=== PATIENT | female | born 1945 | race Caucasian/White ===

== ENCOUNTER → 2017-09-07 09:41 | Outpatient (CLI) | payer MEDICARE, OTHER, SELFPAY ==
--- NOTE | 2017-09-07 09:47 | CDU_ITS ---
Reason For Study: Bruit Rt. Velocities/BP Lt. Velocities/BP Prox CCA 63/13 cm/sec. Prox CCA 77/11 cm/sec. Mid CCA 65/11 cm/sec. Mid CCA 74/10 cm/sec. Dist CCA 56/12 cm/sec. Dist CCA 71/12 cm/sec. Prox ICA 52/13 cm/sec. Prox ICA 104/15 cm/sec. Mid ICA 54/14 cm/sec. Mid ICA 60/19 cm/sec. Dist ICA 66/19 cm/sec. Dist ICA 75/21 cm/sec. Rt. ICA/CCA = 1.01. Lt. ICA/CCA = 1.40. Prox ECA 128/4 cm/sec. Prox ECA 141/8 cm/sec. Rt. Vert. 43/9 cm/sec. Lt. Vert. 46/13 cm/sec. Right Extracranial There is heterogeneous, irregular atherosclerotic plaque noted in the right common carotid artery. There is heterogeneous, irregular atherosclerotic plaque noted in the right internal carotid artery. There is heterogeneous, irregular atherosclerotic plaque noted in the right external carotid artery. Antegrade flow is noted in the right vertebral artery. Left Extracranial There is heterogeneous, irregular atherosclerotic plaque noted in the left common carotid artery. There is heterogeneous, irregular atherosclerotic plaque noted in the left internal carotid artery. There is heterogeneous, irregular atherosclerotic plaque noted in the left external carotid artery. Antegrade flow is noted in the left vertebral artery. Procedure Carotid Duplex 71088. Exam performed in department. 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 <50% stenosis right internal carotid Calcific plague with shadowing at the distal left common carotid, proximal external and internal carotid arteries. <50% stenosis left internal carotid Mild disease bilateral external carotids Patent and antegrade vertebrals bilaterally No significant change from the previous exam of 03/17/16 Ordering Physician: Coco, Dennis Referring Physician: Gudelia Gardiner Performed By: Rafaela Tejeda, DINA, RVT
--- NOTE | 2017-09-07 09:47 | ECHOD_ITS ---
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 Exam performed in department. Left Ventricle Normal LV size. Left ventricular systolic function is normal. The estimated ejection fraction is 60 %. Transmitral diastolic flow velocities suggest mild (stage 1) diastolic dysfunction (reversed pattern). No regional wall motion abnormalities noted. Right Ventricle Normal RV size. Normal systolic function. Atria Normal left atrium. Normal right atrium. Mitral Valve There is mild mitral annular calcification. Mild (1+) eccentric mitral valve insufficiency. Tricuspid Valve Normal tricuspid valve. Mild (1+) tricuspid valve insufficiency. Pulmonary artery systolic pressure is 23 mmHg. Aortic Valve Trisinus/trileaflet aortic valve. Mild focal aortic valve calcification. Peak aortic valve gradient 45 mmHg. Mean aortic valve gradient 28 mmHg. Moderate aortic stenosis. Mild (1+) eccentric aortic valve insufficiency. Pulmonic Valve Normal pulmonic valve. Trivial pulmonic valve insufficiency. Great Vessels Normal aortic root. The pulmonary artery is normal size. Normal inferior vena cava. Pericardium/Pleural No pericardial effusion. MMode/2D Measurements & Calculations LVIDd: 4.1 cm IVSd: 0.90 cm LVOT diam: 2.0 cm LVIDs: 2.4 cm LVPWd: 1.0 cm LVOT area: 3.2 cm2 RVDd: 2.8 cm FS: 42.4 % Ao root diam: 2.9 cm LAV(MOD-sp4): 61.0 ml EDV(MOD-sp4): 58.3 ml ESV(MOD-sp4): 13.5 ml EF(MOD-sp4): 76.9 % EDV(MOD-sp2): 50.8 ml SV(MOD-sp4): 44.8 ml SV(MOD-sp2): 37.9 ml EF(MOD-sp2): 74.5 % Aortic Valve Planimetry: 0.85 cm2 LA A4 area: 21.2 cm2 RA A4 area: 13.6 cm2 Doppler Measurements & Calculations MV E max morgan: 109.6 cm/sec Lat Peak E' Morgan: 3.5 cm/sec Med Peak E' Morgan: 3.6 cm/sec MV A max morgan: 137.6 cm/sec E/E' lat: 30.9 E/E' med: 30.3 MV E/A: 0.80 MV V2 max: 154.1 cm/sec Ao V2 max: 335.9 cm/sec AI max morgan: 422.9 cm/sec MV max P.5 mmHg Ao max P.2 mmHg AI max P.6 mmHg MV V2 mean: 92.6 cm/sec Ao V2 mean: 254.5 cm/sec AI dec slope: 282.6 cm/sec2 MV mean P.7 mmHg Ao mean P.0 mmHg AI P1/2t: 438.3 msec MV V2 VTI: 41.0 cm Ao V2 VTI: 78.6 cm MVA(VTI): 1.7 cm2 ANA(I,D): 0.86 cm2 ANA(V,D): 0.87 cm2 LV V1 max: 90.8 cm/sec SV(LVOT): 67.9 ml TR max morgan: 220.9 cm/sec LV V1 max P.3 mmHg TR max P.5 mmHg LV V1 mean P.9 mmHg LV V1 mean: 64.9 cm/sec LV V1 VTI: 21.0 cm Interpretation Summary Normal LV size. Left ventricular systolic function is normal. The estimated ejection fraction is 60 %. Transmitral diastolic flow velocities suggest mild (stage 1) diastolic dysfunction (reversed pattern). There is mild mitral annular calcification. Moderate aortic stenosis. Mild (1+) eccentric aortic valve insufficiency. Ordering Physician: Dennis Sepulveda Referring Physician: CAMILLA MASTERS Performed By: Ana Cornell, RDCS, RVT
== END ==
PROVIDERS: Family Provider Family Medicine; PCP Family Medicine; Visit Provider Internal Medicine Cardiovascular Disease
DX: I34.8 Other nonrheumatic mitral valve disorders (principal); I10 Essential (primary) hypertension; E78.5 Hyperlipidemia, unspecified; R09.89 Other specified symptoms and signs involving the circulatory and respiratory systems; Z79.899 Other long term (current) drug therapy
CPT/HCPCS: 93306; 93880

== ENCOUNTER → 2017-09-08 10:02 | Outpatient (CLI) | payer MEDICARE, OTHER, SELFPAY ==
[2017-09-08 12:34] LABS: AST(SGOT) 19 U/L (15-37); Alanine Aminotransfer ALT/SGPT 23 U/L (13-56); Albumin, Serum 3.7 g/dL (3.2-5.0); Alkaline Phosphatase 74 U/L (45-117); Anion Gap 12 (5-15); BUN 17 mg/dL (7-18); BUN/Creat Ratio 19.7 RATIO (10-20); Bilirubin, Direct 0.12 mg/dL (0.00-0.30); Chloride 104 mmol/L (98-107); Cholesterol 132 mg/dL (200); Creatinine, Serum 0.86 mg/dL (0.55-1.02); EST Glomerular Filtration Rate 68 mL/min (>60); Est Glom Filt Rate - Afr Amer 83 mL/min (>60); Glucose 107 mg/dL (74-106); High Density Lipoprotein 33 mg/dL; Potassium 3.9 mmol/L (3.5-5.1); Protein, Total 7.7 g/dL (6.4-8.2); Sodium Level 141 mmol/L (136-145); Triglycerides 143 mg/dL; Very Low Density Lipoprotein 29 mg/dL (5-40)
[2017-09-08 12:40] LABS: Hemoglobin A1c 6.9 % (4.2-6.3)
[2017-09-08 12:50] LABS: Microalbumin,Random Urine 42.2 mg/L (NO RANGE EST.); Microalbumin:Creatinine Ratio 47.6 mg/g CRE (<30 mg/g CRE)
== END ==
PROVIDERS: Family Provider Family Medicine; PCP Family Medicine; Visit Provider Family Medicine
DX: E11.9 Type 2 diabetes mellitus without complications (principal)
CPT/HCPCS: 36415; 80048; 80061; 80076; 82043; 82570; 83036

== ENCOUNTER → 2018-03-16 09:42 | Outpatient (CLI) | payer MEDICARE, OTHER, SELFPAY ==
[2018-03-16 12:27] LABS: Anion Gap 12 (5-15); BUN 19 mg/dL (7-18); BUN/Creat Ratio 21.4 RATIO (10-20); Calcium,Total 9.3 mg/dL (8.5-10.1); Chloride 105 mmol/L (98-107); Creatinine, Serum 0.89 mg/dL (0.55-1.02); EST Glomerular Filtration Rate 66 mL/min (>60); Est Glom Filt Rate - Afr Amer 80 mL/min (>60); Glucose 94 mg/dL (74-106); Potassium 4.1 mmol/L (3.5-5.1); Sodium Level 142 mmol/L (136-145); T4 Total, Thyroxin 10.9 ug/dL (4.8-13.9); Thyroid Stim Hormone (TSH) 1.32 uIU/mL (0.358-3.74)
== END ==
PROVIDERS: Family Provider Family Medicine; PCP Family Medicine; Visit Provider Family Medicine
DX: E03.9 Hypothyroidism, unspecified (principal); E11.9 Type 2 diabetes mellitus without complications
CPT/HCPCS: 36415; 80048; 84436; 84443

== ENCOUNTER → 2018-08-17 07:57 | Outpatient (CLI) | payer MEDICARE, OTHER, SELFPAY ==
--- NOTE | 2018-08-17 08:01 | BI_ITS ---
MAMMOGRAPHY - UNILATERAL SCREENING: LEFT BREAST REASON FOR EXAM: Female, 72 years old. Routine annual screening examination (unilateral). PERTINENT HISTORY: Personal history of breast cancer. The patient is status post right mastectomy. TECHNIQUE: Digital unilateral breast queta (3D mammographic acquisition) in the CC and MLO projections. 2-D mediolateral oblique (MLO) and craniocaudad (CC) views of both breasts were obtained. CAD: Full Field Digital Mammography with Computer Added Detection was performed. COMPARISON: Comparison is made with prior study dated December 24, 2015 and September 28, 2014. FINDINGS: Breast Composition: There are scattered areas of fibroglandular density. There are no dominant masses or suspicious calcifications. Stable small left axillary lymph nodes. No other significant abnormalities are identified. There has been no significant change since the prior study. BI/UNILAT LT SCRN W/CAD IMPRESSION: Stable unilateral screening mammogram. Yearly follow-up mammogram recommended. (A) ASSESSMENT CATEGORY: BIRADS Category 2: Benign. A letter regarding these results will be sent to the patient by the facility within 30 days. Approximately 10% of breast cancers are not detected by mammography. A normal mammogram should not delay biopsy of a clinically suspicious abnormality. [id number] Electronically Signed: Norberto Blackwell, at 10:38 EDT , Service support ,
== END ==
PROVIDERS: Family Provider Family Medicine; PCP Family Medicine; Referring Provider Family Medicine; Visit Provider Family Medicine
DX: Z12.31 Encounter for screening mammogram for malignant neoplasm of breast (principal)
CPT/HCPCS: 77061; 77063; 77067; G0279

== ENCOUNTER → 2018-09-17 07:51 | Outpatient (CLI) | payer MEDICARE, OTHER, SELFPAY ==
[2017-09-15 10:09] VITALS: BMI 43.4
[2018-09-17 10:22] LABS: Hemoglobin A1c 6.8 % (4.2-6.3)
[2018-09-17 10:37] LABS: AST(SGOT) 25 U/L (15-37); Alanine Aminotransfer ALT/SGPT 30 U/L (13-56); Albumin, Serum 3.7 g/dL (3.2-5.0); Alkaline Phosphatase 76 U/L (45-117); Anion Gap 10 (5-15); BUN 19 mg/dL (7-18); BUN/Creat Ratio 22.5 RATIO (10-20); Calcium,Total 9.3 mg/dL (8.5-10.1); Chloride 108 mmol/L (98-107); Cholesterol 149 mg/dL (200); Creatinine, Serum 0.85 mg/dL (0.55-1.02); EST Glomerular Filtration Rate 70 mL/min (>60); Est Glom Filt Rate - Afr Amer 84 mL/min (>60); Globulin 3.9 g/dL (2.2-4.2); Glucose 125 mg/dL (74-106); High Density Lipoprotein 37 mg/dL; Potassium 4.1 mmol/L (3.5-5.1); Protein, Total 7.6 g/dL (6.4-8.2); Sodium Level 143 mmol/L (136-145); Triglycerides 208 mg/dL; Very Low Density Lipoprotein 42 mg/dL (5-40)
[2018-09-17 12:59] LABS: Microalbumin:Creatinine Ratio 92.3 mg/g CRE (<30 mg/g CRE)
== END ==
PROVIDERS: Family Provider Family Medicine; PCP Family Medicine; Referring Provider Family Medicine; Visit Provider Family Medicine
DX: E11.9 Type 2 diabetes mellitus without complications (principal)
CPT/HCPCS: 36415; 80048; 80061; 80076; 82043; 82570; 83036

== ENCOUNTER → 2018-10-14 07:46 | Outpatient (CLI) | payer MEDICARE, OTHER, SELFPAY ==
[2018-09-21 09:44] VITALS: BMI 43.7
--- NOTE | 2018-10-14 07:48 | ECHOD_ITS ---
Reason For Study: MURMUR Procedure This was a 2D Doppler, Color Flow transthoracic echocardiogram. Exam performed in department. Left Ventricle Normal LV size. Left ventricular systolic function is normal. The estimated ejection fraction is 65 %. No regional wall motion abnormalities noted. Right Ventricle Normal RV size. Normal systolic function. Atria Normal left atrium. Normal right atrium. Mitral Valve Moderate focal mitral valve calcification, bileaflet. There is mild to moderate mitral annular calcification. Mild-Moderate (1-2+) eccentric mitral valve insufficiency. Tricuspid Valve Normal tricuspid valve. Mild tricuspid valve insufficiency. Aortic Valve Trisinus/trileaflet aortic valve. Mild focal aortic valve calcification. Peak aortic valve gradient 38 mmHg. Mean aortic valve gradient 25 mmHg. Moderate aortic stenosis. Mild (1+) aortic valve insufficiency. Pulmonic Valve Normal pulmonic valve. Mild (1+) pulmonic valve insufficiency. Great Vessels Normal aortic root. The pulmonary artery is normal size. Normal inferior vena cava. Pericardium/Pleural No pericardial effusion. MMode/2D Measurements & Calculations LVIDd: 4.6 cm IVSd: 0.76 cm LVOT diam: 2.0 cm LVIDs: 2.9 cm LVPWd: 0.90 cm LVOT area: 3.1 cm2 RVDd: 3.2 cm FS: 36.8 % Ao root diam: 3.1 cm LAV(MOD-bp): 53.2 ml Aortic Valve Planimetry: 0.79 cm2 LAV(MOD-bp) Indexed: 31.7 ml/m2 LAV(MOD-sp2): 43.0 ml LAV(MOD-sp4): 56.3 ml LA dimension(2D): 4.3 cm LA A4 area: 20.5 cm2 RA A4 area: 15.0 cm2 Time Measurements MV dec time: 0.32 sec Doppler Measurements & Calculations MV E max morgan: 121.4 cm/sec Lat Peak E' Morgan: 2.1 cm/sec Med Peak E' Morgan: 2.4 cm/sec MV A max morgan: 143.5 cm/sec E/E' lat: 58.8 E/E' med: 50.2 MV E/A: 0.85 MV V2 max: 154.4 cm/sec Ao V2 max: 310.2 cm/sec AI max morgan: 401.9 cm/sec MV max P.5 mmHg Ao max P.6 mmHg AI max P.0 mmHg MV V2 mean: 93.1 cm/sec Ao V2 mean: 241.3 cm/sec AI dec slope: 277.9 cm/sec2 MV mean P.9 mmHg Ao mean P.0 mmHg AI P1/2t: 423.5 msec MV V2 VTI: 41.2 cm Ao V2 VTI: 73.0 cm MVA(VTI): 1.3 cm2 ANA(I,D): 0.72 cm2 ANA(V,D): 0.68 cm2 LV V1 max: 68.4 cm/sec SV(LVOT): 52.4 ml PA V2 max: 89.4 cm/sec LV V1 max P.9 mmHg LV V1 mean P.1 mmHg LV V1 mean: 49.5 cm/sec LV V1 VTI: 17.0 cm TR max morgan: 194.4 cm/sec MV P1/2t-pr_phl: 109.6 msec TR max P.1 mmHg Interpretation Summary Normal LV size. Left ventricular systolic function is normal. The estimated ejection fraction is 65 %. Peak aortic valve gradient 38 mmHg. Mean aortic valve gradient 25 mmHg. Moderate aortic stenosis. The global longitudinal strain is normal. The global longitudinal strain = -19.6 % (normal). Compared to prior study, there is no significant change. Ordering Physician: Dennis Sepulveda Referring Physician: CAMILLA MASTERS Performed By: Ana Cornell, RDCS, RVT
== END ==
PROVIDERS: Family Provider Family Medicine; PCP Family Medicine; Referring Provider Internal Medicine Cardiovascular Disease; Visit Provider Internal Medicine Cardiovascular Disease
DX: I25.10 Atherosclerotic heart disease of native coronary artery without angina pectoris (principal)
CPT/HCPCS: 93306

== ENCOUNTER → 2019-03-16 10:36 | Outpatient (CLI) | payer MEDICARE, OTHER, SELFPAY ==
[2018-09-21 09:44] VITALS: BMI 43.7
[2019-03-16 12:39] LABS: Anion Gap 8 (5-15); BUN 20 mg/dL (7-18); BUN/Creat Ratio 21.8 RATIO (10-20); Calcium,Total 9.2 mg/dL (8.5-10.1); Chloride 108 mmol/L (98-107); Creatinine, Serum 0.92 mg/dL (0.55-1.02); EST Glomerular Filtration Rate 63 mL/min (>60); Est Glom Filt Rate - Afr Amer 77 mL/min (>60); Glucose 108 mg/dL (74-106); Potassium 4.1 mmol/L (3.5-5.1); Sodium Level 139 mmol/L (136-145)
== END ==
PROVIDERS: Family Provider Family Medicine; PCP Family Medicine; Referring Provider Family Medicine; Visit Provider Family Medicine
DX: E11.9 Type 2 diabetes mellitus without complications (principal)
CPT/HCPCS: 36415; 80048

== ENCOUNTER → 2019-09-16 10:06 | Outpatient (CLI) | payer MEDICARE, OTHER, SELFPAY ==
[2018-09-21 09:44] VITALS: BMI 43.7
[2019-09-16 13:54] LABS: Anion Gap 8 (5-15); BUN 21 mg/dL (7-18); BUN/Creat Ratio 24.3 RATIO (10-20); Calcium,Total 9.8 mg/dL (8.5-10.1); Chloride 107 mmol/L (98-107); Creatinine, Serum 0.86 mg/dL (0.55-1.02); EST Glomerular Filtration Rate 68 mL/min (>60); Est Glom Filt Rate - Afr Amer 82 mL/min (>60); Glucose 112 mg/dL (74-106); Potassium 4.2 mmol/L (3.5-5.1); Sodium Level 139 mmol/L (136-145); T4 Total, Thyroxin 10.4 ug/dL (4.8-13.9); Thyroid Stim Hormone (TSH) 1.17 uIU/mL (0.358-3.74)
[2019-09-16 14:06] LABS: Hemoglobin A1c 7.5 % (4.2-6.3)
== END ==
PROVIDERS: PCP Family Medicine; Referring Provider Family Medicine; Visit Provider Family Medicine
DX: E03.9 Hypothyroidism, unspecified (principal); E11.9 Type 2 diabetes mellitus without complications
CPT/HCPCS: 36415; 80048; 83036; 84436; 84443

== ENCOUNTER → 2019-09-28 07:17 | Outpatient (CLI) | payer MEDICARE, OTHER, SELFPAY ==
[2018-09-21 09:44] VITALS: BMI 43.7
--- NOTE | 2019-09-28 07:26 | BI_ITS ---
MAMMOGRAPHY - UNILATERAL SCREENING: LEFT BREAST REASON FOR EXAM: Female, 73 years old. Routine annual screening examination (unilateral). PERTINENT HISTORY: Personal history of breast cancer. Prior right mastectomy. TECHNIQUE: Digital unilateral breast rusty (3D mammographic acquisition) in the CC and MLO projections. 2-D mediolateral oblique (MLO) and craniocaudad (CC) views of both breasts were obtained. CAD: Full Field Digital Mammography with Computer Added Detection was performed. COMPARISON: Comparison is made with prior examination dated August 17, 2018 and December 24, 2015. FINDINGS: Breast Composition: The breasts are almost entirely fatty. There are no dominant masses or suspicious calcifications. Stable small left axillary lymph nodes. Stable secretory calcifications in the left breast. No other significant abnormalities are identified. There has been no significant change since the prior study. BI/SCREEN MAMM (CAD) W/RUSTY UNI L IMPRESSION: Stable unilateral screening mammogram. Yearly follow-up mammogram recommended. (A) ASSESSMENT CATEGORY: BIRADS Category 2: Benign. A letter regarding these results will be sent to the patient by the facility within 30 days. Approximately 10% of breast cancers are not detected by mammography. A normal mammogram should not delay biopsy of a clinically suspicious abnormality. [id number] Electronically Signed: Norberto Blackwell, at 8:27 EDT , Service support ,
== END ==
PROVIDERS: PCP Family Medicine; Referring Provider Family Medicine; Visit Provider Family Medicine
DX: Z12.31 Encounter for screening mammogram for malignant neoplasm of breast (principal); Z85.3 Personal history of malignant neoplasm of breast; Z90.11 Acquired absence of right breast and nipple
CPT/HCPCS: 77063; 77067

== ENCOUNTER → 2020-03-23 09:38 | Outpatient (CLI) | payer MEDICARE, OTHER, SELFPAY ==
[2018-09-21 09:44] VITALS: BMI 43.7
[2020-03-23 12:54] LABS: Anion Gap 7 (5-15); BUN 20 mg/dL (7-18); Calcium,Total 9.3 mg/dL (8.5-10.1); Chloride 108 mmol/L (98-107); Creatinine, Serum 0.91 mg/dL (0.55-1.02); EST Glomerular Filtration Rate 64 mL/min (>60); Est Glom Filt Rate - Afr Amer 77 mL/min (>60); Glucose 121 mg/dL (74-106); Potassium 3.9 mmol/L (3.5-5.1); Sodium Level 139 mmol/L (136-145); T4 Total, Thyroxin 9.7 ug/dL (4.8-13.9)
== END ==
PROVIDERS: PCP Family Medicine; Visit Provider Family Medicine
DX: E11.9 Type 2 diabetes mellitus without complications (principal); E03.9 Hypothyroidism, unspecified
CPT/HCPCS: 36415; 80048; 83036; 84436; 84443

== ENCOUNTER → 2020-08-03 11:16 | Outpatient (CLI) | payer MEDICARE, OTHER, SELFPAY ==
[2018-09-21 09:44] VITALS: BMI 43.7
[2020-08-03 12:58] LABS: Vitamin B12 297 pg/mL (211-911)
[2020-08-03 13:36] LABS: Anion Gap 9 (5-15); BUN 28 mg/dL (7-18); BUN/Creat Ratio 30.6 RATIO (10-20); Calcium,Total 9.2 mg/dL (8.5-10.1); Chloride 107 mmol/L (98-107); Creatinine, Serum 0.92 mg/dL (0.55-1.02); EST Glomerular Filtration Rate 63 mL/min (>60); Est Glom Filt Rate - Afr Amer 77 mL/min (>60); Glucose 105 mg/dL (74-106); Sodium Level 140 mmol/L (136-145)
== END ==
PROVIDERS: PCP Family Medicine; Referring Provider Family Medicine; Visit Provider Family Medicine
DX: E11.40 Type 2 diabetes mellitus with diabetic neuropathy, unspecified (principal)
CPT/HCPCS: 36415; 80048; 82607; 82746

== ENCOUNTER → 2020-08-08 14:28 | Outpatient (CLI) | payer MEDICARE, OTHER, SELFPAY ==
[2020-08-08 11:35] VITALS: BMI 33.7
[2020-08-08 15:12] LABS: Absolute Lymphocyte Count 2.28 X10^3/uL (0.83-4.51); Basophil# 0.07 X10^3/uL; Basophil% 0.9 % (0-1); Eosinophil# 0.25 X10^3/uL; Eosinophils% 3.3 % (0-5); Hematocrit 37.8 % (37-47); Hemoglobin 12.4 g/dL (12.0-15.0); Lymphocyte # 2.28 X10^3/ul (4.0); Lymphocyte % 30.1 % (19-41); Mean Corp Hgb Conc 32.8 g/dL (32-36); Mean Corpuscular Hgb 30.3 pg (27.0-32.0); Mean Corpuscular Volume 92.4 fL (81-99); Mean Platelet Vol. 9.8 fl (6.2-12.0); Monocyte# 0.88 X10^3/uL; Monocyte% 11.6 % (0-10); NRBC Flagged by Analyzer 0 % (0-5); Neutrophil # 4.03 X10^3/uL (2.7-7.7); Neutrophil % 53.3 % (47-70); Platelet Count 260 K/mm3 (150-450); RBC Distribution Width CV 13.9 % (11.6-14.6); RBC Distribution Width SD 46.5 fl (35.1-43.9); Red Blood Count 4.09 M/mm3 (4.2-5.4); White Blood Count 7.6 K/mm3 (4.4-11.0)
[2020-08-08 16:07] LABS: AST(SGOT) 18 U/L (15-37); Alanine Aminotransfer ALT/SGPT 27 U/L (13-56); Albumin, Serum 3.5 g/dL (3.2-5.0); Alkaline Phosphatase 73 U/L (45-117); Anion Gap 8 (5-15); BUN 23 mg/dL (7-18); BUN/Creat Ratio 22.1 RATIO (10-20); Bilirubin, Direct 0.11 mg/dL (0.00-0.30); Calcium,Total 9.2 mg/dL (8.5-10.1); Chloride 109 mmol/L (98-107); Cholesterol 161 mg/dL (200); Creatinine, Serum 1.04 mg/dL (0.55-1.02); EST Glomerular Filtration Rate 55 mL/min (>60); Est Glom Filt Rate - Afr Amer 66 mL/min (>60); Globulin 3.8 g/dL (2.2-4.2); Glucose 126 mg/dL (74-106); High Density Lipoprotein 38 mg/dL; Protein, Total 7.3 g/dL (6.4-8.2); Sodium Level 140 mmol/L (136-145); Thyroid Stim Hormone (TSH) 1.03 uIU/mL (0.358-3.74); Triglycerides 191 mg/dL; Very Low Density Lipoprotein 38 mg/dL (5-40)
== END ==
PROVIDERS: PCP Family Medicine; Referring Provider Internal Medicine Cardiovascular Disease; Visit Provider Internal Medicine Cardiovascular Disease
DX: E78.00 Pure hypercholesterolemia, unspecified (principal); E78.5 Hyperlipidemia, unspecified; I05.9 Rheumatic mitral valve disease, unspecified; I10 Essential (primary) hypertension; I25.10 Atherosclerotic heart disease of native coronary artery without angina pectoris; I35.0 Nonrheumatic aortic (valve) stenosis
CPT/HCPCS: 36415; 80048; 80061; 80076; 84443; 85025

== ENCOUNTER → 2020-08-22 12:59 | Outpatient (CLI) | payer MEDICARE, OTHER, SELFPAY ==
[2020-08-08 11:35] VITALS: BMI 33.7
--- NOTE | 2020-08-22 13:01 | ECHOD_ITS ---
Reason For Study: Murmur Procedure This was a 2D Doppler, Color Flow transthoracic echocardiogram. Exam performed in department. Left Ventricle Normal LV size. Left ventricular systolic function is normal. The estimated ejection fraction is 60 %. Stage 1 diastolic dysfunction. No regional wall motion abnormalities noted. Right Ventricle Normal RV size. Normal systolic function. Atria Normal left atrium. Normal right atrium. Mitral Valve There is mild mitral annular calcification. Mild (1+) eccentric mitral valve insufficiency. Tricuspid Valve Normal tricuspid valve. Mild tricuspid valve insufficiency. Aortic Valve Trisinus/trileaflet aortic valve. Mild focal aortic valve calcification. Peak aortic valve gradient 52 mmHg. Mean aortic valve gradient 31 mmHg. Calculated aortic valve area (continuity equation) is 1.0 cm2. Moderate aortic stenosis. Mild (1+) aortic valve insufficiency. Pulmonic Valve Normal pulmonic valve. Trivial pulmonic valve insufficiency. Great Vessels Calcified aortic root. The pulmonary artery is normal size. Normal inferior vena cava. Pericardium/Pleural No pericardial effusion. MMode/2D Measurements & Calculations LVIDd: 4.0 cm IVSd: 1.1 cm LVOT diam: 2.0 cm LVIDs: 2.4 cm LVPWd: 0.99 cm LVOT area: 3.1 cm2 RVDd: 3.2 cm FS: 40.0 % Ao root diam: 2.7 cm LAV(MOD-bp): 59.1 ml LVAd ap4: 19.9 cm2 ACS: 0.54 cm LAV(MOD-bp) Indexed: 34.9 ml/m2 LVLd ap4: 5.8 cm LAV(MOD-sp2): 62.7 ml EDV(MOD-sp4): 56.8 ml LAV(MOD-sp4): 54.2 ml EDV(sp4-el): 58.6 ml LVAs ap4: 10.1 cm2 LVLs ap4: 4.9 cm ESV(MOD-sp4): 18.8 ml ESV(sp4-el): 17.8 ml EF(MOD-sp4): 66.8 % EF(sp4-el): 69.6 % SV(MOD-sp4): 37.9 ml SV(sp4-el): 40.8 ml LA A4 area: 19.7 cm2 LA dimension(2D): 4.1 cm RA A4 area: 10.6 cm2 Time Measurements MV dec time: 0.40 sec Doppler Measurements & Calculations MV E max morgan: 133.7 cm/sec Lat Peak E' Morgan: 3.2 cm/sec Med Peak E' Morgan: 2.7 cm/sec MV A max morgan: 120.2 cm/sec E/E' lat: 41.4 E/E' med: 50.1 MV E/A: 1.1 MV V2 max: 141.2 cm/sec MV P1/2t max morgan: 132.1 cm/sec Ao V2 max: 360.1 cm/sec MV max P.0 mmHg MV P1/2t: 117.0 msec Ao max P.9 mmHg MV V2 mean: 94.9 cm/sec Ao V2 mean: 267.1 cm/sec MV mean P.9 mmHg MV dec slope: 330.9 cm/sec2 Ao mean P.2 mmHg MV V2 VTI: 48.8 cm MVA(P1/2t): 1.9 cm2 Ao V2 VTI: 85.9 cm MVA(VTI): 1.8 cm2 ANA(I,D): 1.0 cm2 ANA(V,D): 0.98 cm2 AI max morgan: 354.7 cm/sec LV V1 max: 113.7 cm/sec SV(LVOT): 89.7 ml AI max P.3 mmHg LV V1 max P.2 mmHg LV V1 mean P.0 mmHg AI dec slope: 141.4 cm/sec2 LV V1 mean: 83.0 cm/sec AI P1/2t: 734.6 msec LV V1 VTI: 28.8 cm PA V2 max: 83.8 cm/sec TR max morgan: 211.9 cm/sec TR max P.0 mmHg ECHO/Echo Complete Interpretation Summary Normal LV size. Left ventricular systolic function is normal. The estimated ejection fraction is 60 %. Stage 1 diastolic dysfunction. Mild focal aortic valve calcification. Mean aortic valve gradient 31 mmHg. Moderate aortic stenosis. Mild (1+) aortic valve insufficiency. The aortic valve is mildly worse. Ordering Physician: Dennis Sepulveda Referring Physician: Gudelia Gardiner Performed By: Rafaela Tejeda, DINA, RVT
== END ==
PROVIDERS: PCP Family Medicine; Referring Provider Internal Medicine Cardiovascular Disease; Visit Provider Internal Medicine Cardiovascular Disease
DX: I25.10 Atherosclerotic heart disease of native coronary artery without angina pectoris (principal)
CPT/HCPCS: 93306

== ENCOUNTER → 2020-09-18 11:48 | Outpatient (CLI) | payer MEDICARE, OTHER, SELFPAY ==
[2020-08-08 11:35] VITALS: BMI 33.7
--- NOTE | 2020-09-18 11:52 | CT_ITS ---
STUDY: CT ABDOMEN AND PELVIS WITH CONTRAST REASON FOR EXAM: Female, 74 years old. Left lower quadrant pain, fever RADIATION DOSAGE (If Supplied By Facility): CTDIvol = ( 17.65 ) mGy, DLP = ( 909.25 ) mGycm TECHNIQUE: Transaxial images were obtained from the dome of the diaphragm to the symphysis pubis without oral contrast. Oral and amp;amp; IV Gastrografin and amp;amp; 100mL Isovue-300 was administered. Sagittal and coronal images were reconstructed. Individualized dose optimization techniques were used for this CT. COMPARISON: None. FINDINGS: The visualized lung bases are unremarkable. The visualized portions of the heart are within normal limits. There is decreased attenuation of the liver consistent with steatosis. Normal gallbladder and extrahepatic biliary system. Normal spleen. Normal pancreas. Normal bilateral adrenal glands. No obstructive uropathy, there are simple bilateral renal cysts, no specific follow-up needed. There is also a fatty containing lesion in the lower pole of the left kidney, likely angiomyolipoma. Also no specific follow-up is needed for this. Normal visualized stomach. Nondistended fluid-filled small bowel loops are noted consistent with ileus. Majority of the colon is fluid distended suggesting enteritis. There are scattered diverticula and at the junction of the distal descending and proximal sigmoid colon there is pericolonic inflammatory stranding with some mucosal thickening suggesting acute focal diverticulitis. No perforation or abscess is noted. This is best seen on axial images 69 through 77. An underlying lesion should be excluded 1 cc acute inflammatory changes have resolved. There is non-visualization of the appendix. There is diffuse atherosclerotic calcification of the abdominal aorta, without a demonstrated aneurysm. Normal inferior vena cava. Normal retroperitoneum. Normal urinary bladder. Uterus is present, the endometrium cannot be accurately evaluated with CT. There are multiple dystrophic calcifications in the uterus that likely represent involuted fibroids. Normal abdominal wall. There are diffuse degenerative changes of the visualized lumbar spine, and pelvis. CT/Abdomen/Pelvis WITH Contrast IMPRESSION: Acute focal diverticulitis without perforation or abscess at the junction of the distal descending and proximal sigmoid colon. 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
[2020-09-18 14:06] LABS: CREATININE FINGERSTICK 1.2 mg/dL (0.55-1.02)
== END ==
PROVIDERS: PCP Family Medicine; Referring Provider Family Medicine; Visit Provider Family Medicine
DX: K76.0 Fatty (change of) liver, not elsewhere classified (principal); R10.32 Left lower quadrant pain
CPT/HCPCS: 74177; Q9967

== ENCOUNTER → 2020-10-08 12:07 | Outpatient (CLI) | payer MEDICARE, OTHER, SELFPAY ==
[2020-08-08 11:35] VITALS: BMI 33.7
--- NOTE | 2020-10-08 13:32 | NEURO ---
NCS and/or EMG Patient Report Ordering Doctor: Gudelia Gardiner DATE OF SERVICE: 10/08/20 Indication: Several months of bilateral hand pain, numbness and tingling (left greater than right). History of DMII. No significant neck pain or radicular features. Evaluate for entrapment neuropathy. Findings: Nerve conduction studies were performed in the right and left upper extremities. The right median motor study recording the abductor pollicis brevis showed a borderline amplitude, normal distal latency and mildly slowed conduction velocity. The right ulnar motor study recording the abductor digiti minimi showed a normal amplitude, normal distal latency and normal conduction velocity. No conduction block or focal slowing was present across the elbow. The right median sensory response recording digit two showed a borderline amplitude, prolonged latency and slowed conduction velocity. The right ulnar sensory response recording digit five showed a normal amplitude, normal latency and normal conduction velocity. The right radial sensory response recording over the extensor snuff box showed a normal amplitude, latency and conduction velocity. The left median motor study recording the abductor pollicis brevis showed a borderline amplitude, prolonged distal latency and markedly slowed conduction velocity. The left ulnar motor study recording the abductor digiti minimi showed a normal amplitude, normal distal latency and normal conduction velocity. No conduction block or focal slowing was present across the elbow. The left median sensory response recording digit two showed an absent response. The left ulnar sensory response recording digit five showed a normal amplitude, mildly prolonged latency and borderline conduction velocity. The left radial sensory response recording over the extensor snuff box showed a normal amplitude, latency and conduction velocity. Right median-ulnar lumbrical / interosseous motor latencies showed a prolonged median latency compared to the ulnar. Left median-ulnar lumbrical / interosseous motor latencies showed a prolonged median latency compared to the ulnar. Needle EMG of the right and left upper extremities was performed. The cervical paraspinal muscles were not examined given the increased risk of the procedure (patient had oozing after examination of limb muscles in the setting of Plavix) and expected low yield. No denervation was seen in any muscle. In both upper extremities, the abductor pollicis brevis revealed reinnervated motor units. All other muscles revealed normal motor unit morphology, activation and recruitment patterns. Impression: This is an abnormal study. There is electrophysiologic evidence of median neuropathy across the wrist on both sides (mild on the right, moderately severe on the left). These findings are compatible with the clinical diagnosis of carpal tunnel syndrome. In addition, there is evidence of focal slowing of the left median nerve in the forearm as well as left ulnar nerve across Guyon's canal. These additional findings are of unclear significance. Further evaluation with neuromuscular ultrasound could be considered for further characterization. Denny Sung D.O.
== END ==
PROVIDERS: PCP Family Medicine; Referring Provider Family Medicine; Visit Provider Family Medicine
DX: E11.40 Type 2 diabetes mellitus with diabetic neuropathy, unspecified (principal)
CPT/HCPCS: 95886; 95913

== ENCOUNTER 2021-08-16 09:41 | Outpatient (CLI) | payer MEDICARE, OTHER, SELFPAY ==
--- NOTE | 2021-08-16 09:45 | ECHOD_ITS ---
Reason For Study: Murmur Procedure This was a 2D Doppler, Color Flow transthoracic echocardiogram. Exam performed in department. Left Ventricle Normal LV size. Mild concentric left ventricular hypertrophy. Left ventricular systolic function is normal. The estimated ejection fraction is 65 %. Stage 1 diastolic dysfunction. No regional wall motion abnormalities noted. Right Ventricle Normal RV size. Normal systolic function. Atria Normal left atrium. Normal right atrium. Mitral Valve There is mild mitral annular calcification. Mild (1+) eccentric mitral valve insufficiency. Tricuspid Valve Normal tricuspid valve. Aortic Valve Trisinus/trileaflet aortic valve. Mild focal aortic valve calcification. Peak aortic valve gradient 50 mmHg. Mean aortic valve gradient 30 mmHg. Moderate aortic stenosis. Mild (1+) aortic valve insufficiency. Pulmonic Valve Normal pulmonic valve. Great Vessels Normal aortic root. The pulmonary artery is normal size. Normal inferior vena cava. Pericardium/Pleural No pericardial effusion. MMode/2D Measurements & Calculations LVIDd: 3.8 cm IVSd: 1.2 cm LVOT diam: 2.0 cm LVIDs: 2.4 cm LVPWd: 1.2 cm LVOT area: 3.3 cm2 RVDd: 3.2 cm FS: 38.3 % MVA(traced): 1.1 cm2 Ao root diam: 3.0 cm LAV(MOD-bp): 61.3 ml ACS: 0.62 cm LAV(MOD-bp) Indexed: 37.3 ml/m2 LA dimension: 3.8 cm LAV(MOD-sp2): 60.4 ml LAV(MOD-sp4): 53.8 ml Aortic Valve Planimetry: 0.75 cm2 LA A4 area: 19.7 cm2 RA A4 area: 13.6 cm2 Time Measurements MV dec time: 0.38 sec Doppler Measurements & Calculations MV E max morgan: 110.4 cm/sec Lat Peak E' Morgan: 3.0 cm/sec Med Peak E' Morgan: 4.1 cm/sec MV A max morgan: 140.2 cm/sec E/E' lat: 36.4 E/E' med: 26.7 MV E/A: 0.79 MV V2 max: 150.1 cm/sec MV P1/2t max morgan: 123.9 cm/sec Ao V2 max: 353.3 cm/sec MV max P.1 mmHg MV P1/2t: 94.8 msec Ao max P.9 mmHg MV V2 mean: 83.7 cm/sec MV dec slope: 382.7 cm/sec2 Ao V2 mean: 260.3 cm/sec MV mean P.3 mmHg Ao mean P.8 mmHg MV V2 VTI: 43.5 cm MVA(P1/2t): 2.3 cm2 Ao V2 VTI: 82.7 cm MVA(VTI): 1.5 cm2 ANA(I,D): 0.78 cm2 ANA(V,D): 0.75 cm2 AI max morgan: 377.7 cm/sec LV V1 max: 81.1 cm/sec SV(LVOT): 64.5 ml AI max P.2 mmHg LV V1 max P.6 mmHg LV V1 mean P.5 mmHg AI dec slope: 230.9 cm/sec2 LV V1 mean: 58.2 cm/sec AI P1/2t: 479.0 msec LV V1 VTI: 19.7 cm PA V2 max: 87.1 cm/sec ECHO/Echo Complete Interpretation Summary Normal LV size. Mild concentric left ventricular hypertrophy. Left ventricular systolic function is normal. The estimated ejection fraction is 65 %. Stage 1 diastolic dysfunction. Moderate aortic stenosis. Mild (1+) aortic valve insufficiency. Compared to the previous the gradients across the aortic valve essentially unch anged. Ordering Physician: Lorri Cooper Referring Physician: Gudelia Gardiner M.D. Performed By: Husam De Los Santos RCS
== END 2021-08-16 23:59 | disposition home or self-care (01) ==
LOC: CVS 09:44
PROVIDERS: PCP Family Medicine; Referring Provider Physician Assistant Medical; Visit Provider Physician Assistant Medical
DX: I35.0 Nonrheumatic aortic (valve) stenosis (principal); R01.1 Cardiac murmur, unspecified
CPT/HCPCS: 93306

== ENCOUNTER → 2021-08-23 | Outpatient (CLI) | payer MEDICARE, OTHER, SELFPAY ==
[2021-08-23 13:41] LABS: AST(SGOT) 15 U/L (15-37); Alanine Aminotransfer ALT/SGPT 18 U/L (13-56); Albumin, Serum 3.5 g/dL (3.2-5.0); Alkaline Phosphatase 65 U/L (45-117); Anion Gap 8 (5-15); BUN 22 mg/dL (7-18); BUN/Creat Ratio 18.5 RATIO (10-20); Bilirubin, Direct 0.16 mg/dL (0.00-0.30); Calcium,Total 9.2 mg/dL (8.5-10.1); Chloride 106 mmol/L (98-107); Cholesterol 163 mg/dL (200); Creatinine, Serum 1.19 mg/dL (0.55-1.02); EST Glomerular Filtration Rate 47 mL/min (>60); Est Glom Filt Rate - Afr Amer 57 mL/min (>60); Globulin 3.9 g/dL (2.2-4.2); Glucose 93 mg/dL (74-106); High Density Lipoprotein 32 mg/dL; Potassium 3.8 mmol/L (3.5-5.1); Protein, Total 7.4 g/dL (6.4-8.2); Sodium Level 140 mmol/L (136-145); T4 Total, Thyroxin 10.6 ug/dL (4.8-13.9); Thyroid Stim Hormone (TSH) 1.28 uIU/mL (0.358-3.74); Triglycerides 142 mg/dL; Very Low Density Lipoprotein 28 mg/dL (5-40)
== END | disposition home or self-care (01) ==
LOC: MFPLAB 11:13
PROVIDERS: PCP Family Medicine; Referring Provider Family Medicine; Visit Provider Family Medicine
DX: E11.9 Type 2 diabetes mellitus without complications (principal); E03.9 Hypothyroidism, unspecified
CPT/HCPCS: 36415; 80048; 80061; 80076; 84436; 84443

== ENCOUNTER → 2022-01-10 | Outpatient (CLI) | payer MEDICARE, OTHER, SELFPAY ==
--- NOTE | 2022-01-10 18:18 | STRESSREP ---
Stress Test Report Pharmacologic myocardial perfusion stress test. 76-year-old lady with a history of chest pain. Resting EKG demonstrates sinus rhythm with a rate of 72 bpm resting blood pressure is 120/72 mmHg. 0.4 mg of regadenoson was infused per usual protocol followed by Intravenous saline flush injection continuous EKG monitoring was performed. The maximum heart rate was 81 bpm which was 57% of max impacted heart rate the maximum workload was 1 metabolic equivalent. At rest there were no ST or T wave changes noted suggest abnormal flow reserve and at peak infusion nonspecific ST changes were noted to be did not meet the criteria for ischemia. No clinical angina is noted. The final blood pressure is 116/70 mmHg. Myocardial perfusion protocol. 11.2 mCi of technetium 99m sestamibi was injected at rest. 0.4 mg of regadenoson was infused per usual protocol. At peak infusion 33.3 mCi of technetium 99m sestamibi was injected stress images were obtained stress and rest images were reconstructed and compared in the short axis vertical long horizontal long axis. Gated images were also obtained. Perfusion SPECT analysis: Review of the stress images demonstrate normal perfusion noted in all areas of the myocardium. The resting images similar demonstrate normal uptake of tracer noted in all areas of the myocardium. No areas of reversibility are noted to suggest ischemia. Gated SPECT analysis: The gated ejection fraction is 78%. Conclusion: Normal pharmacologic myocardial perfusion stress test. Preserved ejection fraction.
== END | disposition home or self-care (01) ==
LOC: CVS 07:01
PROVIDERS: PCP Family Medicine; Referring Provider Internal Medicine Cardiovascular Disease; Visit Provider Internal Medicine Cardiovascular Disease
DX: I25.10 Atherosclerotic heart disease of native coronary artery without angina pectoris (principal)
CPT/HCPCS: 78452; 93017; A9500; A4216; J2785

== ENCOUNTER → 2022-09-05 | Outpatient (CLI) | payer MEDICARE, OTHER, SELFPAY ==
[2022-09-05 13:12] LABS: AST(SGOT) 20 U/L (15-37); Alanine Aminotransfer ALT/SGPT 23 U/L (13-56); Albumin, Serum 3.5 g/dL (3.2-5.0); Alkaline Phosphatase 65 U/L (45-117); Anion Gap 8 (5-15); BUN 23 mg/dL (7-18); BUN/Creat Ratio 22.8 RATIO (10-20); Bilirubin, Direct 0.15 mg/dL (0.00-0.30); Calcium,Total 9.4 mg/dL (8.5-10.1); Chloride 108 mmol/L (98-107); Cholesterol 125 mg/dL (200); Creatinine, Serum 1.01 mg/dL (0.55-1.02); EST Glomerular Filtration Rate 56 mL/min (>60); Est Glom Filt Rate - Afr Amer 68 mL/min (>60); Globulin 3.9 g/dL (2.2-4.2); Glucose 154 mg/dL (74-106); High Density Lipoprotein 29 mg/dL; Protein, Total 7.4 g/dL (6.4-8.2); Sodium Level 142 mmol/L (136-145); Triglycerides 213 mg/dL; Very Low Density Lipoprotein 43 mg/dL (5-40)
== END | disposition home or self-care (01) ==
LOC: MFPLAB 10:33
PROVIDERS: PCP Family Medicine; Visit Provider Family Medicine
DX: E11.9 Type 2 diabetes mellitus without complications (principal)
CPT/HCPCS: 36415; 80048; 80061; 80076

== ENCOUNTER → 2022-10-22 | Outpatient (CLI) | payer MEDICARE, OTHER, SELFPAY ==
--- NOTE | 2022-10-22 13:53 | ECHOD_ITS ---
Reason For Study: MURMUR Procedure This was a 2D Doppler, Color Flow transthoracic echocardiogram. Exam performed in department. Left Ventricle Normal LV size. Left ventricular systolic function is normal. The estimated ejection fraction is 65 %. No regional wall motion abnormalities noted. Right Ventricle Normal RV size. Normal systolic function. Atria Normal left atrium. Normal right atrium. Mitral Valve There is mild mitral annular calcification. Mild (1+) eccentric mitral valve insufficiency. Tricuspid Valve Normal tricuspid valve. Mild (1+) tricuspid valve insufficiency. Pulmonary artery systolic pressure is 28 mmHg. Aortic Valve Trisinus/trileaflet aortic valve. Moderate focal aortic valve calcification. Peak aortic valve gradient 56 mmHg. Mean aortic valve gradient 34 mmHg. Moderate aortic stenosis. Calculated aortic valve area (continuity equation) is 0.88 cm2. Mild (1+) aortic valve insufficiency. Pulmonic Valve Normal pulmonic valve. Great Vessels Normal aortic root. The pulmonary artery is normal size. Inferior vena cava collapse with respiration. Pericardium/Pleural No pericardial effusion. MMode/2D Measurements & Calculations LVIDd: 4.3 cm IVSd: 0.91 cm LVOT diam: 2.0 cm LVIDs: 2.7 cm LVPWd: 1.1 cm LVOT area: 3.3 cm2 RVDd: 3.1 cm FS: 36.7 % Ao root diam: 2.6 cm LAV(MOD-bp): 37.3 ml LVAd ap4: 22.7 cm2 LAV(MOD-bp) Indexed: 22.5 ml/m2 LVLd ap4: 6.6 cm LAV(MOD-sp2): 33.4 ml EDV(MOD-sp4): 65.7 ml LAV(MOD-sp4): 38.5 ml EDV(sp4-el): 65.9 ml LVAs ap4: 12.1 cm2 LVLs ap4: 5.6 cm ESV(MOD-sp4): 23.4 ml ESV(sp4-el): 22.4 ml EF(MOD-sp4): 64.4 % EF(sp4-el): 66.0 % SV(MOD-sp4): 42.3 ml SV(sp4-el): 43.5 ml LA A4 area: 16.4 cm2 LA dimension(2D): 3.8 cm RA A4 area: 12.6 cm2 Time Measurements MV dec time: 0.30 sec Doppler Measurements & Calculations MV E max morgan: 137.6 cm/sec Lat Peak E' Morgan: 3.7 cm/sec Med Peak E' Morgan: 4.5 cm/sec MV A max morgan: 127.0 cm/sec E/E' lat: 37.2 E/E' med: 30.5 MV E/A: 1.1 MV V2 max: 151.8 cm/sec MV P1/2t max morgan: 154.3 cm/sec Ao V2 max: 375.0 cm/sec MV max P.2 mmHg MV P1/2t: 99.7 msec Ao max P.2 mmHg MV V2 mean: 105.1 cm/sec Ao V2 mean: 277.0 cm/sec MV mean P.9 mmHg MV dec slope: 453.4 cm/sec2 Ao mean P.9 mmHg MV V2 VTI: 45.3 cm MVA(P1/2t): 2.2 cm2 Ao V2 VTI: 95.9 cm AV (velocity ratio): 0.27 MVA(VTI): 1.9 cm2 ANA(I,D): 0.88 cm2 ANA(V,D): 0.82 cm2 AI max morgan: 388.4 cm/sec LV V1 max: 94.4 cm/sec SV(LVOT): 84.7 ml AI max P.3 mmHg LV V1 max P.6 mmHg LV V1 mean P.1 mmHg AI dec slope: 251.5 cm/sec2 LV V1 mean: 68.7 cm/sec AI P1/2t: 452.3 msec LV V1 VTI: 25.9 cm PA V2 max: 95.2 cm/sec TR max morgan: 246.3 cm/sec TR max P.3 mmHg ECHO/Echo Complete Interpretation Summary Normal LV size. Left ventricular systolic function is normal. The estimated ejection fraction is 65 %. Moderate focal aortic valve calcification. Mean aortic valve gradient 34 mmHg. Moderate aortic stenosis. Calculated aortic valve area (continuity equation) is 0.88 cm2. Mild (1+) aortic valve insufficiency. Compaed to the previous the above is essentially unchanged. Ordering Physician: Lorri Cooper/Dennis Sepulveda Referring Physician: Lorri Cooper Performed By: Vivian Pretty RDCS
== END | disposition home or self-care (01) ==
LOC: CVS 13:53
PROVIDERS: PCP Family Medicine; Referring Provider Physician Assistant Medical; Visit Provider Physician Assistant Medical
DX: I25.10 Atherosclerotic heart disease of native coronary artery without angina pectoris (principal); I08.0 Rheumatic disorders of both mitral and aortic valves
CPT/HCPCS: 93306

== ENCOUNTER 2022-10-29 15:00 | Outpatient (RCR) | payer MEDICARE, OTHER, SELFPAY ==
--- NOTE | 2022-09-17 15:27 | HP.PTEVAL ---
Patient's Visit Information CHRISTA ALEX is a 76 year old F referred to Physical Therapy by Dr. Gudelia Gardiner MD with a diagnosis of frequent falls, neuroapthy. Date of Evaluation: 09/17/22 Physical Therapist: Jere Rivera, DPT, OCS, CSCS - Visit Plan Frequency: 2x /Week Duration: 4-6 Weeks Plan: biodex balance test then 2x/week for 4-6 weeks for. 1/ FW weight shift comfort. 2. ankle and hip strength/general strength program for health to HEP, gastroc stretch. 3. vestibular balance challenges and functional balance - Subjective Dtr Macie present. Dr. gardiner sent over due to falls. Latest fall in June in [facility], tripped on own feet. Hurt her pride and scraped up knee. Had taken dog out and fel into her car. It was hard to get up, rolled in driveway and used cart to pull herself up. Two falls last summer and she tripped both times. Dtr says she stumbles with walking often. Wrists and back and hip hurt due to OA. No dizzy/spinning. 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 Feels weak. No regular ex. Spends day sewing. Does take dog out but not much walking. Lives alone, in one story with 3 steps with railing to enter and no problem. Dress self, cooks, shower , bath all I. Walk in shower with grab bars. No cane or walker, but might use walker. - Objective Walks slowly with short steps and lacks weight shift. multiple LOB during ambulation but no falls. Trasnfers without UE chair and bed I. steps require UE and two to come down adn tends to turn sideways to avoid forefoot WB. LE AROM WFL but gastroc tightness gets DF to -2 B. strength LE hip abd and ext 3 and flexion 3 and knee flex adn ext 4- and ankle DF 3+ and ev/inv 4-, PF 4-. Sensation In LE is at deficit in LE shins down to gross light touch and neuropathic gait pattern and lacking weight shift. reflexes 1/3 patella adn achilles B. - Balance/Special Test Scores Functional Gait Assessment Score: 19 % Disability: 36.6700 CATSIB Score (Max score 120 seconds): 98 Lower Extremity Functional Score: 22 - Goals Goal 1:: FGA 23/30 Goal Time Frame: 4-6 Weeks Goal 2:: Biodex balance test completed and reviewed. Goal Time Frame: 2 Weeks Goal 3:: Pt ambulate safely with wh walker without cues willingly Goal Time Frame: 2 Weeks Goal 4:: I appropr HEp to minimize future problems with balance and falling. Goal Time Frame: 4-6 Weeks Goal 5:: Pt feel 50% stronger overall in mobility Goal Time Frame: 4-6 Weeks Goal 6:: 42 LEFS score Goal Time Frame: 4-6 Weeks - Rehabilitation Potential Physical Therapy Diagnosis: imbalance likely neuroapthy. Rehabilitation Potential: Good - Anticipated Interventions Patient/Client Instruction: Educate patient on: Condition, Plan of Care For the Purpose of:: To improve muscle performance and motor function, To increase tolerance to activity/condition/position, To improve ability of physical actions for home/community/work/leisure, To improve gait and locomotor functions Therapeutic Exercise to Include: Strength training, Balance training, Flexibilty training, Gait and locomotor training For the Purpose of:: To improve nutrient delivery to tissue, To increase oxygenation perfusion, To improve muscle performance and motor function, To increase tolerance to activity/condition/position, To improve ability of physical actions for home/community/work/leisure, To improve gait and locomotor functions, To improve safety, To improve health and function Thank you for the opportunity to evaluate your patient. For Medicare and Medicare HMO plans, please review the plan of care and approve it. It will need to be FAXED BACK to us at [phone] for Medicare purposes. For Medicare only, by signing this I certify the plan of care. Please let me know if there are questions or concerns regarding this plan of care. Physician Signature: Date:
--- NOTE | 2022-09-18 13:15 | HP.PTCOM_ITS ---
PT Communication Note 09/18/[address] Gudelia Gardiner MD , Thank you for the referral of Marcy to [facility] for balance testing. I have enclosed a copy of her results for your review. In summation, she scored > 2 standard deviations from the norm on the Fall risk assessment eyes closed and the CTSIB eyes closed firm surface. She scored poorly with multiple loss of balance on backwards weight shift portion of the limits of Stability test. With these results in mind, I plan to see her 2x./week for 4 weeks for balance and general exercise per her plan of care. Thank you for this referral. Sincerely, ROSALIO MorelT, OCS, CSCS Contact Information
--- NOTE | 2022-10-29 15:53 | HP.PTREVAL ---
Re-Evaluation Intro: Dr. Gudelia Gardiner MD, It has been my pleasure to treat CHRISTA ALEX over the last 10 visits for frequent falls, neuroapthy. Please see the progress note below for an update on the physical therapy plan of care! Subjective Subjective: Balance is getting better. Not using walker as much at home. Not feeling dangerous. Uses walker away from house and in groups. Does hold on to people at times. Gets tired easy with walking still. Walking up and down [place] walking the dog, rests at times. Doing HEP at sink daily. Dtr present and says less shifting with walking. Objective Objective/Function: FGA is +6, very slow walking but better speed with wh walker. Steps are recirpocal with one rail with some R hip pain. LEFS +10 Looking good and will continue HEP Plan Plan Plan: f/u 2-3 weeks to check FGA, LEFS, steps and d/c if doing well or progress ex. Goal is to maintain improvements without regualr therapy and fair prognosis. Balance/Gait/Functional tests Balance/Special Test Scores Functional Gait Assessment Score: 25 % Disability: 16.6700 CATSIB Score (Max score 120 seconds): 98 Lower Extremity Functional Score: 33 Goals Goals Goal 1:: FGA 30 Goal Time Frame: 4-6 Weeks Goal Progress: Goal Met Goal 2:: Biodex balance test completed and reviewed. Goal Time Frame: 2 Weeks Goal Progress: Goal Met Goal 3:: Pt ambulate safely with wh walker without cues willingly Goal Time Frame: 2 Weeks Goal Progress: Goal Met Goal 4:: I appropr HEp to minimize future problems with balance and falling. Goal Time Frame: 4-6 Weeks Goal Progress: Goal Met Goal 5:: Pt feel 50% stronger overall in mobility Goal Time Frame: 4-6 Weeks Goal Progress: Goal Met Goal 6:: 42 LEFS score Goal Time Frame: 4-6 Weeks Goal Progress: Progressing+10 Anticipated Interventions Anticipated Interventions Patient/Client Instruction: Educate patient on: Condition and Plan of Care For the Purpose of:: To improve muscle performance and motor function, To increase tolerance to activity/condition/position, To improve ability of physical actions for home/community/work/leisure and To improve gait and locomotor functions Therapeutic Exercise to Include: Strength training, Balance training, Flexibilty training and Gait and locomotor training For the Purpose of:: To improve nutrient delivery to tissue, To increase oxygenation perfusion, To improve muscle performance and motor function, To increase tolerance to activity/condition/position, To improve ability of physical actions for home/community/work/leisure, To improve gait and locomotor functions, To improve safety and To improve health and function Re-Evaluation Ending Re-evaluation ending: Please do not hesitate to contact me at [phone] by phone or if you have questions or concerns regarding this new plan of care! Sincerely, Jere Rivera, DPT, OCS, CSCS
--- NOTE | 2022-12-16 10:13 | HP.PT.NRP ---
Patient Information Patient Information: CHRISTA ALEX was seen in my office for initial evaluation on 09/17/22. The following Plan of Care was established for this patient: POC Established Initial Frequency: 2x /Week Initial Duration: 4-6 Weeks Anticipated Interventions Patient/Client Instruction: Educate patient on: Condition and Plan of Care For the Purpose of:: To improve muscle performance and motor function, To increase tolerance to activity/condition/position, To improve ability of physical actions for home/community/work/leisure and To improve gait and locomotor functions Therapeutic Exercise to Include: Strength training, Balance training, Flexibilty training and Gait and locomotor training For the Purpose of:: To improve nutrient delivery to tissue, To increase oxygenation perfusion, To improve muscle performance and motor function, To increase tolerance to activity/condition/position, To improve ability of physical actions for home/community/work/leisure, To improve gait and locomotor functions, To improve safety and To improve health and function Last Seen Last Seen: This patient was last seen in our office 10/29/22. Pertinent comments regarding their Physical therapy will appear below: Pt seen 10 visits of POC and was doing well. She was to f/u 2 weeks later to ensure progress but did not. at this point, it has been over a month and I will discontinue due to nonattendance. At this point I will be discontinuing this patient from physical therapy. I would be happy to see this patient again in the future if found appropriate by the physician. Thank you! Jere Rivera, DPT, OCS, CSCS Balance/Gait/Functional tests Balance/Special Test Scores Functional Gait Assessment Score: 25 % Disability: 16.6700 CATSIB Score (Max score 120 seconds): 98 Lower Extremity Functional Score: 33
== END 2022-10-29 19:00 | disposition home or self-care (01) ==
LOC: PT 15:00
PROVIDERS: PCP Family Medicine; Referring Provider Family Medicine; Visit Provider Family Medicine
DX: G62.9 Polyneuropathy, unspecified (principal); R29.6 Repeated falls
CPT/HCPCS: 97110; 97162; 97530; 97750

== ENCOUNTER → 2022-11-23 | Outpatient (CLI) | payer MEDICARE, OTHER, SELFPAY ==
[2022-11-23 14:42] LABS: Mucous, Urine 0 SEEN /hpf (<or=2+)
[2022-11-23 15:07] LABS: Color, Urine Yellow (Yellow); Glucose, Dipstick Normal (Normal); Ketone-Dipstick Negative (Negative); Leukocyte Esterase-Dipstick 500 /ul (Negative); Nitrite-Dipstick Positive (Negative); Occult Blood-Urine 150 /ul (Negative); Protein-Dipstick 100 mg/dl (Negative); Specific Gravity, Urine 1.015 (1.002-1.030); Urine Bilirubin Dipstick Negative (Negative); Urine Clarity Sl. Cloudy (Clear); Urine Urobilinogen Normal (Normal)
[2022-11-23 15:27] LABS: White Blood Cells 50-100 SEEN /hpf (0-5)
[2022-11-23 15:28] LABS: Amorphous Sediment 1+ URATE; Bacteria RARE /hpf (None Seen); Red Blood Cells-Urine 10-25 SEEN /hpf (0-5); Squamous Epithelial Cells - UA 0-5 SEEN /hpf (5-10)
== END | disposition home or self-care (01) ==
PROVIDERS: PCP Family Medicine; Visit Provider Nurse Practitioner Family
DX: R39.89 Other symptoms and signs involving the genitourinary system (principal)
CPT/HCPCS: 81001; 87086; 87088; 87186

== ENCOUNTER 2022-12-11 07:48 | Inpatient (IN) | payer MEDICARE, OTHER, SELFPAY ==
[2022-12-11] VITALS (15 sets, daily range): BP systolic 117–186; BP diastolic 59–163; PULSE 83–109; RESP 16–22; TEMP 36.9–39.4; O2SAT 85–96; BMI 33.7
--- NOTE | 2022-12-11 08:07 | EKG12_ITS ---
Test Reason : SOB Blood Pressure : / mmHG Vent. Rate : 104 BPM Atrial Rate : 104 BPM P-R Int : 194 ms QRS Dur : 078 ms QT Int : 352 ms P-R-T Axes : 064 -07 065 degrees QTc Int : 462 ms Sinus tachycardia Otherwise normal ECG Confirmed by KENNEDI HERRERA, ANJALI ([id number]), pictures editor CRISTA KNOX ([id number]) on 12/15/2022 8:18:14 AM Referred By: RED Confirmed By:RENATE KOLB MD
[2022-12-11] MEDS: Ipratropium/Albuterol Sulfate 3 ML AMPUL.NEB INHALATION (08:17)
[2022-12-11 08:23] LABS: Absolute Lymphocyte Count 0.36 X10^3/uL (0.83-4.51); Absolute Neutrophil Count 8.9 X10^3/uL (2.0-7.7); Basophil# 0.04 X10^3/uL; Basophil% 0.4 % (0-1); Differential Indicated SCAN CRITERIA MET; Eosinophil# 0.01 X10^3/uL; Eosinophils% 0.1 % (0-5); Lymphocyte # 0.36 X10^3/ul (0.83-4.51); Lymphocyte % 3.8 % (19-41); Mean Corp Hgb Conc 33.3 g/dL (32-36); Mean Corpuscular Hgb 31.4 pg (27.0-32.0); Mean Corpuscular Volume 94.2 fL (81-99); Mean Platelet Vol. 9.3 fl (6.2-12.0); Monocyte# 0.17 X10^3/uL; Monocyte% 1.8 % (0-10); NRBC Flagged by Analyzer 0 % (0-5); Neutrophil # 8.88 X10^3/uL (2.7-7.7); Neutrophil % 93.3 % (47-70); POSITIVE DIFFERENTIAL YES; Platelet Count 189 K/mm3 (150-450); RBC Distribution Width CV 13.9 % (11.6-14.6); RBC Distribution Width SD 47.4 fl (35.1-43.9); Red Blood Count 4.14 M/mm3 (4.2-5.4); White Blood Count 9.5 K/mm3 (4.4-11.0)
--- NOTE | 2022-12-11 08:28 | RAD_ITS ---
STUDY: X-RAY CHEST REASON FOR EXAM: Female, 76 years old. Cough TECHNIQUE: PA and lateral views of the chest. COMPARISON: None. FINDINGS: EKG electrodes are seen. There is evidence of infiltration in the left upper and left lower lobes as well as in the posterior medial aspect of the right lower. Follow-up is recommended. There is no demonstrated pleural abnormality. Normal size heart. Normal mediastinum and mini. Normal visualized pulmonary arteries. There is atherosclerotic calcification of the aortic arch with tortuosity. There are diffuse degenerative changes of the visualized thoracic spine. There is degenerative osteoarthritis of the bilateral shoulders. There is no demonstrated abnormality of the visualized soft tissue structures of the upper abdomen. RAD/Chest PA and Lateral IMPRESSION: Infiltration in the left upper and left lower lobes as well as at the right lung base. Electronically Signed: Norberto Blackwell MD at 8:50 EDT ,
--- NOTE | 2022-12-11 08:32 | ED.VIS.DYS ---
HPI History of Present Illness Chief Complaint: Shortness of Breath Informant: patient Onset/Context/Timing Onset: Yesterday Context: sudden Timing: Continuous Quality: Positive for Orthopnea Worsened by: Lying flat Relieved by: Nothing Associated Symptoms cough, rhinorrhea and fever; Negative for post nasal drip, ear pain, sore throat, chills, sweats, clear sputum, white sputum, yellow sputum or green sputum Chest Pain: Positive for None Narrative Narrative: Patient presents with shortness of breath that began yesterday. Patient states it began rather suddenly. Patient states that has been constant since yesterday. Patient states it is worse when she lays flat. Patient states nothing seems to help with it. Patient admits to a cough but denies any sputum production. Patient admits to some rhinorrhea. Patient states she had a fever of 100.1 at home. Patient denies any chest pain. Patient denies any sore throat. [facility] Medical History (Updated 12/11/22 @ 10:[address] Jere Irene, DO) Actinic keratosis Atherosclerosis of coronary artery of [place] heart without angina pectoris Breast cancer Carotid bruit Carpal tunnel syndrome Essential hypertension Gout History of left heart catheterization (08/2002) HLD (hyperlipidemia) Hx of breast cancer Hypothyroidism Low serum HDL Mitral valve annular calcification Morbid obesity with BMI of 40.0-44.9, adult Nonrheumatic aortic (valve) stenosis Osteoporosis Spinal stenosis Home Medications acetaminophen 650 mg tablet,extended release (Tylenol Arthritis Pain) 650 mg PO DAILY PAIN 09/14/17 [History Last Taken 12/11/22] aspirin 81 mg tablet,delayed release (Adult Low Dose Aspirin) 81 mg PO DAILY 09/14/17 [History Last Taken 12/09/22] latanoprost 0.005 % eye drops 1 drp ophthalmic (eye) QHS 09/14/17 [History Last Taken 12/09/22] levothyroxine 50 mcg tablet (Synthroid) 50 mcg PO DAILY 09/14/17 [History Last Taken 12/10/22] metoprolol succinate 100 mg tablet,extended release 24 hr (Toprol XL) 100 mg PO DAILY 09/14/17 [History Last Taken 12/10/22] multivitamin 1 tab PO DAILY 09/14/17 [History Last Taken 12/09/22] pravastatin 40 mg tablet 40 mg PO QHS 09/14/17 [History Last Taken 12/09/22] liraglutide 0.6 mg/0.1 mL (18 mg/3 mL) subcutaneous pen injector (Victoza 2-Jose Angel) 1.2 mg subcut DAILY 09/15/17 [History Last Taken 12/10/22] alpha lipoic acid 200 mg capsule 200 mg PO DAILY 08/08/20 [History Last Taken 12/10/22] krill 1,000 mg-omega-3 230 mg-dha 60 hj-ctb-qlpswnxao-astaxan capsule (MegaRed Russell-3 Krill Oil) 1 cap PO DAILY 08/08/20 [History Last Taken 12/10/22] trazodone 100 mg tablet 100 mg PO DAILY 08/08/20 [History Last Taken 12/09/22] allopurinol 100 mg tablet 100 mg PO BID 09/26/22 [History Last Taken 12/10/22] elderberry fruit 460 mg-elderberry flower 115 mg capsule 1 cap PO DAILY 09/26/22 [History Last Taken 12/10/22] metformin 1,000 mg tablet 1,000 mg PO DAILY 09/26/22 [History Last Taken 12/09/22] cholecalciferol (vitamin D3) 50 mcg (2,000 unit) capsule 50 mcg PO DAILY 12/11/22 [History Last Taken 12/09/22] losartan 100 mg-hydrochlorothiazide 25 mg tablet (Hyzaar) 0.5 tab PO DAILY 12/11/22 [History Last Taken 12/10/22] Allergy/AdvReac Type Severity Reaction Status Date / Time fenofibrate [From Tricor] AdvReac myalgias Verified 12/11/22 07:50 simvastatin AdvReac myalgias Verified 12/11/22 07:50 Sulfa (Sulfonamide AdvReac unknown Verified 12/11/22 07:50 Antibiotics) Family History Father Kidney disease Mother CAD (coronary artery disease) CABG Sister CAD (coronary artery disease) CABG HLD (hyperlipidemia) Surgical History History of appendectomy History of carpal tunnel surgery of left wrist History of discectomy Hx of right mastectomy Social History Smoking Status: Never smoker alcohol intake: current alcohol intake frequency: a few times a week Alcohol type: wine substance use type: does not use ROS ROS ED Constitutional Constitutional ED: Reports fever(s); Denies chills Eyes Eyes: Denies blurry vision or change in vision ENT ENT ED: Reports rhinorrhea; Denies sore throat Cardiovascular Cardiovascular: Denies chest pain or palpitations Respiratory/Chest Respiratory/Chest: Reports cough and dyspnea Gastrointestinal Gastrointestinal: Denies nausea or vomiting Genitourinary Genitourinary ED: Denies dysuria or hematuria Musculoskeletal Musculoskeletal: Reports back pain; Denies neck pain Integumentary Denies abscess or rash Neurologic Neurologic: Denies headache(s) or weakness Allergic/Immunologic Allergic/Immunologic ED: Denies mouth swelling or urticaria EXAM Physical Exam Const Vital Signs: 12/11/22 07:48 12/11/22 07:56 12/11/22 07:56 Temperature 98.8 F 103 F H 103 F H Temperature Source Temporal Oral Oral Pulse Rate 109 H 106 H 108 H Respiratory Rate 18 18 18 Respiratory Effort Respiratory Pattern Blood Pressure 129/98 H 186/163 H 186/163 H Blood Pressure Mean 108 170 170 Pulse Ox 91 85 89 Oxygen Delivery Method Room Air Room Air Nasal Cannula Oxygen Flow Rate (L/min) 5 12/11/22 07:56 12/11/22 08:10 12/11/22 08:18 Temperature Temperature Source Pulse Rate 100 Respiratory Rate 16 Respiratory Effort Short of Breath Respiratory Pattern Tachypnea Blood Pressure Blood Pressure Mean Pulse Ox Oxygen Delivery Method Nasal Cannula Nasal Cannula Oxygen Flow Rate (L/min) 5 5 12/11/22 08:23 12/11/22 08:25 12/11/22 09:00 Temperature 103 F H 99.5 F H Temperature Source Oral Oral Pulse Rate 97 94 Respiratory Rate 20 H 21 H Respiratory Effort Respiratory Pattern Blood Pressure 135/91 H 117/61 Blood Pressure Mean 105 79 Pulse Ox 95 93 92 Oxygen Delivery Method Nasal Cannula Nasal Cannula Nasal Cannula Oxygen Flow Rate (L/min) 4 4 4 12/11/22 10:00 12/11/22 10:21 Temperature 99.4 F H 98.5 F Temperature Source Oral Oral Pulse Rate 92 Respiratory Rate 22 H Respiratory Effort Respiratory Pattern Blood Pressure 122/69 H Blood Pressure Mean 86 Pulse Ox 95 Oxygen Delivery Method Nasal Cannula Oxygen Flow Rate (L/min) 4 Positive well nourished and well developed General Appearance ED: well developed and NAD HEENT Reports moist mucous membranes Neck supple and no JVD Resp normal respiratory effort Auscultation: rhonchi throughout Cardio regular rate, regular rhythm and no murmurs GI normal to inspection, nondistended, normoactive bowel sounds and non-tender Palpation: soft Extremity normal to inspection General Extremety ED: Negative for edema or tenderness General Extremity: Negative for edema Neuro oriented x3, CN's II-XII intact bilaterally and no sensory deficits noted Sensorium / Orientation: alert Motor Exam: strength 5/5 throughout Psych mental status grossly normal Skin no rashes or lesions noted Sepsis Attestation Sepsis Attestation: Agree w/Sepsis Possible Source of Sepsis: Pulmonary Sepsis Organ Dysfunction Criteria Present: Lactic Acid > 2 mmol/L MDM MDM MDM Narrative Medical decision making narrative: Differential diagnosis includes pneumonia, pneumothorax, pulmonary embolism, congestive heart failure, cardiac dysrhythmia, cardiac ischemia, bronchitis, and viral illness. Chest x-ray will be obtained to assess for pneumonia or pneumothorax. EKG will be obtained to assess for cardiac dysrhythmia and cardiac ischemia. CBC will be obtained to assess for leukocytosis and anemia. Basic metabolic profile will be obtained to assess for electrolyte abnormality and renal function. BNP will be obtained to assess for congestive heart failure. D-dimer will be obtained to assess for pulmonary embolism. High-sensitivity troponin will be obtained to assess for cardiac ischemia. Lactate will be obtained to assess for sepsis. Blood cultures will be obtained to assess for sepsis. COVID-19 rapid imaging will be obtained to assess for COVID-19 infection. Influenza A and influenza B antigens will be obtained to assess for influenza infection. History & Record Review Discussion w/independent historian: Patient and Family Additional record(s) reviewed:: Prior labs Lab Data Attestation: I reviewed the patient's lab results. Lab results narrative: CBC was reviewed and was within normal limits. Basic metabolic profile was reviewed. Glucose was elevated at 217. BUN was 25 and creatinine was 1.56. These are slightly increased from previous results. D-dimer was reviewed and was elevated at 3.58. Lactate was reviewed and was elevated at 4.1. High-sensitivity troponin was reviewed and was normal at 43. BNP was reviewed and was slightly elevated at 285.5. There are no prior lab values available for comparison. COVID-19 antigen was reviewed and was negative. Influenza A and influenza B antigens were reviewed and were negative. Labs: Laboratory Results - last 24 hr 12/11/22 08:12 WBC 9.5 RBC 4.14 L Hgb 13.0 Hct 39.0 MCV 94.2 MCH 31.4 MCHC 33.3 RDW Std Deviation 47.4 H RDW Coeff of Rock 13.9 Plt Count 189 MPV 9.3 Immature Gran % (Auto) 0.600 Neut % (Auto) 93.3 H Lymph % (Auto) 3.8 L [place] % (Auto) 1.8 Eos % (Auto) 0.1 Baso % (Auto) 0.4 Absolute Neuts (auto) 8.9 H Absolute Lymphs (auto) 0.36 L Nucleated RBC % 0 Differential Comment COMMENT D-Dimer Quant (PE/DVT) 3.58 H* Sodium 139 Potassium 4.5 Chloride 107 Carbon Dioxide 20.0 L Anion Gap 12 BUN 25 H Creatinine 1.56 H Estim Creat Clear Calc 35.61 Est GFR (MDRD) Af Amer 41 L Est GFR (MDRD) Non-Af 34 L BUN/Creatinine Ratio 16.0 Glucose 217 H Lactic Acid 4.1 H* Calcium 8.9 Troponin I High Sens 43 B-Natriuretic Peptide 285.5 H Radiography Diagnostic Testing: Clinical Impression(s) from Imaging Studies Chest X-Ray 12/11/22 08:28 IMPRESSION: Infiltration in the left upper and left lower lobes as well as at the right lung base. Electronically Signed: Norberto Blackwell MD at 8:50 EDT , Chest CTA 12/11/22 08:55 IMPRESSION: Infiltration in the left upper and left lower lobes as well as in the right lower lobe with tiny bilateral effusions worse on the left side. No evidence of pulmonary embolism. Fatty infiltration of the liver. Electronically Signed: Norberto Blackwell MD at 9:58 EDT , PA and lateral chest x-ray was obtained. There are 2 views. On my independent interpretation, lung brunner show left upper, left lower, and right lower lobe infiltrates. There is normal cardiac silhouette. Bony thorax is normal. Radiologist also interpreted the x-ray and agrees. Because of the elevated D-dimer, CTA of the chest was obtained. There is no evidence of pulmonary embolism. There is no evidence of aortic dissection. There are left upper, left lower, and right lower lobe infiltrates. There are tiny bilateral effusions that are worse on the left. This was interpreted by the radiologist and was also independently reviewed by myself. EKG Initial EKG: Attestation: I personally reviewed and interpreted this EKG as follows: Interpretation: No Acute Injury Pattern and Sinus Tachycardia (104) Comments: EKG was obtained. On my independent interpretation, it showed a sinus tachycardia with a rate of 104. MS interval, QRS interval, and QTc intervals were all normal. Zirconia was normal. There are no acute ST or T wave changes. Prior EKG tracings: available for review Prior: Unchanged (01/10/2023) Management Discussion w/another healthcare provider: Hospitalist Treatment and Re-Evaluation :: Patient was given a DuoNeb aerosol. Patient was given 30 cc/kg bolus of IV fluids. Patient was started on Rocephin and Zithromax. Patient was advised of her findings. Patient was advised of the need for hospitalization. Case was discussed with the hospitalist. Critical Care Time Critical Care Time: Yes Critical care time (excluding procedures): 30-74 minutes (34), Including time spent:, Discussing w/Patient &/or Family/Enrollment Services Vice President, Discussing w/Consultants, Arranging Admission or Transfer and Performing Direct Patient Care at Bedside Discharge Plan Dx/Rx/DC Orders Clinical Impression: Severe sepsis, Hypoxia, Pneumonia Disposition Disposition: Acute Care Hospital [facility]
[2022-12-11 08:41] LABS: Anion Gap 12 (5-15); BUN 25 mg/dL (7-18); Calcium,Total 8.9 mg/dL (8.5-10.1); Chloride 107 mmol/L (98-107); Creatinine, Serum 1.56 mg/dL (0.55-1.02); D-Dimer Quantitative (DVT/PE) 3.58 FEU/ug/m (0.27-0.49); EST Glomerular Filtration Rate 34 mL/min (>60); Est Glom Filt Rate - Afr Amer 41 mL/min (>60); Estimated Creatinine Clearance 35.61 ml/min; Glucose 217 mg/dL (74-106); Potassium 4.5 mmol/L (3.5-5.1); Sodium Level 139 mmol/L (136-145); Troponin-I HS (w/2H Reflex) 43 pg/mL (3.0-54.0)
[2022-12-11] MEDS: Ibuprofen 600 MG Tablet PO (08:45)
[2022-12-11 08:47] LABS: Lactic Acid 4.1 mmol/L (0.4-1.9)
--- NOTE | 2022-12-11 08:55 | CT_ITS ---
STUDY: CTA CHEST REASON FOR EXAM: Female, 76 years old. Elevated D-dimer. Shortness of breath. Cough and fever. RADIATION DOSAGE (If Supplied By Facility): CTDIvol = ( 13.56 ) mGy, DLP = ( 380.67 ) mGycm TECHNIQUE: The examination was performed with the intravenous administration of IV 100mL [id number]-370. Post-processing of the angiographic images was performed, with multiplanar reformation and 3D reconstruction. Individualized dose optimization techniques were used for this CT. COMPARISON: Comparison is made with prior chest radiograph done earlier in the day. FINDINGS: Normal enhancement of the main pulmonary artery and right and left pulmonary arteries. Normal enhancement of the bilateral peripheral pulmonary arteries. There is no demonstrated pulmonary embolism. Normal thoracic aorta and visualized great vessels. There is no demonstrated aortic dissection. There is calcification of the mitral valve annulus. Coronary artery calcification. Normal mediastinum. Normal hilar regions. Normal visualized trachea and bronchi. The lungs are well expanded. Diffuse infiltrate involving the left upper lobe as well as the lingular segment of the left upper lobe and left lower lobes. Tiny left pleural effusion with small amount of fluid in the left major fissure. Minimal right pleural effusion with right basilar atelectasis and/or infiltrate. Normal chest wall structures. There are degenerative changes of thoracic spine. Demineralization of the visualized thoracic vertebrae. Fatty infiltration of the liver. CT/CTA Chest W/WO Contrast IMPRESSION: Infiltration in the left upper and left lower lobes as well as in the right lower lobe with tiny bilateral effusions worse on the left side. No evidence of pulmonary embolism. Fatty infiltration of the liver. Electronically Signed: Norberto Blackwell MD at 9:58 EDT ,
[2022-12-11] MEDS: 0.9% Normal Saline 1,000 ML 1000 ML IV (09:00)
[2022-12-11 09:21] LABS: BNP,B-Type NATRIURETIC PEPTIDE 285.5 pg/mL (0-100)
[2022-12-11] MEDS: 0.9% Normal Saline 1,000 ML 999 ML IV ×2 (09:36→12:22)
[2022-12-11 10:18] LABS: Reflex Troponin-HS? (from REC) Y
[2022-12-11 10:48] LABS: Troponin-I HS 60 pg/mL (3.0-54.0)
--- NOTE | 2022-12-11 11:01 | PCM.HP.STD ---
HPI - General General Date of Admission: 12/11/22 Date of Service: 12/11/22 Chief Complaint: Shortness of Breath HPI Narrative CHRISTA ALEX, is a 76 F who presented to the emergency department at [facility] on 12/11/2022 with a chief complaint of shortness of breath. Patient states she was feeling fine yesterday and went out and mowed her yard. She stated by the time she got done mowing her yard she felt extremely fatigued and had back pain so she came inside and sat down. She began having rigors and felt feverish so she took her temperature and she noted her temperature to be 100.1. She took some Tylenol and for little bit better so she went to bed and when she woke up this morning she felt short of breath. States she woke up at about 530 and then called her daughter about an hour and a half later to bring her to the emergency department as she was feeling poorly. She had ongoing rigors and chills along with cough and shortness of breath. She denies any headache, nasal congestion, ear pressure, pharyngitis, or sputum production. She denies chest pain, diarrhea, nausea, vomiting, hematemesis, melena or hematochezia. She does admit to some generalized weakness and fatigue. She had no sick contacts and has not traveled anywhere recently. She has had no recent hospitalizations. Upon arrival to the emergency department she was found to have a temperature of 103, heart rate was 109, blood pressure was 186/163 with repeat at 135/91, respiratory rate was 18 and oxygen saturations were 85% on room air. Patient is not oxygen 10 dependent at baseline and has no history of tobacco abuse or lung disease. Her CBC shows a normal white count at 9.5 but a considerable left shift with a 93.3% neutrophilia was identified. CBC was otherwise unremarkable. Chemistry panel showed serum bicarb of 20, BUN was 25 and serum creatinine was 1.56 (baseline serum creatinine is 0.9-1.1), glucose was 217. Her lactic acid was 4.1. Troponin initially was 43 with repeat of 60. A BNP was obtained and found to be elevated to 85.5. Chest x-ray showed infiltration of the left upper and left lower lobes as well as the right lung base. CTA of the chest was performed with elevated D-dimer and showed an infiltration of the left upper lobe and left lower lobe as well as the right lower lobe with tiny bilateral pleural effusions worse on the left side, no evidence of PE and fatty infiltration of the liver. In the emergency department cultures were obtained and sepsis was identified. She was treated with 30 cc/kg of body weight with fluids for fluid resuscitation and ceftriaxone and azithromycin were initiated. REPLACED BY [facility] Medical History Actinic keratosis Atherosclerosis of coronary artery of [place] heart without angina pectoris Breast cancer Carotid bruit Carpal tunnel syndrome Essential hypertension Gout History of left heart catheterization (08/2002) HLD (hyperlipidemia) Hx of breast cancer Hypothyroidism Low serum HDL Mitral valve annular calcification Morbid obesity with BMI of 40.0-44.9, adult Nonrheumatic aortic (valve) stenosis Osteoporosis Spinal stenosis Home Medications acetaminophen 650 mg tablet,extended release (Tylenol Arthritis Pain) 650 mg PO DAILY PAIN 09/14/17 [History Last Taken 12/11/22] aspirin 81 mg tablet,delayed release (Adult Low Dose Aspirin) 81 mg PO DAILY 09/14/17 [History Last Taken 12/09/22] latanoprost 0.005 % eye drops 1 drp ophthalmic (eye) QHS 09/14/17 [History Last Taken 12/09/22] levothyroxine 50 mcg tablet (Synthroid) 50 mcg PO DAILY 09/14/17 [History Last Taken 12/10/22] metoprolol succinate 100 mg tablet,extended release 24 hr (Toprol XL) 100 mg PO DAILY 09/14/17 [History Last Taken 12/10/22] multivitamin 1 tab PO DAILY 09/14/17 [History Last Taken 12/09/22] pravastatin 40 mg tablet 40 mg PO QHS 09/14/17 [History Last Taken 12/09/22] liraglutide 0.6 mg/0.1 mL (18 mg/3 mL) subcutaneous pen injector (Victoza 2-Jose Angel) 1.2 mg subcut DAILY 09/15/17 [History Last Taken 12/10/22] alpha lipoic acid 200 mg capsule 200 mg PO DAILY 08/08/20 [History Last Taken 12/10/22] krill 1,000 mg-omega-3 230 mg-dha 60 wh-tkl-wjoawrgtv-astaxan capsule (MegaRed [place]-3 Krill Oil) 1 cap PO DAILY 08/08/20 [History Last Taken 12/10/22] trazodone 100 mg tablet 100 mg PO DAILY 08/08/20 [History Last Taken 12/09/22] allopurinol 100 mg tablet 100 mg PO BID 09/26/22 [History Last Taken 12/10/22] elderberry fruit 460 mg-elderberry flower 115 mg capsule 1 cap PO DAILY 09/26/22 [History Last Taken 12/10/22] metformin 1,000 mg tablet 1,000 mg PO DAILY 09/26/22 [History Last Taken 12/09/22] cholecalciferol (vitamin D3) 50 mcg (2,000 unit) capsule 50 mcg PO DAILY 12/11/22 [History Last Taken 12/09/22] losartan 100 mg-hydrochlorothiazide 25 mg tablet (Hyzaar) 0.5 tab PO DAILY 12/11/22 [History Last Taken 12/10/22] Allergy/AdvReac Type Severity Reaction Status Date / Time fenofibrate [From Tricor] AdvReac myalgias Verified 12/11/22 07:50 simvastatin AdvReac myalgias Verified 12/11/22 07:50 Sulfa (Sulfonamide AdvReac unknown Verified 12/11/22 07:50 Antibiotics) Family History Father Kidney disease Mother CAD (coronary artery disease) CABG Sister CAD (coronary artery disease) CABG HLD (hyperlipidemia) Surgical History History of appendectomy History of carpal tunnel surgery of left wrist History of discectomy Hx of right mastectomy Social History (Updated 12/11/22 @ 11:[address] Gisel Bowman DO) household members: none housing: house current occupational status: retired Smoking Status: Never smoker alcohol intake: current alcohol intake frequency: a few times a week Alcohol type: wine substance use type: does not use additional social history: Lives alone, uses no assist device for ambulation, daughter lives nearby ROS Constitutional Constitutional: Reports chills, fatigue, fever(s), malaise, weakness and other Details: Rigors ; Denies anorexia, change in weight or night sweats Eyes Eyes: Denies blurry vision, change in eye color, change in vision, discharge from eye(s), double vision, erythema, eye pain, loss of vision or other ENT HEENT: Denies abnormal hearing, dysphagia, ear pain, epistaxis, headache(s), hearing loss, nasal congestion, nasal discharge, post nasal drip, sinus pressure, sore throat or other Cardiovascular Cardiovascular: Reports dyspnea on exertion; Denies chest pain, claudication, edema, lightheadedness, orthopnea, palpitations, paroxysmal nocturnal dyspnea, rapid heart rate, syncope or other Respiratory/Chest Respiratory/Chest: Reports cough, dyspnea, shortness of breath at rest and shortness of breath with exertion; Denies excessive phlegm production, hemoptysis, productive cough, wheezing or other Gastrointestinal Gastrointestinal: Denies abdominal pain, coffee ground emesis, constipation, diarrhea, dyspepsia, hematemesis, hematochezia, loose stools, melena, nausea, vomiting or other Genitourinary Genitourinary: Denies burning urination, difficulty urinating, dysuria, hematuria, nocturia, urinary frequency, urinary hesitancy, urinary incontinence, urinary urgency or other Musculoskeletal Musculoskeletal: Reports back pain; Denies arthralgias, joint pain, joint stiffness, joint swelling, myalgias, neck pain or other Neurologic Neurologic: Denies abnormal gait, abnormal speech, confusion, disequilibrium, dizziness, focal weakness, headache(s), numbness, paresthesias, seizure-like activity, seizures, syncope, tingling, tremor(s) or other Psychiatric Psychiatric: Denies anxiety, depression, homicidal ideation, suicidal ideation or other Endocrine Endocrinology: Denies change in body appearance, cold intolerance, excessive sweating, heat intolerance, polydipsia, polyuria or other Hematologic/Lymphatic Hematologic/Lymphatic: Denies anemia, easy bleeding, easy bruising, lymphadenopathy or other Allergic/Immunologic Allergic/Immunologic: Denies rhinitis, hives, eczemia, asthma or other Vital Signs Vital Signs Vital Signs: 12/11/22 07:48 12/11/22 07:56 12/11/22 07:56 Temperature 98.8 F 103 F H 103 F H Temperature Source Temporal Oral Oral Pulse Rate 109 H 106 H 108 H Respiratory Rate 18 18 18 Respiratory Effort Respiratory Pattern Blood Pressure 129/98 H 186/163 H 186/163 H Blood Pressure Mean 108 170 170 Pulse Ox 91 85 89 Oxygen Delivery Method Room Air Room Air Nasal Cannula Oxygen Flow Rate (L/min) 5 12/11/22 07:56 12/11/22 08:10 12/11/22 08:18 Temperature Temperature Source Pulse Rate 100 Respiratory Rate 16 Respiratory Effort Short of Breath Respiratory Pattern Tachypnea Blood Pressure Blood Pressure Mean Pulse Ox Oxygen Delivery Method Nasal Cannula Nasal Cannula Oxygen Flow Rate (L/min) 5 5 12/11/22 08:23 12/11/22 08:25 12/11/22 09:00 Temperature 103 F H 99.5 F H Temperature Source Oral Oral Pulse Rate 97 94 Respiratory Rate 20 H 21 H Respiratory Effort Respiratory Pattern Blood Pressure 135/91 H 117/61 Blood Pressure Mean 105 79 Pulse Ox 95 93 92 Oxygen Delivery Method Nasal Cannula Nasal Cannula Nasal Cannula Oxygen Flow Rate (L/min) 4 4 4 12/11/22 10:00 12/11/22 10:21 12/11/22 10:51 Temperature 99.4 F H 98.5 F 98.5 F Temperature Source Oral Oral Oral Pulse Rate 92 91 Respiratory Rate 22 H 20 H Respiratory Effort Respiratory Pattern Blood Pressure 122/69 H 124/64 H Blood Pressure Mean 86 84 Pulse Ox 95 96 Oxygen Delivery Method Nasal Cannula Nasal Cannula Oxygen Flow Rate (L/min) 4 3 12/11/22 10:53 Temperature 98.5 F Temperature Source Oral Pulse Rate 91 Respiratory Rate 16 Respiratory Effort Respiratory Pattern Blood Pressure 124/69 H Blood Pressure Mean 87 Pulse Ox 96 Oxygen Delivery Method Nasal Cannula Oxygen Flow Rate (L/min) 3 Weight Weight: 75.9 kg Body Mass Index (BMI) 33.7 Physical Exam Const alert, oriented x3, no apparent distress and well nourished; Negative for average body habitus or healthy appearing Constitutional Narrative: Obese, older white female, lying in bed, appears ill, pleasant, no signs of current discomfort, daughter at bedside General Appearance: cooperative HEENT normocephalic, head/scalp atraumatic, hearing grossly normal bilaterally and moist oral mucous membranes HEENT Narrative: Dentition is fair for age, Mallampati is 2, no thrush Eyes PERRL, EOMs intact bilaterally and conjunctivae normal Eyes Narrative: No scleral icterus Neck no lymphadenopathy, supple, no JVD and No no carotid bruits Neck Narrative: Right-sided carotid bruit, trachea midline, no thyroid enlargement Resp Resp Narrative: Mild tachypnea with no retractions or accessory muscle use, crackles bilaterally but worse on the left most noted in the base, no rhonchi or wheeze Auscultation: crackles; Negative for rhonchi or wheezes Cardio regular rate, regular rhythm, S1 normal heart sound, S2 normal heart sound, no rub, no gallops and no clicks; Negative for no murmurs Cardio Narrative: 3 out of 6 systolic murmur loudest at right upper sternal border that radiates to bilateral carotids GI normal to inspection, nondistended, normoactive bowel sounds, soft to palpation and non-tender Extremity no clubbing, cyanosis or edema Extremity Narrative: Pedal pulses are 2+ Skin no rashes or lesions noted, no wounds, skin turgor normal, no jaundice, no petechiae and no mottling Skin Narrative: Skin changes consistent with chronic sun exposure Neuro oriented x3, CN's II-XII intact bilaterally, moves all extremities and no focal motor deficits Neuro Narrative: Mild generalized weakness due to fatigue but no focal deficits Speech: speech normal Psych affect normal Psych Narrative: Very pleasant, eye contact good, interacts appropriately Results Lab / Micro Data Attestation: I reviewed the patient's lab results. 12/11/22 08:12 12/11/22 08:12 Labs: Laboratory Results - last 24 hr 12/11/22 08:12: WBC 9.5, RBC 4.14 L, Hgb 13.0, Hct 39.0, MCV 94.2, MCH 31.4, MCHC 33.3, RDW Std Deviation 47.4 H, RDW Coeff of Rock 13.9, Plt Count 189, MPV 9.3, Immature Gran % (Auto) 0.600, Neut % (Auto) 93.3 H, Lymph % (Auto) 3.8 L, [place] % (Auto) 1.8, Eos % (Auto) 0.1, Baso % (Auto) 0.4, Absolute Neuts (auto) 8.9 H, Absolute Lymphs (auto) 0.36 L, Nucleated RBC % 0, Differential Comment COMMENT, D-Dimer Quant (PE/DVT) 3.58 H*, Sodium 139, Potassium 4.5, Chloride 107, Carbon Dioxide 20.0 L, Anion Gap 12, BUN 25 H, Creatinine 1.56 H, Estim Creat Clear Calc 35.61, Est GFR (MDRD) Af Amer 41 L, Est GFR (MDRD) Non-Af 34 L, BUN/Creatinine Ratio 16.0, Glucose 217 H, Lactic Acid 4.1 H*, Calcium 8.9, Troponin I High Sens 43, B-Natriuretic Peptide 285.5 H 12/11/22 10:25: Troponin I High Sens 60 H Micro: Microbiology 12/11/22 08:17 Nasal Secretion SARS-CoV-2 & FLU Antigen (Rapid) - Final Radiology Impression Chest X-Ray 12/11/22 08:28 IMPRESSION: Infiltration in the left upper and left lower lobes as well as at the right lung base. Electronically Signed: Norberto Blackwell MD at 8:50 EDT , Chest CTA 12/11/22 08:55 IMPRESSION: Infiltration in the left upper and left lower lobes as well as in the right lower lobe with tiny bilateral effusions worse on the left side. No evidence of pulmonary embolism. Fatty infiltration of the liver. Electronically Signed: Norberto Blackwell MD at 9:58 EDT , Assessment & Plan Assessment/Plan (1) Pneumonia: (2) Hypoxia: (3) Sepsis: (4) Elevated troponin: (5) Elevated d-dimer: (6) JUAN PABLO (acute kidney injury): (7) Lactic acidosis: PLAN: Plan Sepsis secondary to pneumonia -Patient with fever, JUAN PABLO, lactic acidosis of 4.1, troponin elevation, hypoxia -Blood, urine, sputum cultures pending -Patient is not been hospitalized recently -Continue ceftriaxone and azithromycin -Patient received 30 cc/kg body weight fluid bolus prior to admission--> will hold off on any further fluids following this and monitor clinically -Continue supplemental oxygen -Cycle lactates -Check strep pneumo and Legionella antigens -Check respiratory viral panel -Check MRSA PCR Hypoxia secondary to the above -Continue supplemental oxygen -Patient requires no oxygen at baseline -Saturations were 85% on room air at the time of presentation -Is currently on 3 L nasal cannula with oxygen saturation at 95% -Oxygen as able -I-S/Pep -As needed albuterol -Mucinex -As needed cough medication Lactic acidosis -Secondary to the above -Cycle lactates -Patient was repleted with fluids at 30 cc/kg body weight and this was initiated in the emergency department prior to admission Troponin elevation -Mild -Initial troponin was 43 with a repeat of 60 -Anticipate stress-induced ischemia from sepsis and hypoxia -We will cycle enzymes -EKG is unremarkable -Patient without chest pain -Patient with recent echocardiogram on 10/22/2022 that showed an EF of 65% with moderate focal aortic valve calcification and a mean aortic gradient of 34 mmHg with mild aortic stenosis and this was unchanged from previous D-dimer elevation -CTA chest is negative for PE JUAN PABLO -Baseline serum creatinine appears to run between 0.9 and 1.1 -Current serum creatinine is 1.56 -IV fluids per sepsis protocol given in the emergency department -Hold metformin -Hold losartan/hydrochlorothiazide Aortic valve stenosis -Stable on last echocardiogram -No current chest pain -Tolerating exercise well at home Hypertension/hyperlipidemia -Hold home antihypertensives for now with sepsis picture -Continue primary statin DM-2 -Continue home Victoza -Hold metformin with JUAN PABLO -SSI-moderate dose -Accu-Cheks as ordered -Cardiac/carb controlled diet Hypothyroidism -Continue home levothyroxine Glaucoma -Continue eyedrops Gout -Continue home allopurinol Carotid artery stenosis -Continue home medications History of breast cancer -Remote Obesity -BMI is 33.8 -Recommend weight loss -Complicates treatment, prognosis, outcomes DVT prophylaxis -Heparin 3 times daily CODE STATUS -DNR CCA okay for short-term intubation per discussion with patient on admission with daughter at bedside Sepsis Attestation Sepsis Alert: Yes Sepsis Attestation: Agree w/Sepsis Date exam was performed: 12/11/22 Time exam was performed: 11:05 Possible Source of Sepsis: Pulmonary Sepsis Organ Dysfunction Criteria Present: Lactic Acid > 2 mmol/L Fluid Resuscitation Fluid resuscitation indicated?: Yes Fluid Resuscitation ordered: 30 ml/kg fluid bolus ordered Amount of fluid ordered: 2,250 Charges/Coding Visit Charges Inpatient E&M: 54772 Init Hosp L3
[2022-12-11 12:18] LABS: Reflex Lactate? Y
[2022-12-11] MEDS: Insulin Lispro 100 UNIT/ML INSULN.PEN SC ×2 (12:22→16:51)
[2022-12-11 12:45] LABS: Bedside Glucose 212 mg/dL (74-106)
[2022-12-11 14:24] LABS: Troponin-I HS 60 pg/mL (3.0-54.0)
[2022-12-11 14:26] LABS: Lactic Acid 4.4 mmol/L (0.4-1.9)
[2022-12-11] MEDS: Heparin Injection (Vial) 5,000 UNIT/ML VIAL 5000 UNIT SC ×2 (14:34→20:50)
[2022-12-11 17:01] LABS: M R Staph aureus DNA By PCR Negative (Negative); Probe Check PASS; Specimen Processing Control PASS
[2022-12-11 17:10] LABS: Bedside Glucose 185 mg/dL (74-106)
[2022-12-11] MEDS: Allopurinol 100 MG Tablet PO ×2 (20:48)
[2022-12-11] MEDS: guaiFENesin 1,200 MG Tablet 1200 MG PO (20:48)
[2022-12-11] MEDS: traZODone 100 MG Tablet PO (20:48)
[2022-12-11] MEDS: Pravastatin 40 MG Tablet PO (20:48)
[2022-12-11] MEDS: Latanoprost 0.005% 1 Bottle 1 DRP OPHTHALMIC (20:49)
[2022-12-11] MEDS: 0.9% Saline Lock 10 ML Syringe IV (20:54)
[2022-12-11 22:06] LABS: Bedside Glucose 176 mg/dL (74-106)
[2022-12-12] VITALS (20 sets, daily range): BP systolic 118–160; BP diastolic 65–104; PULSE 92–138; RESP 16–27; TEMP 36.7–37.7; O2SAT 90–98
--- NOTE | 2022-12-12 04:06 | PCM.HOSP.N ---
Hospitalist Note HR increased to 130, asymptomatic, VS otherwise stable. Will dose with lopressor 5 mg x 1 and obtain EKG to assess rhythm.
[2022-12-12] MEDS: Metoprolol Tartrate 5 MG/5 ML Vial IV (04:11)
[2022-12-12] MEDS: Heparin Injection (Vial) 5,000 UNIT/ML VIAL 5000 UNIT SC (04:14)
[2022-12-12] MEDS: Levothyroxine 50 MCG Tablet PO (04:15)
--- NOTE | 2022-12-12 04:36 | NURSING ---
Approximately 0400, Mil LANZA was notified that patient heart rate was in the 140s on telemetry. Patient beside vitals confirmed heart rate. Notified Dr Dobson. Orders placed in EMR.
[2022-12-12 05:20] LABS: Absolute Neutrophil Count 5.9 X10^3/uL (2.0-7.7); Basophil# 0.03 X10^3/uL; Basophil% 0.4 % (0-1); Eosinophil# 0.05 X10^3/uL; Eosinophils% 0.7 % (0-5); Hemoglobin 11.8 g/dL (12.0-15.0); Mean Corp Hgb Conc 33.7 g/dL (32-36); Mean Corpuscular Volume 94.9 fL (81-99); Mean Platelet Vol. 9.5 fl (6.2-12.0); Monocyte# 0.58 X10^3/uL; Monocyte% 7.8 % (0-10); NRBC Flagged by Analyzer 0 % (0-5); Neutrophil # 5.88 X10^3/uL (2.7-7.7); Neutrophil % 78.6 % (47-70); Platelet Count 150 K/mm3 (150-450); RBC Distribution Width CV 14.4 % (11.6-14.6); RBC Distribution Width SD 49.8 fl (35.1-43.9); Red Blood Count 3.69 M/mm3 (4.2-5.4); White Blood Count 7.5 K/mm3 (4.4-11.0)
[2022-12-12 06:14] LABS: ALB/GLOB Ratio 0.7 RATIO (0.9-2.4); AST(SGOT) 35 U/L (15-37); Alanine Aminotransfer ALT/SGPT 30 U/L (13-56); Albumin, Serum 2.7 g/dL (3.2-5.0); Alkaline Phosphatase 76 U/L (45-117); Anion Gap 8 (5-15); BUN 21 mg/dL (7-18); Calcium,Total 8.6 mg/dL (8.5-10.1); Chloride 112 mmol/L (98-107); Creatinine, Serum 1.05 mg/dL (0.55-1.02); EST Glomerular Filtration Rate 54 mL/min (>60); Est Glom Filt Rate - Afr Amer 65 mL/min (>60); Glucose 152 mg/dL (74-106); Magnesium 1.9 mg/dL (1.6-2.6); Phosphorus 2.2 mg/dL (2.5-4.9); Potassium 3.9 mmol/L (3.5-5.1); Protein, Total 6.7 g/dL (6.4-8.2); Sodium Level 141 mmol/L (136-145); Thyroid Stim Hormone (TSH) 1.23 uIU/mL (0.358-3.74)
[2022-12-12] MEDS: APIXABAN 2.5 MG TABLET (WCH) PO (06:18)
[2022-12-12] MEDS: guaiFENesin 1,200 MG Tablet 1200 MG PO ×2 (08:19→20:25)
[2022-12-12] MEDS: Metoprolol(XL)Succ 100 MG Tablet PO (08:19)
[2022-12-12] MEDS: Aspirin E.C. 81 MG Tablet PO (08:20)
[2022-12-12] MEDS: Cholecalciferol (VIT D3) 25 MCG TABLET (1,000 UNITS) 50 MCG PO (08:20)
[2022-12-12] MEDS: Multivitamins,Therapeutic Tablet 1 TABLET PO (08:20)
[2022-12-12 09:52] LABS: Lactic Acid 1.6 mmol/L (0.4-1.9)
[2022-12-12] MEDS: 0.9% Normal Saline 1,000 ML 100 ML IV ×2 (10:00→20:24)
--- NOTE | 2022-12-12 10:16 | PN.HOSP_ITS ---
Reason for Visit Reason for Visit: Shortness of breath Subjective Subjective Patient states she is feeling poorly and states she gets she is not going home today. Did not sleep well last night. States she is fairly tired this morning. No specific complaints this morning. Remained stable on 4 L supplemental oxygen. Blood pressures have improved. Patient did develop tachycardia overnight and initially it was felt to be A-fib and she was started on a Cardizem drip. I discontinued this this morning as we had held her metoprolol and I restarted this this morning. Her heart rates are improving and it does not appear that this is A-fib it looks like it is sinus tachycardia with PACs as there are P waves present. Patient did note that she had a recent UTI but her symptoms were completely resolved and she was having no dysuria or frequency. Treatment for that was at the end of November. Objective Data Objective Data Vital Signs: Vital Signs Temp Pulse Resp BP Pulse Ox O2 Del Method O2 Flow Rate 99.8 F H 112 H 20 H 133/88 H 96 Nasal Cannula 4 12/12/22 02:00 12/12/22 08:19 12/12/22 08:07 12/12/22 08:19 12/12/22 08:00 12/12/22 08:07 12/12/22 08:07 Oxygen Flow Rate (L/min) 4 Oxygen Delivery Method Nasal Cannula Weight: 75.75 kg Body Mass Index (BMI) 33.7 Intake & Output: Intake and Output for Last 24 Hours 12/10/22 12/11/22 12/12/22 23:59 23:59 23:59 Intake Total 3270.7 / 3270.7 78.00 / 78.00 Output Total 1150 / 1150 Balance 2120.7 / 2120.7 78.00 / 78.00 Lab / Micro Data 12/12/22 04:34 12/12/22 04:34 Labs: Laboratory Results - last 24 hr 12/11/22 10:25: Troponin I High Sens 60 H 12/11/22 11:45: MRSA (PCR) Negative 12/11/22 12:21: POC Glucose 212 H 12/11/22 13:50: Lactic Acid 4.4 H*, Troponin I High Sens 60 H 12/11/22 16:51: POC Glucose 185 H 12/11/22 20:43: POC Glucose 176 H 12/12/22 04:34: WBC 7.5, RBC 3.69 L, Hgb 11.8 L, Hct 35.0 L, MCV 94.9, MCH 32.0, MCHC 33.7, RDW Std Deviation 49.8 H, RDW Coeff of Rock 14.4, Plt Count 150, MPV 9.5, Immature Gran % (Auto) 0.500, Neut % (Auto) 78.6 H, Lymph % (Auto) 12.0 L, [place] % (Auto) 7.8, Eos % (Auto) 0.7, Baso % (Auto) 0.4, Absolute Neuts (auto) 5.9, Absolute Lymphs (auto) 0.90, Nucleated RBC % 0, Sodium 141, Potassium 3.9, Chloride 112 H, Carbon Dioxide 21.0, Anion Gap 8, BUN 21 H, Creatinine 1.05 H, Estim Creat Clear Calc 52.80, Est GFR (MDRD) Af Amer 65, Est GFR (MDRD) Non-Af 54 L, BUN/Creatinine Ratio 20.0, Glucose 152 H, Calcium 8.6, Phosphorus 2.2 L, Magnesium 1.9, Total Bilirubin 0.80, AST 35, ALT 30, Alkaline Phosphatase 76, Total Protein 6.7, Albumin 2.7 L, Globulin 4.0, Albumin/Globulin Ratio 0.7 L, TSH 1.23 12/12/22 09:07: Lactic Acid 1.6 Micro: Microbiology 12/11/22 08:12 Blood Culture (Wb) - Left Hand Blood Culture - Preliminary 12/11/22 08:17 Nasal Secretion SARS-CoV-2 & FLU Antigen (Rapid) - Final Physical Exam Const alert, oriented x3, no apparent distress and well nourished; Negative for average body habitus or healthy appearing Constitutional Narrative: Obese, older white female, lying in bed, appears ill and extremely fatigued but very pleasant, no signs of current discomfort, nursing is at bedside General Appearance: cooperative HEENT normocephalic, head/scalp atraumatic, hearing grossly normal bilaterally and moist oral mucous membranes HEENT Narrative: Mallampati 2, no thrush Eyes PERRL, EOMs intact bilaterally and conjunctivae normal Eyes Narrative: No scleral icterus Neck no lymphadenopathy, supple, no JVD and No no carotid bruits Neck Narrative: trachea midline, no thyroid enlargement Resp no retractions, no use of accessory muscles and clear to auscultation bilaterally Resp Narrative: Mild tachypnea, no adventitious sounds Auscultation: Negative for crackles, rhonchi or wheezes Cardio regular rhythm, S1 normal heart sound, S2 normal heart sound, no rub, no gallops and no clicks; Negative for no murmurs Cardio Narrative: Mild tachycardia, 3 out of 6 systolic murmur loudest at right upper sternal border that radiates to bilateral carotids GI normal to inspection, nondistended, normoactive bowel sounds, soft to palpation and non-tender Extremity no clubbing, cyanosis or edema Extremity Narrative: Pedal pulses are 2+ Skin no rashes or lesions noted, no wounds, skin turgor normal, no jaundice, no petechiae and no mottling Skin Narrative: Skin changes consistent with chronic sun exposure Neuro oriented x3, moves all extremities and no focal motor deficits Neuro Narrative: Mild generalized weakness due to fatigue but no focal deficits Speech: speech normal Psych affect normal Psych Narrative: Very pleasant, eye contact good, interacts appropriately Assessment & Plan Assessment/Plan (1) Pneumonia: (2) Hypoxia: (3) Sepsis: (4) Elevated troponin: (5) Elevated d-dimer: (6) JUAN PABLO (acute kidney injury): (7) Lactic acidosis: (8) Gram-negative bacteremia: (9) Hypophosphatemia: PLAN: Plan Sepsis secondary to pneumonia/gram-negative bacteremia -Patient with fever, JUAN PABLO, lactic acidosis of 4.1, troponin elevation, hypoxia -Blood culture sent -Urine culture ordered but not sent-discussed with nursing major appliance assembly supervisor and will be addressed -Patient unable to produce a sputum culture as of yet -Patient is not been hospitalized recently -Continue ceftriaxone and azithromycin--> white count is in proving with improvement in her left shift -Patient received 30 cc/kg body weight fluid bolus prior to admission -Continue supplemental oxygen -strep pneumo and Legionella antigens ordered but not yet collected by nursing have discussed this also with the nursing major appliance assembly supervisor -Aspiratory viral panel is pending -MRSA PCR is negative Hypoxia secondary to the above -Continue supplemental oxygen -Patient requires no oxygen at baseline -Saturations were 85% on room air at the time of presentation -Is currently on 3 L nasal cannula with oxygen saturation at 95% -Oxygen as able -I-S/Pep -As needed albuterol -Mucinex -As needed cough medication Tachycardia -Initially felt to be A-fib however upon further review looks like sinus tachycardia with PACs -Discontinue Cardizem drip and start home metoprolol 100 now the blood pressure has improved -Treat fever -Continue to monitor on telemetry -TSH is within normal limits at 1.23 Hypophosphatemia -21 mmol phosphorus bolus -Recheck Phos in a.m. Lactic acidosis -Secondary to the above -Lactate initially bebeto from 4.1-4.4 but then normalized and is now 1.6 -Corrected with fluid resuscitation Troponin elevation -Mild -Initial troponin was 43 with a repeat of 60 and third repeat was 60 as well -Anticipate stress-induced ischemia from sepsis and hypoxia -EKG is unremarkable -Patient without chest pain -Patient with recent echocardiogram on 10/22/2022 that showed an EF of 65% with moderate focal aortic valve calcification and a mean aortic gradient of 34 mmHg with mild aortic stenosis and this was unchanged from previous JUAN PABLO -Resolving -Baseline serum creatinine appears to run between 0.9 and 1.1 -Serum creatinine on admission was 1.56--> down to 1.05 today and closer to her baseline range -Will utilize gentle hydration as p.o. intake has been poor and patient has no appetite -Hold metformin -Hold losartan/hydrochlorothiazide Aortic valve stenosis -Stable on last echocardiogram -No current chest pain -Tolerating exercise well at home as an outpatient Hypertension/hyperlipidemia -Restart home metoprolol with improved pressure today and tachycardia -Will continue to hold home losartan/HCTZ -Continue primary statin DM-2 -Hold Victoza -Hold metformin with JUAN PABLO -Fasting sugar this morning 152 -Continue SSI-moderate dose -Accu-Cheks as ordered -Cardiac/carb controlled diet Hypothyroidism -Continue home levothyroxine Glaucoma -Continue eyedrops Gout -Continue home allopurinol Carotid artery stenosis -Continue home medications History of breast cancer -Remote Obesity -BMI is 33.8 -Recommend weight loss -Complicates treatment, prognosis, outcomes DVT prophylaxis -With improved renal function will transition from heparin to enoxaparin 40 daily CODE STATUS -DNR CCA okay for short-term intubation per discussion with patient on admission with daughter at bedside Charges/Coding Visit Charges Inpatient E&M: 28424 Subs Hosp L3
--- NOTE | 2022-12-12 11:39 | CT_ITS ---
STUDY: CT ABDOMEN AND PELVIS WITHOUT CONTRAST REASON FOR EXAM: Female, 76 years old. Urosepsis RADIATION DOSAGE (If Supplied By Facility): CTDIvol = ( 14.57 ) mGy, DLP = ( 658.67 ) mGycm TECHNIQUE: Transaxial images were obtained from the dome of the diaphragm to the symphysis pubis without oral contrast, and without intravenous contrast. Sagittal and coronal images were reconstructed. Individualized dose optimization techniques were used for this CT. COMPARISON: Comparison is made with prior study dated September 18, 2020. FINDINGS: Small bilateral pleural effusions with bibasilar atelectasis and/or infiltrates slightly more prominent at the left lung base. There is calcification of the mitral valve annulus. Coronary artery calcification. Normal liver. Sludge is seen within the gallbladder lumen. Normal spleen. Normal pancreas. Normal bilateral adrenal glands. Normal right kidney. Stable left renal cysts. 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 Normal visualized stomach. Normal small intestine. There are multiple colonic diverticula consistent with diverticulosis. The appendix is visualized and appears normal. There is diffuse atherosclerotic calcification of the abdominal aorta and its major visceral branches, without a demonstrated aneurysm. Normal inferior vena cava. Normal retroperitoneum. Normal urinary bladder. Calcified fibroid uterus. Normal abdominal wall. There are diffuse degenerative changes of the visualized lumbar spine. Minimal anterolisthesis of L3 on L4 and L4 on L5. CT/Abdomen/Pelvis without Cont IMPRESSION: Small bilateral pleural effusions with bibasilar atelectasis is more prominent on the left side. Stable left renal cysts. Sigmoid diverticulosis. Calcified fibroid uterus. Electronically Signed: Norberto Blackwell MD at 13:13 EDT ,
--- NOTE | 2022-12-12 11:40 | CASEMGMT ---
RN HEIDI Face to Face with patient for initial transition planning/care coordination assessment. RN CM introduced self and role at [facility]. Patient lying in bed, alert and oriented, daughter at bedside. Patient willing to participate in assessment and is able to answer all questions appropriately. Care providers, pharmacy, and demographics verified. Patient wishes to discharge home, will monitor for possible HHC pending progress with therapy. Patient states she has no further needs or concerns at this time. CM to follow for discharge planning needs that may arise. 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 Patient states she was independent at home prior to current illness Transportation: self, daughter DME/HHC: Patient has shower chair, raised toilet, cane, grab bars, and walker at home. No previous HHC or SNF. Will monitor for HHC and home oxygen. Patient has no preferences for DME, after review list would like [facility] for [place]ME. Disposition Plan: Patient to discharge home with family support and follow-up plans in place. Monitor for HHC and Home oxygen. Hortencia BRYANT, RN, CM
[2022-12-12] MEDS: Insulin Lispro 100 UNIT/ML INSULN.PEN SC ×2 (13:06→16:08)
[2022-12-12] MEDS: Furosemide 40 MG/4 ML Vial IV (13:06)
[2022-12-12 13:26] LABS: Bedside Glucose 193 mg/dL (74-106)
[2022-12-12 18:02] LABS: Bedside Glucose 197 mg/dL (74-106)
[2022-12-12] MEDS: Pravastatin 40 MG Tablet PO (20:25)
[2022-12-12] MEDS: traZODone 100 MG Tablet PO (20:25)
[2022-12-12] MEDS: Latanoprost 0.005% 1 Bottle 1 DRP OPHTHALMIC (20:26)
[2022-12-12] MEDS: Allopurinol 100 MG Tablet PO (20:27)
[2022-12-12] MEDS: dilTIAZem 25 MG/5 ML Vial 10 MG IV BOLUS (23:40)
[2022-12-13] VITALS (10 sets, daily range): BP systolic 111–142; BP diastolic 61–88; PULSE 86–98; RESP 18; TEMP 36.4–36.8; O2SAT 92–98
[2022-12-13] MEDS: Enoxaparin 40 MG/0.4 ML Syringe SC (05:33)
[2022-12-13] MEDS: Levothyroxine 50 MCG Tablet PO (05:33)
[2022-12-13] MEDS: 0.9% Normal Saline 1,000 ML 100 ML IV (05:33)
[2022-12-13 06:06] LABS: Absolute Lymphocyte Count 1.17 X10^3/uL (0.83-4.51); Absolute Neutrophil Count 5.9 X10^3/uL (2.0-7.7); Basophil# 0.02 X10^3/uL; Basophil% 0.3 % (0-1); Eosinophil# 0.05 X10^3/uL; Eosinophils% 0.6 % (0-5); Hematocrit 31.9 % (37-47); Hemoglobin 10.6 g/dL (12.0-15.0); Lymphocyte # 1.17 X10^3/ul (0.83-4.51); Mean Corp Hgb Conc 33.2 g/dL (32-36); Mean Corpuscular Hgb 31.5 pg (27.0-32.0); Mean Corpuscular Volume 94.9 fL (81-99); Mean Platelet Vol. 9.7 fl (6.2-12.0); Monocyte# 0.63 X10^3/uL; Monocyte% 8.1 % (0-10); NRBC Flagged by Analyzer 0 % (0-5); Neutrophil # 5.86 X10^3/uL (2.7-7.7); Neutrophil % 75.4 % (47-70); Platelet Count 156 K/mm3 (150-450); RBC Distribution Width CV 14.4 % (11.6-14.6); RBC Distribution Width SD 50.2 fl (35.1-43.9); Red Blood Count 3.36 M/mm3 (4.2-5.4); White Blood Count 7.8 K/mm3 (4.4-11.0)
[2022-12-13 06:44] LABS: Anion Gap 6 (5-15); BUN 24 mg/dL (7-18); BUN/Creat Ratio 22.6 RATIO (10-20); Calcium,Total 8.2 mg/dL (8.5-10.1); Chloride 111 mmol/L (98-107); Creatinine, Serum 1.06 mg/dL (0.55-1.02); EST Glomerular Filtration Rate 53 mL/min (>60); Est Glom Filt Rate - Afr Amer 64 mL/min (>60); Estimated Creatinine Clearance 51.46 ml/min; Glucose 144 mg/dL (74-106); Phosphorus 2.8 mg/dL (2.5-4.9); Potassium 3.8 mmol/L (3.5-5.1); Sodium Level 141 mmol/L (136-145)
[2022-12-13] MEDS: guaiFENesin 1,200 MG Tablet 1200 MG PO ×2 (08:29→20:39)
[2022-12-13] MEDS: Multivitamins,Therapeutic Tablet 1 TABLET PO (08:30)
[2022-12-13] MEDS: Allopurinol 100 MG Tablet PO ×2 (08:30→20:39)
[2022-12-13] MEDS: Cholecalciferol (VIT D3) 25 MCG TABLET (1,000 UNITS) 50 MCG PO (08:30)
[2022-12-13] MEDS: Metoprolol(XL)Succ 100 MG Tablet PO (08:31)
[2022-12-13] MEDS: Aspirin E.C. 81 MG Tablet PO (08:31)
[2022-12-13] MEDS: Insulin Lispro 100 UNIT/ML INSULN.PEN SC ×3 (08:40→16:02)
[2022-12-13 08:44] LABS: Bedside Glucose 153 mg/dL (74-106)
--- NOTE | 2022-12-13 10:56 | EKG12_ITS ---
Test Reason : Blood Pressure : / mmHG Vent. Rate : 109 BPM Atrial Rate : 000 BPM P-R Int : 000 ms QRS Dur : 076 ms QT Int : 302 ms P-R-T Axes : 000 007 074 degrees QTc Int : 406 ms Atrial fibrillation with rapid ventricular response Abnormal ECG When compared with ECG of 12-DEC-2022 04:39, MANUAL COMPARISON REQUIRED, DATA IS UNCONFIRMED Confirmed by MAN NG ([id number]), marketing editor CRISTA KNOX ([id number]) on 12/23/2022 9:43:19 AM Referred By: RENEA Confirmed By:MAN NG
[2022-12-13 11:32] LABS: Bedside Glucose 250 mg/dL (74-106)
--- NOTE | 2022-12-13 13:18 | PCM.PN.HOSP ---
Reason for Visit Reason for Visit: Shortness of breath Subjective Subjective Patient states she is much better since yesterday. States she completed a 5-day course of antibiotics with Macrobid for her UTI I reviewed sensitivities and it was sensitive however the FLYNN was 16. Her tachycardia does appear to be more like A-fib today and repeat EKG shows flutter. I discussed that we will place her on Cardizem as well as her metoprolol and add anticoagulation and discussed risks and benefits. Patient voiced understanding and daughter was at bedside. We will have her follow-up with Dr. Sepulveda who sees her for her valvular disease as an outpatient. Patient is hoping to go home soon. I told her today we will go ahead and work on weaning her oxygen and see how she does functionally and consider discharge tomorrow if she feels well enough to do so and if she continues to improve clinically. Objective Data Objective Data Vital Signs: Vital Signs Temp Pulse Resp BP Pulse Ox O2 Del Method O2 Flow Rate 97.9 F 98 18 141/88 H 96 Nasal Cannula 2 12/13/22 09:00 12/13/22 09:00 12/13/22 09:00 12/13/22 09:00 12/13/22 11:06 12/13/22 09:00 12/13/22 11:06 Oxygen Flow Rate (L/min) 2 Oxygen Delivery Method Nasal Cannula Weight: 75.75 kg Body Mass Index (BMI) 33.7 Intake & Output: Intake and Output for Last 24 Hours 12/11/22 12/12/22 12/13/22 23:59 23:59 23:59 Intake Total 3270.7 / 3270.7 1590.00 / 1590.00 963.33 / 963.33 Output Total 1150 / 1150 450 / 450 Balance 2120.7 / 2120.7 1140.00 / 1140.00 963.33 / 963.33 Lab / Micro Data 12/13/22 05:28 12/13/22 05:28 Labs: Laboratory Results - last 24 hr 12/12/22 13:04: POC Glucose 193 H 12/12/22 16:06: POC Glucose 197 H 12/13/22 05:28: WBC 7.8, RBC 3.36 L, Hgb 10.6 L, Hct 31.9 L, MCV 94.9, MCH 31.5, MCHC 33.2, RDW Std Deviation 50.2 H, RDW Coeff of Rock 14.4, Plt Count 156, MPV 9.7, Immature Gran % (Auto) 0.600, Neut % (Auto) 75.4 H, Lymph % (Auto) 15.0 L, [place] % (Auto) 8.1, Eos % (Auto) 0.6, Baso % (Auto) 0.3, Absolute Neuts (auto) 5.9, Absolute Lymphs (auto) 1.17, Nucleated RBC % 0, Sodium 141, Potassium 3.8, Chloride 111 H, Carbon Dioxide 24.0, Anion Gap 6, BUN 24 H, Creatinine 1.06 H, Estim Creat Clear Calc 51.46, Est GFR (MDRD) Af Amer 64, Est GFR (MDRD) Non-Af 53 L, BUN/Creatinine Ratio 22.6 H, Glucose 144 H, Calcium 8.2 L, Phosphorus 2.8 12/13/22 08:27: POC Glucose 153 H 12/13/22 10:53: POC Glucose 250 H Micro: Microbiology 12/11/22 08:12 Blood Culture (Wb) - Left Hand Blood Culture - Final Escherichia coli 12/11/22 13:18 Mucosa - Nose Respiratory Panel (PCR) - Final 12/11/22 08:17 Nasal Secretion SARS-CoV-2 & FLU Antigen (Rapid) - Final Physical Exam Const alert, oriented x3, no apparent distress and well nourished; Negative for average body habitus or healthy appearing Constitutional Narrative: Obese, older white female, sitting up in a chair at the bedside, appears as if she is feeling much better today, no signs of current discomfort General Appearance: cooperative HEENT normocephalic, head/scalp atraumatic, hearing grossly normal bilaterally and moist oral mucous membranes HEENT Narrative: Mallampati 2-3, no Resp normal respiratory effort, no retractions, no use of accessory muscles and clear to auscultation bilaterally Auscultation: Negative for crackles, rhonchi or wheezes Cardio S1 normal heart sound, S2 normal heart sound, no rub, no gallops and no clicks; Negative for no murmurs Cardio Narrative: Mild tachycardia with irregular rhythm, 3 out of 6 systolic murmur GI normal to inspection, nondistended, normoactive bowel sounds, soft to palpation and non-tender Extremity no clubbing, cyanosis or edema Extremity Narrative: Pedal pulses are 2+ Neuro oriented x3, moves all extremities and no focal motor deficits Neuro Narrative: Mild generalized weakness due to fatigue but no focal deficits, strength seems to be improved today Speech: speech normal Psych affect normal Psych Narrative: Very pleasant, eye contact good, interacts appropriately Assessment & Plan Assessment/Plan (1) Pneumonia: (2) Hypoxia: (3) Sepsis: (4) Elevated troponin: (5) Elevated d-dimer: (6) JUAN PABLO (acute kidney injury): (7) Lactic acidosis: (8) Gram-negative bacteremia: (9) Hypophosphatemia: (10) Atrial flutter: PLAN: Plan Sepsis secondary to E. coli bacteremia -Patient with fever, JUAN PABLO, lactic acidosis of 4.1, troponin elevation, hypoxia -Blood culture showing pansensitive E. coli consistent with previous urine culture -Current urine cultures pending -Patient unable to produce a sputum culture as of yet -Patient is not been hospitalized recently -Continue ceftriaxone and discontinue azithromycin -Will likely complete a 10-day course with Keflex at the time of discharge -Continue supplemental oxygen -Respiratory viral panel is negative Hypoxia secondary to the above -Continue supplemental oxygen -Suspect this was related all to her acute sepsis from E. coli bacteremia -Patient requires no oxygen at baseline -Saturations were 85% on room air at the time of presentation -Current oxygen saturation is 96% on 2 L -We will continue to wean -Bumex 2 mg IV push x1 dose -I-S/Pep -As needed albuterol -Mucinex -As needed cough medication Atrial flutter -EKG today confirms flutter -Continue metoprolol 100 mg daily -Add Cardizem 30 mg 3 times daily -Start Eliquis 5 mg twice daily -Continue to monitor on telemetry -TSH is within normal limits at 1.23 Hypophosphatemia - resolved Lactic acidosis -Resolved Troponin elevation -Mild -Initial troponin was 43 with a repeat of 60 and third repeat was 60 as well -Anticipate stress-induced ischemia from sepsis and hypoxia -EKG is unremarkable -Patient without chest pain -Patient with recent echocardiogram on 10/22/2022 that showed an EF of 65% with moderate focal aortic valve calcification and a mean aortic gradient of 34 mmHg with mild aortic stenosis and this was unchanged from previous JUAN PABLO -Resolving -Baseline serum creatinine appears to run between 0.9 and 1.1 -Resolved -Hold metformin -Hold losartan/hydrochlorothiazide Aortic valve stenosis -Stable on last echocardiogram -No current chest pain -Tolerating exercise well at home as an outpatient Hypertension/hyperlipidemia -Continue home metoprolol -Cardizem added for atrial flutter -Will continue to hold home losartan/HCTZ and may actually discontinue at discharge -Continue statin DM-2 -Hold Victoza -Hold metformin -Fasting sugar this morning 144 -Continue SSI-moderate dose -Accu-Cheks as ordered -Cardiac/carb controlled diet Hypothyroidism -Continue home levothyroxine Glaucoma -Continue eyedrops Gout -Continue home allopurinol Carotid artery stenosis -Continue home medications History of breast cancer -Remote Obesity -BMI is 33.8 -Recommend weight loss -Complicates treatment, prognosis, outcomes DVT prophylaxis -Eliquis 5 mg p.o. twice daily CODE STATUS -DNR CCA okay for short-term intubation per discussion with patient on admission with daughter at bedside Charges/Coding Visit Charges Inpatient E&M: 17626 Subs Hosp L2
[2022-12-13] MEDS: dilTIAZem 30 MG Tablet PO ×2 (13:48→20:39)
[2022-12-13] MEDS: Bumetanide 1 MG/4 ML Vial 2 MG IV (13:48)
[2022-12-13] MEDS: APIXABAN 5 MG TABLET PO ×2 (13:48→20:39)
--- NOTE | 2022-12-13 14:35 | CASEMGMT ---
MYLA GORDON Follow-up: This RN HEIDI met with pt face to face at bedside. Pt alert and agreeable to discussing discharge plan. Pt states she has family that lives within 5 miles of her home and a family member who is an RIGHT OF WAY MANAGER that plans to stay with her on Thursday for support. Declines needing HH at this time. States she has 10 steps from her bedroom to the bathroom and 10 steps from her living room to her bathroom and feels she will be able to manage her needs. Educated pt that if she were to change her mind she can contact her PCP and request HH set-up. Pt expressed understanding. Plan: Return home with the support of her family and home O2 if qualifies Maddi Jeffries RN CM
[2022-12-13] MEDS: Pravastatin 40 MG Tablet PO (20:39)
[2022-12-13] MEDS: Latanoprost 0.005% 1 Bottle 1 DRP OPHTHALMIC (20:40)
[2022-12-13] MEDS: traZODone 100 MG Tablet PO (20:40)
[2022-12-13 21:43] LABS: Bedside Glucose 251 mg/dL (74-106)
[2022-12-14 03:00] VITALS: BP 117/68; PULSE 94; RESP 18; TEMP 37; O2SAT 94
[2022-12-14 05:26] LABS: Absolute Lymphocyte Count 1.21 X10^3/uL (0.83-4.51); Basophil# 0.02 X10^3/uL; Basophil% 0.3 % (0-1); Eosinophils% 2.7 % (0-5); Hemoglobin 10.7 g/dL (12.0-15.0); Lymphocyte # 1.21 X10^3/ul (0.83-4.51); Lymphocyte % 16.6 % (19-41); Mean Corp Hgb Conc 33.4 g/dL (32-36); Mean Corpuscular Hgb 31.5 pg (27.0-32.0); Mean Corpuscular Volume 94.1 fL (81-99); Mean Platelet Vol. 9.6 fl (6.2-12.0); Monocyte# 0.79 X10^3/uL; Monocyte% 10.8 % (0-10); NRBC Flagged by Analyzer 0 % (0-5); Neutrophil # 5.02 X10^3/uL (2.7-7.7); Neutrophil % 68.6 % (47-70); Platelet Count 189 K/mm3 (150-450); RBC Distribution Width CV 14.2 % (11.6-14.6); RBC Distribution Width SD 49.6 fl (35.1-43.9); White Blood Count 7.3 K/mm3 (4.4-11.0)
[2022-12-14] MEDS: dilTIAZem 30 MG Tablet PO ×2 (05:56→12:56)
[2022-12-14] MEDS: Levothyroxine 50 MCG Tablet PO (05:57)
[2022-12-14 05:59] LABS: Anion Gap 7 (5-15); BUN 23 mg/dL (7-18); BUN/Creat Ratio 23.5 RATIO (10-20); Calcium,Total 8.5 mg/dL (8.5-10.1); Chloride 108 mmol/L (98-107); Creatinine, Serum 0.98 mg/dL (0.55-1.02); EST Glomerular Filtration Rate 58 mL/min (>60); Est Glom Filt Rate - Afr Amer 71 mL/min (>60); Estimated Creatinine Clearance 55.66 ml/min; Glucose 134 mg/dL (74-106); Potassium 3.3 mmol/L (3.5-5.1); Sodium Level 141 mmol/L (136-145)
[2022-12-14 06:17] LABS: Bedside Glucose 150 mg/dL (74-106)
[2022-12-14] MEDS: Allopurinol 100 MG Tablet PO (08:11)
[2022-12-14] MEDS: guaiFENesin 1,200 MG Tablet 1200 MG PO (08:11)
[2022-12-14] MEDS: Cholecalciferol (VIT D3) 25 MCG TABLET (1,000 UNITS) 50 MCG PO (08:11)
[2022-12-14 08:12] VITALS: BP 130/68; PULSE 87
[2022-12-14] MEDS: APIXABAN 5 MG TABLET PO (08:12)
[2022-12-14] MEDS: Metoprolol(XL)Succ 100 MG Tablet PO (08:12)
[2022-12-14] MEDS: Multivitamins,Therapeutic Tablet 1 TABLET PO (08:13)
[2022-12-14] MEDS: Potassium Chloride Oral Tablet 20 MEQ 60 MEQ PO (08:13)
[2022-12-14] MEDS: Bumetanide 1 MG/4 ML Vial 2 MG IV (08:14)
[2022-12-14] MEDS: Aspirin E.C. 81 MG Tablet PO (08:15)
[2022-12-14 10:20] VITALS: O2SAT 92
[2022-12-14 11:00] VITALS: O2SAT 94; O2SAT 95
[2022-12-14] MEDS: Insulin Lispro 100 UNIT/ML INSULN.PEN SC (11:31)
[2022-12-14 11:50] LABS: Bedside Glucose 273 mg/dL (74-106)
--- NOTE | 2022-12-14 12:52 | PCM.DC.SUM ---
Providers Date of Admission: 12/11/22 Date of Discharge: 12/14/22 Primary Care Physician: Dr. Gudelia Gardiner MD Reason For Visit: SEPSIS 2/2 PNEUMONIA Diagnosis Discharge Diagnosis (1) Pneumonia: Status: Acute Code(s): J18.9 - Pneumonia, unspecified organism (2) Hypoxia: Status: Acute Code(s): R09.02 - Hypoxemia (3) Sepsis: Status: Acute Code(s): A41.9 - Sepsis, unspecified organism (4) Elevated troponin: Status: Acute Code(s): R77.8 - Other specified abnormalities of plasma proteins (5) Elevated d-dimer: Status: Acute Code(s): R79.89 - Other specified abnormal findings of blood chemistry (6) JUAN PABLO (acute kidney injury): Status: Acute Code(s): N17.9 - Acute kidney failure, unspecified (7) Lactic acidosis: Status: Acute Code(s): E87.20 - Acidosis, unspecified (8) Gram-negative bacteremia: Status: Acute Code(s): R78.81 - Bacteremia (9) Hypophosphatemia: Status: Acute Code(s): E83.39 - Other disorders of phosphorus metabolism (10) Atrial flutter: Status: Acute Code(s): I48.92 - Unspecified atrial flutter Medications at Discharge Home Medications acetaminophen 650 mg tablet,extended release (Tylenol Arthritis Pain) 650 mg PO DAILY PAIN 09/14/17 aspirin 81 mg tablet,delayed release (Adult Low Dose Aspirin) 81 mg PO DAILY 09/14/17 latanoprost 0.005 % eye drops 1 drp ophthalmic (eye) QHS 09/14/17 levothyroxine 50 mcg tablet (Synthroid) 50 mcg PO DAILY 09/14/17 metoprolol succinate 100 mg tablet,extended release 24 hr (Toprol XL) 100 mg PO DAILY 09/14/17 multivitamin 1 tab PO DAILY 09/14/17 pravastatin 40 mg tablet 40 mg PO QHS 09/14/17 liraglutide 0.6 mg/0.1 mL (18 mg/3 mL) subcutaneous pen injector (Victoza 2-Jose Angel) 1.2 mg subcut DAILY 09/15/17 alpha lipoic acid 200 mg capsule 200 mg PO DAILY supplement 08/08/20 krill 1,000 mg-omega-3 230 mg-dha 60 cx-tzy-ugmlhqawa-astaxan capsule (MegaRed [place]-3 Krill Oil) 1 cap PO DAILY 08/08/20 trazodone 100 mg tablet 100 mg PO DAILY 08/08/20 allopurinol 100 mg tablet 100 mg PO BID gout 09/26/22 elderberry fruit 460 mg-elderberry flower 115 mg capsule 1 cap PO DAILY 09/26/22 metformin 1,000 mg tablet 1,000 mg PO DAILY 09/26/22 cholecalciferol (vitamin D3) 50 mcg (2,000 unit) capsule 50 mcg PO DAILY 12/11/22 apixaban 5 mg tablet (Eliquis) 5 mg PO BID #60 tabs 12/14/22 ciprofloxacin HCl 500 mg tablet (Cipro) 500 mg PO BID #12 tabs 12/14/22 diltiazem HCl 120 mg capsule,extended release 24 hr (Cardizem CD) 120 mg PO DAILY #30 caps 12/14/22 Hospital Course Procedures EKG and - (Chest x-ray/CTA chest/CT abdomen and pelvis) Summary of Care Provided Minutes Spent on Discharge: 38 Hospital Course: CHRISTA ALEX, is a 76 F who presented to the emergency department at [facility] on 12/11/2022 with a chief complaint of shortness of breath. Patient stated she was feeling fine the day prior to admission and went out and mow her yard. She stated by the time she got done mowing her yard she felt extremely fatigued and had back pain so she came inside and sat down. She began having rigors and felt feverish so she took her temperature and she noted her temperature to be 100.1. She took some Tylenol and for little bit better so she went to bed and when she woke up on the morning of admission, she felt short of breath. She reported she woke up at about 530 and then called her daughter about an hour and a half later to bring her to the emergency department as she was feeling poorly. She had ongoing rigors and chills along with cough and shortness of breath. She denied any headache, nasal congestion, ear pressure, pharyngitis, or sputum production. She denied chest pain, diarrhea, nausea, vomiting, hematemesis, melena or hematochezia. She did admit to some generalized weakness and fatigue. She had no sick contacts and had not traveled anywhere recently. She had no recent hospitalizations. Upon arrival to the emergency department she was found to have a temperature of 103, heart rate was 109, blood pressure was 186/163 with repeat at 135/91, respiratory rate was 18 and oxygen saturations were 85% on room air. Patient is not oxygen 10 dependent at baseline and has no history of tobacco abuse or lung disease. Her CBC shows a normal white count at 9.5 but a considerable left shift with a 93.3% neutrophilia was identified. CBC was otherwise unremarkable. Chemistry panel showed serum bicarb of 20, BUN was 25 and serum creatinine was 1.56 (baseline serum creatinine is 0.9-1.1), glucose was 217. Her lactic acid was 4.1. Troponin initially was 43 with repeat of 60. A BNP was obtained and found to be elevated to 85.5. Chest x-ray showed infiltration of the left upper and left lower lobes as well as the right lung base. CTA of the chest was performed with elevated D-dimer and showed an infiltration of the left upper lobe and left lower lobe as well as the right lower lobe with tiny bilateral pleural effusions worse on the left side, no evidence of PE and fatty infiltration of the liver. She was admitted the medical floor and placed on broad-spectrum antibiotics initially with CAP coverage as there was concern she had pneumonia based on her chest x-ray and CT findings. She was started on broad-spectrum antibiotics by the emergency department after cultures were obtained. The patient did note she had a recent UTI for which she was treated with Macrobid and completed the course of antibiotics and felt that her symptoms had resolved completely. She was maintained on 4 L nasal cannula and was slowly able to be weaned to room air. At the time of discharge, at rest we did an ambulatory pulse ox at which time she was satting 95% on room air and 94% on room air with exertion. Blood culture showed E. coli that was pansensitive. Her antibiotics were narrowed to ceftriaxone 2 g daily alone from ceftriaxone and azithromycin and at the time of discharge she was converted to ciprofloxacin 500 mg p.o. twice daily to complete a course of 10 days. We did extend the course and she had a recent UTI and I suspect this is the source of her infection and possibly the Macrobid was not as effective however her urine culture at presentation was unremarkable. I also assessed the CT of her abdomen pelvis to assure that there was no concern for kidney stones or pyelonephritis and none was found. She developed a fib/flutter with RVR during her hospital course. With her valve history she does have an increased risk for this and I suspect her oh sepsis was overwhelming and maybe precipitated this. She may obtain an A-fib but we were able to rate control her by continuing her home metoprolol and adding low-dose Cardizem at 120 mg daily. She was also started on apixaban for stroke prevention in the setting of atrial fibrillation. 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 She is to call Thursday to set up an appointment. She had a recent echocardiogram so repeat echo was not pursued. We did discuss the risks of Eliquis prior to discharge and she voiced understanding. Given the addition of Cardizem we did do her losartan/hydrochlorothiazide. Her blood pressures last to be reviewed and either GRIFFIN or ARB at a lower dose may need to be reinitiated and should be if possible given her diabetes diagnosis at baseline. She was seen by physical and Occupational Therapy during her hospital stay and they felt she was stable to go home without any further therapy. We did discuss that it would likely take some time for her to feel back to her normal self and that she should stay active but progress slowly and not overdo it. She was asked to follow-up with her primary care physician within the next 1 week if possible and with cardiology within the next 2 to 4 weeks. Again her losartan/HCTZ was discontinued and we wrote prescriptions for Cardizem 120 mg daily, Eliquis 5 mg p.o. twice daily and Cipro 500 mg p.o. twice daily to complete her antibiotic course. Discharge diagnoses: Sepsis E. coli bacteremia Hypoxia Atrial flutter-new diagnosis Hypophosphatemia-resolved Lactic acidosis-resolved Troponin elevation secondary to demand ischemia JUAN PABLO-resolved Aortic valve stenosis Hypertension Hyperlipidemia DM-2 Hypothyroidism Glaucoma Gout Carotid artery stenosis History of breast cancer Obesity Physical Exam Const alert, oriented x3, no apparent distress and well nourished; Negative for average body habitus or healthy appearing Constitutional Narrative: Obese, older white female, sitting up in bed, family at bedside,, appears as if she is feeling much better today, no signs of current discomfort General Appearance: cooperative, comfortable, well kempt and well developed Orientation / Consciousness: awake, oriented to person, oriented to place and oriented to time Exam Limitations: no limitations HEENT normocephalic, head/scalp atraumatic, hearing grossly normal bilaterally and moist oral mucous membranes HEENT Narrative: Mallampati 2-3, no thrush Eyes PERRL, EOMs intact bilaterally and conjunctivae normal Eyes Narrative: No scleral icterus Neck no lymphadenopathy, supple, no JVD and No no carotid bruits Neck Narrative: trachea midline, no thyroid enlargement Resp normal respiratory effort, no retractions, no use of accessory muscles and clear to auscultation bilaterally Auscultation: Negative for crackles, rhonchi or wheezes Cardio regular rate, S1 normal heart sound, S2 normal heart sound, no rub, no gallops and no clicks; Negative for no murmurs Cardio Narrative: irregular rhythm, 3 out of 6 systolic murmur GI normal to inspection, nondistended, normoactive bowel sounds, soft to palpation and non-tender Extremity no clubbing, cyanosis or edema Extremity Narrative: Pedal pulses are 2+ Skin no rashes or lesions noted, no wounds, skin turgor normal, no jaundice, no petechiae and no mottling Skin Narrative: Skin changes consistent with chronic sun exposure Neuro oriented x3, CN's II-XII intact bilaterally, moves all extremities, no focal motor deficits and no sensory deficits noted Neuro Narrative: Mild generalized weakness but much improved since admission Speech: speech normal Psych affect normal Psych Narrative: Very pleasant, eye contact good, interacts appropriately Weight / BMI Weight Weight: 75.75 kg Body Mass Index (BMI) 33.7 ABG / Lab / Microbiology Data 12/14/22 04:25 12/14/22 04:25 Laboratory: Laboratory Results - last 24 hr 12/13/22 20:37: POC Glucose 251 H 12/14/22 04:25: WBC 7.3, RBC 3.40 L, Hgb 10.7 L, Hct 32.0 L, MCV 94.1, MCH 31.5, MCHC 33.4, RDW Std Deviation 49.6 H, RDW Coeff of Rock 14.2, Plt Count 189, MPV 9.6, Immature Gran % (Auto) 1.000 H, Neut % (Auto) 68.6, Lymph % (Auto) 16.6 L, [place] % (Auto) 10.8 H, Eos % (Auto) 2.7, Baso % (Auto) 0.3, Absolute Neuts (auto) 5.0, Absolute Lymphs (auto) 1.21, Nucleated RBC % 0, Sodium 141, Potassium 3.3 L, Chloride 108 H, Carbon Dioxide 26.0, Anion Gap 7, BUN 23 H, Creatinine 0.98, Estim Creat Clear Calc 55.66, Est GFR (MDRD) Af Amer 71, Est GFR (MDRD) Non-Af 58 L, BUN/Creatinine Ratio 23.5 H, Glucose 134 H, Calcium 8.5 12/14/22 05:57: POC Glucose 150 H 12/14/22 11:28: POC Glucose 273 H Microbiology: Microbiology 12/12/22 12:30 Urine, Clean Catch Urine Culture - Final Culture exhibits no growth. 12/13/22 16:15 Urine, Clean Catch Legionella Antigen - Final 12/13/22 16:15 Urine, Clean Catch Streptococcus pneumoniae Antigen (M - Final 12/11/22 08:17 Blood Culture (Wb) - Left Wrist Blood Culture - Preliminary No growth in 48 hours. 12/11/22 08:12 Blood Culture (Wb) - Left Hand Blood Culture - Final Escherichia coli 12/11/22 13:18 Mucosa - Nose Respiratory Panel (PCR) - Final 12/11/22 08:17 Nasal Secretion SARS-CoV-2 & FLU Antigen (Rapid) - Final D/C Instructions Discharge Diet: Low fat / Low cholesterol Discharge Activity: No Restrictions (Increase tolerance slowly to normal activities) Meaningful Use Info Meaningful Use Diagnoses (Choose all that apply): None applicable Discharge Plan Admission Admit Date/Time: 12/11/22 10:49 Primary Reason for Your Visit: Shortness of Breath Attending Provider: Gisel Bowman Primary Care Provider: Gudelia Gardiner Instructions Additional Instructions / Restrictions: 1. You were found to have E. coli in your bloodstream and have been treated for this infection. Please complete antibiotics as noted below for the entire course after discharge Discharge Orders/Prescriptions Prescriptions: New Eliquis 5 mg Tablet 5 mg PO BID Qty: 60 1RF ciprofloxacin HCl [Cipro] 500 mg tablet 500 mg PO BID Qty: 12 0RF diltiazem HCl [Cardizem CD] 120 mg capsule,extended release 24hr 120 mg PO DAILY Qty: 30 1RF Continued acetaminophen [Tylenol Arthritis Pain] 650 mg tablet extended release 650 mg PO DAILY metoprolol succinate [Toprol XL] 100 mg tablet extended release 24 hr 100 mg PO DAILY levothyroxine [Synthroid] 50 mcg tablet 50 mcg PO DAILY pravastatin 40 mg tablet 40 mg PO QHS aspirin [Adult Low Dose Aspirin] 81 mg tablet,delayed release (DR/EC) 81 mg PO DAILY latanoprost 0.005 % drops 1 drp OPHTHALMIC QHS Rx Instructions: INSTIL 1 DROP INTO BOTH EYES AT BEDTIME multivitamin tablet 1 tab PO DAILY Victoza 2-Jose Angel 0.6 mg/0.1 mL (18 mg/3 mL) pen injector 1.2 mg SC DAILY allopurinol 100 mg tablet 100 mg PO BID trazodone 100 mg tablet 100 mg PO DAILY [id number]-ast [MegaRed [place]-3 Krill Oil] 1,000-230-60 mg capsule 1 cap PO DAILY alpha lipoic acid 200 mg capsule 200 mg PO DAILY metformin 1,000 mg tablet 1,000 mg PO DAILY elderberry fruit and flower 460-115 mg capsule 1 cap PO DAILY cholecalciferol (vitamin D3) 50 mcg (2,000 unit) capsule 50 mcg PO DAILY Discontinued losartan-hydrochlorothiazide [Hyzaar] 100-25 mg tablet 0.5 tab PO DAILY Referrals / Follow Up: Gudelia Gardiner MD [Primary Care Provider] - Within 1 Week (Call tomorrow to set up an appointment for hospital follow-up) Lorri Cooper PA [Med Staff - Adv Practice Prof] - Within 2 Weeks (New Afib while hospitalized--> please call tomorrow to set up a hospital follow-up appointment) Disposition Disposition (needs filled in before D/C Order can be placed): Home, Self Care Charges/Coding Visit Charges Inpatient E&M: 56160 Disch Hosp >30min
[2022-12-14 13:17] VITALS: BP 142/73; PULSE 88; RESP 18; TEMP 36.7; O2SAT 98
[2022-12-18 14:47] LABS: Bedside Glucose 175 mg/dL (74-106)
== END 2022-12-14 14:02 | disposition home or self-care (01) | DRG 871 ==
LOC: ED 10:41 → PCU 11:02
PROVIDERS: Admitting Provider Internal Medicine; Emergency Provider Emergency Medicine; PCP Family Medicine; Visit Provider Internal Medicine
DX: A41.51 Sepsis due to Escherichia coli [E. coli] (principal); J18.9 Pneumonia, unspecified organism; E87.20 Acidosis, unspecified; I24.8 Other forms of acute ischemic heart disease; I48.92 Unspecified atrial flutter; N17.9 Acute kidney failure, unspecified; E83.39 Other disorders of phosphorus metabolism; I48.91 Unspecified atrial fibrillation; E11.39 Type 2 diabetes mellitus with other diabetic ophthalmic complication; I70.0 Atherosclerosis of aorta; R65.20 Severe sepsis without septic shock; Z79.4 Long term (current) use of insulin; I10 Essential (primary) hypertension; E03.9 Hypothyroidism, unspecified; I35.0 Nonrheumatic aortic (valve) stenosis; E78.5 Hyperlipidemia, unspecified; I25.10 Atherosclerotic heart disease of native coronary artery without angina pectoris; E66.9 Obesity, unspecified; Z66 Do not resuscitate; H40.9 Unspecified glaucoma; N25.89 Other disorders resulting from impaired renal tubular function; Z68.33 Body mass index [BMI] 33.0-33.9, adult; Z85.3 Personal history of malignant neoplasm of breast; Z87.440 Personal history of urinary (tract) infections
CPT/HCPCS: 36415; 71046; 71275; 74176; 80048; 80053; 82962; 83605; 83735; 83880; 84100; 84443; 84484; 85025; 85379; 87040; 87077; 87086; 87186; 87428; 87449; 87633; 87641; 93005; 94640; 94668; 97162; 97165; 97530; 97535; 99252; 99284; J7030; J7050; Q9967; A4216; G0463; J0696; J1940

== ENCOUNTER 2022-12-25 12:44 | Emergency (ER) | payer MEDICARE, OTHER, SELFPAY ==
[2022-12-25 12:46] VITALS: BP 139/76; PULSE 81; RESP 18; TEMP 36.3; O2SAT 100
[2022-12-25 14:38] LABS: Bacteria 0 SEEN /hpf (None Seen); Mucous, Urine 0 SEEN /hpf (<or=2+); Red Blood Cells-Urine 0 SEEN /hpf (0-5); Squamous Epithelial Cells - UA 0 SEEN /hpf (5-10); White Blood Cells 0 SEEN /hpf (0-5)
[2022-12-25 14:46] LABS: Color, Urine Straw (Yellow); Glucose, Dipstick Normal (Normal); Ketone-Dipstick Negative (Negative); Leukocyte Esterase-Dipstick Negative /ul (Negative); Nitrite-Dipstick Negative (Negative); Occult Blood-Urine Negative /ul (Negative); Protein-Dipstick Negative (Negative); Specific Gravity, Urine 1.005 (1.002-1.030); Urine Bilirubin Dipstick Negative (Negative); Urine Clarity Clear (Clear); Urine Urobilinogen Normal (Normal)
[2022-12-25 15:04] LABS: Absolute Neutrophil Count 5.6 X10^3/uL (2.0-7.7); Basophil# 0.07 X10^3/uL; Basophil% 0.9 % (0-1); Eosinophil# 0.08 X10^3/uL; Hematocrit 40.6 % (37-47); Hemoglobin 13.5 g/dL (12.0-15.0); Lymphocyte % 18.9 % (19-41); Mean Corp Hgb Conc 33.3 g/dL (32-36); Mean Corpuscular Hgb 31.9 pg (27.0-32.0); Monocyte# 0.58 X10^3/uL; Monocyte% 7.3 % (0-10); NRBC Flagged by Analyzer 0 % (0-5); Neutrophil # 5.64 X10^3/uL (2.7-7.7); Neutrophil % 71.1 % (47-70); Platelet Count 358 K/mm3 (150-450); RBC Distribution Width CV 14.6 % (11.6-14.6); RBC Distribution Width SD 50.7 fl (35.1-43.9); Red Blood Count 4.23 M/mm3 (4.2-5.4); White Blood Count 7.9 K/mm3 (4.4-11.0)
[2022-12-25 15:20] LABS: Anion Gap 7 (5-15); BUN 16 mg/dL (7-18); BUN/Creat Ratio 14.5 RATIO (10-20); Calcium,Total 9.6 mg/dL (8.5-10.1); Chloride 109 mmol/L (98-107); EST Glomerular Filtration Rate 51 mL/min (>60); Est Glom Filt Rate - Afr Amer 62 mL/min (>60); Glucose 109 mg/dL (74-106); Potassium 3.9 mmol/L (3.5-5.1); Sodium Level 140 mmol/L (136-145); Troponin-I HS (w/2H Reflex) 7 pg/mL (3.0-54.0)
[2022-12-25 15:33] VITALS: BP 151/87; BP 176/98; BP 179/80; PULSE 80; PULSE 85; PULSE 87; PULSE 88; RESP 12; O2SAT 99
--- NOTE | 2022-12-25 16:23 | EDS_ITS ---
HPI History of Present Illness Chief Complaint: Dizziness Narrative Narrative: Patient is a 77-year-old female with history of atrial fibrillation (on Eliquis) and recent admission for gram-negative sepsis likely secondary to UTI presenting with an episode of lightheadedness. Patient states about an hour prior to arrival she had sudden onset of feeling lightheaded, her ears were ringing and she had a prickling and numb sensation all over. 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 She sat down. Her heart was racing. She dates her symptoms were intermittent since then but have since resolved. They lasted for couple minutes. She has had some urinary frequency today but denies any associated abdominal pain, nausea, vomiting, change in bowel habits, chest pain or difficulty breathing. Denies any swelling of her legs. Due to her recent hospitalization and medical condition she came in to be evaluated make sure she is okay. No other complaints or concerns at this time. [facility] Medical History (Updated 12/25/22 @ 17:[address] Kiki Galindo, DO) Actinic keratosis Atherosclerosis of coronary artery of [place] heart without angina pectoris Atrial flutter Breast cancer Carotid bruit Carpal tunnel syndrome Essential hypertension Gout History of left heart catheterization (08/2002) HLD (hyperlipidemia) Hx of breast cancer Hypothyroidism Low serum HDL Mitral valve annular calcification Morbid obesity with BMI of 40.0-44.9, adult Nonrheumatic aortic (valve) stenosis Osteoporosis Spinal stenosis Home Medications acetaminophen 650 mg tablet,extended release (Tylenol Arthritis Pain) 650 mg PO DAILY PAIN 09/14/17 [History Last Taken 12/11/22] aspirin 81 mg tablet,delayed release (Adult Low Dose Aspirin) 81 mg PO DAILY 09/14/17 [History Last Taken 12/09/22] latanoprost 0.005 % eye drops 1 drp ophthalmic (eye) [facility] eye health 09/14/17 [History Last Taken 12/09/22] levothyroxine 50 mcg tablet (Synthroid) 50 mcg PO DAILY thyroid 09/14/17 [ History Last Taken 12/10/22] metoprolol succinate 100 mg tablet,extended release 24 hr (Toprol XL) 100 mg PO DAILY blood pressure 09/14/17 [History Last Taken 12/10/22] multivitamin 1 tab PO DAILY vitamin 09/14/17 [History Last Taken 12/09/22] pravastatin 40 mg tablet 40 mg PO QHS reflux 09/14/17 [History Last Taken 12/09/22] liraglutide 0.6 mg/0.1 mL (18 mg/3 mL) subcutaneous pen injector (Victoza 2-Jose Angel) 1.2 mg subcut DAILY diabetes 09/15/17 [History Last Taken 12/10/22] alpha lipoic acid 200 mg capsule 200 mg PO DAILY supplement 08/08/20 [History Last Taken 12/10/22] krill 1,000 mg-omega-3 230 mg-dha 60 bg-loa-tniwmmhrl-astaxan capsule (MegaRed [place]-3 Krill Oil) 1 cap PO DAILY supplement 08/08/20 [History Last Taken 12/10/22] trazodone 100 mg tablet 100 mg PO DAILY sleep 08/08/20 [History Last Taken 12/09/22] allopurinol 100 mg tablet 100 mg PO BID gout 09/26/22 [History Last Taken 12/10/22] elderberry fruit 460 mg-elderberry flower 115 mg capsule 1 cap PO DAILY supplement 09/26/22 [History Last Taken 12/10/22] metformin 1,000 mg tablet 1,000 mg PO DAILY diabetes 09/26/22 [History Last Taken 12/09/22] cholecalciferol (vitamin D3) 50 mcg (2,000 unit) capsule 50 mcg PO DAILY vitamin 12/11/22 [History Last Taken 12/09/22] apixaban 5 mg tablet (Eliquis) 5 mg PO BID #60 tabs 12/14/22 [Rx Last Taken Unknown] ciprofloxacin HCl 500 mg tablet (Cipro) 500 mg PO BID #12 tabs 12/14/22 [Rx Last Taken Unknown] diltiazem HCl 120 mg capsule,extended release 24 hr (Cardizem CD) 120 mg PO DAILY #30 caps 12/14/22 [Rx Last Taken Unknown] Allergy/AdvReac Type Severity Reaction Status Date / Time fenofibrate [From Tricor] AdvReac myalgias Verified 12/25/22 12:46 simvastatin AdvReac myalgias Verified 12/25/22 12:46 Sulfa (Sulfonamide AdvReac unknown Verified 12/25/22 12:46 Antibiotics) Family History Father Kidney disease Mother CAD (coronary artery disease) CABG Sister CAD (coronary artery disease) CABG HLD (hyperlipidemia) Surgical History History of appendectomy History of carpal tunnel surgery of left wrist History of discectomy Hx of right mastectomy Social History household members: none housing: house current occupational status: retired Smoking Status: Never smoker alcohol intake: current alcohol intake frequency: a few times a week Alcohol type: wine substance use type: does not use additional social history: Lives alone, uses no assist device for ambulation, daughter lives nearby ROS ROS ED Constitutional Constitutional ED: Reports other Details: Lightheaded ; Denies chills, fever(s) or sweats Eyes Eyes: Denies blurry vision or change in vision ENT ENT ED: Denies sore throat Cardiovascular Cardiovascular: Reports racing heartbeat; Denies chest pain or palpitations Respiratory/Chest Respiratory/Chest: Denies cough or dyspnea Gastrointestinal Gastrointestinal: Denies abdominal pain, nausea or vomiting Genitourinary Genitourinary ED: Reports urinary frequency; Denies dysuria or hematuria Musculoskeletal Musculoskeletal: Denies arthralgias or myalgias Integumentary Denies rash Neurologic Neurologic: Reports paresthesias Psychiatric Psychiatric: Denies anxiety Hematologic/Lymphatic Hematologic/Lymphatic: Reports easy bruising EXAM Physical Exam Const Vital Signs: 12/25/22 12:46 12/25/22 15:33 12/25/22 15:33 Temperature 97.3 F L Temperature Source Temporal Pulse Rate 81 87 Pulse Rate [Lying] 85 Pulse Rate [Sitting (for 1 minute prior to obtaining)] 80 Pulse Rate [Standing (for 1 minute prior to obtaining)] 88 Respiratory Rate 18 12 Blood Pressure 139/76 H Blood Pressure [Lying] 176/98 H Blood Pressure [Sitting (for 1 minute prior to obtaining)] 179/80 H Blood Pressure [Standing (for 1 minute prior to obtaining)] 151/87 H Blood Pressure Mean 97 Blood Pressure Mean [Lying] 124 Blood Pressure Mean [Sitting (for 1 minute prior to obtaining)] 113 Blood Pressure Mean [Standing (for 1 minute prior to obtaining)] 108 Pulse Ox 100 99 Oxygen Delivery Method Room Air Positive well nourished and well developed General Appearance ED: well developed and NAD HEENT Reports moist mucous membranes Eyes PERRL and EOMs intact bilaterally Neck supple and no JVD Resp normal respiratory effort and clear to auscultation bilaterally Cardio regular rate Rhythm: abnormal rhythm irregularly irregular GI normal to inspection, nondistended, normoactive bowel sounds and non-tender Extremity normal to inspection General Extremety ED: Negative for edema General Extremity: Negative for edema Neuro oriented x3 Sensorium / Orientation: alert Motor Exam: Negative for general weakness Psych mental status grossly normal Skin no rashes or lesions noted and no wounds MDM MDM MDM Narrative Medical decision making narrative: Patient is evaluated for what sounds like an episode of near syncope/lightheadedness. Her vital signs are normal at this time. She is completely asymptomatic. She is on Eliquis have a low suspicion for pulmonary emboli. She is not hypoxic. Cardiac work-up including EKG, CBC, BMP and initial high-sensitivity troponin are all normal. EKG shows atrial fibrillation which is not new. Urinalysis is normal not consistent with infection. Her orthostatics are largely normal and she is asymptomatic during them. Plan is to repeat high sensitivity troponin if this is normal patient can be discharged home. Currently she does not have signs of an acute cardiac abnormality, ACS, is low risk for pulmonary emboli as she is anticoagulated, no concern for pneumonia she is not having any respiratory symptoms, leukocytosis or fever and does not appear to have an acute infection. Patient and daughter are agreeable with this tentative plan. Lab Data Attestation: I reviewed the patient's lab results. Labs: Laboratory Results - last 24 hr 12/25/22 12/25/22 14:30 14:55 WBC 7.9 RBC 4.23 Hgb 13.5 Hct 40.6 MCV 96.0 MCH 31.9 MCHC 33.3 RDW Std Deviation 50.7 H RDW Coeff of [place] 14.6 Plt Count 358 MPV 9.0 Immature Gran % (Auto) 0.800 Neut % (Auto) 71.1 H Lymph % (Auto) 18.9 L [place] % (Auto) 7.3 Eos % (Auto) 1.0 Baso % (Auto) 0.9 Absolute Neuts (auto) 5.6 Absolute Lymphs (auto) 1.50 Nucleated RBC % 0 Sodium 140 Potassium 3.9 Chloride 109 H Carbon Dioxide 24.0 Anion Gap 7 BUN 16 Creatinine 1.10 H Est GFR (MDRD) Af Amer 62 Est GFR (MDRD) Non-Af 51 L BUN/Creatinine Ratio 14.5 Glucose 109 H Calcium 9.6 Troponin I High Sens 7 Urine Color Straw Urine Clarity Clear Urine pH 7.0 Ur Specific [place] 1.005 Urine Protein Negative Urine Glucose (UA) Normal Urine Ketones Negative Urine Occult Blood Negative Urine Nitrite Negative Urine Bilirubin Negative Urine Urobilinogen Normal Ur Leukocyte Esterase Negative Urine RBC 0 SEEN Urine WBC 0 SEEN Ur Squamous Epith Cells 0 SEEN Urine Bacteria 0 SEEN Urine Mucus 0 SEEN Rhythm Strip Rhythm Strip: A-fib Rate: 83 Ectopy: None EKG Initial EKG: Attestation: I personally reviewed and interpreted this EKG as follows: Interpretation: Atrial Fibrillation Comments: Atrial fibrillation at a rate of 83 bpm Normal axis Normal intervals Normal ST segments Discharge Plan Triage Chief Complaint: Dizziness ED Provider: Kiki Galindo Dx/Rx/DC Orders Clinical Impression: Lightheadedness Instructions: ED Near-Fainting, Uncertain Cause Prescriptions: No Action acetaminophen [Tylenol Arthritis Pain] 650 mg tablet extended release 650 mg PO DAILY metoprolol succinate [Toprol XL] 100 mg tablet extended release 24 hr 100 mg PO DAILY levothyroxine [Synthroid] 50 mcg tablet 50 mcg PO DAILY pravastatin 40 mg tablet 40 mg PO QHS aspirin [Adult Low Dose Aspirin] 81 mg tablet,delayed release (DR/EC) 81 mg PO DAILY latanoprost 0.005 % drops 1 drp OPHTHALMIC QHS Rx Instructions: INSTIL 1 DROP INTO BOTH EYES AT BEDTIME multivitamin tablet 1 tab PO DAILY Victoza 2-Jose Angel 0.6 mg/0.1 mL (18 mg/3 mL) pen injector 1.2 mg SC DAILY allopurinol 100 mg tablet 100 mg PO BID trazodone 100 mg tablet 100 mg PO DAILY [id number]-ast [MegaRed [place]-3 Krill Oil] 1,000-230-60 mg capsule 1 cap PO DAILY alpha lipoic acid 200 mg capsule 200 mg PO DAILY metformin 1,000 mg tablet 1,000 mg PO DAILY elderberry fruit and flower 460-115 mg capsule 1 cap PO DAILY cholecalciferol (vitamin D3) 50 mcg (2,000 unit) capsule 50 mcg PO DAILY Eliquis 5 mg Tablet 5 mg PO BID Qty: 60 1RF ciprofloxacin HCl [Cipro] 500 mg tablet 500 mg PO BID Qty: 12 0RF diltiazem HCl [Cardizem CD] 120 mg capsule,extended release 24hr 120 mg PO DAILY Qty: 30 1RF Primary Care Provider: Gudelia Gardiner Referrals: Gudelia Gardiner MD [Primary Care Provider] - Activity Restrictions/Additional Instructions: The cause of your episode of lightheadedness is not clear. It is possible you could have overexerted yourself today given how much your body is recently been treated with your recent hospitalization. If your symptoms return or worsen please return to the emergency room at this time I think it safe for you to go home. Continue taking your medications as prescribed. Disposition Disposition: Home, Self Care
[2022-12-25 17:01] LABS: Reflex Troponin-HS? (from REC) Y
[2022-12-25 18:05] LABS: Troponin-I HS 8 pg/mL (3.0-54.0)
[2022-12-25 18:25] VITALS: BP 134/82; PULSE 85; RESP 14; O2SAT 97; BMI 29.4
== END 2022-12-25 18:32 | disposition home or self-care (01) ==
PROVIDERS: Emergency Provider Emergency Medicine; PCP Family Medicine; Visit Provider Emergency Medicine
DX: R42 Dizziness and giddiness (principal); I25.10 Atherosclerotic heart disease of native coronary artery without angina pectoris
CPT/HCPCS: 80048; 81001; 84484; 85025; 93005; 96360; 99285; J7040; A4216

== ENCOUNTER → 2023-01-27 | Outpatient (CLI) | payer MEDICARE, OTHER, SELFPAY ==
--- NOTE | 2023-01-27 07:29 | ECHOCS_ITS ---
Reason For Study: ASHD/CAD Procedure This was a 2D Doppler, Color Flow transthoracic echocardiogram. The study was technically difficult. Contrast injection was performed. Exam performed in department. Left Ventricle Normal LV size. Left ventricular systolic function is normal. The estimated ejection fraction is 65 %. No regional wall motion abnormalities noted. Right Ventricle Normal RV size. Normal systolic function. Atria Normal left atrium. Normal right atrium. Mitral Valve There is moderate mitral annular calcification. Mild (1+) mitral valve insufficiency. Tricuspid Valve Normal tricuspid valve. Mild tricuspid valve insufficiency. Aortic Valve Trisinus/trileaflet aortic valve. Peak aortic valve gradient 48 mmHg. Mean aortic valve gradient 29 mmHg. Moderate aortic stenosis. Mild (1+) eccentric aortic valve insufficiency. Pulmonic Valve Normal pulmonic valve. Great Vessels Normal aortic root. The pulmonary artery is normal size. Normal inferior vena cava. Pericardium/Pleural No pericardial effusion. Medication 22 gauge I.V. with prn adaptor inserted into left arm. Diluted definity 1ml given slow IV push to enhance endocardial definition. Performed a rapid injection of agitated mix of 9 cc saline and 1cc air to assess for atrial septal defect. Inconclusive bubble study, IV was in Left Hand. MMode/2D Measurements & Calculations LVIDd: 4.2 cm IVSd: 1.1 cm LVOT diam: 2.0 cm LVIDs: 2.4 cm LVPWd: 0.85 cm RVDd: 3.6 cm FS: 42.7 % LVOT area: 3.1 cm2 Ao root diam: 2.8 cm LAV(MOD-bp): 56.4 ml LA A4 area: 19.9 cm2 LA dimension: 4.1 cm LAV(MOD-bp) Indexed: 35.6 ml/m2 LAV(MOD-sp2): 55.0 ml LAV(MOD-sp4): 52.6 ml TAPSE: 1.9 cm RA A4 area: 17.6 cm2 Doppler Measurements & Calculations MV E max alfred: 171.0 cm/sec MV V2 max: 179.2 cm/sec Ao V2 max: 343.5 cm/sec MV max P.9 mmHg Ao max P.3 mmHg MV V2 mean: 103.0 cm/sec Ao V2 mean: 252.4 cm/sec MV mean P.3 mmHg Ao mean P.5 mmHg MV V2 VTI: 37.1 cm Ao V2 VTI: 80.7 cm MVA(VTI): 1.8 cm2 AV (velocity ratio): 0.27 ANA(I,D): 0.84 cm2 ANA(V,D): 0.77 cm2 AI max alfred: 457.7 cm/sec LV V1 max: 85.0 cm/sec MR max alfred: 594.5 cm/sec AI max P.0 mmHg LV V1 max P.9 mmHg MR max P.4 mmHg AI dec slope: 328.6 cm/sec2 LV V1 mean P.7 mmHg AI P1/2t: 407.9 msec LV V1 mean: 61.5 cm/sec LV V1 VTI: 21.7 cm SV(LVOT): 67.5 ml PA V2 max: 75.6 cm/sec TR max alfred: 215.0 cm/sec PA V2 mean: 51.5 cm/sec TR max P.5 mmHg ECHO/Echo Complete W/ Contrast Interpretation Summary Normal LV size. Left ventricular systolic function is normal. The estimated ejection fraction is 65 %. There is moderate mitral annular calcification. Mild (1+) eccentric aortic valve insufficiency. Mean aortic valve gradient 29 mmHg. Moderate aortic stenosis. Contrast injection was performed. Ordering Physician: Lorri Cooper Referring Physician: Lorri Cooper Performed By: Husam De Los Santos RCS
--- NOTE | 2023-01-27 12:25 | STRESSREP ---
Stress Test Report Pharmacologic myocardial perfusion stress test. 77-year-old lady with a history of shortness of breath Resting EKG demonstrates atrial fibrillation with a rate of 93 bpm. Resting blood pressure is 128/84 mmHg. 0.4 mg of regadenoson was infused per usual protocol followed by rapid intravenous saline flush injection. Continuous EKG monitoring was performed. The maximum heart rate was 115 bpm which was 81% of max impacted heart rate the maximum workload was 1 metabolic equivalent. At rest there were no ST or T wave changes noted to suggest ischemia and at peak infusion nonspecific ST changes were noted which did not meet the criteria for ischemia. No clinical angina is noted. The final blood pressure was 118/68 mmHg. Myocardial perfusion protocol. 11.4 mCi of technetium 99m sestamibi was injected at rest. 0.4 mg of regadenoson was infused per usual protocol. At peak infusion 34.2 mCi of technetium 99m sestamibi was injected stress images were obtained stress and rest images were reconstructed and compared in the short axis vertical long and horizontal long axis. Gated images were also obtained. Perfusion SPECT analysis: Review of the stress images demonstrate normal uptake of tracer noted in all areas of the myocardium. The resting images similar demonstrated normal uptake of tracer noted in all areas of the myocardium. No areas of reversibility are noted to suggest ischemia and no previous infarct is noted. Gated SPECT analysis: The gated ejection fraction is 77%. Conclusion: Normal pharmacologic myocardial perfusion stress test. Preserved ejection fraction.
== END | disposition home or self-care (01) ==
LOC: CVS 07:29
PROVIDERS: PCP Family Medicine; Referring Provider Physician Assistant Medical; Visit Provider Physician Assistant Medical
DX: I25.10 Atherosclerotic heart disease of native coronary artery without angina pectoris (principal)
CPT/HCPCS: 78452; 93017; 93306; A9500; Q9957; A4216; C8929; J2785

== ENCOUNTER → 2023-01-28 | Outpatient (CLI) | payer MEDICARE, OTHER, SELFPAY ==
[2023-01-28 13:50] LABS: Anion Gap 6 (5-15); BUN 15 mg/dL (7-18); BUN/Creat Ratio 16.9 RATIO (10-20); Calcium,Total 9.6 mg/dL (8.5-10.1); Chloride 109 mmol/L (98-107); Creatinine, Serum 0.88 mg/dL (0.55-1.02); EST Glomerular Filtration Rate 65 mL/min (>60); Est Glom Filt Rate - Afr Amer 79 mL/min (>60); Glucose 120 mg/dL (74-106); Sodium Level 141 mmol/L (136-145)
== END | disposition home or self-care (01) ==
LOC: LAB 12:26
PROVIDERS: PCP Family Medicine; Referring Provider Physician Assistant Medical; Visit Provider Physician Assistant Medical
DX: I48.19 Other persistent atrial fibrillation (principal)
CPT/HCPCS: 36415; 80048

== ENCOUNTER 2023-02-11 07:32 | Day surgery (SDC) | payer MEDICARE, OTHER, SELFPAY ==
[2023-02-10 10:59] VITALS: BMI 30.9
--- NOTE | 2023-02-11 09:51 | PCM.OP.PRO ---
Procedure Report Date of Procedure: 02/11/23 CONSCIOUS SEDATION REPORT DATE OF SERVICE: February 11, 2023 BRIEF HISTORY OF PRESENT ILLNESS: The patient is a 77-year-old female who presented to [facility] for an elective outpatient cardioversion due to underlying atrial fibrillation. The patient denied any prior anesthetic complications. She similarly denied a history of COPD, asthma or obstructive sleep apnea. The patient is systemically anticoagulated on Eliquis. Her last surface echocardiogram demonstrated an ejection fraction of approximately 65%. PHYSICAL EXAMINATION: VITAL SIGNS: Reviewed and were acceptable. GENERAL: The patient is a female, in no apparent distress, speaking in full sentences. HEENT: Normocephalic, atraumatic. Mucous membranes are moist and pink. Good mouth opening noted. Trachea is midline. CHEST: S1, S2 irregularly irregular. No murmurs, rubs or gallops were noted. LUNGS: Clear to auscultation bilaterally without appreciable wheezes, rales or rhonchi. ABDOMEN: Soft, nontender, nondistended. Positive bowel sounds. EXTREMITIES: There is no clubbing, cyanosis or edema. ASA Class: II DESCRIPTION OF PROCEDURE: After confirmation of informed consent, the patient's anesthesia plan was reviewed in detail. Propofol was chosen. Risks and benefits were reviewed and the patient agreed to proceed. At 0932, the patient was given 60 mg of propofol. The patient achieved an appropriate level of sedation and was given a 200 joule synchronized cardioversion by Dr. Sepulveda at the bedside. This was successful in achieving normal sinus rhythm. The patient was monitored until 0944, at which time she reached her baseline mental status and function. The patient tolerated the procedure well. COMPLICATIONS: None ESTIMATED BLOOD LOSS: None RECOMMENDATIONS: Okay to recover in usual fashion. Procedures Pulmonary [id number]: [id number] Con Sedation
--- NOTE | 2023-02-11 10:03 | PCM.OP.PRO ---
Procedure Report Date of Procedure: 02/11/23 DC cardioversion. 77-year-old lady with a history of persistent atrial fibrillation. Patient presented to the cardiac catheterization lab in the postabsorptive nonsedated state. Informed consent was obtained. Patient was seen by Dr. Parks of the critical care division. Anterior-posterior pads were applied. The patient was then administered 60 mg of intravenous propofol and 200 J of synchronized DC cardioversion energy were applied with prompt reversal to sinus rhythm. Patient tolerated procedure well. Conclusion: Successful DC cardioversion from atrial fibrillation to sinus rhythm. Follow-up as per office protocol.
== END 2023-02-11 10:40 | disposition home or self-care (01) ==
LOC: CLSP 07:33
PROVIDERS: PCP Family Medicine; Referring Provider Internal Medicine Cardiovascular Disease; Visit Provider Internal Medicine Cardiovascular Disease
DX: I48.19 Other persistent atrial fibrillation (principal); I25.10 Atherosclerotic heart disease of native coronary artery without angina pectoris; I35.0 Nonrheumatic aortic (valve) stenosis; I10 Essential (primary) hypertension; E78.00 Pure hypercholesterolemia, unspecified; Z79.01 Long term (current) use of anticoagulants; Z79.899 Other long term (current) drug therapy; E03.9 Hypothyroidism, unspecified
CPT/HCPCS: 92960; 93005; J7040

== ENCOUNTER → 2023-07-31 | Outpatient (CLI) | payer MEDICARE, OTHER, SELFPAY ==
[2023-07-31 15:40] LABS: Anion Gap 7 (5-15); BUN 17 mg/dL (7-18); BUN/Creat Ratio 13.8 RATIO (10-20); Calcium,Total 9.3 mg/dL (8.5-10.1); Chloride 109 mmol/L (98-107); Creatinine, Serum 1.23 mg/dL (0.55-1.02); EST Glomerular Filtration Rate 45 mL/min (>60); Est Glom Filt Rate - Afr Amer 54 mL/min (>60); Glucose 164 mg/dL (74-106); Potassium 4.4 mmol/L (3.5-5.1); Sodium Level 140 mmol/L (136-145)
== END | disposition home or self-care (01) ==
LOC: LAB 14:09
PROVIDERS: PCP Family Medicine; Referring Provider Physician Assistant Medical; Visit Provider Physician Assistant Medical
DX: I48.19 Other persistent atrial fibrillation (principal)
CPT/HCPCS: 36415; 80048

== ENCOUNTER 2023-08-04 10:36 | Day surgery (SDC) | payer MEDICARE, OTHER, SELFPAY ==
[2023-08-03 09:07] VITALS: BMI 32.3
--- NOTE | 2023-08-04 13:07 | PCM.OP.PRO ---
Procedure Report Date of Procedure: 08/04/23 DC cardioversion. 77-year-old lady with a history of chronic persistent atrial fibrillation. Patient is here for an attempt at DC cardioversion. Informed consent was obtained. The patient has been on therapeutic anticoagulation for at least 4 weeks. The patient was seen by Dr. Parks of the critical care division. Anterior-posterior pads were applied. The patient was then administered 60 mg of intravenous propofol. 200 J of synchronized biphasic DC cardioversion energy were applied with prompt reversal to sinus rhythm. Patient tolerated the procedure well. Conclusion: Successful DC cardioversion from atrial fibrillation to sinus rhythm. Follow-up as per office protocol.
--- NOTE | 2023-08-04 13:08 | PCM.OP.PRO ---
Procedure Report Date of Procedure: 08/04/23 CONSCIOUS SEDATION REPORT DATE OF SERVICE: August 04, 2023 BRIEF HISTORY OF PRESENT ILLNESS: The patient is a 77-year-old female who presented to [facility] for an elective outpatient cardioversion due to underlying atrial fibrillation. The patient denied any prior anesthetic complications. The patient did undergo a prior cardioversion in February 2023, during which time, she required 60 mg of propofol to achieve an appropriate level of sedation. She denied a history of COPD, asthma or obstructive sleep apnea. The patient is systemically anticoagulated on Eliquis. Her last surface echocardiogram demonstrated an ejection fraction of approximately 65%. PHYSICAL EXAMINATION: VITAL SIGNS: Reviewed and were acceptable. GENERAL: The patient is a female, in no apparent distress, speaking in full sentences. HEENT: Normocephalic, atraumatic. Mucous membranes are moist and pink. Good mouth opening noted. Trachea is midline. CHEST: S1, S2 irregularly irregular. No murmurs, rubs or gallops were noted. LUNGS: Clear to auscultation bilaterally without appreciable wheezes, rales or rhonchi. ABDOMEN: Soft, nontender, nondistended. Positive bowel sounds. EXTREMITIES: There is no clubbing, cyanosis or edema. ASA Class: II DESCRIPTION OF PROCEDURE: After confirmation of informed consent, the patient's anesthesia plan was reviewed in detail. Propofol was chosen. Risks and benefits were reviewed and the patient agreed to proceed. At 1258, the patient was given 60 mg of propofol. The patient achieved an appropriate level of sedation and was given a 200 joule synchronized cardioversion by Dr. Sepulveda at the bedside. This was successful in achieving normal sinus rhythm. The patient was monitored until 1310, at which time she reached her baseline mental status and function. The patient tolerated the procedure well. COMPLICATIONS: None ESTIMATED BLOOD LOSS: None RECOMMENDATIONS: Okay to recover in usual fashion. Procedures Pulmonary [id number]: [id number] Con Sedation
== END 2023-08-04 13:57 | disposition home or self-care (01) ==
LOC: CLSP 10:37
PROVIDERS: PCP Family Medicine; Referring Provider Internal Medicine Cardiovascular Disease; Visit Provider Internal Medicine Cardiovascular Disease
DX: I48.19 Other persistent atrial fibrillation (principal); E11.9 Type 2 diabetes mellitus without complications; I25.10 Atherosclerotic heart disease of native coronary artery without angina pectoris; I35.0 Nonrheumatic aortic (valve) stenosis; I10 Essential (primary) hypertension; E78.00 Pure hypercholesterolemia, unspecified; Z79.01 Long term (current) use of anticoagulants; Z79.84 Long term (current) use of oral hypoglycemic drugs; Z79.85 Long-term (current) use of injectable non-insulin antidiabetic drugs; Z79.899 Other long term (current) drug therapy; Z82.49 Family history of ischemic heart disease and other diseases of the circulatory system
CPT/HCPCS: 92960; 93005; 99152; 99153; J7040

== ENCOUNTER → 2023-08-17 | Outpatient (CLI) | payer MEDICARE, OTHER, SELFPAY | END | disposition home or self-care (01) | LOC: SL 19:51 | PROVIDERS: PCP Family Medicine; Referring Provider Physician Assistant Medical; Visit Provider Physician Assistant Medical | DX: G47.33 Obstructive sleep apnea (adult) (pediatric) (principal) | CPT/HCPCS: 95810 ==

== ENCOUNTER → 2023-09-18 | Outpatient (CLI) | payer MEDICARE, OTHER, SELFPAY ==
--- NOTE | 2023-09-18 14:40 | RAD_ITS ---
INDICATION: pain EXAMINATION/TECHNIQUE: X-RAY - RIGHT XR Hip Unilateral with Pelvis when performed; 2-3 Views COMPARISON: None. FINDINGS: No acute fracture or malalignment. No blastic or lytic lesions. Moderate degenerative changes of the bilateral hips, lumbar spine and sacroiliac joints.. The soft tissues are unremarkable. Multi fibroid uterus. RAD/HIP, UNI W/ Pelvis 2-3 Views IMPRESSION: No acute radiographic abnormalities. Moderate degenerative arthrosis of the hips. Electronically Signed: Denny Post MD at 20:41 EDT ,
== END | disposition home or self-care (01) ==
LOC: MTRAD 14:40
PROVIDERS: PCP Family Medicine; Referring Provider Family Medicine; Visit Provider Family Medicine
DX: M25.551 Pain in right hip (principal)
CPT/HCPCS: 73502

== ENCOUNTER → 2023-10-19 | Outpatient (CLI) | payer MEDICARE, OTHER, SELFPAY | END | disposition home or self-care (01) | LOC: PSN 08:20 | PROVIDERS: PCP Family Medicine; Referring Provider Physician Assistant Medical; Visit Provider Physician Assistant Medical | DX: I48.19 Other persistent atrial fibrillation (principal) | CPT/HCPCS: 93225; 93226 ==

== ENCOUNTER → 2023-10-20 | Outpatient (CLI) | payer MEDICARE, OTHER, SELFPAY | END | disposition home or self-care (01) | LOC: SL 20:20 | PROVIDERS: PCP Family Medicine; Referring Provider Nurse Practitioner Acute Care; Visit Provider Nurse Practitioner Acute Care | DX: G47.33 Obstructive sleep apnea (adult) (pediatric) (principal) | CPT/HCPCS: 95811 ==

== ENCOUNTER → 2024-03-04 | Outpatient (CLI) | payer MEDICARE, OTHER, SELFPAY ==
--- NOTE | 2024-03-04 09:54 | ECHOD_ITS ---
Reason For Study: MURMUR Procedure This was a 2D Doppler, Color Flow transthoracic echocardiogram. Exam performed in department. Left Ventricle Normal LV size. Left ventricular systolic function is normal. The left ventricular ejection fraction is 65 %. No regional wall motion abnormalities noted. Right Ventricle Normal RV size. Normal systolic function. Atria Normal left atrium. Normal right atrium. Mitral Valve There is moderate to severe mitral annular calcification. Mild (1+) eccentric mitral valve insufficiency. Tricuspid Valve Normal tricuspid valve. Aortic Valve Trisinus/trileaflet aortic valve. Moderate focal aortic valve calcification. Peak aortic valve gradient 43 mmHg. Mean aortic valve gradient 27 mmHg. Moderate aortic stenosis. Mild (1+) aortic valve insufficiency. Pulmonic Valve Normal pulmonic valve. Great Vessels Normal aortic root. The pulmonary artery is normal size. Normal inferior vena cava. Pericardium/Pleural No pericardial effusion. MMode/2D Measurements & Calculations LVIDd: 4.0 cm IVSd: 1.1 cm LVOT diam: 1.8 cm LVIDs: 2.4 cm LVPWd: 1.3 cm LVOT area: 2.6 cm2 RVDd: 2.5 cm FS: 39.2 % Ao root diam: 3.2 cm LAV(MOD-sp4): 45.5 ml LVAd ap4: 22.9 cm2 LVLd ap4: 7.0 cm EDV(MOD-sp4): 64.9 ml EDV(sp4-el): 63.9 ml LVAs ap4: 12.0 cm2 LVLs ap4: 5.9 cm ESV(MOD-sp4): 21.6 ml ESV(sp4-el): 20.7 ml EF(MOD-sp4): 66.7 % EF(sp4-el): 67.6 % SV(MOD-sp4): 43.3 ml SV(sp4-el): 43.2 ml LA A4 area: 18.0 cm2 SI(MOD-sp4): 26.1 ml/m2 LA dimension(2D): 3.8 cm RA A4 area: 12.3 cm2 Doppler Measurements & Calculations MV E max alfred: 161.8 cm/sec Ao V2 max: 327.7 cm/sec AI max aflred: 464.7 cm/sec Ao max P.0 mmHg AI max P.4 mmHg Ao V2 mean: 246.2 cm/sec Ao mean P.7 mmHg AI dec slope: 334.3 cm/sec2 Ao V2 VTI: 77.8 cm AI P1/2t: 407.2 msec PA V2 max: 71.4 cm/sec PA V2 mean: 51.0 cm/sec ECHO/Echo Complete Interpretation Summary Normal LV size. Left ventricular systolic function is normal. The left ventricular ejection fraction is 65 %. Moderate focal aortic valve calcification. Mean aortic valve gradient 27 mmHg. Mild (1+) aortic valve insufficiency. Ordering Physician: Lorri Cooper Referring Physician: Lorri Cooper Performed By: Obdulia Bee RCS
== END | disposition home or self-care (01) ==
LOC: CVS 09:52
PROVIDERS: PCP Family Medicine; Referring Provider Physician Assistant Medical; Visit Provider Physician Assistant Medical
DX: I35.0 Nonrheumatic aortic (valve) stenosis (principal)
CPT/HCPCS: 93306

== ENCOUNTER → 2024-03-18 | Outpatient (CLI) | payer MEDICARE, OTHER, SELFPAY ==
[2024-03-18 18:14] LABS: AST(SGOT) 18 U/L (15-37); Alanine Aminotransfer ALT/SGPT 22 U/L (13-56); Albumin, Serum 3.5 g/dL (3.2-5.0); Alkaline Phosphatase 68 U/L (45-117); Anion Gap 7 (5-15); BUN 20 mg/dL (7-18); BUN/Creat Ratio 17.5 RATIO (10-20); Bilirubin, Direct 0.14 mg/dL (0.00-0.30); Calcium,Total 9.3 mg/dL (8.5-10.1); Chloride 109 mmol/L (98-107); Cholesterol 138 mg/dL (200); Creatinine, Serum 1.14 mg/dL (0.55-1.02); EST Glomerular Filtration Rate 49 mL/min (>60); Est Glom Filt Rate - Afr Amer 59 mL/min (>60); Globulin 3.8 g/dL (2.2-4.2); Glucose 182 mg/dL (74-106); High Density Lipoprotein 40 mg/dL; Potassium 3.9 mmol/L (3.5-5.1); Protein, Total 7.3 g/dL (6.4-8.2); Sodium Level 139 mmol/L (136-145); Triglycerides 223 mg/dL; Very Low Density Lipoprotein 45 mg/dL (5-40)
== END | disposition home or self-care (01) ==
LOC: MFPLAB 14:24
PROVIDERS: PCP Family Medicine; Visit Provider Family Medicine
DX: E11.59 Type 2 diabetes mellitus with other circulatory complications (principal)
CPT/HCPCS: 36415; 80048; 80061; 80076

== ENCOUNTER → 2024-06-22 | Outpatient (CLI) | payer MEDICARE, OTHER, SELFPAY | END | disposition home or self-care (01) | LOC: LABSPEC 14:01 | PROVIDERS: PCP Family Medicine; Visit Provider Family Medicine | DX: N39.0 Urinary tract infection, site not specified (principal) | CPT/HCPCS: 87086; 87088; 87186 ==

== ENCOUNTER → 2024-09-23 | Outpatient (CLI) | payer MEDICARE, OTHER, SELFPAY ==
--- NOTE | 2024-09-23 09:49 | ECHOD_ITS ---
Reason For Study Reason For Study: Murmur, Procedure This was a 2D Doppler, Color Flow transthoracic echocardiogram. Exam performed in department. Left Ventricle Normal LV size. Moderate concentric left ventricular hypertrophy. The left ventricular ejection fraction is 60 %. No regional wall motion abnormalities noted. Right Ventricle Normal RV size. Normal systolic function. Atria The left atrium is mildly enlarged. The right atrium is mildly enlarged. Mitral Valve There is moderate mitral annular calcification. Tricuspid Valve Normal tricuspid valve. Mild (1+) tricuspid valve insufficiency. Pulmonary artery systolic pressure is 25 mmHg. Aortic Valve Trisinus/trileaflet aortic valve. Moderate focal aortic valve calcification. Peak aortic valve gradient 53 mmHg. Mean aortic valve gradient 32 mmHg. Moderate aortic stenosis. Mild (1+) aortic valve insufficiency. Pulmonic Valve Normal pulmonic valve. Great Vessels Normal aortic root. The pulmonary artery is normal size. Inferior vena cava collapse with respiration. Pericardium/Pleural No pericardial effusion. MMode/2D Measurements & Calculations LVIDd: 3.5 cm IVSd: 1.3 cm LVOT diam: 1.8 cm LVIDs: 2.2 cm LVPWd: 1.5 cm LVOT area: 2.5 cm2 RVDd: 2.9 cm FS: 37.0 % Ao root diam: 2.2 cm LAV(MOD-bp): 69.7 ml LVAd ap4: 19.8 cm2 LAV(MOD-bp) Indexed: 41.5 ml/m2 LVLd ap4: 6.7 cm LAV(MOD-sp2): 64.6 ml EDV(MOD-sp4): 49.6 ml LAV(MOD-sp4): 68.6 ml EDV(sp4-el): 49.6 ml LVAs ap4: 12.1 cm2 LVLs ap4: 6.2 cm ESV(MOD-sp4): 20.3 ml ESV(sp4-el): 19.9 ml EF(MOD-sp4): 59.1 % EF(sp4-el): 59.9 % LVAd ap2: 19.8 cm2 SV(MOD-sp4): 29.3 ml SV(MOD-sp2): 31.2 ml LVLd ap2: 6.7 cm SI(MOD-sp4): 17.4 ml/m2 SI(MOD-sp2): 18.5 ml/m2 EDV(MOD-sp2): 50.8 ml EDV(sp2-el): 49.6 ml LVAs ap2: 11.9 cm2 LVLs ap2: 6.5 cm ESV(MOD-sp2): 19.6 ml ESV(sp2-el): 18.6 ml EF(MOD-sp2): 61.4 % SV(sp4-el): 29.7 ml LA dimension(2D): 3.9 cm LA A4 area: 23.2 cm2 RA A4 area: 13.9 cm2 Doppler Measurements & Calculations MV E max alfred: 160.1 cm/sec MV V2 max: 171.0 cm/sec MV P1/2t max alfred: 166.8 cm/sec MV max P.7 mmHg MV P1/2t: 98.8 msec MV V2 mean: 96.5 cm/sec MV mean P.6 mmHg MV dec slope: 494.1 cm/sec2 MV V2 VTI: 37.6 cm MVA(P1/2t): 2.2 cm2 MVA(VTI): 1.6 cm2 Ao V2 max: 362.7 cm/sec AI max alfred: 421.0 cm/sec LV V1 max: 104.0 cm/sec Ao max P.7 mmHg AI max P.9 mmHg LV V1 max P.3 mmHg Ao V2 mean: 270.8 cm/sec LV V1 mean P.4 mmHg Ao mean P.2 mmHg AI dec slope: 274.2 cm/sec2 LV V1 mean: 73.7 cm/sec Ao V2 VTI: 87.5 cm AI P1/2t: 449.7 msec LV V1 VTI: 24.2 cm AV (velocity ratio): 0.28 ANA(I,D): 0.70 cm2 ANA(V,D): 0.73 cm2 SV(LVOT): 61.4 ml PA V2 max: 72.7 cm/sec TR max alfred: 237.0 cm/sec TR max P.5 mmHg ECHO/Echo Complete Interpretation Summary Normal LV size. Moderate concentric left ventricular hypertrophy. The left ventricular ejection fraction is 60 %. Moderate focal aortic valve calcification. Mean aortic valve gradient 32 mmHg. Mild (1+) aortic valve insufficiency. Moderate aortic stenosis. Ordering Physician: Lorri Cooper Referring Physician: Neeraj Seo Performed By: Rachel Logan RDCS
[2024-09-23 18:40] LABS: ALB/GLOB Ratio 1.4 RATIO (0.9-2.4); AST(SGOT) 22 U/L (<=31); Alanine Aminotransfer ALT/SGPT 17 U/L (<=34); Alkaline Phosphatase 69 U/L (35-104); Anion Gap 14 (5-15); BUN 15 mg/dL (4-19); BUN/Creat Ratio 13.6 RATIO (10-20); Calcium,Total 9.5 mg/dL (7.6-11.0); Carbon Dioxide 22.9 mmol/L (21.0-32.0); Chloride 105 mmol/L (98-108); Creatinine, Serum 1.13 mg/dL (0.70-1.20); EST Glomerular Filtration Rate 49 (>60); Globulin 2.9 g/dL (2.2-4.2); Glucose 169 mg/dL (70-99); Potassium 3.8 mmol/L (3.3-5.1); Protein, Total 6.9 g/dL (5.9-8.4); Sodium Level 142 mmol/L (133-145); Total Bilirubin 0.38 mg/dL (0.00-1.30)
[2024-09-23 18:43] LABS: Vitamin D,25 Hydroxy 45.9 ng/mL (30-100)
[2024-09-23 18:55] LABS: Hemoglobin A1c 6.9 % (<=5.6)
== END | disposition home or self-care (01) ==
PROVIDERS: Family Medicine; PCP Family Medicine; Referring Provider Physician Assistant Medical; Visit Provider Physician Assistant Medical
DX: E11.40 Type 2 diabetes mellitus with diabetic neuropathy, unspecified (principal); E11.59 Type 2 diabetes mellitus with other circulatory complications; G47.00 Insomnia, unspecified; I35.0 Nonrheumatic aortic (valve) stenosis
CPT/HCPCS: 36415; 80053; 82306; 83036; 93306

== ENCOUNTER → 2025-04-06 | Outpatient (CLI) | payer MEDICARE, OTHER, SELFPAY ==
--- OUTSIDE RECORDS SUMMARY | 2025-04-06 07:49 | XMS RPT_ITS | CCD ---
Author Organization [facility] CliniSyin Care Team Providers Care Bonderizer Name Role Phone Dr. Gudelia Gardiner Primary Care Provider Dr. Dennis Sepulveda Attending Provider Dr. Gudelia Gardiner Primary Care Provider Dr. Gudelia Gardiner Referring Provider Dr. Dennis Sepulveda Attending Provider [phone] Dennis Sepulveda Referring Provider Dr. Dennis Sepulveda Other Provider Dr. Gudelia Gardiner Primary Care Provider Dr. Gudelia Gardiner Referring Provider GERARD Sanderson Attending Provider Dr. Dennis Sepulveda Attending Provider Roof POOL SERVICER, POOL SERVICER-C Hunter Tatum Attending Provider Dr. Jere Irene Emergency Provider Dr. Gisel Bowman Admit Provider Dr. Gisel Bowman Attending Provider Dr. Gisel Bomwan Other Provider Dr. Ritu Dobson Attending Provider Dr. Gudelia Gardiner Primary Care Provider Dr. Gudelia Gardnier Referring Provider GERARD Sanderson Attending Provider GERARD Sanderson Referring Provider GERARD Sanderson Other Provider Anselmo POOL SERVICER, POOL SERVICERJúniorC Nataliya Attending Provider Dr. Gudelia Gardiner Primary Care Provider Dr. Gudelia Gardiner Referring Provider GERARD Sanderson Attending Provider Dr. Dennis Sepulveda Attending Provider Dr. Dennis Sepulveda Referring Provider Coco, Dr. Collins Other Provider Dr. Parth Parks Attending Provider Abdifatah HERRERA, Dr. Gudelia Aguillon Primary Care Provider Dr. Kareem Packer MD Attending Provider Abdifatah HERRERA, Dr. Gudelia Aguillon Referring Provider Tamara Parsons Attending Provider Lorri Sanderson Attending Provider Lorri Sanderson Referring Provider Neeraj Seo MD Other Provider Dr. Dennis Sepulveda MD Attending Provider Neeraj Seo MD Primary Care Provider Dr. Gudelia Gardiner MD Primary Care Provider Dr. Gudelia Gardiner MD Referring Provider Neeraj Seo MD Referring Provider Gabbi, Chalon Consulting Unavailable Jolliff, Gudelia S Primary Care Unavailable Lorri Sanderson Attending Unavail able Kenneth GEE, Lorri Moeller Referring Unavail able Lorri Sanderson Attending Unavail able Jolliff, Gudelia S Referring Unavailable Gabbi, Chalon Primary Care Unavailable Gabbi, Chalon Referring Unavailable Cooper PA, Lorri Moeller Attending Unavail able Gabbi, Chalon Primary Care Unavailable Jolliff, Gudelia S Primary Care Unavailable Dennis Sepulveda Attending Unavailable Gabbi, Chalon Referring Unavailable CooperLorri Patterson M Attending Unavail able Neeraj Seo Primary Care Unavailable Jolliff, Gudelia S Referring Unavailable Lorri Sanderson Attending Unavail able Jolliff, Gudelia S Primary Care Unavailable Jolliff, Gudelia S Referring Unavailable Jolliff, Gudelia S Primary Care Unavailable Tamara Morrison NP Attending Unavailable Jolliff, Gudelia S Primary Care Unavailable Jolliff, Gudelia S Attending Unavailable Kaerem Packer Attending Unavailable Jolliff, Gudelia S Primary Care Unavailable Allergies Allergy Classification Reported Allergen(s) Allergy Type Date of Onset Reaction(s) Facility (17 sources) Fenofibrate Drug Allergy 1 myalgias [facility] (17 sources) Simvastatin Drug Allergy 1 myalgias [facility] (18 sources) Sulfonamides (Antibiotic); Translations: [Sulfa (Sulfonamide Antibiotics)] Propensity to adverse reactions 1 unknown [facility] (1 source) Fenofibrate Drug Allergy 5 [facility] (1 source) Simvastatin Drug Allergy 5 [facility] Medications Current Medications Medication Drug Class(es) Dates Sig (Normalized) Sig (Original) 8 hr acetaminophen 650 mg extended release oral tablet (17 sources) Start: 09-14-2017 take 1 tablet by mouth once daily Acetaminophen (Tylenol Arthritis Pain) 650 mg tablet extended release Active 650 mg PO DAILY September 14, 2017 12:00am PAIN allopurinol 100 mg oral tablet (20 sources) Xanthine Oxidase Inhibitor Start: 09-26-2022 take 1 tablet by mouth twice daily Allopurinol 100 mg tablet Active 100 mg PO TWICE A DAY September 26, 2022 3:05pm gout Start: 09-14-2017 End: 09-26-2022 take 1 tablet by mouth once daily Allopurinol 100 mg tablet Discontinued 100 mg PO daily September 14, 2017 12:00am September 26, 2022 3:08pm cholecalciferol 0.05 mg oral capsule (20 sources) Vitamin D Start: 12-11-2022 take 1 capsule by mouth once daily Cholecalciferol (Vitamin D3) 50 mcg (2,000 unit) capsule Active 50 ug PO DAILY December 11, 2022 12:00am vitamin Start: 09-26-2022 End: 12-11-2022 take 1 tablet by mouth once daily Cholecalciferol (Vitamin D3) 50 mcg (2,000 unit) tablet Discontinued 2000 U PO DAILY September 26, 2022 3:05pm December 11, 2022 9:42am Start: 09-14-2017 End: 09-26-2022 take 1 tablet by mouth three times weekly Cholecalciferol (Vitamin D3) 2,000 unit tablet Discontinued 2000 U PO .COMPLEX September 14, 2017 12:00am September 26, 2022 3:08pm 2,000 unit PO three times per week Elderberry Fruit And Flower (10 sources) Start: 09-26-2022 take 1 capsule by mouth once daily Elderberry Fruit And Flower Active 1 CAP PO DAILY September 26, 2022 12:00am Elderberry Fruit And Flower 460-115 mg capsule (3 sources) Start: 09-26-2022 take 1 capsule by mouth once daily Elderberry Fruit And Flower 460-115 mg capsule Active 1 NMA PO DAILY September 26, 2022 12:00am supplement Start: 09-26-2022 take 1 capsule by mo [facility] once daily Elderberry Fruit And Flower 460-115 mg capsule Active 1 NMA PO DAILY September 26, 2022 12:00am Exjtz-Jc-7-Eqn-Tnm-Itfwkpz-A st (Megared [place]-3 Krill Oil) 1,000-230-60 mg capsule (17 sources) Start: 08-08-2020 Brrun-Ea-6-Nhh-Hgg-Pngfmiw-A st (Megared [place]-3 Krill Oil) 1,000-230-60 mg capsule Active 1 CAP PO DAILY August 08, 2020 1:31pm Start: 08-08-2020 take 3 capsules by mouth once daily Mekgp-Jf-9-Spe-Kuy-Hswjpok-Ast (Megared [place]-3 Krill Oil) 1,000-230-60 mg capsule Active 1 NMA PO DAILY August 08, 2020 12:00am supplement Start: 08-08-2020 take 3 capsules by mouth once daily Dhobg-Dq-2-Gge-Flj-Ejyqjqj-Ast (Megared [place]-3 Krill Oil) 1,000-230-60 mg capsule Active 1 NMA PO DAILY August 08, 2020 12:00am Start: 08-08-2020 Ypymp-Sn-6-Dha -Nwk-Fjzxqsj-Bfs (Megared [place]-3 Krill Oil) 1,000-230-60 mg capsule Active 1 CAP PO DAILY August 08, 2020 12:00am latanoprost 0.05 mg/ml ophthalmic solution (17 sources) Prostaglandin Analog Start: 09-14-2017 take 1 drop(s) into the eye(s) at bedtime Latanoprost 0.005 % drops Active 1 NMA OPHTHALMIC AT BEDTIME September 14, 2017 12:00am eye health INSTIL 1 DROP INTO BOTH EYES AT BEDTIME Start: 09-14-2017 take 1 drop(s) into the eye(s) at bedtime Latanoprost Active 1 DRP OPHTHALMIC AT BEDTIME September 14, 2017 12:00am INSTIL 1 DROP INTO BOTH EYES AT BEDTIME Start: 09-14-2017 Latanoprost Ac tive 1 DRP OPHTHALMIC .COMPLEX September 14, 2017 12:00am 1 drp OPHTHALMIC take as directed levothyroxine sodium 0.05 mg oral tablet (17 sources) l-Thyroxine Start: 09-14-2017 take 1 tablet by mouth once daily Levothyroxine (Synthroid) 50 mcg tablet Active 50 ug PO DAILY September 14, 2017 12:00am thyroid 3 ml liraglutide 6 mg/ml pen injector (20 sources) GLP-1 Receptor Agonist Start: 09-15-2017 Liraglutide (Victoza 2-Jose Angel) 0.6 mg/0.1 mL (18 mg/3 mL) pen injector Active 1.2 mg SC DAILY September 15, 2017 10:13am diabetes Start: 09-14-2017 End: 09-15-2017 Liraglutide (Victoza 2-Jose Angel) 0.6 mg/0.1 mL (18 mg/3 mL) pen injector Discontinued 0.6 mg SC daily September 14, 2017 12:00am September 15, 2017 10:16am losartan potassium 50 mg oral tablet (1 source) Angiotensin 2 Receptor Aroldo Start: 12-30-2024 take 1 tablet by mouth once daily Losartan 50 mg tablet Active 50 mg PO daily December 30, 2024 12:00am metFORMIN hydrochloride 1000 mg oral tablet (20 sources) Biguanide Start: 09-26-2022 take 1 tablet by mouth once daily Metformin 1,000 mg tablet Active 1000 mg PO DAILY September 26, 2022 3:06pm diabetes Start: 02-08-2021 End: 09-26-2022 Metformin 1,000 mg tablet Discontinued 850 mg PO THREE TIMES A DAY February 08, 2021 12:49pm September 26, 2022 3:08pm Start: 02-08-2021 End: 09-26-2022 take 850 mg by mouth three times daily Metformin Discontinued 850 MG PO THREE TIMES A DAY February 08, 2021 12:49pm September 26, 2022 3:08pm Start: 08-08-2020 End: 02-08-2021 take 1 tablet by mouth twice daily Metformin 1,000 mg tablet Discontinued 1000 mg PO TWICE A DAY August 08, 2020 12:00am February 08, 2021 12:50pm Start: 09-14-2017 End: 08-08-2020 take 1 tablet by mouth three times daily Metformin (Glucophage) 850 mg tablet Discontinued 850 mg PO THREE TIMES A DAY September 14, 2017 12:00am August 08, 2020 1:29pm 24 hr metoprolol succinate 100 mg extended release oral tablet (17 sources) beta-Adrenergic Aroldo Start: 09-14-2017 take 1 tablet by mouth once daily Metoprolol Succinate (Toprol Xl) 100 mg tablet extended release 24 hr Active 100 mg PO DAILY September 14, 2017 12:00am blood pressure Multivitamin preparation (14 sources) Start: 09-14-2017 take 1 tablet by mouth once daily Multivitamin Active 1 TABLET PO daily September 14, 2017 10:14am Start: 09-14-2017 take 1 tablet by wing th once daily Multivitamin Active 1 TABLET PO DAILY September 14, 2017 12:00am Start: 09-14-2017 take 1 tablet by wing th once daily Multivitamin Active 1 TABLET PO daily September 14, 2017 12:00am Multivitamin tablet (3 sources) Start: 09-14-2017 Multivitamin t ablet Active 1 {tbl} PO DAILY September 14, 2017 12:00am vitamin Start: 09-14-2017 Multivitamin t ablet Active 1 {tbl} PO DAILY September 14, 2017 12:00am Niacinamide (2 sources) Start: 09-28-2024 niacinamide Ac tive PO September 28, 2024 12:00am pravastatin sodium 40 mg oral tablet (17 sources) HMG-CoA Reductase Inhibitor Start: 09-14-2017 take 1 tablet by mouth at bedtime Pravastatin 40 mg tablet Active 40 mg PO AT BEDTIME September 14, 2017 12:00am reflux thioctic acid 200 mg oral capsule (17 sources) Start: 08-08-2020 take 1 capsule by mouth once daily Alpha Lipoic Acid 200 mg capsule Active 200 mg PO DAILY August 08, 2020 12:00am supplement traZODone hydrochloride 100 mg oral tablet (17 sources) Serotonin Reuptake Inhibitor Start: 08-08-2020 take 1 tablet by mouth once daily Trazodone 100 mg tablet Active 100 mg PO DAILY August 08, 2020 12:00am sleep Completed/Discontinued Medications Medication Drug Class(es) Dates Sig (Normalized) Sig (Original) amiodarone hydrochloride 200 mg oral tablet (6 sources) Antiarrhythmic Start: 07-31-2023 End: 03-30-2024 take 1 tablet by mouth once daily Amiodarone 200 mg tablet Discontinued 200 mg PO DAILY 90 3 July 31, 2023 12:00am March 30, 2024 3:15pm amLODIPine 10 mg oral tablet (20 sources) Dihydropyridine Calcium Channel Aroldo Start: 02-08-2021 End: 12-04-2021 take 5 mg by mouth once daily Amlodipine (Norvasc) 10 mg tablet Discontinued 5 mg PO daily February 08, 2021 1:16pm December 04, 2021 2:04pm Start: 09-14-2017 End: 02-08-2021 take 1 tablet by mouth once daily Amlodipine (Norvasc) 10 mg tablet Discontinued 10 mg PO daily September 14, 2017 12:00am February 08, 2021 1:16pm apixaban 5 mg oral tablet (20 sources) Factor Xa Inhibitor Start: 2022 End: 11-15-2024 take 1 tablet by mouth twice daily Apixaban (Eliquis) 5 mg tablet Discontinued 5 mg PO TWICE A DAY 180 December 26, 2022 10:49am September 30, 2023 2:11pm aspirin 81 mg delayed release oral tablet (17 sources) Platelet Aggregation Inhibitor, Nonsteroidal Anti-inflammatory Drug Start: 09-14-2017 End: 12-26-2022 Aspirin (Adult Low Dose Aspirin) 81 mg tablet,delayed release (DR/EC) Discontinued 81 mg PO DAILY September 14, 2017 12:00am December 26, 2022 10:22am ciprofloxacin 500 mg oral tablet (10 sources) Quinolone Antimicrobial Start: 2022 End: 03-24-2023 take 1 tablet by mouth twice daily Ciprofloxacin Hcl (Cipro) 500 mg tablet Discontinued 500 mg PO TWICE A DAY 12 2022 12:00am March 24, 2023 5:01pm 24 hr dilTIAZem hydrochloride 120 mg extended release oral capsule (20 sources) Calcium Channel Aroldo Start: 2022 End: 12-30-2024 take 1 capsule by mouth once daily, then take 1 capsule by mouth every twenty-four hours Diltiazem Hcl (Cardizem Cd) 120 mg capsule,extended release 24hr Discontinued 120 mg PO DAILY 90 December 16, 2024 7:51am December 30, 2024 1:46pm dronedarone 400 mg oral tablet (8 sources) Antiarrhythmic Start: 01-28-2023 End: 07-31-2023 take 1 tablet by mouth twice daily at mealtime Dronedarone (Multaq) 400 mg tablet Discontinued 400 mg PO TWICE A DAY January 28, 2023 12:00am July 31, 2023 1:48pm must administer with a meal/food Folic Acid (17 sources) Start: 09-21-2018 End: 08-08-2020 folic acid Discontinued PO September 21, 2018 9:47am August 08, 2020 1:30pm Start: 09-21-2018 End: 08-08-2020 folic acid tablet Discontinu ed PO 0 September 21, 2018 12:00am August 08, 2020 1:30pm Start: 09-21-2018 End: 08-08-2020 folic acid tablet Discontinu ed PO September 21, 2018 12:00am August 08, 2020 1:30pm Start: 09-21-2018 End: 08-08-2020 folic acid Discontinued PO 2018 12:00am August 08, 2020 1:30pm hydroCHLOROthiazide 25 mg / losartan potassium 100 mg oral tablet (20 sources) Thiazide Diuretic, Angiotensin 2 Receptor Aroldo Start: 09-14-2017 End: 2022 Losartan-Hydrochlorothiazide (Hyzaar) 100-25 mg tablet Discontinued 0.5 {tbl} PO daily 45 0 December 05, 2021 8:39am [place] 10th, 2023 9:48am nitrofurantoin, macrocrystals 25 mg / nitrofurantoin, monohydrate 75 mg oral capsule (12 sources) Nitrofuran Antibacterial Start: 11-23-2022 End: 11-30-2022 take 1 capsule by mouth every twelve hours at mealtime Nitrofurantoin Monohyd/M-Cryst (Macrobid) 100 mg capsule Discontinued 100 mg PO Q12H 14 7 0 November 23, 2022 12:00am November 29, 2022 12:00am November 30, 2022 12:03am must administer with a meal/food [place]-3 Fatty Acids (14 sources) Start: 09-14-2017 End: 09-15-2017 take 1000 mg by mouth twice daily [place]-3 Fatty Acids Discontinued 1000 MG PO TWICE A DAY September 14, 2017 10:10am September 15, 2017 10:14am Start: 09-14-2017 End: 09-15-2017 take 1000 mg by mouth twice daily [place]-3 Fatty Acids Discontinued 1000 MG PO TWICE A DAY September 14, 2017 12:00am September 15, 2017 10:14am [place]-3 Fatty Acids 1,000 mg capsule (3 sources) Start: 09-14-2017 End: 09-15-2017 take 1 capsule by mouth twice daily [place]-3 Fatty Acids 1,000 mg capsule Discontinued 1000 mg PO TWICE A DAY September 14, 2017 12:00am September 15, 2017 10:14am Problems Active Problems Problem Classification Problem Date Documented Da te Episodic/Chronic Acute and unspecified renal failure (16 sources) Injury of kidney; Translations: [Acute kidney failure, unspecified] 12-11-2022 Episodic Bacterial infection; unspecified site (14 sources) Bacteremia caused by Gram-negative bacteria; Translations: [Bacteremia] 12-12-2022 Episodic Cancer of breast (17 sources) History of malignant neoplasm of breast; Translations: [Personal history of malignant neoplasm of breast] 08-07-2020 Episodic Cardiac dysrhythmias (20 sources) Atrial flutter; Translations: [Unspecified atrial flutter] 12-13-2022 Chronic Comment on above: DCCV on 02/11/2023; Conditions associated with dizziness or vertigo (8 sources) Lightheadedness; Translations: [Dizziness and giddiness] 01-02-2023 Episodic Coronary atherosclerosis and other heart disease (20 sources) Coronary atherosclerosis; Translations: [Atherosclerotic heart disease of [place] coronary artery without angina pectoris] Onset: 03-15-2025 Chronic Comment on above: mod LCX disease precious g AV groove Diabetes mellitus with complications (2 sources) Type 2 diabetes mellitus with diabetic neuropathy, unspecified; Translations: [Type 2 diabetes mellitus with other circulatory complications] Onset: 04-14-2024 Chronic Disorders of lipid metabolism (20 sources) Hyperlipidemia; Translations: [Hyperlipidemia, unspecified] Onset: 03-15-2025 Chronic Essential hypertension (20 sources) Essential hypertension; Translations: [Essential (primary) hypertension] Onset: 03-15-2025 Chronic Fluid and electrolyte disorders (16 sources) Lactic acidosis; Translations: [Lactic acidosis] 12-11-2022 Episodic Genitourinary symptoms and ill-defined conditions (18 sources) Suspected UTI (urinary tract infection); Translations: [Other symptoms and signs involving the genitourinary system] 11-23-2022 Episodic Heart valve disorders (20 sources) Aortic stenosis, non-rheumatic ; Translations: [Nonrheumatic aortic (valve) stenosis] Onset: 03-15-2025 Chronic Other circulatory disease (17 sources) Carotid bruit; Translations: [Other specified symptoms and signs involving the circulatory and respiratory systems] 09-18-2018 Episodic Other hematologic conditions (11 sources) Raised cardiac enzyme or marker; Translations: [Other specified abnormalities of plasma proteins] 12-11-2022 Episodic Other hematologic conditions (3 sources) Other specified abnormalities of plasma proteins; Translations: [Other abnormal blood chemistry] 12-11-2022 Episodic Other liver diseases (17 sources) Decreased lipoprotein; Translations: [Abnormal levels of other serum enzymes] 09-18-2018 Episodic Other lower respiratory disease (11 sources) Hypoxia; Translations: [Hypoxemia] 12-11-2022 Episodic Other lower respiratory disease (5 sources) Hypoxemia; Translations: [Hypoxemia] 12-11-2022 Episodic Other nutritional; endocrine; and metabolic disorders (10 sources) Hypophosphatemia; Translations: [Other disorders of phosphorus metabolism] 12-12-2022 Chronic Other nutritional; endocrine; and metabolic disorders (4 sources) Other disorders of phosphorus metabolism; Translations: [Disorders of phosphorus metabolism] 2022 Chronic Other nutritional; endocrine; and metabolic disorders (5 sources) Obesity; Translations: [Obesity, unspecified] 07-20-2024 Chronic Other screening for suspected conditions (not mental disorders or infectious disease) (20 sources) D-dimer above reference range; Translations: [Other specified abnormal findings of blood chemistry] 12-11-2022 Episodic Pneumonia (except that caused by tuberculosis or sexually transmitted disease) (16 sources) Pneumonia; Translations: [Pneumonia, unspecified organism] 12-11-2022 Episodic Residual codes; unclassified (8 sources) Obstructive sleep apnea syndrome; Translations: [Obstructive sleep apnea (adult) (pediatric)] 07-31-2023 Chronic Comment on above: AHI 8.4 Residual codes; unclassified (3 sources) Obstructive sleep apnea (adult) (pediatric); Translations: [Obstructive sleep apnea (adult)(pediatric)] 07-31-2023 Chronic Residual codes; unclassified (1 source) Personal history of other medical treatment; Translations: [Personal history of other medical treatment] Onset: 03-15-2025 Episodic Septicemia (except in labor) (16 sources) Sepsis; Translations: [Sepsis, unspecified organism] 12-11-2022 Episodic Unclassified (1 source) Other persistent atrial fibrillation; Translations: [Other persistent atrial fibrillation] Onset: 03-15-2025 Past or Other Problems Problem Classification Problem Date Documented Da te Episodic/Chronic Residual codes; unclassified (4 sources) History of cardioversion; Translations: [Personal history of other medical treatment] Onset: 02-11-2023 08-11-2023 Episodic Urinary tract infections (1 source) Urinary tract infection, site not specified; Translations: [Urinary tract infection, site not specified] Onset: 07-07-2024 Episodic Results Test Name Value Interpretation Reference Range Facility Cardiology Visit Reporton Cardiology Visit Report 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 Carotid ultrasound in 2018 demonstrated less than 50% stenosis. Patient was hospitalized on 12/11/2022 with increased short of breath. She was hospitalized for pneumonia and sepsis. During her hospital stay she did develop atrial fibrillation/flutter. Cardizem was added. She was also started on apixaban. Her troponin was slightly elevated at 60, it was felt that this was related to her atrial fibrillation with RVR and her sepsis. Stress test was negative. She had a cardioversion on 02/11/2023. EKG 08/2023 had demonstrated Afib with a HR of 68. She was switched to amiodarone. She did undergo a DCCV. She did not maintain SR. Amiodarone has since been discontinued. Echocardiogram in September 2024 demonstrated preserved ejection fraction with moderate aortic stenosis. Her blood pressure was elevated at her last office visit. Her medications were adjusted Overall from a cardiac standpoint patient is doing well. She does not have any chest pain or heaviness. She does not have any worsening shortness of breath. She does ambulate 10 minutes a day 3 times a day for a minimum of 30 minutes total. She also does chair exercises routinely without any difficulty. She does not have any lightheadedness, dizziness, syncopal episodes. She does not have any lower extremity edema. Intake Vital Signs 12/30/24 08:06 03/15/25 11:42 03/15/25 14:09 Height 4 ft 11 in 4 ft 11 in Weight: 168 lb 169 lb BMI 33.9 34.1 BP 162/92 H 153/80 H 149/81 H Blood Pressure Location Lt brachial Lt brachial Lt brachial Position Sitting Sitting Sitting Respiration 18 18 Pulse 73 85 Pulse Source Monitor Monitor Pulse Oximetry (%) 97 98 Oxygen Delivery Method room air Intake Visit Reasons: 3 M FU Brazing Machine Feeder Required: No Accompanied by: Daughter Is patient in pain?: No Allergies fenofibrate (From Tricor) Adverse Reaction (Verified 03/15/25 13:58) myalgias simvastatin Adverse Reaction (Verified 03/15/25 13:58) myalgias Sulfa (Sulfonamide Antibiotics) Adverse Reaction (Verified 03/15/25 13:58) unknown Medications ???Medication ???Instructions ???Recorded ???Confirmed ???Type latanoprost 0.005 % eye drops 1 drp ophthalmic (eye) QHS eye 03/15/25 History health levothyroxine 50 mcg tablet 50 mcg PO DAILY thyroid 09/14/17 1 05/15/24 History (Synthroid) metoprolol succinate 100 mg 100 mg PO DAILY blood pressure 03/15/25 History tablet,extended release 24 hr (Toprol XL) multivitamin 1 tab PO DAILY vitamin 09/14/17 History pravastatin 40 mg tablet 40 mg PO QHS reflux 09/14/1703/15 History liraglutide 0.6 mg/0.1 mL (18 mg/3 1.2 mg subcut DAILY diabetes 03/15/25 History mL) subcutaneous pen injector (Neon Mobile 2-Jose Angel) alpha lipoic acid 200 mg capsule 200 mg PO DAILY supplement 1 03/15/25 History krill 1,000 mg-omega-3 230 mg-dha 1 cap PO DAILY supplement 03/15/25 History 60 og-fbj-zgrljostc-astax an capsule (MegaRed [place]-3 Krill Oil) trazodone 100 mg tablet 100 mg PO DAILY sleep 08/08/2004/27 History allopurinol 100 mg tablet 100 mg PO BID gout 09/26/22 History elderberry fruit 460 mg-elderberry 1 cap PO DAILY supplement 03/15/25 History flower 115 mg capsule metformin 1,000 mg tablet 1,000 mg PO DAILY diabetes 3 03/15/25 History cholecalciferol (vitamin D3) 50 50 mcg PO DAILY vitamin 12/11/22 1 05/15/24 History mcg (2,000 unit) capsule niacinamide PO 09/28/24 03/15/25 History apixaban 5 mg tablet (Eliquis) 5 mg PO BID #180 tabs 11/15/2404/27 Rx acetaminophen 650 mg 650 mg PO HS PRN PAIN 03/15/2504/27 History tablet,extended release (Tylenol Arthritis Pain) losartan 100 mg tablet 100 mg PO QDAY #90 tabs 03/15/25 1 05/15/24 Rx Ejection fraction %: 60 Have you fallen in the past year?: Yes Nurse's Note: EKG obtained in office today. Last one on file 03/30/24. Pt was supposed to be keeping a log of BP readings since Dec visit, but forgot to. They did write some down from yesterday, and brought that list with them. [facility] Medical History (Updated 03/15/25 @ 14: (more content not included)... Normal [facility] Cardiology Visit Reporton Cardiology Visit Report [facility] 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 Echocardiogram in August of 2021 demonstrate mild concentric left ventricular hypertrophy, estimated ejection fraction of 65%, peak mean gradient of 50/30 mmHg across the aortic valve. Carotid ultrasound in 2017 demonstrated less than 50% stenosis. Patient was hospitalized on 12/11/2022 with increased short of breath. She was hospitalized for pneumonia and sepsis. During her hospital stay she did develop atrial fibrillation/flutter. Cardizem was added. She was also started on apixaban. Her troponin was slightly elevated at 60, it was felt that this was related to her atrial fibrillation with RVR and her sepsis. Stress test was negative. She had a cardioversion on 02/11/2023. ECG follow-up on 02/17/2023 showed sinus rhythm first-degree AV block at a rate of 63 bpm. She presents here today with concerns about going back into Afib 3 weeks. 3 weeks ago she awoke in the middle fo the with feeling that her heart was racing. She was tired the next day. Since then she has felt an increase in SOB. EKG had demonstrated Afib with a HR of 68. She was switched to amiodarone. She did undergo a DCCV. She did not maintain SR. EKG today demonstrates Afib. Amiodarone has since been discontinued. Echocardiogram in September 2024 demonstrated preserved ejection fraction with moderate aortic stenosis. Overall from a cardiac standpoint patient is doing well. She does not have any chest pain or heaviness. She does not have any worsening shortness of breath. She does ambulate 10 minutes a day 3 times a day for a minimum of 30 minutes total. She also does chair exercises routinely without any difficulty. She does not have any lightheadedness, dizziness, syncopal episodes. She does not have any lower extremity edema. Intake Vital Signs 09/28/24 15:21 12/30/24 08:06 Height 4 ft 11 in 4 ft 11 in Weight: 166 lb 168 lb BMI 33.5 33.9 BP 147/71 H 162/92 H Blood Pressure Location Lt brachial Lt brachial Position Sitting Sitting Respiration 18 18 Pulse 74 73 Pulse Source NIBP Monitor Pulse Oximetry (%) 97 Intake Visit Reasons: 3 M Brazing Machine Feeder Required: No Is patient in pain?: No Allergies fenofibrate (From Tricor) Adverse Reaction (Verified 12/30/24 13:21) myalgias simvastatin Adverse Reaction (Verified 12/30/24 13:21) myalgias Sulfa (Sulfonamide Antibiotics) Adverse Reaction (Verified 12/30/24 13:21) unknown Medications ???Medication ???Instructions ???Recorded ???Confirmed ???Type acetaminophen 650 mg 650 mg PO DAILY PAIN 09/14/17 08/01/26 History tablet,extended release (Tylenol Arthritis Pain) latanoprost 0.005 % eye drops 1 drp ophthalmic (eye) QHS eye 12/30/24 History health levothyroxine 50 mcg tablet 50 mcg PO DAILY thyroid 09/14/17 0 12/30/24 History (Synthroid) metoprolol succinate 100 mg 100 mg PO DAILY blood pressure 12/30/24 History tablet,extended release 24 hr (Toprol XL) multivitamin 1 tab PO DAILY vitamin 09/14/17 History pravastatin 40 mg tablet 40 mg PO QHS reflux 09/14/1712/30 History liraglutide 0.6 mg/0.1 mL (18 mg/3 1.2 mg subcut DAILY diabetes 12/30/24 History mL) subcutaneous pen injector (Victoza 2-Jose Angel) alpha lipoic acid 200 mg capsule 200 mg PO DAILY supplement 1 12/30/24 History krill 1,000 mg-omega-3 230 mg-dha 1 cap PO DAILY supplement 1 12/30/24 History 60 sb-dsj-czabfglew-astax an capsule (MegaRed [place]-3 Krill Oil) trazodone 100 mg tablet 100 mg PO DAILY sleep 08/08/20 History allopurinol 100 mg tablet 100 mg PO BID gout 09/26/22 History elderberry fruit 460 mg-elderberry 1 cap PO DAILY supplement 12/30/24 History flower 115 mg capsule metformin 1,000 mg tablet 1,000 mg PO DAILY diabetes 3 12/30/24 History cholecalciferol (vitamin D3) 50 50 mcg PO DAILY vitamin 12/11/22 0 12/30/24 History mcg (2,000 unit) capsule niacinamide PO 09/28/24 12/30/24 History apixaban 5 mg tablet (Eliquis) 5 mg PO BID #180 tabs 11/15/24 Rx losartan 50 mg tablet 50 mg PO QDAY #90 tabs 12/30/24 Rx Ejection fraction %: 60 Have you fallen in the past year?: Yes [facility] Medical History Persistent atrial fibrillation Atrial flu (more content not included)... Normal [facility] Cardiology Visit Reporton Cardiology Visit Report [facility] 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 Echocardiogram in August of 2021 demonstrate mild concentric left ventricular hypertrophy, estimated ejection fraction of 65%, peak mean gradient of 50/30 mmHg across the aortic valve. Carotid ultrasound in 2018 demonstrated less than 50% stenosis. Patient was hospitalized on 12/11/2022 with increased short of breath. She was hospitalized for pneumonia and sepsis. During her hospital stay she did develop atrial fibrillation/flutter. Cardizem was added. She was also started on apixaban. Her troponin was slightly elevated at 60, it was felt that this was related to her atrial fibrillation with RVR and her sepsis. Stress test was negative. She had a cardioversion on 02/11/2023. ECG follow-up on 02/17/2023 showed sinus rhythm first-degree AV block at a rate of 63 bpm. She presents here today with concerns about going back into Afib 3 weeks. 3 weeks ago she awoke in the middle fo the with feeling that her heart was racing. She was tired the next day. Since then she has felt an increase in SOB. EKG had demonstrated Afib with a HR of 68. She was switched to amiodarone. She did undergo a DCCV. She did not maintain SR. EKG today demonstrates Afib. Pt had an echo done yesterday, this demonstrated that her was similar at moderate disease. She does have chest heaviness daily. It is not brought on by anything. It can last 5 minutes. it is a 5/10. She notes that this have been going on for a few months. She does feels that this could be worse. She does find that she needs to sit more frequently because she is fatigued. She does not have any lightheadedness/dizzin ess. She does use her Bipap. She does ambulate with a walker. Intake Vital Signs 03/30/24 13:55 07/20/24 08:21 09/28/24 15:21 Height 4 ft 11 in 4 ft 11 in 4 ft 11 in Weight: 161 lb 166 lb BMI 32.5 33.5 BP 141/77 H 147/71 H Blood Pressure Location Lt brachial Lt brachial Position Sitting Sitting Respiration 18 18 Pulse 91 74 Pulse Source Monitor NIBP Temp 97.3 F L Temperature Source Temporal Artery Pulse Oximetry (%) 95 Oxygen Delivery Method room air Intake Visit Reasons: 6 M FU Brazing Machine Feeder Required: No Accompanied by: Daughter Is patient in pain?: No Allergies fenofibrate (From Tricor) Adverse Reaction (Verified 09/28/24 15:25) myalgias simvastatin Adverse Reaction (Verified 09/28/24 15:25) myalgias Sulfa (Sulfonamide Antibiotics) Adverse Reaction (Verified 09/28/24 15:25) unknown Medications ???Medication ???Instructions ???Recorded ???Confirmed ???Type acetaminophen 650 mg 650 mg PO DAILY PAIN 09/14/1709/02 History tablet,extended release (Tylenol Arthritis Pain) latanoprost 0.005 % eye drops 1 drp ophthalmic (eye) QHS eye 09/28/24 History health levothyroxine 50 mcg tablet 50 mcg PO DAILY thyroid 09/14/17 0 09/28/24 History (Synthroid) metoprolol succinate 100 mg 100 mg PO DAILY blood pressure 09/28/24 History tablet,extended release 24 hr (Toprol XL) multivitamin 1 tab PO DAILY vitamin 09/14/17 History pravastatin 40 mg tablet 40 mg PO QHS reflux 09/14/1709/28 History liraglutide 0.6 mg/0.1 mL (18 mg/3 1.2 mg subcut DAILY diabetes 09/28/24 History mL) subcutaneous pen injector (Cadenttoza 2-Jose Angel) alpha lipoic acid 200 mg capsule 200 mg PO DAILY supplement 1 09/28/24 History krill 1,000 mg-omega-3 230 mg-dha 1 cap PO DAILY supplement 1 09/28/24 History 60 cn-lbk-oadvsmicr-astax an capsule (MegaRed [place]-3 Krill Oil) trazodone 100 mg tablet 100 mg PO DAILY sleep 08/08/20 History allopurinol 100 mg tablet 100 mg PO BID gout 09/26/22 History elderberry fruit 460 mg-elderberry 1 cap PO DAILY supplement 09/28/24 History flower 115 mg capsule metformin 1,000 mg tablet 1,000 mg PO DAILY diabetes 3 09/28/24 History cholecalciferol (vitamin D3) 50 50 mcg PO DAILY vitamin 12/11/22 0 09/28/24 History mcg (2,000 unit) capsule apixaban 5 mg tablet (Eliquis) 5 mg PO BID #180 tabs 09/30/23 Rx diltiazem HCl 120 mg 120 mg PO DAILY #90 caps 09/30/23 09/28/24 Rx capsule,extended release 24 hr (Cardizem CD) niacinamide PO 09/28/24 09/28/24 History Ejection fraction %: 60 Have you fallen in the past (more content not included)... Normal [facility] Echocardiogram study reportO rdered By: Dennis Sepulveda on 09-24-2024 Study report [facility] [address] [place] [address] Echo Complete 09/23/24 0957 MR#: [id number] Acct: [id number] Name: CHRISTA CARREON Rep #:[id number] : 1945 78 From: Dennis March Attending Dr: GERARD Hart Status: REG CLI Ordering Dr: Lorri Cooper Date: 09/23/24 Location: CVS Sex: F C Admitted: Reason For Study Reason For Study: Murmur, Procedure This was a 2D Doppler, Color Flow transthoracic echocardiogram. Exam performed in department. Left Ventricle Normal LV size. Moderate concentric left ventricular hypertrophy. The left ventricular ejection fraction is 60 %. No regional wall motion abnormalities noted. Right Ventricle Normal RV size. Normal systolic function. Atria The left atrium is mildly enlarged. The right atrium is mildly enlarged. Mitral Valve There is moderate mitral annular calcification. Tricuspid Valve Normal tricuspid valve. Mild (1+) tricuspid valve insufficiency. Pulmonary artery systolic pressure is 25 mmHg. Aortic Valve Trisinus/trileaflet aortic valve. Moderate focal aortic valve calcification. Peak aortic valve gradient 53 mmHg. Mean aortic valve gradient 32 mmHg. Moderate aortic stenosis. Mild (1+) aortic valve insufficiency. Pulmonic Valve Normal pulmonic valve. Great Vessels Normal aortic root. The pulmonary artery is normal size. Inferior vena cava collapse with respiration. Pericardium/Pleural No pericardial effusion. MMode/2D Measurements & Calculations LVIDd: 3.5 cm IVSd: 1.3 cm LVOT diam: 1.8 cm LVIDs: 2.2 cm LVPWd: 1.5 cm LVOT area: 2.5 cm2 RVDd: 2.9 cm FS: 37.0 % Ao root diam: 2.2 cm LAV(MOD-bp): 69.7 ml LVAd ap4: 19.8 cm2 LAV(MOD-bp) Indexed: 41.5 ml/m2 LVLd ap4: 6.7 cm LAV(MOD-sp2): 64.6 ml EDV(MOD-sp4): 49.6 ml LAV(MOD-sp4): 68.6 ml EDV(sp4-el): 49.6 ml LVAs ap4: 12.1 cm2 LVLs ap4: 6.2 cm ESV(MOD-sp4): 20.3 ml ESV(sp4-el): 19.9 ml EF(MOD-sp4): 59.1 % EF(sp4-el): 59.9 % LVAd ap2: 19.8 cm2 SV(MOD-sp4): 29.3 ml SV(MOD-sp2): 31.2 ml LVLd ap2: 6.7 cm SI(MOD-sp4): 17.4 ml/m2 SI(MOD-sp2): 18.5 ml/m2 EDV(MOD-sp2): 50.8 ml EDV(sp2-el): 49.6 ml LVAs ap2: 11.9 cm2 LVLs ap2: 6.5 cm ESV(MOD-sp2): 19.6 ml ESV(sp2-el): 18.6 ml EF(MOD-sp2): 61.4 % SV(sp4-el): 29.7 ml LA dimension(2D): 3.9 cm LA A4 area: 23.2 cm2 RA A4 area: 13.9 cm2 Doppler Measurements & Calculations MV E max alfred: 160.1 cm/sec MV V2 max: 171.0 cm/sec MV P1/2t max alfred: 166.8 cm/sec MV max P.7 mmHg MV P1/2t: 98.8 msec MV V2 mean: 96.5 cm/sec MV mean P.6 mmHg MV dec slope: 494.1 cm/sec2 MV V2 VTI: 37.6 cm MVA(P1/2t): 2.2 cm2 MVA(VTI): 1.6 cm2 Ao V2 max: 362.7 cm/sec AI max alfred: 421.0 cm/sec LV V1 max: 104.0 cm/sec Ao max P.7 mmHg AI max P.9 mmHg LV V1 max P.3 mmHg Ao V2 mean: 270.8 cm/sec LV V1 mean P.4 mmHg Ao mean P.2 mmHg AI dec slope: 274.2 cm/sec2 LV V1 mean: 73.7 cm/sec Ao V2 VTI: 87.5 cm AI P1/2t: 449.7 msec LV V1 VTI: 24.2 cm AV (velocity ratio): 0.28 ANA(I,D): 0.70 cm2 ANA(V,D): 0.73 cm2 SV(LVOT): 61.4 ml PA V2 max: 72.7 cm/sec TR max alfred: 237.0 cm/sec TR max P.5 mmHg ECHO/Echo Complete Interpretation Summary Normal LV size. Moderate concentric left ventricular hypertrophy. The left ventricular ejection fraction is 60 %. Moderate focal aortic valve calcification. Mean aortic valve gradient 32 mmHg. Mild (1+) aortic valve insufficiency. Moderate aortic stenosis. Ordering Physician: Lorri Cooper Referring Physician: Neeraj Seo Performed By: Rachel Logan RDCS 09/24/24 105 Date _ Dennis Sepulveda MD CC: Dr. Gudelia Gardiner MD; GERARD Hart ~ Date Dictated: 09/23/24956 Date Transcribed: 09/24/241053 Return Checker: Signed [facility] Work Phone: Anion gap in Serum or Plasma Ordered By: Neeraj Seo on 09-23-2024 Anion gap [Moles/Vol] 14 mmol/L 5-15 [facility] BUN/creatinine ratioOrdered By: Neeraj Seo on 09-23-2024 Urea nitrogen/Creatinine [Mass ratio] 13.6 mg/mg 10-20 [facility] Bilirubin, totalOrdered By: Neeraj Seo on 09-23-2024 Bilirubin [Mass/Vol] 0.38 mg/dL 0.00-1.30 [facility] Carbon dioxide, total [Moles /volume] in Central venous bloodOrdered By: Neeraj Seo on 09-23-2024 CO2 [Moles/Vol] 22.9 mmol/L 21.0-32.0 [facility] Chloride assayOrdered By: Carol Seo on 09-23-2024 Chloride [Moles/Vol] 105 mmol/L 98-108 [facility] Comprehensive Metabolic Prof ilon 09-23-2024 Albumin [Mass/Vol] 4.0 g/dL Normal 3.4-4.8 [facility] Comment on above: Order Comment: Order Date: 09/23/24 Order Info: 0786-1 - CMP Performed By: #### L 501.9985, L500.4050 #### [facility] [address] [place], [place], [id number] Albumin/Globulin [Mass ratio] 1.4 {ratio} Normal 0.9-2.4 [facility] Comment on above: Order Comment: Order Date: 09/23/24 Order Info: 0786-1 - CMP Performed By: #### L 501.9985, L500.4050 #### [facility] [address] [place], [address] ALK PHOS 69 U/L Normal 35-104 [facility] Comment on above: Order Comment: Order Date: 09/23/24 Order Info: 0786-1 - CMP Performed By: #### L 501.9985, [id number] #### [facility] [address] [place], [address] ALT [Catalytic activity/Vol] 17 U/L Normal <=34 [facility] Comment on above: Order Comment: Order Date: 09/23/24 Order Info: 0786-1 - CMP Performed By: #### L 501.9985, [id number] #### [facility] [address] [place], [address] AST [Catalytic activity/Vol] 22 U/L Normal <=31 [facility] Comment on above: Order Comment: Order Date: 09/23/24 Order Info: 0786-1 - CMP Performed By: #### L 501.9985, [id number] #### [facility] [address] [place], [address] Bilirubin [Mass/Vol] 0.38 mg/dL Normal 0.00-1.30 [facility] Comment on above: Order Comment: Order Date: 09/23/24 Order Info: 0786-1 - CMP Performed By: #### L 501.9985, [id number] #### [facility] [address] [place], [address] BUN/CRE 13.6 RATIO Normal 10-20 [facility] Comment on above: Order Comment: Order Date: 09/23/24 Order Info: 0786-1 - CMP Performed By: #### L 501.9985, [id number] #### [facility] [address] [place], [address] Calcium [Mass/Vol] 9.5 mg/dL Normal 7.6-11.0 [facility] Comment on above: Order Comment: Order Date: 09/23/24 Order Info: 0786-1 - CMP Performed By: #### L 501.9985, [id number] #### [facility] [address] [place], [address] Chloride [Moles/Vol] 105 mmol/L Normal 98-108 [facility] Comment on above: Order Comment: Order Date: 09/23/24 Order Info: 0786-1 - CMP Performed By: #### L 501.9985, [id number] #### [facility] [address] [place], [address] CO2 [Moles/Vol] 22.9 mmol/L Normal 21.0-32.0 [facility] Comment on above: Order Comment: Order Date: 09/23/24 Order Info: 0786-1 - CMP Performed By: #### L 501.9985, [id number] #### [facility] [address] [place], [address] Creatinine [Mass/Vol] 1.13 mg/dL Normal 0.70-1.20 [facility] Comment on above: Order Comment: Order Date: 09/23/24 Order Info: 0786-1 - CMP Performed By: #### L 501.9985, [id number] #### [facility] [address] [place], [address] GAP 14 Normal 5-15 [facility] Comment on above: Order Comment: Order Date: 09/23/24 Order Info: 0786-1 - CMP Performed By: #### L [id number], [id number] #### [facility] [address] [place], [address] GFR/1.73 sq M.predicted among non-blacks MDRD (S/P/Bld) [Vol rate/Area] 49 mL/min/{1.73_m2} Low >60 [facility] Comment on above: Order Comment: Order Date: 09/23/24 Order Info: 0786-1 - CMP Result Comment: mL/m in/1.73m2 CKD-EPI Creatinine Equation (2020) Performed By: #### L 501.9985, [id number] #### [facility] [address] [place], [address] Globulin (S) [Mass/Vol] 2.9 g/dL Normal 2.2-4.2 [facility] Comment on above: Order Comment: Order Date: 09/23/24 Order Info: 0786-1 - CMP Performed By: #### L 501.9985, [id number] #### [facility] [address] [place], [address] Glucose [Mass/Vol] 169 mg/dL High 70-99 [facility] Comment on above: Order Comment: Order Date: 09/23/24 Order Info: 0786-1 - CMP Performed By: #### L 501.9985, [id number] #### [facility] [address] [place], [address] Potassium [Moles/Vol] 3.8 mmol/L Normal 3.3-5.1 [facility] Comment on above: Order Comment: Order Date: 09/23/24 Order Info: 0786-1 - CMP Performed By: #### L 501.9985, [id number] #### [facility] [address] [place], [address] Sodium [Moles/Vol] 142 mmol/L Normal 133-145 [facility] Comment on above: Order Comment: Order Date: 09/23/24 Order Info: 0786-1 - CMP Performed By: #### L 501.9985, [id number] #### [facility] [address] [place], [address] T PROT 6.9 g/dL Normal 5.9-8.4 [facility] Comment on above: Order Comment: Order Date: 09/23/24 Order Info: 0786-1 - CMP Performed By: #### L 501.9985, [id number] #### [facility] [address] [place], [address] Urea nitrogen [Mass/Vol] 15 mg/dL Normal 4-19 [facility] Comment on above: Order Comment: Order Date: 09/23/24 Order Info: 0786-1 - CMP Performed By: #### L 501.9985, [id number] #### [facility] [address] [place], [address] Echo Completeon 09-23-2024 Echo Complete [facility] [address] [place] [address] Echo Complete 09/23/24 0957 MR#: [id number] Acct: [id number] Name: CHRISTA CARREON Rep #: [id number] : 1945 78 From: Dennis Sepulveda MD Attending Dr: GERARD Hart Status: REG CLI Ordering Dr: Lorri Cooper Date: 09/02 07/26 Location: CVS Sex: F C Admitted: Reason For Study Reason For Study: Murmur, Procedure This was a 2D Doppler, Color Flow transthoracic echocardiogram. Exam performed in department. Left Ventricle Normal LV size. Moderate concentric left ventricular hypertrophy. The left ventricular ejection fraction is 60 %. No regional wall motion abnormalities noted. Right Ventricle Normal RV size. Normal systolic function. Atria The left atrium is mildly enlarged. The right atrium is mildly enlarged. Mitral Valve There is moderate mitral annular calcification. Tricuspid Valve Normal tricuspid valve. Mild (1+) tricuspid valve insufficiency. Pulmonary artery systolic pressure is 25 mmHg. Aortic Valve Trisinus/trileaflet aortic valve. Moderate focal aortic valve calcification. Peak aortic valve gradient 53 mmHg. Mean aortic valve gradient 32 mmHg. Moderate aortic stenosis. Mild (1+) aortic valve insufficiency. Pulmonic Valve Normal pulmonic valve. Great Vessels Normal aortic root. The pulmonary artery is normal size. Inferior vena cava collapse with respiration. Pericardium/Pleural No pericardial effusion. MMode/2D Measurements Calculations LVIDd: 3.5 cm IVSd: 1.3 cm LVOT diam: 1.8 cm LVIDs: 2.2 cm LVPWd: 1.5 cm LVOT area: 2.5 cm2 RVDd: 2.9 cm FS: 37.0 % Ao root diam: 2.2 cm LAV(MOD-bp): 69.7 ml LVAd ap4: 19.8 cm2 LAV(MOD-bp) Indexed: 41.5 ml/m2 LVLd ap4: 6.7 cm LAV(MOD-sp2): 64.6 ml EDV(MOD-sp4): 49.6 ml LAV(MOD-sp4): 68.6 ml EDV(sp4-el): 49.6 ml LVAs ap4: 12.1 cm2 LVLs ap4: 6.2 cm ESV(MOD-sp4): 20.3 ml ESV(sp4-el): 19.9 ml EF(MOD-sp4): 59.1 % EF(sp4-el): 59.9 % LVAd ap2: 19.8 cm2 SV(MOD-sp4): 29.3 ml SV(MOD-sp2): 31.2 ml LVLd ap2: 6.7 cm SI(MOD-sp4): 17.4 ml/m2 SI(MOD-sp2): 18.5 ml/m2 EDV(MOD-sp2): 50.8 ml EDV(sp2-el): 49.6 ml LVAs ap2: 11.9 cm2 LVLs ap2: 6.5 cm ESV(MOD-sp2): 19.6 ml ESV(sp2-el): 18.6 ml EF(MOD-sp2): 61.4 % SV(sp4-el): 29.7 ml LA dimension(2D): 3.9 cm LA A4 area: 23.2 cm2 RA A4 area: 13.9 cm2 Doppler Measurements Calculations MV E max alfred: 160.1 cm/sec MV V2 max: 171.0 cm/sec MV P1/2t max alfred: 166.8 cm/sec MV max P.7 mmHg MV P1/2t: 98.8 msec MV V2 mean: 96.5 cm/sec MV mean P.6 mmHg MV dec slope: 494.1 cm/sec2 MV V2 VTI: 37.6 cm MVA(P1/2t): 2.2 cm2 MVA(VTI): 1.6 cm2 Ao V2 max: 362.7 cm/sec AI max alfred: 421.0 cm/sec LV V1 max: 104.0 cm/sec Ao max P.7 mmHg AI max P.9 mmHg LV V1 max P.3 mmHg Ao V2 mean: 270.8 cm/sec LV V1 mean P.4 mmHg Ao mean P.2 mmHg AI dec slope: 274.2 cm/sec2 LV V1 mean: 73.7 cm/sec Ao V2 VTI: 87.5 cm AI P1/2t: 449.7 msec LV V1 VTI: 24.2 cm AV (velocity ratio): 0.28 ANA(I,D): 0.70 cm2 ANA(V,D): 0.73 cm2 SV(LVOT): 61.4 ml PA V2 max: 72.7 cm/sec TR max alfred: 237.0 cm/sec TR max P.5 mmHg ECHO/Echo Complete Interpretation Summary Normal LV size. Moderate concentric left ventricular hypertrophy. The left ventricular ejection fraction is 60 %. Moderate focal aortic valve calcification. Mean aortic valve gradient 32 mmHg. Mild (1+) aortic valve insufficiency. Moderate aortic stenosis. Ordering Physician: Lorri Cooper Referring Physician: Neeraj Seo Performed By: Rachel Logan, DINA 09/24/24 1054 Date Dennis Sepulveda MD CC: Dr. Gudelia Gardiner MD; GERARD Hart Date Dictated: 09/23/2457 Date Transcribed: 09/24/241053 Return Checker: Signed Normal [facility] Glomerular filtration rate ( GFR) estimation/1.73 sq m using serum, plasma, or whole bOrdered By: Neeraj Seo on 09-23-2024 GFR/1.73 sq M.predicted among non-blacks MDRD (S/P/Bld) [Vol rate/Area] 49 mL/min/{1.73_m2} Low >60 [facility] Comment on above: mL/min/1.73m2 CKD-EP I Creatinine Equation (2020) Hemoglobin A1con 09-23-2024 HbA1c (Bld) [Mass fraction] 6.9 % High <=5.6 [facility] Comment on above: Order Comment: Order Date: 09/23/24 Order Info: 4548-4 - A1C Result Comment: Norm al < 5.7 % Prediabetic 5.7 - 6.4 % Diabetic >or= 6.5 % Please note range changes. Performed By: #### L 501.9985, L500.4050 #### [facility] [address] [place], [place], [id number] Hemoglobin A1c percentageOrd ered By: Neeraj Seo on 09-23-2024 HbA1c (Bld) [Mass fraction] 6.9 % High <5.7 [facility] Comment on above: Normal < 5.7 % Predi abetic 5.7 - 6.4 % Diabetic >or= 6.5 % Please note range changes. Laboratory - Chemistry and C hemistry - challengeOrdered By: Neeraj Seo on 09-23-2024 AST [Catalytic activity/Vol] 22 U/L <32 [facility] Potassium measurement (mass/ volume)Ordered By: Neeraj Seo on 09-23-2024 Potassium (Unsp spec) [Mass/Vol] 3.8 mmol/L 3.3-5.1 [facility] Serum creatinine measurement (mass/volume)Ordered By: Neeraj Seo on 09-23-2024 Creatinine [Mass/Vol] 1.13 mg/dL 0.70-1.20 [facility] Serum globulin measurementOr dered By: Neeraj Seo on 09-23-2024 Globulin (S) [Mass/Vol] 2.9 g/dL 2.2-4.2 [facility] Serum glucose measurement (m ass/volume)Ordered By: Neeraj Seo on 09-23-2024 Glucose [Mass/Vol] 169 mg/dL High 70-99 [facility] Serum or plasma alanine joe otransferase (ALT) measurementOrdered By: Neeraj Seo on 09-23-2024 ALT [Catalytic activity/Vol] 17 U/L <35 [facility] Serum or plasma albumin gustavo urement (mass/volume)Ordered By: Neeraj Seo on 09-23-2024 Albumin [Mass/Vol] 4.0 g/dL 3.4-4.8 [facility] Serum or plasma albumin/glob ulin mass ratioOrdered By: Neeraj Seo on 09-23-2024 Albumin/Globulin [Mass ratio] 1.4 {ratio} 0.9-2.4 [facility] Serum or plasma alkaline armani sphatase measurementOrdered By: Neeraj Seo on 09-23-2024 ALP [Catalytic activity/Vol] 69 U/L 35-104 [facility] Serum or plasma calcium gustavo urement (mass/volume)Ordered By: Neeraj Seo on 09-23-2024 Calcium [Mass/Vol] 9.5 mg/dL 7.6-11.0 [facility] Serum or plasma urea nitroge n measurement (mass/volume)Ordered By: Neeraj Seo on 09-23-2024 Urea nitrogen [Mass/Vol] 15 mg/dL 4-19 [facility] Sodium levelOrdered By: Tejal Seo on 09-23-2024 Sodium [Moles/Vol] 142 mmol/L 133-145 [facility] Total proteinOrdered By: Piedad Seo on 09-23-2024 Protein [Mass/Vol] 6.9 g/dL 5.9-8.4 [facility] Vitamin D,25 Hydroxyon 09-23 Vitamin D 25-OH 45.9 ng/mL Normal 30-100 [facility] Comment on above: Order Comment: Order Date: 09/23/24 Order Info: 0786-1 - CMP Result Comment: Carlyn min D Status Deficiency: <20 ng/mL (50nmol/L) Insufficiency: 20-30 ng/mL (50-75 nmol/L) Sufficiency: 30-100 ng/mL (75-250 nmol/L) Toxicity: >100 ng/mL (>250 nmol/L) Performed By: #### L 506.1001 #### [facility] [address] [place], [address] Pulmonary Visit Reporton Pulmonary Visit Report [facility] [place] [address] [place] [address] OFFICE VISIT Date of Service: 07/20/24 MR#: [id number] Acct: [id number] Name: CHRISTA CARREON Rep #: [id number] : 1945 Provider: JAYNE Morrison Age/Sex: 78/F [place] [facility] [place] Status: Signed Assessment and Plan Assessment and Plan (1) DARLENE (obstructive sleep apnea): Status: Chronic Comment: AHI 8.4 Plan: She is using and benefiting from Pap therapy. No indication for titration study at this time. Contact the office for any new or worsening symptoms in the meantime. Follow-up in 1 year. (2) Obesity: Status: Chronic Qualifiers: Body mass index: BMI 32.0-32.9 Obesity classification: adult class 1 (BMI 30 - 34.9) Obesity type: due to excess calories Serious obesity comorbidity presence: with serious comorbidity Qualified Code(s): E66.811 - Obesity, class 1; E66.09 - Other obesity due to excess calories; Z68.32 - Body mass index [BMI] 32.0-32.9, adult Plan: Continue to encourage healthy weight loss. Plan Details Follow Up: 1 Year ([facility]) HPI 6 M FU Chief Complaint: Routine follow-up HPI Comments Details: This patient presents to the office today for follow-up of her obstructive sleep apnea. She is ambulatory with a wheeled walker. She is accompanied today by her daughter. She has not recently been seen in the ED or urgent care for any respiratory illness. She has not required any antibiotics or prednisone for any breathing problems. Today she denies any shortness of breath. She denies any cough, sputum production or hemoptysis. She has not had any wheezing, chest tightness, chest pain or palpitations. She also denies any fever, chills or body aches. She feels rested and refreshed with use of her Pap device. She does not have frequent problem with dry mouth or mask leaks. She occasionally takes a nap without her PAP machine. She is not nodding off to sleep unintentionally. She is not having excessive nocturia. Compliance report for the past 30 days shows 100% compliance with an average use of 8 hours and 54 minutes per night. Current setting is 13/9 cmH2O with residual AHI 0.3 events per hour. Leaks do not appear to be problematic. Intake Vital Signs 01/20/24 08:03 07/20/24 08:21 Height 4 ft 11 in 4 ft 11 in Weight: 161 lb BMI 32.5 BP 141/77 H Blood Pressure Location Lt brachial Position Sitting Respiration 18 Pulse 91 Pulse Source Monitor Temp 97.3 F L Temperature Source Temporal Artery Pulse Oximetry (%) 95 Oxygen Delivery Method room air Intake Visit Reasons: 6 M FU Brazing Machine Feeder Required: No DME Vendor: [email or web address] Accompanied by: Daughter Is patient in pain?: No Allergies fenofibrate (From Tricor) Adverse Reaction (Verified 07/20/24 15:18) myalgias simvastatin Adverse Reaction (Verified 07/20/24 15:18) myalgias Sulfa (Sulfonamide Antibiotics) Adverse Reaction (Verified 07/20/24 15:18) unknown Medications ???Medication ???Instructions ???Recorded ???Confirmed ???Type acetaminophen 650 mg 650 mg PO DAILY PAIN 09/14/1707/02 History tablet,extended release (Tylenol Arthritis Pain) latanoprost 0.005 % eye drops 1 drp ophthalmic (eye) QHS eye 07/20/24 History health levothyroxine 50 mcg tablet 50 mcg PO DAILY thyroid 09/14/17 0 07/20/24 History (Synthroid) metoprolol succinate 100 mg 100 mg PO DAILY blood pressure 07/20/24 History tablet,extended release 24 hr (Toprol XL) multivitamin 1 tab PO DAILY vitamin 09/14/17 History pravastatin 40 mg tablet 40 mg PO QHS reflux 09/14/1707/20 History liraglutide 0.6 mg/0.1 mL (18 mg/3 1.2 mg subcut DAILY diabetes 07/20/24 History mL) subcutaneous pen injector ([employer] 2-Jose Angel) alpha lipoic acid 200 mg capsule 200 mg PO DAILY supplement 1 07/20/24 History krill 1,000 mg-omega-3 230 mg-dha 1 cap PO DAILY supplement 1 07/20/24 History 60 am-cmf-jrtjbhjsv-astax an capsule (MegaRed [place]-3 Krill Oil) trazodone 100 mg tablet 100 mg PO DAILY sleep 08/08/20 History allopurinol 100 mg tablet 100 mg PO BID gout 09/26/22 History elderberry fruit 460 mg-elderberry 1 cap PO DAILY supplement 07/20/24 History flower 115 mg capsule metformin 1,000 mg tablet 1,000 mg PO DAILY diabetes 3 07/20/24 History cholecalciferol (vitamin D3) 50 50 mcg PO DAILY vitamin 12/11/22 0 07/20/24 History mcg (2,000 unit) capsule apixaban 5 mg tablet (Eliquis) 5 mg PO BID #180 tabs 09/30/23 Rx diltiazem HCl 120 mg 120 mg PO DAILY #90 caps 09/30/23 07/20/24 Rx capsule,extended release 24 hr (Cardizem CD) Have you fallen in the past year?: Yes [facility] Medical Histo (more content not included)... Normal [facility] Urine Cultureon 06-24-2024 URC Presumptive E. coli [place] Count >100,000 Presumptive E. coli: REACTION Ampicillin Islt FLYNN 8 Ampicillin+Sulbac Islt FLYNN 4 S Cefepime Islt FLYNN <=0.12 S cefTRIAXone Islt FLYNN <=0.25 S Ciprofloxacin Islt FLYNN <=0.06 S B-Lactamase Extended Susc Islt NEG Gentamicin Islt FLYNN <=1 S levoFLOXacin Islt FLYNN <=0.12 S Meropenem Islt FLYNN <=0.25 S Nitrofurantoin Islt FLYNN <=16 S Pip+Tazo Islt FLYNN <=4 S TMP SMX Islt FLYNN <=20 S Normal [facility] Comment on above: Performed By: #### M 100.2200 #### [facility] [address] [place], [address] Urine cultureOrdered By: Janel Packer on 06-22-2024 Bacteria identified Cx Nom (U) Presumptive E. coli Abnormal [facility] 12 Lead E[place] [facility] [place]-30-2024 12 Lead EKG performed by [facility] [address] [place] [address] 12 Lead EKG performed [place] [facility] 03/30/24 0712 MR#: [id number] Acct: [id number] Name: CHRISTA CARREON Rep #: [id number] : 1945 78 From: Lorri Man Attending Dr: GERARD Hart Status: DEP AMB Ordering Dr: Lorri Cooper Date: 03/05 11/24 Location: [facility] [place] Sex: F C [place] [facility] [facility] ECG Report Interpretation ----Atrial fibrillation -Left axis -anterior fascicular block. -Poor R-wave progression -may be secondary to pulmonary disease consider old anterior infarct. - Nonspecific T-abnormality. Low voltage -possible pulmonary disease. ABNORMAL Electronically signed on 04/08/2024 at 16:36 by Dennis [employer] Version [id number] 04/08/24 1638 Date Lorri GEE CC: Dr. Gudelia Gardiner MD Date Dictated: 03/30/24711 Date Transcribed: 03/30/24711 Return Checker: FAZAL Signed Normal [facility] Cardiology Visit Reporton Cardiology Visit Report [facility] 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 Echocardiogram in August of 2021 demonstrate mild concentric left ventricular hypertrophy, estimated ejection fraction of 65%, peak mean gradient of 50/30 mmHg across the aortic valve. Carotid ultrasound in 2018 demonstrated less than 50% stenosis. Patient was hospitalized on 12/11/2022 with increased short of breath. She was hospitalized for pneumonia and sepsis. During her hospital stay she did develop atrial fibrillation/flutter. Cardizem was added. She was also started on apixaban. Her troponin was slightly elevated at 60, it was felt that this was related to her atrial fibrillation with RVR and her sepsis. Stress test was negative. She had a cardioversion on 02/11/2023. ECG follow-up on 02/17/2023 showed sinus rhythm first-degree AV block at a rate of 63 bpm. She presents here today with concerns about going back into Afib 3 weeks. 3 weeks ago she awoke in the middle fo the with feeling that her heart was racing. She was tired the next day. Since then she has felt an increase in SOB. EKG had demonstrated Afib with a HR of 68. She was switched to amiodarone. She did undergo a DCCV. She did not maintain SR. EKG today demonstrates Afib. Overall she is doing okay. She does sometimes have palpitations. She does not have any chest pain. She does not have any worsening SOB. She does have some swelling, it does go away in the AM. She does sometimes where compression stockings. Intake Vital Signs 01/20/24 08:03 03/30/24 13:55 Height 4 ft 11 in 4 ft 11 in Weight: 154 lb 161 lb BMI 31.1 32.5 BP 146/77 H 126/81 H Blood Pressure Location Rt brachial Lt brachial Position Sitting Sitting Respiration 20 H 18 Pulse 87 75 Pulse Source Monitor Monitor Temp 97.2 F L Temperature Source Temporal Artery Pulse Oximetry (%) 96 97 Oxygen Delivery Method room air Intake Visit Reasons: 6 M FU Brazing Machine Feeder Required: No Is patient in pain?: No Allergies fenofibrate (From Tricor) Adverse Reaction (Verified 03/30/24 13:55) myalgias simvastatin Adverse Reaction (Verified 03/30/24 13:55) myalgias Sulfa (Sulfonamide Antibiotics) Adverse Reaction (Verified 03/30/24 13:55) unknown Medications ???Medication ???Instructions ???Recorded ???Confirmed ???Type acetaminophen 650 mg 650 mg PO DAILY PAIN 09/14/17 03/30/24 History tablet,extended release (Tylenol Arthritis Pain) latanoprost 0.005 % eye drops 1 drp ophthalmic (eye) QHS eye 09/14/17 03/30/24 History health levothyroxine 50 mcg tablet 50 mcg PO DAILY thyroid 09/14/17 03/30/24 History (Synthroid) metoprolol succinate 100 mg 100 mg PO DAILY blood pressure 09/14/17 03/30/24 History tablet,extended release 24 hr (Toprol XL) multivitamin 1 tab PO DAILY vitamin 09/14/17 03/30/24 History pravastatin 40 mg tablet 40 mg PO QHS reflux 09/14/17 03/30/24 History liraglutide 0.6 mg/0.1 mL (18 mg/3 1.2 mg subcut DAILY diabetes 09/15/17 03/30/24 History mL) subcutaneous pen injector (Victoza 2-Jose Angel) alpha lipoic acid 200 mg capsule 200 mg PO DAILY supplement 08/08/20 03/30/24 History krill 1,000 mg-omega-3 230 mg-dha 1 cap PO DAILY supplement 08/08/20 03/30/24 History 60 uy-kgc-dyajpciuy-astax an capsule (MegaRed [place]-3 Krill Oil) trazodone 100 mg tablet 100 mg PO DAILY sleep 08/08/20 03/30/24 History allopurinol 100 mg tablet 100 mg PO BID gout 09/26/22 03/30/24 History elderberry fruit 460 mg-elderberry 1 cap PO DAILY supplement 09/26/22 03/30/24 History flower 115 mg capsule metformin 1,000 mg tablet 1,000 mg PO DAILY diabetes 09/26/22 03/30/24 History cholecalciferol (vitamin D3) 50 50 mcg PO DAILY vitamin 12/11/22 03/30/24 History mcg (2,000 unit) capsule apixaban 5 mg tablet (Eliquis) 5 mg PO BID #180 tabs 09/30/23 03/30/24 Rx diltiazem HCl 120 mg 120 mg PO DAILY #90 caps 09/30/23 03/30/24 Rx capsule,extended release 24 hr (Cardizem CD) Have you fallen in the past year?: [facility] History Persistent atrial fibrillation Atrial flutter Morbid obesity with BMI of 40.0-44.9, adult Breast cancer Atherosclerosis of coronary artery of [place] heart without angina pectoris Essential hypertension Hx of breast cancer Hypothyroidism Gout Spinal stenosis Osteoporosis Carpal tunnel syndrom (more content not included)... Normal [facility] Basic Metabolic Profile (BMP )on 03-18-2024 BUN/CRE 17.5 RATIO Normal 02-20 [facility] Comment on above: Order Comment: A1C D ONE IN OFFICE URINE UTO A1 Performed By: #### L 500.4100, L500.3400, L500.2500 #### [facility] [address] [place], [address] CA,Total 9.3 mg/dL Normal 8.5-10.1 [facility] Comment on above: Order Comment: A1C D ONE IN OFFICE URINE UTO A1 Performed By: #### L 500.4100, L500.3400, L500.2500 #### [facility] [address] [place], [address] Chloride [Moles/Vol] 109 mmol/L High 98-107 [facility] Comment on above: Order Comment: A1C D ONE IN OFFICE URINE UTO A1 Performed By: #### L 500.4100, L500.3400, L500.2500 #### [facility] [address] [place], [address] CO2 [Moles/Vol] 23.0 mmol/L Normal 21.0-32.0 [facility] Comment on above: Order Comment: A1C D ONE IN OFFICE URINE UTO A1 Performed By: #### L 500.4100, L500.3400, L500.2500 #### [facility] [address] [place], [address] Creatinine [Mass/Vol] 1.14 mg/dL High 0.55-1.02 [facility] Comment on above: Order Comment: A1C D ONE IN OFFICE URINE UTO A1 Result Comment: The validity of the calculated GFR GFRAA in patients over 70 years has not been determined. Clinical correlation is essential. Performed By: #### L 500.4100, L500.3400, L500.2500 #### [facility] [address] [place], [address] EST GFR - AA 59 mL/min Low >60 [facility] Comment on above: Order Comment: A1C D ONE IN OFFICE URINE UTO A1 Result Comment: Afri can [place] GFR Calc Performed By: #### L 500.4100, L500.3400, L500.2500 #### [facility] [address] [place], [address] GAP 7 Normal 5-15 [facility] Comment on above: Order Comment: A1C D ONE IN OFFICE URINE UTO A1 Performed By: #### L 500.4100, L500.3400, L500.2500 #### [facility] [address] [place], [address] GFR/1.73 sq M.predicted among non-blacks MDRD (S/P/Bld) [Vol rate/Area] 49 mL/min/{1.73_m2} Low >60 [facility] Comment on above: Order Comment: A1C D ONE IN OFFICE URINE UTO A1 Result Comment: Non- GFR Calc Performed By: #### L 500.4100, L500.3400, L500.2500 #### [facility] [address] [place], [address] Glucose [Mass/Vol] 182 mg/dL High 74-106 [facility] Comment on above: Order Comment: A1C D ONE IN OFFICE URINE UTO A1 Result Comment: Fast ing Glucose result greater than or equal to 126 mg/dL suggests DIABETES MELLITUS per A.D.A. criteria. Performed By: #### L 500.4100, L500.3400, L500.2500 #### [facility] [address] [place], [address] Potassium [Moles/Vol] 3.9 mmol/L Normal 3.5-5.1 [facility] Comment on above: Order Comment: A1C D ONE IN OFFICE URINE UTO A1 Performed By: #### L 500.4100, L500.3400, L500.2500 #### [facility] [address] [place], [address] Sodium [Moles/Vol] 139 mmol/L Normal 136-145 [facility] Comment on above: Order Comment: A1C D ONE IN OFFICE URINE UTO A1 Performed By: #### L 500.4100, L500.3400, L500.2500 #### [facility] [address] [place], [address] Urea nitrogen [Mass/Vol] 20 mg/dL High 7-18 [facility] Comment on above: Order Comment: A1C D ONE IN OFFICE URINE UTO A1 Performed By: #### L 500.4100, L500.3400, L500.2500 #### [facility] [address] [place], [address] Lipid Profileon 03-18-2024 Cholesterol [Mass/Vol] 138 mg/dL Normal 200 [facility] Comment on above: Order Comment: A1C D ONE IN OFFICE URINE UTO A1 Result Comment: <200 mg/dL Desirable 200-240 mg/dL Borderline >240 mg/dL High Risk Performed By: #### L 500.4100, L500.3400, L500.2500 #### [facility] [address] [place], [address] Cholesterol in HDL [Mass/Vol] 40 mg/dL Normal [facility] Comment on above: Order Comment: A1C D ONE IN OFFICE URINE UTO A1 Result Comment: The drugs N-Acetylcysteine and Metamizole may falsely depress this assay. Reference Range HDL <40 mg/dL Low HDL Cholesterol HDL >or= 60 mg/dL High HDL Cholesterol Performed By: #### L 500.4100, L500.3400, L500.2500 #### [facility] [address] [place], [address] Cholesterol in LDL [Mass/Vol] 53 mg/dL Normal 0-130 [facility] Comment on above: Order Comment: A1C D ONE IN OFFICE URINE UTO A1 Performed By: #### L 500.4100, L500.3400, L500.2500 #### [facility] [address] [place], [address] Cholesterol in VLDL [Mass/Vol] 45 mg/dL High 5-40 [facility] Comment on above: Order Comment: A1C D ONE IN OFFICE URINE UTO A1 Performed By: #### L 500.4100, L500.3400, L500.2500 #### [facility] [address] [place], [address] Triglyceride [Mass/Vol] 223 mg/dL High [facility] Comment on above: Order Comment: A1C D ONE IN OFFICE URINE UTO A1 Result Comment: The drugs N-Acetylcysteine and Metamizole may falsely depress this assay. Serum Triglycerides Reference Interval Normal <150 mg/dL Borderline high 150 - 199 mg/dL High 200 - 499 mg/dL Very High > or = 500 mg/dL Performed By: #### L 500.4100, L500.3400, L500.2500 #### [facility] [address] [place], [address] Liver Profileon 03-18-2024 Albumin [Mass/Vol] 3.5 g/dL Normal 3.2-5.0 [facility] Comment on above: Order Comment: A1C D ONE IN OFFICE URINE UTO A1 Performed By: #### L 500.4100, L500.3400, L500.2500 #### [facility] [address] [place], [address] ALK P 68 U/L Normal 45-117 [facility] Comment on above: Order Comment: A1C D ONE IN OFFICE URINE UTO A1 Performed By: #### L 500.4100, L500.3400, L500.2500 #### [facility] [address] [place], [address] ALT [Catalytic activity/Vol] 22 U/L Normal 13-56 [facility] Comment on above: Order Comment: A1C D ONE IN OFFICE URINE UTO A1 Performed By: #### L 500.4100, L500.3400, L500.2500 #### [facility] [address] [place], [address] AST [Catalytic activity/Vol] 18 U/L Normal 15-37 [facility] Comment on above: Order Comment: A1C D ONE IN OFFICE URINE UTO A1 Performed By: #### L 500.4100, L500.3400, L500.2500 #### [facility] [address] [place], [address] Bilirubin [Mass/Vol] 0.50 mg/dL Normal 0.20-1.00 [facility] Comment on above: Order Comment: A1C D ONE IN OFFICE URINE UTO A1 Result Comment: For patients on eltrombopag therapy, use of Dimension [place] TBIL is not recommended. Performed By: #### L 500.4100, L500.3400, L500.2500 #### [facility] [address] [place], [address] Bilirubin.direct [Mass/Vol] 0.14 mg/dL Normal 0.00-0.30 [facility] Comment on above: Order Comment: A1C D ONE IN OFFICE URINE UTO A1 Performed By: #### L 500.4100, L500.3400, L500.2500 #### [facility] [address] [place], [address] Globulin (S) [Mass/Vol] 3.8 g/dL Normal 2.2-4.2 [facility] Comment on above: Order Comment: A1C D ONE IN OFFICE URINE UTO A1 Performed By: #### L 500.4100, L500.3400, L500.2500 #### [facility] [address] [place], [address] T PROT 7.3 g/dL Normal 6.4-8.2 [facility] Comment on above: Order Comment: A1C D ONE IN OFFICE URINE UTO A1 Performed By: #### L 500.4100, L500.3400, L500.2500 #### [facility] [address] [place], [address] Basophil percentageOrdered B y: Lorri Cooper on 07-31-2023 Chloride [Moles/Vol] 109 mmol/L 98-107 [facility] Glucose [Mass/Vol] 164 mg/dL 74-106 [facility] Comment on above: Fasting Glucose resu lt greater than or equal to 126 mg/dL suggests DIABETES MELLITUS per A.D.A. criteria. Potassium [Moles/Vol] 4.4 mmol/L 3.5-5.1 [facility] Comment on above: Slight Hemolysis, Re sult may be falsely increased. Sodium [Moles/Vol] 140 mmol/L 136-145 [facility] - Chemistry and C hemistry - challengeOrdered By: Lorri Cooper on 07-31-2023 CO2 [Moles/Vol] 24.0 mmol/L 21.0-32.0 [facility] Urea nitrogen/Creatinine [Mass ratio] 13.8 mg/mg 10-20 [facility] No Panel InformationOrdered By: Lorri Cooper on 07-31-2023 Estimated GFR (MDRD) Amer 54 mL/min >60 [facility] Comment on above: GFR Calc Estimated GFR (MDRD) Non-Af Amer 45 mL/min >60 [facility] Comment on above: Non- GFR Calc Serum or plasma calcium gustavo urement (mass/volume)Ordered By: Lorri Cooper on 07-31-2023 Calcium [Mass/Vol] 9.3 mg/dL 8.5-10.1 [facility] Serum or plasma creatinine m easurement (mass/volume)Ordered By: Lorri Cooper on 07-31-2023 Creatinine [Mass/Vol] 1.23 mg/dL 0.55-1.02 [facility] Comment on above: The validity of the calculated GFR & GFRAA in patients over 70 years has not been determined. Clinical correlation is essential. Serum or plasma urea nitroge n measurement (mass/volume)Ordered By: Lorri Cooper on 07-31-2023 Urea nitrogen [Mass/Vol] 17 mg/dL 7-18 [facility] Thin prep Papanicolaou smear with manual screeningOrdered By: Lorri Cooper on 07-31-2023 Thin prep Papanicolaou smear with manual screening 7 5-15 [facility] Basophil percentageOrdered B y: Lorri Cooper on 01-28-2023 Chloride [Moles/Vol] 109 mmol/L 98-107 [facility] Glucose [Mass/Vol] 120 mg/dL 74-106 [facility] Comment on above: Fasting Glucose resu lt from 100 to 125 mg/dL suggests IMPAIRED HOMEOSTASIS per A.D.A. criteria. Potassium [Moles/Vol] 4.0 mmol/L 3.5-5.1 [facility] Sodium [Moles/Vol] 141 mmol/L 136-145 [facility] - Chemistry and C hemistry - challengeOrdered By: Lorri Cooper on 01-28-2023 CO2 [Moles/Vol] 26.0 mmol/L 21.0-32.0 [facility] Urea nitrogen/Creatinine [Mass ratio] 16.9 mg/mg 10-20 [facility] No Panel InformationOrdered By: Lorri Cooper on 01-28-2023 Estimated GFR (MDRD) Amer 79 mL/min >60 [facility] Comment on above: GFR Calc Estimated GFR (MDRD) Non-Af Amer 65 mL/min >60 [facility] Comment on above: Non- GFR Calc Serum or plasma calcium gustavo urement (mass/volume)Ordered By: Lorri Cooper on 01-28-2023 Calcium [Mass/Vol] 9.6 mg/dL 8.5-10.1 [facility] Serum or plasma creatinine m easurement (mass/volume)Ordered By: Lrori Cooper on 01-28-2023 Creatinine [Mass/Vol] 0.88 mg/dL 0.55-1.02 [facility] Comment on above: The validity of the calculated GFR & GFRAA in patients over 70 years has not been determined. Clinical correlation is essential. Serum or plasma urea nitroge n measurement (mass/volume)Ordered By: Lorri Cooper on 01-28-2023 Urea nitrogen [Mass/Vol] 15 mg/dL 7-18 [facility] Thin prep Papanicolaou smear with manual screeningOrdered By: Lorri Cooper on 01-28-2023 Thin prep Papanicolaou smear with manual screening 6 5-15 [facility] Absolute lymphocyte countOrd ered By: Kiki Galindo on 12-25-2022 Lymphocytes Auto (Unsp spec) [#/Vol] 1.50 10*3/uL 0.83-4.51 [facility] Basophil percentageOrdered B y: Kiki Galindo on 12-25-2022 Basophils/100 WBC (Bld) 0.9 % 0-1 [facility] Chloride [Moles/Vol] 109 mmol/L 98-107 [facility] Eosinophils/100 WBC (Bld) 1.0 % 0-5 [facility] Glucose [Mass/Vol] 109 mg/dL 74-106 [facility] Comment on above: Fasting Glucose resu lt from 100 to 125 mg/dL suggests IMPAIRED HOMEOSTASIS per A.D.A. criteria. Neutrophils (Bld) [#/Vol] 5.6 10*3/uL 2.0-7.7 [facility] Neutrophils/100 WBC (Bld) 71.1 % 47-70 [facility] Potassium [Moles/Vol] 3.9 mmol/L 3.5-5.1 [facility] Sodium [Moles/Vol] 140 mmol/L 136-145 [facility] WBC (Bld) [#/Vol] 7.9 10*3/uL 4.4-11.0 [facility] Basophil percentage 0 SEEN /hpf 0-5 [facility] Bilirubin Test strip Ql (U)O rdered By: Kiki Galindo on 12-25-2022 Bilirubin Ql (U) Negative Negative [facility] Blood erythrocytes count (nu mber/volume)Ordered By: Kiki Galindo on 12-25-2022 RBC (Bld) [#/Vol] 4.23 10*6/uL 4.2-5.4 [facility] Blood hemoglobin measurement (mass/volume)Ordered By: Kiki Galindo on 12-25-2022 Hemoglobin (Bld) [Mass/Vol] 13.5 g/dL 12.0-15.0 [facility] Blood lymphocytes/100 leukoc ytesOrdered By: Kiki Galindo on 12-25-2022 Lymphocytes/100 WBC (Bld) 18.9 % 19-41 [facility] Blood monocytes/100 leukocyt esOrdered By: Kiki Galindo on 12-25-2022 Monocytes/100 WBC (Bld) 7.3 % 0-10 [facility] Blood platelet mean volumeOr dered By: Kiki Galindo on 12-25-2022 Platelet mean volume (Bld) [Entitic vol] 9.0 fL 6.2-12.0 [facility] Determination of erythrocyte mean corpuscular volume (MCV)Ordered By: Kiki Galindo on 12-25-2022 MCV (RBC) [Entitic vol] 96.0 fL 81-99 [facility] Hematocrit Auto (Bld) [Volum e fraction]Ordered By: Kiki Galindo on 12-25-2022 Hematocrit (Bld) [Volume fraction] 40.6 % 37-47 [facility] Ketones Test strip Ql (U)Ord ered By: Kiki Galindo on 12-25-2022 Ketones Ql (U) Negative Negative [facility] Laboratory - Chemistry and C hemistry - challengeOrdered By: Kiki Galindo on 12-25-2022 CO2 [Moles/Vol] 24.0 mmol/L 21.0-32.0 [facility] Urea nitrogen/Creatinine [Mass ratio] 14.5 mg/mg 10-20 [facility] Laboratory - Hematology and Cell countsOrdered By: Kiki Galindo on 12-25-2022 Erythrocyte distribution width (RBC) [Entitic vol] 50.7 fL 35.1-43.9 [facility] Erythrocyte distribution width (RBC) [Ratio] 14.6 % 11.6-14.6 [facility] Immature granulocytes/100 WBC (Bld) 0.800 % 0.0-0.9 [facility] Comment on above: IG% - Immature Granu locytes (promyelocytes, myelocytes and metamyelocytes) > 1% indicates that a LEFT SHIFT is Present. MCH (RBC) [Entitic mass] 31.9 pg 27.0-32.0 [facility] Nucleated RBC/100 WBC (Bld) [Ratio] 0 % 0-5 [facility] MCHC Auto (RBC) [Mass/Vol]Or dered By: Kiki Galindo on 12-25-2022 MCHC (RBC) [Mass/Vol] 33.3 g/dL 32-36 [facility] Mucus LM Ql (Urine sed)Order ed By: Kiki Galindo on 12-25-2022 Mucus Ql (Urine sed) 0 SEEN /hpf [facility] Nitrite Test strip Ql (U)Ord ered By: Kiki Galindo on 12-25-2022 Nitrite Ql (U) Negative Negative [facility] No Panel InformationOrdered By: Kiki Galindo on 12-25-2022 Troponin I High Sensitivity 8 pg/mL 3.0-54.0 [facility] Comment on above: Please Note: New [place] Units and Gender Specific Reference Ranges. For more information see Policy Stat Procedure [place] High Sensitivity Troponin (TNIH) and attachments. Estimated GFR (MDRD) Amer 62 mL/min >60 [facility] Comment on above: GFR Calc Estimated GFR (MDRD) Non-Af Amer 51 mL/min >60 [facility] Comment on above: Non- GFR Calc Platelets bldOrdered By: Yelena Galindo on 12-25-2022 Platelets (Bld) [#/Vol] 358 10*3/uL 150-450 [facility] Protein Test strip Ql (U)Ord ered By: Kiki Galindo on 12-25-2022 Protein Ql (U) Negative Negative [facility] Serum or plasma calcium gustavo urement (mass/volume)Ordered By: Kiki Galindo on 12-25-2022 Calcium [Mass/Vol] 9.6 mg/dL 8.5-10.1 [facility] Serum or plasma creatinine m easurement (mass/volume)Ordered By: Kiki Galindo on 12-25-2022 Creatinine [Mass/Vol] 1.10 mg/dL 0.55-1.02 [facility] Comment on above: The validity of the calculated GFR & GFRAA in patients over 70 years has not been determined. Clinical correlation is essential. Serum or plasma urea nitroge n measurement (mass/volume)Ordered By: Kiki Galindo on 12-25-2022 Urea nitrogen [Mass/Vol] 16 mg/dL 7-18 [facility] Squamous epithelial cells de tection in urine sediment by light microscopyOrdered By: Kiki Galindo on 12-25-2022 Epithelial cells.squamous LM Ql (Urine sed) 0 SEEN /hpf 5-10 [facility] Thin prep Papanicolaou smear with manual screeningOrdered By: Kiki Galindo on 12-25-2022 Thin prep Papanicolaou smear with manual screening 7 5-15 [facility] Urine blood detectionOrdered By: Kiki Galindo on 12-25-2022 RBC Ql (U) Negative Negative [facility] RBC Ql (U) 0 SEEN /hpf 0-5 [facility] Urine clarityOrdered By: Yelena Galindo on 12-25-2022 Clarity (U) Clear Clear [facility] Urine color determinationOrd ered By: Kiki Galindo on 12-25-2022 Color (U) Straw Yellow [facility] Urine glucose detectionOrder ed By: Kiki Galindo on 12-25-2022 Glucose Ql (U) Normal mg/dl Normal [facility] Urine leukocyte esterase det ection by dipstickOrdered By: Kiki Galindo on 12-25-2022 Leukocyte esterase Test strip Ql (U) Negative Negative [facility] Urine pHOrdered By: Kiki faulkner on 12-25-2022 pH (U) 7.0 [pH] 5.0 - 8.0 [facility] Urine sediment bacteria coun t by microscopy (number/high power field)Ordered By: Kiki Galindo on 12-25-2022 Bacteria LM.HPF (Urine sed) [#/Area] 0 /[HPF] None Seen [facility] Urine specific gravity measu rementOrdered By: Kiki Galindo on 12-25-2022 Specific gravity (U) [Rel density] 1.005 1.002-1.030 [facility] Urobilinogen Auto test strip Ql (U)Ordered By: Kiki Galindo on 12-25-2022 Urobilinogen Ql (U) Normal mg/dl Normal [facility] Absolute lymphocyte countOrd ered By: Gisel Bowman on 2022 Lymphocytes Auto (Unsp spec) [#/Vol] 1.21 10*3/uL 0.83-4.51 [facility] Basophil percentageOrdered B y: Gisel Bowman on 2022 Basophils/100 WBC (Bld) 0.3 % 0-1 [facility] Chloride [Moles/Vol] 108 mmol/L 98-107 [facility] Eosinophils/100 WBC (Bld) 2.7 % 0-5 [facility] Glucose [Mass/Vol] 134 mg/dL 74-106 [facility] Comment on above: Fasting Glucose resu lt greater than or equal to 126 mg/dL suggests DIABETES MELLITUS per A.D.A. criteria. Neutrophils (Bld) [#/Vol] 5.0 10*3/uL 2.0-7.7 [facility] Neutrophils/100 WBC (Bld) 68.6 % 47-70 [facility] Potassium [Moles/Vol] 3.3 mmol/L 3.5-5.1 [facility] Sodium [Moles/Vol] 141 mmol/L 136-145 [facility] WBC (Bld) [#/Vol] 7.3 10*3/uL 4.4-11.0 [facility] Blood erythrocytes count (nu mber/volume)Ordered By: Gisel Bowman on 2022 RBC (Bld) [#/Vol] 3.40 10*6/uL 4.2-5.4 [facility] Blood hemoglobin measurement (mass/volume)Ordered By: Gisel Bowman on 2022 Hemoglobin (Bld) [Mass/Vol] 10.7 g/dL 12.0-15.0 [facility] Blood lymphocytes/100 leukoc ytesOrdered By: Gisel Bowman on 2022 Lymphocytes/100 WBC (Bld) 16.6 % 19-41 [facility] Blood monocytes/100 leukocyt esOrdered By: Gisel Bowman on 2022 Monocytes/100 WBC (Bld) 10.8 % 0-10 [facility] Blood platelet mean volumeOr dered By: Gisel Bowman on 2022 Platelet mean volume (Bld) [Entitic vol] 9.6 fL 6.2-12.0 [facility] Determination of erythrocyte mean corpuscular volume (MCV)Ordered By: Gisel Bowman on 2022 MCV (RBC) [Entitic vol] 94.1 fL 81-99 [facility] Glucose Glucometer (BldC) [M ass/Vol]Ordered By: Gisel Bowman on 2022 Glucose [Mass/Vol] 273 mg/dL 74-106 [facility] Comment on above: MANAGEMENT OF PATIEN T CARE PER NURSING PROTOCOL Hematocrit Auto (Bld) [Volum e fraction]Ordered By: Gisel Bowman on 2022 Hematocrit (Bld) [Volume fraction] 32.0 % 37-47 [facility] Laboratory - Chemistry and C hemistry - challengeOrdered By: Gisel Bowman on 2022 CO2 [Moles/Vol] 26.0 mmol/L 21.0-32.0 [facility] Urea nitrogen/Creatinine [Mass ratio] 23.5 mg/mg 10-20 [facility] - Hematology and Cell countsOrdered By: Gisel Bowman on 2022 Erythrocyte distribution width (RBC) [Entitic vol] 49.6 fL 35.1-43.9 [facility] Erythrocyte distribution width (RBC) [Ratio] 14.2 % 11.6-14.6 [facility] Immature granulocytes/100 WBC (Bld) 1.000 % 0.0-0.9 [facility] Comment on above: IG% - Immature Granu locytes (promyelocytes, myelocytes and metamyelocytes) > 1% indicates that a LEFT SHIFT is Present. MCH (RBC) [Entitic mass] 31.5 pg 27.0-32.0 [facility] Nucleated RBC/100 WBC (Bld) [Ratio] 0 % 0-5 [facility] MCHC Auto (RBC) [Mass/Vol]Or dered By: Gisel Bowman on 2022 MCHC (RBC) [Mass/Vol] 33.4 g/dL 32-36 [facility] No Panel InformationOrdered By: Gisel Bowman on 2022 Estimated Creatinine Clearance Calc 55.66 ml/min [facility] Estimated GFR (MDRD) Amer 71 mL/min >60 [facility] Comment on above: GFR Calc Estimated GFR (MDRD) Non-Af Amer 58 mL/min >60 [facility] Comment on above: Non- GFR Calc Platelets bldOrdered By: Lady Bowman on 2022 Platelets (Bld) [#/Vol] 189 10*3/uL 150-450 [facility] Serum or plasma calcium gustavo urement (mass/volume)Ordered By: Gisel Bowman on 2022 Calcium [Mass/Vol] 8.5 mg/dL 8.5-10.1 [facility] Serum or plasma creatinine m easurement (mass/volume)Ordered By: Gisel Bowman on 2022 Creatinine [Mass/Vol] 0.98 mg/dL 0.55-1.02 [facility] Comment on above: The validity of the calculated GFR & GFRAA in patients over 70 years has not been determined. Clinical correlation is essential. Serum or plasma urea nitroge n measurement (mass/volume)Ordered By: Gisel Bowman on 2022 Urea nitrogen [Mass/Vol] 23 mg/dL 7-18 [facility] Thin prep Papanicolaou smear with manual screeningOrdered By: Gisel Bowman on 2022 Thin prep Papanicolaou smear with manual screening 7 5-15 [facility] Basophil percentageOrdered B y: Gisel Bowman on 12-13-2022 Basophil percentage 2.8 mg/dL 2.5-4.9 [facility] Culture, urineOrdered By: Karla Bowman on 12-13-2022 Bacteria identified Cx Nom (U) Culture exhibits no growth. [facility] No Panel InformationOrdered By: Gisel Bowman on 12-13-2022 Streptococcus pneumoniae Antigen (M [facility] Urine Legionella pneumophila antigen detectionOrdered By: Gisel Bowman on 12-13-2022 L. pneumophila Ag Ql (U) [facility] Basophil percentageOrdered B y: Gisel Bowman on 12-12-2022 Lactate [Moles/Vol] 1.6 mmol/L 0.4-2.0 [facility] Bilirubin [Mass/Vol] 0.80 mg/dL 0.20-1.00 [facility] Comment on above: For patients on eltr ombopag therapy, use of Dimension [place] TBIL is not recommended. Protein [Mass/Vol] 6.7 g/dL 6.4-8.2 [facility] Laboratory - Chemistry and C hemistry - challengeOrdered By: Gisel Bowman on 12-12-2022 ALP [Catalytic activity/Vol] 76 U/L 45-117 [facility] ALT [Catalytic activity/Vol] 30 U/L 13-56 [facility] Globulin (S) [Mass/Vol] 4.0 g/dL 2.2-4.2 [facility] Magnesium [Mass/Vol] 1.9 mg/dL 1.6-2.6 [facility] No Panel InformationOrdered By: Gisel Bowman on 12-12-2022 Thyroid Stimulating Hormone (TSH) 1.23 uIU/mL 0.358-3.74 [facility] Serum or plasma albumin gustavo urement (mass/volume)Ordered By: Gisel Bowman on 12-12-2022 Albumin [Mass/Vol] 2.7 g/dL 3.2-5.0 [facility] Serum or plasma albumin/glob ulin mass ratioOrdered By: Gisel Bowman on 12-12-2022 Albumin/Globulin [Mass ratio] 0.7 {ratio} 0.9-2.4 [facility] Thin prep Papanicolaou smear with manual screeningOrdered By: Gisel Bowman on 12-12-2022 Thin prep Papanicolaou smear with manual screening 35 U/L 15-37 [facility] Absolute lymphocyte countOrd ered By: Jere Irene on 12-11-2022 Lymphocytes Auto (Unsp spec) [#/Vol] 0.36 10*3/uL 0.83-4.51 [facility] Basophil percentageOrdered B y: Jere Irene on 12-11-2022 Basophils/100 WBC (Bld) 0.4 % 0-1 [facility] Chloride [Moles/Vol] 107 mmol/L 98-107 [facility] Eosinophils/100 WBC (Bld) 0.1 % 0-5 [facility] Glucose [Mass/Vol] 217 mg/dL 74-106 [facility] Comment on above: Glucose result great er than or equal to 200 mg/dLsuggests DIABETES MELLITUS per A.D.A. criteria. Lactate [Moles/Vol] 4.1 mmol/L 0.4-2.0 [facility] Comment on above: Critical Result(s) C alled at: 08:46:25 12/11/2022 by: Megan Wu. Results read back by same. Neutrophils (Bld) [#/Vol] 8.9 10*3/uL 2.0-7.7 [facility] Neutrophils/100 WBC (Bld) 93.3 % 47-70 [facility] Potassium [Moles/Vol] 4.5 mmol/L 3.5-5.1 [facility] Comment on above: Slight Hemolysis, Re sult may be falsely increased. Sodium [Moles/Vol] 139 mmol/L 136-145 [facility] WBC (Bld) [#/Vol] 9.5 10*3/uL 4.4-11.0 [facility] Blood erythrocytes count (nu mber/volume)Ordered By: Jere Irene on 12-11-2022 RBC (Bld) [#/Vol] 4.14 10*6/uL 4.2-5.4 [facility] Blood hemoglobin measurement (mass/volume)Ordered By: Jere Irene on 12-11-2022 Hemoglobin (Bld) [Mass/Vol] 13.0 g/dL 12.0-15.0 [facility] Blood lymphocytes/100 leukoc ytesOrdered By: Jere Irene on 12-11-2022 Lymphocytes/100 WBC (Bld) 3.8 % 19-41 [facility] Blood manual differential co mment interpretation (narrative result)Ordered By: Jere Irene on 12-11-2022 Manual differential comment Rocco (Bld) [Interp] COMMENT [facility] Comment on above: LYMPHOPENIA. Blood monocytes/100 leukocyt esOrdered By: Jere Irene on 12-11-2022 Monocytes/100 WBC (Bld) 1.8 % 0-10 [facility] Blood platelet mean volumeOr dered By: Jere Irene on 12-11-2022 Platelet mean volume (Bld) [Entitic vol] 9.3 fL 6.2-12.0 [facility] Determination of erythrocyte mean corpuscular volume (MCV)Ordered By: Jere Irene on 12-11-2022 MCV (RBC) [Entitic vol] 94.2 fL 81-99 [facility] Hematocrit Auto (Bld) [Volum e fraction]Ordered By: Jere Irene on 12-11-2022 Hematocrit (Bld) [Volume fraction] 39.0 % 37-47 [facility] Influenza virus A and B and SARS-CoV-2 (COVID-19) Ag panel - Upper respiratory specimOrdered By: Jere Irene on 12-11-2022 SARS-CoV-2 (COVID-19) RNA RALPH+probe Ql (Resp) [facility] Laboratory - Chemistry and C hemistry - challengeOrdered By: Jere Irene on 12-11-2022 CO2 [Moles/Vol] 20.0 mmol/L 21.0-32.0 [facility] Natriuretic peptide B (Bld) [Mass/Vol] 285.5 pg/mL 0-100 [facility] Urea nitrogen/Creatinine [Mass ratio] 16.0 mg/mg 10-20 [facility] - Hematology and Cell countsOrdered By: Jere Irene on 12-11-2022 Erythrocyte distribution width (RBC) [Entitic vol] 47.4 fL 35.1-43.9 [facility] Erythrocyte distribution width (RBC) [Ratio] 13.9 % 11.6-14.6 [facility] Immature granulocytes/100 WBC (Bld) 0.600 % 0.0-0.9 [facility] Comment on above: IG% - Immature Granu locytes (promyelocytes, myelocytes and metamyelocytes) > 1% indicates that a LEFT SHIFT is Present. MCH (RBC) [Entitic mass] 31.4 pg 27.0-32.0 [facility] Nucleated RBC/100 WBC (Bld) [Ratio] 0 % 0-5 [facility] Laboratory - Microbiology an d Antimicrobial susceptibilityOrdered By: Jere Irene on 12-11-2022 Bacteria identified Cx Nom (Bld) No growth in 5 days. [facility] MCHC Auto (RBC) [Mass/Vol]Or dered By: Jere Irene on 12-11-2022 MCHC (RBC) [Mass/Vol] 33.3 g/dL 32-36 [facility] No Panel InformationOrdered By: Gisel Bowman on 12-11-2022 Troponin I High Sensitivity 60 pg/mL 3.0-54.0 [facility] Comment on above: Please Note: New [place] t Units and Gender Specific Reference Ranges. For more information see Policy Stat Procedure [place] High Sensitivity Troponin (TNIH) and attachments. Methicillin-Resist S.aureus DNA PCR Negative Negative [facility] No Panel InformationOrdered By: Jere Irene on 12-11-2022 Troponin I High Sensitivity 60 pg/mL 3.0-54.0 [facility] Comment on above: Please Note: New [place] Units and Gender Specific Reference Ranges. For more information see Policy Stat Procedure [place] High Sensitivity Troponin (TNIH) and attachments. D-Dimer Quantitative (PE/DVT) 3.58 FEU/ug/m 0.27-0.49 [facility] Comment on above: D-Dimer ELEVATED (>0 .49): Additional studies and clinicalassessments are indicated to conclude diagnosis of:Deep Vein Thrombosis (DVT) or Pulmonary Embolism (PE)CRITICAL VALUE VERIFIED. CALLED TO LEISA CROUCHFER12/11/22 [id number] Lei Dobson.RESULTS READ BACK BY SAME . Estimated Creatinine Clearance Calc 35.61 ml/min [facility] Estimated GFR (MDRD) Amer 41 mL/min >60 [facility] Comment on above: GFR Calc Estimated GFR (MDRD) Non-Af Amer 34 mL/min >60 [facility] Comment on above: Non- GFR Calc Platelets bldOrdered By: Aminata Irene on 12-11-2022 Platelets (Bld) [#/Vol] 189 10*3/uL 150-450 [facility] Respiratory pathogens detect ion panel by molecular detection methodOrdered By: Gisel Bowman on 12-11-2022 Respiratory pathogens DNA and RNA panel RALPH+probe (Resp) [facility] Serum or plasma calcium gustavo urement (mass/volume)Ordered By: Jere Irene on 12-11-2022 Calcium [Mass/Vol] 8.9 mg/dL 8.5-10.1 [facility] Serum or plasma creatinine m easurement (mass/volume)Ordered By: Jere Irene on 12-11-2022 Creatinine [Mass/Vol] 1.56 mg/dL 0.55-1.02 [facility] Comment on above: The validity of the calculated GFR & GFRAA in patients over 70 years has not been determined. Clinical correlation is essential. Serum or plasma urea nitroge n measurement (mass/volume)Ordered By: Jere Irene on 12-11-2022 Urea nitrogen [Mass/Vol] 25 mg/dL 7-18 [facility] Thin prep Papanicolaou smear with manual screeningOrdered By: Jere Irene on 12-11-2022 Thin prep Papanicolaou smear with manual screening 12 5-15 [facility] Amorphous sediment detection in urine sediment by light microscopyOrdered By: Hunter Tejeda on 11-23-2022 Amorphous sediment LM Ql (Urine sed) 1+ URATE [facility] Basophil percentageOrdered B y: Hunter Tejeda on 11-23-2022 Basophil percentage 50-100 SEEN /hpf 0-5 [facility] Bilirubin Test strip Ql (U)O rdered By: Hunter Tejeda on 11-23-2022 Bilirubin Ql (U) Negative Negative [facility] Culture, urineOrdered By: Milly Tejeda on 11-23-2022 Bacteria identified Cx Nom (U) Presumptive E. coli [facility] Ketones Test strip Ql (U)Ord ered By: Hunter Tejeda on 11-23-2022 Ketones Ql (U) Negative Negative [facility] Laboratory - Chemistry and C hemistry - challengeon 11-23-2022 Bilirubin Ql (U) Negative [facility] Glucose Ql (U) Negative [facility] Ketones Ql (U) Negative [facility] pH (U) 6.0 [pH] [facility] Specific gravity (U) [Rel density] 1.015 [facility] Urobilinogen (U) [Mass/Vol] 0.9935671 mg/dL [facility] Laboratory - Hematology and Cell countson 11-23-2022 Hemoglobin Ql (U) Hemolyzed [facility] - Specimen inform ationon 11-23-2022 Clarity (U) Cloudy [facility] Color (U) STRAW [facility] Laboratory - Urinalysison Nitrite Ql (U) Positive [facility] Protein Ql (U) 3+ [facility] Mucus LM Ql (Urine sed)Order ed By: Hunter Tejeda on 11-23-2022 Mucus Ql (Urine sed) 0 SEEN /hpf [facility] Nitrite Test strip Ql (U)Ord ered By: Hunter Tejeda on 11-23-2022 Nitrite Ql (U) Positive Negative [facility] No Panel Informationon 11-23 Urine Leukocytes Positive [facility] Urine Non-Hemolyzed Blood Large [facility] Protein Test strip Ql (U)Ord ered By: Hunter Tejeda on 11-23-2022 Protein Ql (U) 100 mg/dl Negative [facility] Squamous epithelial cells de tection in urine sediment by light microscopyOrdered By: Hunter Tejeda on 11-23-2022 Epithelial cells.squamous LM Ql (Urine sed) 0-5 SEEN /hpf 5-10 [facility] Urine blood detectionOrdered By: Hunter Tejeda on 11-23-2022 RBC Ql (U) 150 /ul Negative [facility] RBC Ql (U) 10-25 SEEN /hpf 0-5 [facility] Urine clarityOrdered By: Dave Tejeda on 11-23-2022 Clarity (U) Sl. Cloudy Clear [facility] Urine color determinationOrd ered By: Hunter Tejeda on 11-23-2022 Color (U) Yellow Yellow [facility] Urine glucose detectionOrder ed By: Hunter Tejeda on 11-23-2022 Glucose Ql (U) Normal mg/dl Normal [facility] Urine leukocyte esterase det ection by dipstickOrdered By: Hunter Tejeda on 11-23-2022 Leukocyte esterase Test strip Ql (U) 500 /ul Negative [facility] Urine pHOrdered By: Hunter sahu on 11-23-2022 pH (U) 6.0 [pH] 5.0 - 8.0 [facility] Urine sediment bacteria coun t by microscopy (number/high power field)Ordered By: Hunter Tejeda on 11-23-2022 Bacteria LM.HPF (Urine sed) [#/Area] RARE /hpf None Seen [facility] Urine specific gravity measu rementOrdered By: Hunter Tejeda on 11-23-2022 Specific gravity (U) [Rel density] 1.015 1.002-1.030 [facility] Urobilinogen Auto test strip Ql (U)Ordered By: Hunter Tejeda on 11-23-2022 Urobilinogen Ql (U) Normal mg/dl Normal [facility] Basophil percentageOrdered B y: Dr. Gardiner on 09-05-2022 Bilirubin [Mass/Vol] 0.40 mg/dL 0.20-1.00 [facility] Comment on above: For patients on eltr ombopag therapy, use of Dimension [place] TBIL is not recommended. Chloride [Moles/Vol] 108 mmol/L 98-107 [facility] Cholesterol [Mass/Vol] 125 mg/dL <200 [facility] Comment on above: <200 mg/dL Desirable 200-240 mg/dL Borderline >240 mg/dL High Risk Glucose [Mass/Vol] 154 mg/dL 74-106 [facility] Comment on above: Fasting Glucose resu lt greater than or equal to 126 mg/dL suggests DIABETES MELLITUS per A.D.A. criteria. Potassium [Moles/Vol] 4.0 mmol/L 3.5-5.1 [facility] Protein [Mass/Vol] 7.4 g/dL 6.4-8.2 [facility] Sodium [Moles/Vol] 142 mmol/L 136-145 [facility] Triglyceride [Mass/Vol] 213 mg/dL <199 [facility] Comment on above: The drugs N-Acetylcy steine and Metamizole may falsely depress this assay.Serum Triglycerides Reference Interval Normal <150 mg/dL Borderline high 150 - 199 mg/dL High 200 - 499 mg/dL Very High > or = 500 mg/dL Direct bilirubinOrdered By: Dr. Gardiner on 09-05-2022 Bilirubin.direct [Mass/Vol] 0.15 mg/dL 0.00-0.30 [facility] Laboratory - Chemistry and C hemistry - challengeOrdered By: Dr. Gardiner on 09-05-2022 ALP [Catalytic activity/Vol] 65 U/L 45-117 [facility] ALT [Catalytic activity/Vol] 23 U/L 13-56 [facility] CO2 [Moles/Vol] 26.0 mmol/L 21.0-32.0 [facility] Globulin (S) [Mass/Vol] 3.9 g/dL 2.2-4.2 [facility] Urea nitrogen/Creatinine [Mass ratio] 22.8 mg/mg 10-20 [facility] No Panel InformationOrdered By: Dr. Gardiner on 09-05-2022 Estimated GFR (MDRD) Amer 68 mL/min >60 [facility] Comment on above: GFR Calc Estimated GFR (MDRD) Non-Af Amer 56 mL/min >60 [facility] Comment on above: Non- GFR Calc Serum or plasma albumin gustavo urement (mass/volume)Ordered By: Dr. Gardiner on 09-05-2022 Albumin [Mass/Vol] 3.5 g/dL 3.2-5.0 [facility] Serum or plasma calcium gustavo urement (mass/volume)Ordered By: Dr. Gardiner on 09-05-2022 Calcium [Mass/Vol] 9.4 mg/dL 8.5-10.1 [facility] Serum or plasma cholesterol in HDL measurement (mass/volume)Ordered By: Dr. Gardiner on 09-05-2022 Cholesterol in HDL [Mass/Vol] 29 mg/dL >40 [facility] Comment on above: The drugs N-Acetylcy steine and Metamizole may falsely depress this assay. Reference Range HDL <40 mg/dL Low HDL Cholesterol HDL >or= 60 mg/dL High HDL Cholesterol Serum or plasma cholesterol in VLDL measurement (mass/volume)Ordered By: Dr. Gardiner on 09-05-2022 Cholesterol in VLDL [Mass/Vol] 43 mg/dL 5-40 [facility] Serum or plasma creatinine m easurement (mass/volume)Ordered By: Dr. Gardiner on 09-05-2022 Creatinine [Mass/Vol] 1.01 mg/dL 0.55-1.02 [facility] Comment on above: The validity of the calculated GFR & GFRAA in patients over 70 years has not been determined. Clinical correlation is essential. Serum or plasma low density lipoprotein (LDL) cholesterol measurement (mass/volume)Ordered By: Dr. Gardiner on 09-05-2022 Cholesterol in LDL [Mass/Vol] 53 mg/dL 0-130 [facility] Serum or plasma urea nitroge n measurement (mass/volume)Ordered By: Dr. Gardiner on 09-05-2022 Urea nitrogen [Mass/Vol] 23 mg/dL 7-18 [facility] Thin prep Papanicolaou smear with manual screeningOrdered By: Dr. Gardiner on 09-05-2022 Thin prep Papanicolaou smear with manual screening 20 U/L 15-37 [facility] Thin prep Papanicolaou smear with manual screening 8 5-15 [facility] Basophil percentageon 2021 Bilirubin [Mass/Vol] 0.50 mg/dL 0.20-1.00 [facility] Work Phone: Comment on above: For patients on eltr ombopag therapy, use of Dimension [place] TBIL is not recommended. Chloride [Moles/Vol] 106 mmol/L 98-[address] [facility] Work Phone: Cholesterol [Mass/Vol] 163 mg/dL <200 [place] [facility] Work Phone: [phone] Comment on above: <200 mg/dL Desirable 200-240 mg/dL Borderline >240 mg/dL High Risk Glucose [Mass/Vol] 93 mg/dL 74-106 [facility] Work Phone: [phone] Potassium [Moles/Vol] 3.8 mmol/L 3.5-5.1 [place] [facility] Work Phone: [phone] Protein [Mass/Vol] 7.4 g/dL 6.4-8.2 [facility] Work Phone: [phone] Sodium [Moles/Vol] 140 mmol/L 136-145 [facility] Work Phone: [phone] Triglyceride [Mass/Vol] 142 mg/dL [facility] Work Phone: [phone] Comment on above: The drugs N-Acetylcy steine and Metamizole may falsely depress this assay.Serum Triglycerides Reference Interval Normal <150 mg/dL Borderline high 150 - 199 mg/dL High 200 - 499 mg/dL Very High > or = 500 mg/dL Direct bilirubinon 2 Bilirubin.direct [Mass/Vol] 0.16 mg/dL 0.00-0.30 [facility] Work Phone: [phone] Laboratory - Chemistry and C hemistry - challengeon 08-23-2021 ALP [Catalytic activity/Vol] 65 U/L 45-117 [facility] Work Phone: [phone] ALT [Catalytic activity/Vol] 18 U/L 13-56 [facility] Work Phone: [phone] CO2 [Moles/Vol] 26.0 mmol/L 21.0-32.0 [facility] Work Phone: [phone] Globulin (S) [Mass/Vol] 3.9 g/dL 2.2-4.2 [facility] Work Phone: [phone] [Mass/Vol] 10.6 ug/dL 4.8-13.9 [facility] Work Phone: [phone] Urea nitrogen/Creatinine [Mass ratio] 18.5 mg/mg 10-20 [facility] Work Phone: [phone] No Panel Informationon 08-23 Estimated GFR (MDRD) Amer 57 mL/min >60 [facility] Work Phone: [phone] Comment on above: GFR Calc Estimated GFR (MDRD) Non-Af Amer 47 mL/min >60 [facility] Work Phone: [phone] Comment on above: Non- GFR Calc Thyroid Stimulating Hormone (TSH) 1.28 uIU/mL 0.358-3.74 [facility] Work Phone: Serum or plasma albumin gustavo urement (mass/volume)on 08-23-2021 Albumin [Mass/Vol] 3.5 g/dL 3.2-5.0 [facility] Work Phone: [phone] Serum or plasma calcium gustavo urement (mass/volume)on 08-23-2021 Calcium [Mass/Vol] 9.2 mg/dL 8.5-10.1 [facility] Work Phone: Serum or plasma cholesterol in HDL measurement (mass/volume)on 08-23-2021 Cholesterol in HDL [Mass/Vol] 32 mg/dL [facility] Work Phone: Comment on above: The drugs N-Acetylcy steine and Metamizole may falsely depress this assay. Reference Range HDL <40 mg/dL Low HDL Cholesterol HDL >or= 60 mg/dL High HDL Cholesterol Serum or plasma cholesterol in VLDL measurement (mass/volume)on 08-23-2021 Cholesterol in VLDL [Mass/Vol] 28 mg/dL 5-40 [facility] Work Phone: [phone] Serum or plasma creatinine m easurement (mass/volume)on 08-23-2021 Creatinine [Mass/Vol] 1.19 mg/dL 0.55-1.02 [facility] Work Phone: Comment on above: The validity of the calculated GFR & GFRAA in patients over 70 years has not been determined. Clinical correlation is essential. Serum or plasma low density lipoprotein (LDL) cholesterol measurement (mass/volume)on 08-23-2021 Cholesterol in LDL [Mass/Vol] 103 mg/dL 0-130 [facility] Work Phone: Serum or plasma urea nitroge n measurement (mass/volume)on 08-23-2021 Urea nitrogen [Mass/Vol] 22 mg/dL 7-18 [facility] Work Phone: Thin prep Papanicolaou smear with manual screeningon 08-23-2021 Thin prep Papanicolaou smear with manual screening 15 U/L 15-37 [facility] Work Phone: Thin prep Papanicolaou smear with manual screening 8 5-15 [facility] Work Phone: Vital Signs Date Time Vital Sign Value Performing Clinician Faci lity 12-30-2024 08:06-0400 Body height 149.[address] Gudelia Gardiner MD Work Phone: [facility] 12-30-2024 08:06-0400 Body mass index (BMI) [Ratio] 33.9 kg/m2 Dr. Gudelia Gardiner MD Work Phone: [facility] 12-30-2024 08:06-0400 Body weight 76.[address] Gudelia Gardiner MD Work Phone: [facility] 12-30-2024 08:06-0400 Diastolic blood pressure 92 mm[Hg] Dr. Gudelia Gardiner MD Work Phone: [facility] 12-30-2024 08:06-0400 Heart rate 73 /min Dr. Gudelia Gardiner MD Work Phone: [facility] 12-30-2024 08:06-0400 Respiratory rate 18 /min Dr. Gudelia Gardiner MD Work Phone: [facility] 12-30-2024 08:06-0400 SaO2% (BldA) [Mass fraction] 97 % Dr. Gudelia Gardiner MD Work Phone: [facility] 12-30-2024 08:06-0400 Systolic blood pressure 162 mm[Hg] Dr. Gudelia Gardiner MD Work Phone: [facility] 09-28-2024 15:21-0400 Body height 149.[address] Gudelia Gardiner MD Work Phone: [phone])470-278046 [place] [address] 09-28-2024 15:21-0400 Body mass index (BMI) [Ratio] 33.5 kg/m2 Dr. Gudelia Gardiner MD Work Phone: [phone])595-125543 [address] 09-28-2024 15:21-0400 Body weight 75.[address] Gudelia Gardiner MD Work Phone: 9(792)518-645140 [place] [address] 09-28-2024 15:21-0400 Diastolic blood pressure 71 mm[Hg] Dr. Gudelia Gardiner MD Work Phone: 0(900)956-550340 [place] [address] 09-28-2024 15:21-0400 Heart rate 74 /min Dr. Gudelia Gardiner MD Work Phone: [phone])254-914540 [place] [address] 09-28-2024 15:21-0400 Respiratory rate 18 /min Dr. Gudelia Gardiner MD Work Phone: 4(333)117-676243 [address] 09-28-2024 15:21-0400 Systolic blood pressure 147 mm[Hg] Dr. Gudelia Gardiner MD Work Phone: [phone])901-676543 [address] 07-20-2024 08:21-0400 Body mass index (BMI) [Ratio] 32.5 kg/m2 Dr. Gudelia Gardiner MD Work Phone: [phone])047-665246 [place] [address] 07-20-2024 08:21-0400 Body temperature 97.3 [degF] Dr. Gudelia Garidner MD Work Phone: 2([phone])515-012743 [address] 07-20-2024 08:21-0400 Body weight 73.[address] Gudelia Gardiner MD Work Phone: [phone])892-141346 [place] [address] 07-20-2024 08:21-0400 Diastolic blood pressure 77 mm[Hg] Dr. Gudelia Gardiner MD Work Phone: [facility] 07-20-2024 08:21-0400 Heart rate 91 /min Dr. Gudelia Gardiner MD Work Phone: [facility] 07-20-2024 08:21-0400 Respiratory rate 18 /min Dr. Gudelia Gardiner MD Work Phone: 9([phone])730-232846 [place] [address] 07-20-2024 08:21-0400 SaO2% (BldA) [Mass fraction] 95 % Dr. Gudelia Gardiner MD Work Phone: [facility] 07-20-2024 08:21-0400 Systolic blood pressure 141 mm[Hg] Dr. Gudelia Gardiner MD Work Phone: 4(820)502-606443 [address] 08-04-2023 11:57-0400 Body height 149.[address] Gudelia Gardiner Work Phone: 6(773)243-147446 [place] [address] 08-04-2023 11:57-0400 Body weight 72.[address] Gudelia Gardiner Work Phone: 7(400)193-901243 [address] 08-03-2023 09:07-0400 Body mass index (BMI) [Ratio] 32.3 kg/m2 Dr. Gudelia Gardiner Work Phone: [facility] 07-31-2023 13:00-0400 Body mass index (BMI) [Ratio] 32.3 kg/m2 Dr. Gudelia Gardiner Work Phone: 7(257)855-836846 [place] [address] 07-31-2023 13:00-0400 Body weight 72.[address] Gudelia Gardiner Work Phone: [facility] 07-31-2023 13:00-0400 Diastolic blood pressure 79 mm[Hg] Dr. Gudelia Gardiner Work Phone: [facility] 07-31-2023 13:00-0400 Heart rate 50 /min Dr. Gudelia Gardiner Work Phone: [facility] 07-31-2023 13:00-0400 Respiratory rate 18 /min Dr. Gudelia Gardiner Work Phone: [facility] 07-31-2023 13:00-0400 SaO2% (BldA) [Mass fraction] 97 % Dr. Gudelia Gardiner Work Phone: [facility] 07-31-2023 13:00-0400 Systolic blood pressure 146 mm[Hg] Dr. Gudelia Gardiner Work Phone: 8(245)295-944340 [place] [address] 01-28-2023 08:44-0400 Body height 149.[address] Gudelia Gardiner Work Phone: 5([phone])744-934440 [place] [address] 01-28-2023 08:44-0400 Body mass index (BMI) [Ratio] 30.9 kg/m2 Dr. Gudelia Gardiner Work Phone: 1(046)450-440840 [place] [address] 01-28-2023 08:44-0400 Body weight 69.[address] Gudelia Gardiner Work Phone: 2(740)750-477040 [place] [address] 01-28-2023 08:44-0400 Diastolic blood pressure 85 mm[Hg] Dr. Gudelia Gardiner Work Phone: 1(921)078-443340 [place] [address] 01-28-2023 08:44-0400 Heart rate 88 /min Dr. Gudelia Gardiner Work Phone: 4(289)606-955040 [place] [address] 01-28-2023 08:44-0400 Respiratory rate 18 /min Dr. Gudelia Gardiner Work Phone: 1(898)875-373040 [place] [address] 01-28-2023 08:44-0400 SaO2% (BldA) [Mass fraction] 95 % Dr. Gudelia Gardiner Work Phone: 0(854)425-787446 [place] [address] 01-28-2023 08:44-0400 Systolic blood pressure 160 mm[Hg] Dr. Gudelia Gardiner Work Phone: 6(827)568-670240 [place] [address] 12-26-2022 10:19-0400 Body mass index (BMI) [Ratio] 29 kg/m2 Dr. Gudelia Gardiner Work Phone: 8(520)772-229140 [place] [address] 12-26-2022 10:19-0400 Body weight 65.[address] Gudelia Gardiner Work Phone: [facility] 12-26-2022 10:19-0400 Diastolic blood pressure 77 mm[Hg] Dr. Gudelia Gardiner Work Phone: [facility] 12-26-2022 10:19-0400 Heart rate 75 /min Dr. Gudelia Gardiner Work Phone: [facility] 12-26-2022 10:19-0400 Respiratory rate 18 /min Dr. Gudelia Gardiner Work Phone: [facility] 12-26-2022 10:19-0400 SaO2% (BldA) [Mass fraction] 98 % Dr. Gudelia Gardiner Work Phone: 2(646)507-684346 [place] [address] 12-26-2022 10:19-0400 Systolic blood pressure 126 mm[Hg] Dr. Gudelia Gardiner Work Phone: 5(272)658-803446 [place] [address] 12-25-2022 18:25-0400 Body mass index (BMI) [Ratio] 29.4 kg/m2 Dr. Gudelia Gardiner Work Phone: 6(762)229-558546 [place] [address] 12-25-2022 18:25-0400 Body weight 66.[address] Gudelia Gardiner Work Phone: [facility] 12-25-2022 18:25-0400 Diastolic blood pressure 82 mm[Hg] Dr. Gudelia Gardiner Work Phone: [facility] 12-25-2022 18:25-0400 Heart rate 85 /min Dr. Gudelia Gardiner Work Phone: [facility] 12-25-2022 18:25-0400 Respiratory rate 14 /min Dr. Gudelia Gardiner Work Phone: [facility] 12-25-2022 18:25-0400 SaO2% (BldA) [Mass fraction] 97 % Dr. Gudelia Gardiner Work Phone: [facility] 12-25-2022 18:25-0400 Systolic blood pressure 134 mm[Hg] Dr. Gudelia Gardiner Work Phone: [facility] 12-25-2022 12:46-0400 Body temperature 97.3 [degF] Dr. Gudelia Gardiner Work Phone: [facility] 2022 13:17-0400 Body temperature 98 [degF] Dr. Gudelia Gardiner Work Phone: [facility] 2022 13:17-0400 Diastolic blood pressure 73 mm[Hg] Dr. Gudelia Gardiner Work Phone: [facility] 2022 13:17-0400 Heart rate 88 /min Dr. Gudelia Gardiner Work Phone: [facility] 2022 13:17-0400 Respiratory rate 18 /min Dr. Gudelia Gardiner Work Phone: [facility] 2022 13:17-0400 SaO2% (BldA) [Mass fraction] 98 % Dr. Gudelia Gardiner Work Phone: [facility] 2022 13:17-0400 Systolic blood pressure 142 mm[Hg] Dr. Gudelia Gardiner Work Phone: [facility] 2022 11:00-0400 Inhaled oxygen flow rate 0 L/min Dr. Gudelia Gardiner Work Phone: [facility] 12-12-2022 14:14-0400 Body height 149.[address] Gudelia Gardiner Work Phone: [facility] 12-12-2022 14:14-0400 Body weight 75.[address] Gudelia Gardiner Work Phone: [facility] 12-11-2022 11:33-0400 Body mass index (BMI) [Ratio] 33.7 kg/m2 Dr. Gudelia Gardiner Work Phone: [facility] 12-11-2022 10:53-0400 Body temperature 98.5 [degF] Dr. Gudelia Gardiner Work Phone: [facility] 12-11-2022 10:53-0400 Diastolic blood pressure 69 mm[Hg] Dr. Gudelia Gardiner Work Phone: [facility] 12-11-2022 10:53-0400 Heart rate 91 /min Dr. Gudelia aGrdiner Work Phone: [facility] 12-11-2022 10:53-0400 Inhaled oxygen flow rate 3 L/min Dr. Gudelia Gardiner Work Phone: [facility] 12-11-2022 10:53-0400 Respiratory rate 16 /min Dr. Gudelia Gardiner Work Phone: [facility] 12-11-2022 10:53-0400 SaO2% (BldA) [Mass fraction] 96 % Dr. Gudelia Gardiner Work Phone: [facility] 12-11-2022 10:53-0400 Systolic blood pressure 124 mm[Hg] Dr. Gudelia Gardiner Work Phone: [facility] 12-11-2022 07:56-0400 Body mass index (BMI) [Ratio] 33.7 kg/m2 Dr. Gudelia Gardiner Work Phone: [facility] 12-11-2022 07:56-0400 Body weight 75.[address] Gudelia Gardiner Work Phone: [facility] 12-11-2022 07:48-0400 Body height 149.[address] Gudelia Gardiner Work Phone: [facility] 11-23-2022 08:28-0400 Body mass index (BMI) [Ratio] 31.9 kg/m2 Dr. Gudelia Gardiner Work Phone: [facility] 11-23-2022 08:28-0400 Body temperature 97.6 [degF] Dr. Gudelia Gardiner Work Phone: [facility] 11-23-2022 08:28-0400 Body weight 71.[address] Gudelia Gardiner Work Phone: [facility] 11-23-2022 08:28-0400 Diastolic blood pressure 70 mm[Hg] Dr. Gudelia Gardiner Work Phone: [facility] 11-23-2022 08:28-0400 Heart rate 70 /min Dr. Gudelia Gardiner Work Phone: [facility] 11-23-2022 08:28-0400 Respiratory rate 14 /min Dr. Gudelia Gardiner Work Phone: [facility] 11-23-2022 08:28-0400 SaO2% (BldA) [Mass fraction] 96 % Dr. Gudelia Gardiner Work Phone: [facility] 11-23-2022 08:28-0400 Systolic blood pressure 136 mm[Hg] Dr. Gudelia Gardiner Work Phone: [facility] 09-26-2022 15:01-0400 Body height 149.[address] Gudelia Gardiner Work Phone: [facility] 09-26-2022 15:01-0400 Body mass index (BMI) [Ratio] 32.1 kg/m2 Dr. Gudelia Gardiner Work Phone: [facility] 09-26-2022 15:01-0400 Body weight 72.[address] Gudelia Gardiner Work Phone: [facility] 09-26-2022 15:01-0400 Diastolic blood pressure 70 mm[Hg] Dr. Gudelia Gardiner Work Phone: [facility] 09-26-2022 15:01-0400 Heart rate 88 /min Dr. Gudelia Gardiner Work Phone: [facility] 09-26-2022 15:01-0400 Respiratory rate 16 /min Dr. Gudelia Gardiner Work Phone: [facility] 09-26-2022 15:01-0400 Systolic blood pressure 126 mm[Hg] Dr. Gudelia Gardiner Work Phone: [facility] 12-04-2021 12:49-0400 Body height 149.[address] Gudelia Gardiner Work Phone: [facility] Work Phone: 12-04-2021 12:49-0400 Body mass index (BMI) [Ratio] 31.3 kg/m2 Dr. Gudelia Gardiner Work Phone: [facility] Work Phone: 12-04-2021 12:49-0400 Body weight 70.[address] Gudelia Gardiner Work Phone: [facility] Work Phone: 12-04-2021 12:49-0400 Diastolic blood pressure 70 mm[Hg] Dr. Gudelia Gardiner Work Phone: [facility] Work Phone: 12-04-2021 12:49-0400 Heart rate 74 /min Dr. Gudelia Gardiner Work Phone: [facility] Work Phone: 12-04-2021 12:49-0400 Respiratory rate 16 /min Dr. Gudelia Gardiner Work Phone: [facility] Work Phone: 12-04-2021 12:49-0400 SaO2% (BldA) [Mass fraction] 97 % Dr. Gudelia Gardiner Work Phone: [facility] Work Phone: 12-04-2021 12:49-0400 Systolic blood pressure 125 mm[Hg] Dr. Gudelia Gardiner Work Phone: [facility] Work Phone: Encounters Encounter Date Encounter Type Care Provider Facility Start: 03-15-2025 End: 03-15-2025 [facility] [place] Start: 12-30-2024 End: 12-30-2024 Patient encounter procedure Lorri Cooper PA -[facility] Work Phone: Start: 12-30-2024 End: 12-30-[address] Gudelia Gardiner MD Work Phone: -[facility] Start: 09-28-2024 End: 09-28-2024 Patient encounter procedure Lorri GEE -[facility] Work Phone: Start: 09-28-2024 End: 09-28-[address] Gudelia Gardiner MD Work Phone: [facility] Work Phone: Start: 09-23-2024 Non-patient / Non-visit Dr. Linda HERRERA -[facility] Start: 09-23-2024 End: 09-23-[address] Gudelia Gardiner MD Work Phone: [facility] Work Phone: Start: 09-23-2024 End: 09-23-2024 Patient encounter procedure Lorri GEE -Cardiovascular Services Work Phone: Start: 09-23-2024 End: 09-23-2024 ambulatory Neeraj Seo Facility:[facility] Start: 07-20-2024 End: 07-20-2024 Patient encounter procedure Tamara GODOY -[facility] Work Phone: Start: 07-20-2024 End: 07-20-2024 ambulatory Gudelia Gardiner Facility:[facility] Start: 06-22-2024 End: 06-22-[address] Kareem Packer MD -Laboratory Specimen Work Phone: Start: 06-22-2024 End: 06-22-2024 ambulatory Kareem Packer Facility:[facility] Start: 03-30-2024 End: 03-30-2024 ambulatory Gudelia Gardiner Facility:[facility] Start: 03-18-2024 End: 03-18-2024 ambulatory Gudelia Gardiner Facility:[facility] Start: 08-17-2023 End: 08-17-[address] Gudelia Gardiner Work Phone: [facility] Work Phone: Start: 08-17-2023 End: 08-17-[address] Gudelia Gardiner Work Phone: [facility]-Sleep Lab Work Phone: Start: 08-11-2023 End: 08-11-[address] Gudelia Gardiner Work Phone: [facility] Work Phone: Start: 08-04-2023 Non-patient / Non-visit Dr. Lauren Gardiner Work Phone: [facility] Start: 08-04-2023 End: 08-04-2023 Admission to same day surgery center Dr. Gudelia Gardiner Work Phone: [facility]-Corrective Therapist/Special Procedures Work Phone: Start: 08-04-2023 End: 08-04-[address] Gudelia Gardiner Work Phone: [facility] Work Phone: Start: 07-31-2023 End: 07-31-[address] Gudelia Gardiner Work Phone: [facility] Work Phone: Start: 07-31-2023 End: 07-31-[address] Gudelia Gardiner Work Phone: [facility]-Laboratory Work Phone: Start: 07-31-2023 End: 07-31-[address] Gudelia Gardiner Work Phone: [facility] Work Phone: Start: 01-28-2023 End: 01-28-[address] Gudelia Gardiner Work Phone: [facility] Work Phone: Start: 01-28-2023 End: 01-28-[address] Gudelia Gardiner Work Phone: [facility]-Laboratory Work Phone: Start: 01-28-2023 End: 01-28-[address] Gudelia Gardiner Work Phone: [facility] Work Phone: Start: 01-27-2023 Non-patient / Non-visit Dr. Lauren Gardiner Work Phone: [facility] Work Phone: Start: 01-27-2023 End: 01-27-[address] Gudelia Gardiner Work Phone: [facility] Work Phone: Start: 01-27-2023 End: 01-27-[address] [facility] Start: 12-26-2022 End: 12-26-[address] Gudelia Gardiner Work Phone: [facility] Work Phone: Start: 12-25-2022 End: 12-25-2022 Emergency department patient visit Dr. Gudelia Gardiner Work Phone: [facility]-Emergency Department Work Phone: Start: 2022 Non-patient / Non-visit Dr. Lauren Gardiner Work Phone: [facility] Work Phone: Start: 12-13-2022 Non-patient / Non-visit Dr. Lauren Gardiner Work Phone: [facility] Work Phone: Start: 12-12-2022 Non-patient / Non-visit Dr. Lauren Gardiner Work Phone: [facility] Work Phone: Start: 12-11-2022 Non-patient / Non-visit Dr. Lauren Gardiner Work Phone: [facility] Work Phone: Start: 12-11-2022 End: 2022 Evaluation and management of inpatient Dr. Gudelia Gardiner Work Phone: [facility]-Progressive Care Unit Work Phone: Start: 11-23-2022 End: 11-23-[address] Gudelia Gardiner Work Phone: [facility] Work Phone: Start: 11-23-2022 End: 11-23-[address] Gudelia Gardiner Work Phone: [facility]-Laboratory, Specimen Work Phone: Start: 11-23-2022 End: 11-23-[address] Gudelia Gardiner Work Phone: [facility] Work Phone: Start: 10-29-2022 End: 10-29-[address] Gudelia Gardiner Work Phone: [facility] Work Phone: Start: 10-29-2022 End: 10-29-[address] Gudelia Gardiner Work Phone: [facility] Work Phone: Start: 10-29-[address] Gudelia landaverde Work Phone: [facility] Work Phone: Start: 10-22-2022 Non-patient / Non-visit Dr. Lauern Gardiner Work Phone: [facility] Start: 10-22-2022 End: 10-22-[address] Gudelia Gardiner Work Phone: [facility] Work Phone: Start: 10-22-2022 End: 10-22-[address] [facility] Start: 10-13-[address] Gudelia landaverde Work Phone: [facility] Start: 09-26-2022 End: 09-26-[address] Gudelia Gardiner Work Phone: [facility] Start: 09-05-2022 End: 09-05-2022 ambulatory [facility] Work Phone: Start: 09-05-2022 End: 09-05-2022 Patient encounter procedure [facility] Start: 01-10-2022 Non-patient / Non-visit Dr. Lauren Gardiner Work Phone: [facility] Start: 01-10-2022 End: 01-10-[address] Gudelia Gardiner Work Phone: [facility] Work Phone: Start: 01-10-2022 End: 01-10-[address] [facility]ud[facility] Start: 12-04-2021 End: 12-04-[address] Gudelia Gardiner Work Phone: [facility] Start: 08-23-2021 End: 08-23-[address] Gudelia Gardiner Work Phone: [facility] Start: 08-16-2021 Non-patient / Non-visit Dr. Lauren Gardiner Work Phone: [facility] Start: 08-16-2021 End: 08-16-[address] Gudelia Gardiner Work Phone: [facility] Procedures Date Procedure Procedure Detail Performing Clinician Start: 09-23-2024 Vitamin D, 25-hydrox y measurement Dr. Gudelia Gardiner MD Work Phone: Comment on above: Vitamin D StatusDefi ciency: <20 ng/mL (50nmol/L)Insufficiency: 20-30 ng/mL (50-75 nmol/L)Sufficiency: 30-100 ng/mL (75-250 nmol/L)Toxicity: >100 ng/mL (>250 nmol/L) Start: 06-22-[address] Gudelia landaverde MD Work Phone: Start: 01-27-2023 Cardiovascular stres s test using pharmacologic stress agent Dr. Gudelia Gardiner Work Phone: Start: 12-13-2022 Legionella pneumophi la antigen assay Dr. Gudelia Gardiner Work Phone: Start: 12-13-2022 Streptococcus pneumo niae Antigen (M Dr. Gudelia Gardiner Work Phone: Start: 12-13-[address] Gudelia landaverde Work Phone: Start: 12-12-2022 CT of abdomen and pe lvis without contrast Dr. Gudelia Gardiner Work Phone: Start: 12-11-2022 Bacteria identified in Blood by Culture Dr. Gudelia Gardiner Work Phone: Start: 12-11-[address] Gudelia Gardiner Work Phone: Start: 12-11-2022 SARS-CoV-2 & FLU Ant igen (Rapid) Dr. Gudelia Gardiner Work Phone: Start: 12-11-2022 CT angiography of ch est with contrast Dr. Gudelia Gardiner Work Phone: Start: 12-11-2022 Plain chest X-ray Dr. Magda Gardiner Work Phone: Start: 11-23-[address] Gudelia landaverde Work Phone: Start: 01-10-2022 Cardiovascular stres s test using pharmacologic stress agent Dr. Gudelia Gardiner Work Phone: Plan of Treatment Date Care Activity Detail Author Start: 08-04-2023 Patient discharge [facility] Start: 2022 Patient discharge [facility] Start: 12-13-2022 Verification routine [facility] Start: 12-12-2022 End: 12-12-2022 Care planning and problem solving actions [facility] Start: 12-11-2022 Bacteria identified in Blood by Culture Blood Culture [facility] Start: 12-11-2022 Assessment of risk of venous thromboembolism [facility] Start: 12-11-2022 Cardiac monitoring [facility] Start: 12-11-2022 Care regimes management [facility] Start: 12-11-2022 Catheterization of vein [facility] Start: 12-11-2022 Elevation of head of bed [facility] Start: 12-11-2022 Inhalation therapy procedure [facility] Start: 12-11-2022 Insertion of catheter into peripheral vein [facility] Start: 12-11-2022 Measuring intake and output [facility] Start: 12-11-2022 Notification of physician [facility] Start: 12-11-2022 Oxygen therapy [facility] Start: 12-11-2022 Patient education [facility] Start: 12-11-2022 Providing care according to standard [facility] Start: 12-11-2022 Provision of activity privileges [facility] Start: 12-11-2022 Referral to occupational therapist [facility] Start: 12-11-2022 Referral to service [facility] Start: 12-11-2022 Bacteria identified in Sputum by Culture [facility] Start: 12-11-2022 Legionella pneumophila Ag [Presence] in Urine [facility] Start: 12-11-2022 Streptococcus pneumoniae antigen assay [facility] Start: 12-11-2022 End: 12-11-2022 [facility] Start: 12-11-2022 Admission procedure [facility] Start: 12-11-2022 End: 08-10-2023 Blood culture [facility] Start: 12-11-2022 End: 12-11-2022 [facility] Cardioversion [facility] Cardioversion [facility] Patient Education ED Near-Fainti ng, Uncertain Cause [facility] Work Phone: Patient referral [facility] Work Phone: Polysomnography [facility] Payers Date Payer Category Payer Self-pay [id number] 2020 Private Health Insurance [facility] [id number] 2008 Medicare [id number] Unknown [id number] Unknown [id number] 2.16.8 [id number] Unknown [id number] 2.16.8 [id number] Unknown [id number] 2.16.8 [id number] Unknown [id number] 2.16.8 [id number] Unknown [id number] 2.16.8 [id number] Unknown [id number] 2.16.8 [id number] Unknown [id number] 2.16.8 [id number] Unknown [id number] 2.16.8 [id number] Unknown [id number] 2.16.8 [id number] Social History Date Type Detail Facility Start: 02-08-2021 End: 08-04-2023 Tobacco smoking status NHIS Unknown if ever smoked [facility] Start: 1945 Sex Assigned At Female [facility] Start: 08-04-2023 Tobacco smoking stat us NHIS Never smoked tobacco (finding) [facility] Functional Status Date Assessment Result Facility 2022 Functional status Ambulates 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 September 28, 2024 2:54pm Essential hypertension chronic 2024 2:54pm HLD (hyperlipidemia) chronic September 28, 2024 2:54pm Nonrheumatic aortic (valve) stenosis chronic September 28, 2024 2:54pm Persistent atrial fibrillation acute December 30 1:17pm 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 December 30 1:17pm Essential hypertension chronic Au l[place] 2024 1:17pm HLD (hyperlipidemia) chronic 2024 1:17pm Nonrheumatic aortic (valve) stenosis chronic December 30 1:17pm [facility] Work Phone: 1(671) 807-336003-19-2025 Evaluation note* Diagnosis Onset Date Resolution Status Admit Date Obesity chronic July 20 3:04pm DARLENE (obstructive sleep apnea) chroni c July 20, 2024 3:04pm [facility] Work Phone: 1(736) 673-939203-19-2025 Evaluation note* Diagnosis Onset Date Resolution Status Admit Date Obesity chronic July 20 3:04pm DARLENE (obstructive sleep apnea) chroni c July 20, 2024 3:04pm Persistent atrial fibrillation acute September 28, 2024 2:54pm 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 September 28, 2024 2 :54pm Essential hypertension chronic Ma y 2024 2:54pm HLD (hyperlipidemia) chronic September 28, 2024 2:54pm Nonrheumatic aortic (valve) stenosis chronic September 28, 2024 2 :54pm [facility] Work Phone: 1(383) 407-680604-02-2024 Procedure [facility] 08-04-2023 Procedure [facility]08-[facility]-2023 Discharge summary Author Jere Rivera [facility] December 16, 2022 10:13am Note Date/Time December 16, 2022 10 :13am [facility] [address] [place] [address] / REHABILITATION SERVICES DISCHARGE SUMMARY MR#: [id number] Acct: [id number] Name: CHRISTA CARREON Rep #: [id number] : 1945 77 From: Jere Rivera DPT, OCS, CSCS Referring Dr.: Dr. Gudelia Gardiner MD Status: REG RCR Insurance: MEDICARE PART A B [employer] SR SUPPLEMENT INS Patient Information Patient Information: CHRISTA CARREON was seen in my office for initial evaluation on 09/17/22. The following Plan of Care was established for this patient: POC Established Initial Frequency: 2x /Week Initial Duration: 4-6 Weeks Anticipated Interventions Patient/Client Instruction: Educate patient on: Condition and Plan of Care For the Purpose of:: To improve muscle performance and motor function, To increase tolerance to activity/condition/position, To improve ability of physical actions for home/community/work/leisure and To improve gait and locomotor functions Therapeutic Exercise to Include: Strength training, Balance training, Flexibiltytraining and Gait and locomotor training For the Purpose of:: To improve nutrient delivery to tissue, To increase oxygenation perfusion, To improve muscle performance and motor function, To increase tolerance to activity/condition/position, To improve ability of physical actions for home/community/work/leisure, To improve gait and locomotor functions, To improve safety and To improve health and function Last Seen Last Seen: This patient was last seen in our office 10/29/22. Pertinent comments regardingtheir Physical therapy will appear below: Pt seen 10 visits of POC and was doing well. She was to f/u 2 weeks later to ensure progress but did not. at this point, it has been over a month and I willdiscontinue due to nonattendance. At this point I will be discontinuing this patient from physical therapy. I would be happy to see this patient again in the future if found appropriate by the physician. Thank you! Jere Rivera, DPT, OCS, CSCS Balance/Gait/Functional tests Balance/Special Test Scores Functional Gait Assessment Score: 25 % Disability: 16.6700 CATSIB Score (Max score 120 seconds): 98 Lower Extremity Functional Score: 33 <Electronically signed by Jere SANTAMARIAT, OCS, CSCS> 12/16/22 1013 CC: Dr. Gudelia Gardiner MD ~ EBG Signed [facility] Work Phone: 1(295) 327-579108-12-2023 Progress note Author Gisel Bowman [facility] December 13, 2022 3:27pm Note Date/Time December 13, 2022 1: 26pm [facility] Medical Records Department [address] [place] [address] Progress Note - Hospitalist 12/13/22 1318 MR#: [id number] Acct: [id number] Name: CHRISTA CARREON Rep #:[id number] : 1945 77 From: Gisel Bowman DO PCP: Dr. Gudelia Gardiner MD Status:ADM IN Location: [place] [id number] Reason for Visit Reason for Visit: Shortness of breath Subjective Subjective Patient states she is much better since yesterday. States she completed a 5- daycourse of antibiotics with Macrobid for her UTI I reviewed sensitivities and it was sensitive however the FLYNN was 16. Her tachycardia does appear to be more like A- fib today and repeat EKG shows flutter. I discussed that we will place her on Cardizem as well as her metoprolol and add anticoagulation and discussed risks and benefits. Patient voiced understanding and daughter was at bedside. We will have her follow-up with Dr. Sepulveda who sees her for her valvular disease as an outpatient. Patient is hoping to go home soon. I told her today we will go ahead and work on weaning her oxygen and see how she does functionally and consider discharge tomorrow if she feels well enough to do so and if she continues to improve clinically. Objective Data Objective Data Vital Signs: Vital Signs Temp Pulse Resp BP Pulse Ox O2 Del Method O2 Flow Rate 97.9 F 98 18 141/88 H 96 Nasal Cannula 2 12/13/22 09:00 12/13/22 09:00 12/13/22 09:00 12/13/22 09:00 12/13/22 11:06 12/13/22 09:00 12/13/22 11:06 Oxygen Flow Rate (L/min) 2 Oxygen Delivery Method Nasal Cannula Weight: 75.75 kg Body Mass Index (BMI) 33.7 Intake & Output: Intake and Output for Last 24 Hours 12/11/22 12/12/22 12/13/22 23:59 23:59 23:59 Intake Total 3270.7 / 3270.7 1590.00 / 1590.00 963.33 / 963.33 Output Total 1150 / 1150 450 / 450 Balance 2120.7 / 2120.7 1140.00 / 1140.00 963.33 / 963.33 Lab / Micro Data 12/13/22 05:28 12/13/22 05:28 Labs: Laboratory Results - last 24 hr 12/12/22 13:04: POC Glucose 193 H 12/12/22 16:06: POC Glucose 197 H 12/13/22 05:28: WBC 7.8, RBC 3.36 L, Hgb 10.6 L, Hct 31.9 L, MCV 94.9, MCH 31.5,MCHC 33.2, RDW Std Deviation 50.2 H, RDW Coeff of Rock 14.4, Plt Count 156, MPV 9.7, Immature Gran % (Auto) 0.600, Neut % (Auto) 75.4 H, Lymph % (Auto) 15.0 L, Adams % (Auto) 8.1, Eos % (Auto) 0.6, Baso % (Auto) 0.3, Absolute Neuts (auto) 5.9, Absolute Lymphs (auto) 1.17, Nucleated RBC % 0, Sodium 141, Potassium 3.8, Chloride 111 H, Carbon Dioxide 24.0, Anion Gap 6, BUN 24 H, Creatinine 1.06 H, Estim Creat Clear Calc 51.46, Est GFR (MDRD) Af Amer 64, Est GFR (MDRD) Non-Af 53 L, BUN/Creatinine Ratio 22.6 H, Glucose 144 H, Calcium 8.2 L, Phosphorus 2.8 12/13/22 08:27: POC Glucose 153 H 12/13/22 10:53: POC Glucose 250 H Micro: Microbiology 12/11/22 08:12 Blood Culture (Wb) - Left Hand Blood Culture - Final Escherichia coli 12/11/22 13:18 Mucosa - Nose Respiratory Panel (PCR) - Final 12/11/22 08:17 Nasal Secretion SARS-CoV-2 & FLU Antigen (Rapid) - Final Physical Exam Const alert, oriented x3, no apparent distress and well nourished; Negative for average body habitus or healthy appearing Constitutional Narrative: Obese, older white female, sitting up in a chair at the bedside, appears as if she is feeling much better today, no signs of current discomfort General Appearance: cooperative HEENT normocephalic, head/scalp atraumatic, hearing grossly normal bilaterally and moist oral mucous membranes HEENT Narrative: Mallampati 2-3, no Resp normal respiratory effort, no retractions, no use of accessory muscles and clearto auscultation bilaterally Auscultation: Negative for crackles, rhonchi or wheezes Cardio S1 normal heart sound, S2 normal heart sound, no rub, no gallops and no clicks; Negative for no murmurs Cardio Narrative: Mild tachycardia with irregular rhythm, 3 out of 6 systolic murmur GI normal to inspection, nondistended, normoactive bowel sounds, soft to palpation and non-tender Extremity no clubbing, cyanosis or edema Extremity Narrative: Pedal pulses are 2+ Neuro oriented x3, moves all extremities and no focal motor deficits Neuro Narrative: Mild generalized weakness due to fatigue but no focal deficits, strength seems to be improved today Speech: speech normal Psych affect normal Psych Narrative: Very pleasant, eye contact good, interacts appropriately Assessment & Plan Assessment/Plan (1) Pneumonia: (2) Hypoxia: (3) Sepsis: (4) Elevated troponin: (5) Elevated d-dimer: (6) JUAN PABLO (acute kidney injury): (7) Lactic acidosis: (8) Gram-negative bacteremia: (9) Hypophosphatemia: (10) Atrial flutter: PLAN: Plan Sepsis secondary to E. coli bacteremia -Patient with fever, JUAN PABLO, lactic acidosis of 4.1, troponin elevation, hypoxia -Blood culture showing pansensitive E. coli consistent with previous urine culture -Current urine cultures pending -Patient unable to produce a sputum culture as of yet -Patient is not been hospitalized recently -Continue ceftriaxone and discontinue azithromycin -Will likely complete a 10-day course with Keflex at the time of discharge -Continue supplemental oxygen -Respiratory viral panel is negative Hypoxia secondary to the above -Continue supplemental oxygen -Suspect this was related all to her acute sepsis from E. coli bacteremia -Patient requires no oxygen at baseline -Saturations were 85% on room air at the time of presentation -Current oxygen saturation is 96% on 2 L -We will continue to wean -Bumex 2 mg IV push x1 dose -I-S/Pep -As needed albuterol -Mucinex -As needed cough medication Atrial flutter -EKG today confirms flutter -Continue metoprolol 100 mg daily -Add Cardizem 30 mg 3 times daily -Start Eliquis 5 mg twice daily -Continue to monitor on telemetry -TSH is within normal limits at 1.23 Hypophosphatemia - resolved Lactic acidosis -Resolved Troponin elevation -Mild -Initial troponin was 43 with a repeat of 60 and third repeat was 60 as well -Anticipate stress-induced ischemia from sepsis and hypoxia -EKG is unremarkable -Patient without chest pain -Patient with recent echocardiogram on 10/22/2022 that showed an EF of 65% with moderate focal aortic valve calcification and a mean aortic gradient of 34 mmHg with mild aortic stenosis and this was unchanged from previous JUAN PABLO -Resolving -Baseline serum creatinine appears to run between 0.9 and 1.1 -Resolved -Hold metformin -Hold losartan/hydrochlorothiazide Aortic valve stenosis -Stable on last echocardiogram -No current chest pain -Tolerating exercise well at home as an outpatient Hypertension/hyperlipidemia -Continue home metoprolol -Cardizem added for atrial flutter -Will continue to hold home losartan/HCTZ and may actually discontinue at discharge -Continue statin DM-2 -Hold Victoza -Hold metformin -Fasting sugar this morning 144 -Continue SSI-moderate dose -Accu-Cheks as ordered -Cardiac/carb controlled diet Hypothyroidism -Continue home levothyroxine Glaucoma -Continue eyedrops Gout -Continue home allopurinol Carotid artery stenosis -Continue home medications History of breast cancer -Remote Obesity -BMI is 33.8 -Recommend weight loss -Complicates treatment, prognosis, outcomes DVT prophylaxis -Eliquis 5 mg p.o. twice daily CODE STATUS -DNR CCA okay for short-term intubation per discussion with patient on admissionwith daughter at bedside Charges/Coding Visit Charges Inpatient E&M: 81766 Subs Hosp L2 12/13/22 1527 <Electronically signed by Gisel Bowman DO> Cosigner Signature (if applicable): CC: ~ Signed [facility] Work Phone: 1(265) 505-968608-11-2023 Progress note Author Gisel Bowman [facility] December 12, 2022 10:28am Note Date/Time December 12, 2022 10 :29am [facility] Medical Records Department [address] [place] [address] Progress Note - Hospitalist 12/12/22 1016 MR#: [id number] Acct: [id number] Name: CHRISTA CARREON Rep #:[id number] : 1945 76 From: Gisel Bowman DO PCP: Dr. Gudelia Gardiner MD Status:ADM IN Location: [place] [address] Reason for Visit Reason for Visit: Shortness of breath Subjective Subjective Patient states she is feeling poorly and states she gets she is not going home today. Did not sleep well last night. States she is fairly tired this morning. No specific complaints this morning. Remained stable on 4 L supplemental oxygen. Blood pressures have improved. Patient did develop tachycardia overnight and initially it was felt to be A-fib and she was started on a Cardizem drip. I discontinued this this morning as we had held her metoprolol and I restarted this this morning. Her heart rates are improving and it does not appear that this is A-fib it looks like it is sinus tachycardia with PACs asthere are P waves present. Patient did note that she had a recent UTI but her symptoms were completely resolved and she was having no dysuria or frequency. Treatment for that was at the end of November. Objective Data Objective Data Vital Signs: Vital Signs Temp Pulse Resp BP Pulse Ox O2 Del Method O2 Flow Rate 99.8 F H 112 H 20 H 133/88 H 96 Nasal Cannula 4 12/12/22 02:00 12/12/22 08:19 12/12/22 08:07 12/12/22 08:19 12/12/22 08:00 12/12/22 08:07 12/12/22 08:07 Oxygen Flow Rate (L/min) 4 Oxygen Delivery Method Nasal Cannula Weight: 75.75 kg Body Mass Index (BMI) 33.7 Intake & Output: Intake and Output for Last 24 Hours 12/10/22 12/11/22 12/12/22 23:59 23:59 23:59 Intake Total 3270.7 / 3270.7 78.00 / 78.00 Output Total 1150 / 1150 Balance 2120.7 / 2120.7 78.00 / 78.00 Lab / Micro Data 12/12/22 04:34 12/12/22 04:34 Labs: Laboratory Results - last 24 hr 12/11/22 10:25: Troponin I High Sens 60 H 12/11/22 11:45: MRSA (PCR) Negative 12/11/22 12:21: POC Glucose 212 H 12/11/22 13:50: Lactic Acid 4.4 H*, Troponin I High Sens 60 H 12/11/22 16:51: POC Glucose 185 H 12/11/22 20:43: POC Glucose 176 H 12/12/22 04:34: WBC 7.5, RBC 3.69 L, Hgb 11.8 L, Hct 35.0 L, MCV 94.9, MCH 32.0,MCHC 33.7, RDW Std Deviation 49.8 H, RDW Coeff of Rock 14.4, Plt Count 150, MPV 9.5, Immature Gran % (Auto) 0.500, Neut % (Auto) 78.6 H, Lymph % (Auto) 12.0 L, Adams % (Auto) 7.8, Eos % (Auto) 0.7, Baso % (Auto) 0.4, Absolute Neuts (auto) 5.9, Absolute Lymphs (auto) 0.90, Nucleated RBC % 0, Sodium 141, Potassium 3.9, Chloride 112 H, Carbon Dioxide 21.0, Anion Gap 8, BUN 21 H, Creatinine 1.05 H, Estim Creat Clear Calc 52.80, Est GFR (MDRD) Af Amer 65, Est GFR (MDRD) Non-Af 54 L, BUN/Creatinine Ratio 20.0, Glucose 152 H, Calcium 8.6, Phosphorus 2.2 L, Magnesium 1.9, Total Bilirubin 0.80, AST 35, ALT 30, Alkaline Phosphatase 76, Total Protein 6.7, Albumin 2.7 L, Globulin 4.0, Albumin/Globulin Ratio 0.7 L, TSH 1.23 12/12/22 09:07: Lactic Acid 1.6 Micro: Microbiology 12/11/22 08:12 Blood Culture (Wb) - Left Hand Blood Culture - Preliminary 12/11/22 08:17 Nasal Secretion SARS-CoV-2 & FLU Antigen (Rapid) - Final Physical Exam Const alert, oriented x3, no apparent distress and well nourished; Negative for average body habitus or healthy appearing Constitutional Narrative: Obese, older white female, lying in bed, appears ill and extremely fatigued but very pleasant, no signs of current discomfort, nursing is at bedside General Appearance: cooperative HEENT normocephalic, head/scalp atraumatic, hearing grossly normal bilaterally and moist oral mucous membranes HEENT Narrative: Mallampati 2, no thrush Eyes PERRL, EOMs intact bilaterally and conjunctivae normal Eyes Narrative: No scleral icterus Neck no lymphadenopathy, supple, no JVD and No no carotid bruits Neck Narrative: trachea midline, no thyroid enlargement Resp no retractions, no use of accessory muscles and clear to auscultation bilaterally Resp Narrative: Mild tachypnea, no adventitious sounds Auscultation: Negative for crackles, rhonchi or wheezes Cardio regular rhythm, S1 normal heart sound, S2 normal heart sound, no rub, no gallopsand no clicks; Negative for no murmurs Cardio Narrative: Mild tachycardia, 3 out of 6 systolic murmur loudest at right upper sternal border that radiates to bilateral carotids GI normal to inspection, nondistended, normoactive bowel sounds, soft to palpation and non-tender Extremity no clubbing, cyanosis or edema Extremity Narrative: Pedal pulses are 2+ Skin no rashes or lesions noted, no wounds, skin turgor normal, no jaundice, no petechiae and no mottling Skin Narrative: Skin changes consistent with chronic sun exposure Neuro oriented x3, moves all extremities and no focal motor deficits Neuro Narrative: Mild generalized weakness due to fatigue but no focal deficits Speech: speech normal Psych affect normal Psych Narrative: Very pleasant, eye contact good, interacts appropriately Assessment & Plan Assessment/Plan (1) Pneumonia: (2) Hypoxia: (3) Sepsis: (4) Elevated troponin: (5) Elevated d-dimer: (6) JUAN PABLO (acute kidney injury): (7) Lactic acidosis: (8) Gram-negative bacteremia: (9) Hypophosphatemia: PLAN: Plan Sepsis secondary to pneumonia/gram-negative bacteremia -Patient with fever, JUAN PABLO, lactic acidosis of 4.1, troponin elevation, hypoxia -Blood culture sent -Urine culture ordered but not sent-discussed with nursing wastewater treatment supervisor and will be addressed -Patient unable to produce a sputum culture as of yet -Patient is not been hospitalized recently -Continue ceftriaxone and azithromycin--> white count is in proving with improvement in her left shift -Patient received 30 cc/kg body weight fluid bolus prior to admission -Continue supplemental oxygen -strep pneumo and Legionella antigens ordered but not yet collected by nursing have discussed this also with the nursing wastewater treatment supervisor -Aspiratory viral panel is pending -MRSA PCR is negative Hypoxia secondary to the above -Continue supplemental oxygen -Patient requires no oxygen at baseline -Saturations were 85% on room air at the time of presentation -Is currently on 3 L nasal cannula with oxygen saturation at 95% -Oxygen as able -I-S/Pep -As needed albuterol -Mucinex -As needed cough medication Tachycardia -Initially felt to be A-fib however upon further review looks like sinus tachycardia with PACs -Discontinue Cardizem drip and start home metoprolol 100 now the blood pressure has improved -Treat fever -Continue to monitor on telemetry -TSH is within normal limits at 1.23 Hypophosphatemia -21 mmol phosphorus bolus -Recheck Phos in a.m. Lactic acidosis -Secondary to the above -Lactate initially bebeto from 4.1-4.4 but then normalized and is now 1.6 -Corrected with fluid resuscitation Troponin elevation -Mild -Initial troponin was 43 with a repeat of 60 and third repeat was 60 as well -Anticipate stress-induced ischemia from sepsis and hypoxia -EKG is unremarkable -Patient without chest pain -Patient with recent echocardiogram on 10/22/2022 that showed an EF of 65% with moderate focal aortic valve calcification and a mean aortic gradient of 34 mmHg with mild aortic stenosis and this was unchanged from previous JUAN PABLO -Resolving -Baseline serum creatinine appears to run between 0.9 and 1.1 -Serum creatinine on admission was 1.56--> down to 1.05 today and closer to her baseline range -Will utilize gentle hydration as p.o. intake has been poor and patient has no appetite -Hold metformin -Hold losartan/hydrochlorothiazide Aortic valve stenosis -Stable on last echocardiogram -No current chest pain -Tolerating exercise well at home as an outpatient Hypertension/hyperlipidemia -Restart home metoprolol with improved pressure today and tachycardia -Will continue to hold home losartan/HCTZ -Continue primary statin DM-2 -Hold Victoza -Hold metformin with JUAN PABLO -Fasting sugar this morning 152 -Continue SSI-moderate dose -Accu-Cheks as ordered -Cardiac/carb controlled diet Hypothyroidism -Continue home levothyroxine Glaucoma -Continue eyedrops Gout -Continue home allopurinol Carotid artery stenosis -Continue home medications History of breast cancer -Remote Obesity -BMI is 33.8 -Recommend weight loss -Complicates treatment, prognosis, outcomes DVT prophylaxis -With improved renal function will transition from heparin to enoxaparin 40 daily CODE STATUS -DNR CCA okay for short-term intubation per discussion with patient on admissionwith daughter at bedside Charges/Coding Visit Charges Inpatient E&M: 28130 Subs Hosp L3 12/12/22 1028 <Electronically signed by Gisel Bowman DO> Cosigner Signature (if applicable): CC: ~ Signed [facility] Work Phone: 1(495) 302-227908-11-2023 Progress note Author Ritu Dobson [facility] December 12, 2022 5:00am Note Date/Time December 12, 2022 4: 07am [facility] Medical Records Department [address] [place] [address] Progress Note - Hospitalist 12/12/22 0406 MR#: [id number] Acct: [id number] Name: CHRISTA CARREON Rep #:[id number] : 1945 76 From: Ritu Dobson MD PCP: Dr. Gudelia Gardiner MD Status:ADM IN Location: [place] [address] Hospitalist Note HR increased to 130, asymptomatic, VS otherwise stable. Will dose with lopressor5 mg x 1 and obtain EKG to assess rhythm. 12/12/22 0407 <Electronically signed by Ritu Dobson MD> Cosigner Signature (if applicable): CC: ~ Signed ADDENDUM by Dr. Ritu Dobson MD on 12/12/22 at 0500 Addendum Rate decreased and EKG obtained with evidence atrial fibrillation. Rate now increasing upward again. Mag request already in place for AM. Recent ECHO 10/24/22. Will start cardizem drip. 12/12/22 0500<Electronically signed by Ritu Dobson MD> Cosigner Signature (if applicable): cc: ~* Signed [facility] Work Phone: 1(387) 441-475208-10-2023 Discharge summary Author Jere Irene [facility] December 11, 2022 5:11pm Note Date/Time December 11, 2022 8: 33am [facility] Medical Records Department [address] [place] [address] Emergency Department Summary 12/11/22 MR#: [id number] Acct: [id number] Name: CHRISTA CARREON Rep #:[id number] : 1945 76 From: Jere Martínez PCP: Dr. Gudelia Gardiner MD Status:ADM IN Location: [place] [address] HPI History of Present Illness Chief Complaint: Shortness of Breath Informant: patient Onset/Context/Timing Onset: Yesterday Context: sudden Timing: Continuous Quality: Positive for Orthopnea Worsened by: Lying flat Relieved by: Nothing Associated Symptoms cough, rhinorrhea and fever; Negative for post nasal drip, ear pain, sore throat, chills, sweats, clear sputum, white sputum, yellow sputum or green sputum Chest Pain: Positive for None Narrative Narrative: Patient presents with shortness of breath that began yesterday. Patient states it began rather suddenly. Patient states that has been constant since yesterday. Patient states it is worse when she lays flat. Patient states nothing seems to help with it. Patient admits to a cough but denies any sputum production. Patient admits to some rhinorrhea. Patient states she had a fever of 100.1 at home. Patient denies any chest pain. Patient denies any sore throat. [facility] Medical History (Updated 12/11/22 @ 10:[address] Jere Irene, DO) Actinic keratosis Atherosclerosis of coronary artery of [place] heart without angina pectoris Breast cancer Carotid bruit Carpal tunnel syndrome Essential hypertension Gout History of left heart catheterization (08/2002) HLD (hyperlipidemia) Hx of breast cancer Hypothyroidism Low serum HDL Mitral valve annular calcification Morbid obesity with BMI of 40.0-44.9, adult Nonrheumatic aortic (valve) stenosis Osteoporosis Spinal stenosis Home Medications acetaminophen 650 mg tablet,extended release (Tylenol Arthritis Pain) 650 mg PO DAILY PAIN 09/14/17 [History Last Taken 12/11/22] aspirin 81 mg tablet,delayed release (Adult Low Dose Aspirin) 81 mg PO DAILY 09/14/17 [History Last Taken 12/09/22] latanoprost 0.005 % eye drops 1 drp ophthalmic (eye) QHS 09/14/17 [History Last Taken 12/09/22] levothyroxine 50 mcg tablet (Synthroid) 50 mcg PO DAILY 09/14/17 [History Last Taken 12/10/22] metoprolol succinate 100 mg tablet,extended release 24 hr (Toprol XL) 100 mg PO DAILY 09/14/17 [History Last Taken 12/10/22] multivitamin 1 tab PO DAILY 09/14/17 [History Last Taken 12/09/22] pravastatin 40 mg tablet 40 mg PO QHS 09/14/17 [History Last Taken 12/09/22] liraglutide 0.6 mg/0.1 mL (18 mg/3 mL) subcutaneous pen injector (Victoza 2- Jose Angel)1.2 mg subcut DAILY 09/15/17 [History Last Taken 12/10/22] alpha lipoic acid 200 mg capsule 200 mg PO DAILY 08/08/20 [History Last Taken 12/10/22] krill 1,000 mg-omega-3 230 mg-dha 60 km-qsg-ussatymqx-astaxan capsule (MegaRed [place]-3 Krill Oil) 1 cap PO DAILY 08/08/20 [History Last Taken 12/10/22] trazodone 100 mg tablet 100 mg PO DAILY 08/08/20 [History Last Taken 12/09/22] allopurinol 100 mg tablet 100 mg PO BID 09/26/22 [History Last Taken 12/10/22] elderberry fruit 460 mg-elderberry flower 115 mg capsule 1 cap PO DAILY 09/26/22[History Last Taken 12/10/22] metformin 1,000 mg tablet 1,000 mg PO DAILY 09/26/22 [History Last Taken 12/09/22] cholecalciferol (vitamin D3) 50 mcg (2,000 unit) capsule 50 mcg PO DAILY 12/11/22 [History Last Taken 12/09/22] losartan 100 mg-hydrochlorothiazide 25 mg tablet (Hyzaar) 0.5 tab PO DAILY 12/11/22 [History Last Taken 12/10/22] Allergy/AdvReac Type Severity Reaction Status Date / Time fenofibrate [From Tricor] AdvReac myalgias Verified 12/11/22 07:50 simvastatin AdvReac myalgias Verified 12/11/22 07:50 Sulfa (Sulfonamide AdvReac unknown Verified 12/11/22 07:50 Antibiotics) Family History Father Kidney disease Mother CAD (coronary artery disease) CABG Sister CAD (coronary artery disease) CABG HLD (hyperlipidemia) Surgical History History of appendectomy History of carpal tunnel surgery of left wrist History of discectomy Hx of right mastectomy Social History Smoking Status: Never smoker alcohol intake: current alcohol intake frequency: a few times a week Alcohol type: wine substance use type: does not use ROS ROS ED Constitutional Constitutional ED: Reports fever(s); Denies chills Eyes Eyes: Denies blurry vision or change in vision ENT ENT ED: Reports rhinorrhea; Denies sore throat Cardiovascular Cardiovascular: Denies chest pain or palpitations Respiratory/Chest Respiratory/Chest: Reports cough and dyspnea Gastrointestinal Gastrointestinal: Denies nausea or vomiting Genitourinary Genitourinary ED: Denies dysuria or hematuria Musculoskeletal Musculoskeletal: Reports back pain; Denies neck pain Integumentary Denies abscess or rash Neurologic Neurologic: Denies headache(s) or weakness Allergic/Immunologic Allergic/Immunologic ED: Denies mouth swelling or urticaria EXAM Physical Exam Const Vital Signs: 12/11/22 07:48 12/11/22 07:56 12/11/22 07:56 Temperature 98.8 F 103 F H 103 F H Temperature Source Temporal Oral Oral Pulse Rate 109 H 106 H 108 H Respiratory Rate 18 18 18 Respiratory Effort Respiratory Pattern Blood Pressure 129/98 H 186/163 H 186/163 H Blood Pressure Mean 108 170 170 Pulse Ox 91 85 89 Oxygen Delivery Method Room Air Room Air Nasal Cannula Oxygen Flow Rate (L/min) 5 12/11/22 07:56 12/11/22 08:10 12/11/22 08:18 Temperature Temperature Source Pulse Rate 100 Respiratory Rate 16 Respiratory Effort Short of Breath Respiratory Pattern Tachypnea Blood Pressure Blood Pressure Mean Pulse Ox Oxygen Delivery Method Nasal Cannula Nasal Cannula Oxygen Flow Rate (L/min) 5 5 12/11/22 08:23 12/11/22 08:25 12/11/22 09:00 Temperature 103 F H 99.5 F H Temperature Source Oral Oral Pulse Rate 97 94 Respiratory Rate 20 H 21 H Respiratory Effort Respiratory Pattern Blood Pressure 135/91 H 117/61 Blood Pressure Mean 105 79 Pulse Ox 95 93 92 Oxygen Delivery Method Nasal Cannula Nasal Cannula Nasal Cannula Oxygen Flow Rate (L/min) 4 4 4 12/11/22 10:00 12/11/22 10:21 Temperature 99.4 F H 98.5 F Temperature Source Oral Oral Pulse Rate 92 Respiratory Rate 22 H Respiratory Effort Respiratory Pattern Blood Pressure 122/69 H Blood Pressure Mean 86 Pulse Ox 95 Oxygen Delivery Method Nasal Cannula Oxygen Flow Rate (L/min) 4 Positive well nourished and well developed General Appearance ED: well developed and NAD HEENT Reports moist mucous membranes Neck supple and no JVD Resp normal respiratory effort Auscultation: rhonchi throughout Cardio regular rate, regular rhythm and no murmurs GI normal to inspection, nondistended, normoactive bowel sounds and non-tender Palpation: soft Extremity normal to inspection General Extremety ED: Negative for edema or tenderness General Extremity: Negative for edema Neuro oriented x3, CN's II-XII intact bilaterally and no sensory deficits noted Sensorium / Orientation: alert Motor Exam: strength 5/5 throughout Psych mental status grossly normal Skin no rashes or lesions noted Sepsis Attestation Sepsis Attestation: Agree w/Sepsis Possible Source of Sepsis: Pulmonary Sepsis Organ Dysfunction Criteria Present: Lactic Acid > 2 mmol/L MDM MDM MDM Narrative Medical decision making narrative: Differential diagnosis includes pneumonia, pneumothorax, pulmonary embolism, congestive heart failure, cardiac dysrhythmia, cardiac ischemia, bronchitis, andviral illness. Chest x-ray will be obtained to assess for pneumonia or pneumothorax. EKG will be obtained to assess for cardiac dysrhythmia and cardiac ischemia. CBC will be obtained to assess for leukocytosis and anemia. Basic metabolic profile will be obtained to assess for electrolyte abnormality and renal function. BNP will be obtained to assess for congestive heart failure. D-dimer will be obtained to assess for pulmonary embolism. High-sensitivity troponin will be obtained to assess for cardiac ischemia. Lactate will be obtained to assess for sepsis. Blood cultures will be obtained to assess for sepsis. COVID-19 rapid imaging will be obtained to assess for COVID-19 infection. Influenza A and influenza B antigens will be obtained to assess for influenza infection. History & Record Review Discussion w/independent historian: Patient and Family Additional record(s) reviewed:: Prior labs Lab Data Attestation: I reviewed the patient's lab results. Lab results narrative: CBC was reviewed and was within normal limits. Basic metabolic profile was reviewed. Glucose was elevated at 217. BUN was 25 and creatinine was 1.56. These are slightly increased from previous results. D-dimer was reviewed and was elevated at 3.58. Lactate was reviewed and was elevated at 4.1. High-sensitivity troponin was reviewed and was normal at 43. BNP was reviewed and was slightly elevated at 285.5. There are no prior lab values available for comparison. COVID-19 antigen was reviewed and was negative. Influenza A and influenza B antigens were reviewed and were negative. Labs: Laboratory Results - last 24 hr 12/11/22 08:12 WBC 9.5 RBC 4.14 L Hgb 13.0 Hct 39.0 MCV 94.2 MCH 31.4 MCHC 33.3 RDW Std Deviation 47.4 H RDW Coeff of Rock 13.9 Plt Count 189 MPV 9.3 Immature Gran % (Auto) 0.600 Neut % (Auto) 93.3 H Lymph % (Auto) 3.8 L Adams % (Auto) 1.8 Eos % (Auto) 0.1 Baso % (Auto) 0.4 Absolute Neuts (auto) 8.9 H Absolute Lymphs (auto) 0.36 L Nucleated RBC % 0 Differential Comment COMMENT D-Dimer Quant (PE/DVT) 3.58 H* Sodium 139 Potassium 4.5 Chloride 107 Carbon Dioxide 20.0 L Anion Gap 12 BUN 25 H Creatinine 1.56 H Estim Creat Clear Calc 35.61 Est GFR (MDRD) Af Amer 41 L Est GFR (MDRD) Non-Af 34 L BUN/Creatinine Ratio 16.0 Glucose 217 H Lactic Acid 4.1 H* Calcium 8.9 Troponin I High Sens 43 B-Natriuretic Peptide 285.5 H Radiography Diagnostic Testing: Clinical Impression(s) from Imaging Studies Chest X-Ray 12/11/22 08:28 IMPRESSION: Infiltration in the left upper and left lower lobes as well as at the right lung base. Electronically Signed: Norberto Blackwell MD at 8:50 EDT , Chest CTA 12/11/22 08:55 IMPRESSION: Infiltration in the left upper and left lower lobes as well as in the right lower lobe with tiny bilateral effusions worse on the left side. No evidence of pulmonary embolism. Fatty infiltration of the liver. Electronically Signed: Norberto Blackwell MD at 9:58 EDT , PA and lateral chest x-ray was obtained. There are 2 views. On my independent interpretation, lung brunner show left upper, left lower, and right lower lobe infiltrates. There is normal cardiac silhouette. Bony thorax is normal. Radiologist also interpreted the x-ray and agrees. Because of the elevated D-dimer, CTA of the chest was obtained. There is no evidence of pulmonary embolism. There is no evidence of aortic dissection. There are left upper, left lower, and right lower lobe infiltrates. There are tiny bilateral effusions that are worse on the left. This was interpreted by the radiologist and was also independently reviewed by myself. EKG Initial EKG: Attestation: I personally reviewed and interpreted this EKG as follows: Interpretation: No Acute Injury Pattern and Sinus Tachycardia (104) Comments: EKG was obtained. On my independent interpretation, it showed asinus tachycardia with a rate of 104. [place] interval, QRS interval, and QTc intervals were all normal. [place] was normal. There are no acute ST or T wave changes. Prior EKG tracings: available for review Prior: Unchanged (01/10/2023) Management Discussion w/another healthcare provider: Hospitalist Treatment and Re-Evaluation :: Patient was given a DuoNeb aerosol. Patient was given 30 cc/kg bolus of IV fluids. Patient was started on Rocephin and Zithromax. Patient was advised of her findings. Patient was advised of the need for hospitalization. Case was discussed with the hospitalist. Critical Care Time Critical Care Time: Yes Critical care time (excluding procedures): 30-74 minutes (34), Including time spent:, Discussing w/Patient &/or Family/Director Telemetry, Discussing w/Consultants, Arranging Admission or Transfer and Performing Direct Patient Care at Bedside Discharge Plan Dx/Rx/DC Orders Clinical Impression: Severe sepsis, Hypoxia, Pneumonia Disposition Disposition: Acute Care Hospital [facility] What to do if you have Problems For any increased pain, shortness of breath, bleeding, nausea or vomiting, chestpain, or any unexpected problems, contact your Primary Care Provider. Call [facility] ([phone]) or report to the closest Emergency Room. Call 911 if necessary. 12/11/22 1711 <Electronically signed by Jere Irene DO> Cosigner Signature (if applicable): CC: Dr. Gudelia Gardiner MD ~ Signed [facility] Work Phone: [phone]) 708-862208-10-2023 History and physical note Author Gisel Bowman [facility] December 11, 2022 11:32am Note Date/Time December 11, 2022 11 :05am [facility] Medical Records Department [address] [place] [address] H&P Exam - Hospitalist 12/11/22 1101 MR#: [id number] Acct: [id number] Name: CHRISTA CARREON Rep #:[id number] : 1945 76 From: Gisel Bowman DO PCP: Dr. Gudelia Gardiner MD Status:ADM IN Location: [place] [id number] HPI - General General Date of Admission: 12/11/22 Date of Service: 12/11/22 Chief Complaint: Shortness of Breath HPI Narrative CHRISTA CARREON, is a 76 F who presented to the emergency department at [facility] on 12/11/2022 with a chief complaint of shortness of breath. Patient states she was feeling fine yesterday and went out and mowed her yard. She stated by the time she got done mowing her yard she felt extremely fatigued and had back pain so she came inside and sat down. She began having rigors and felt feverish so she took her temperature and she noted her temperature to be 100.1. She took some Tylenol and for little bit better so she went to bed and when she woke up this morning she felt short of breath. States she woke up at about 530 and then called her daughter about an hour and a half later to bring her to the emergency department as she was feeling poorly. She had ongoing rigors and chills along with cough and shortness of breath. She denies any headache, nasal congestion, ear pressure, pharyngitis, or sputum production. She denies chest pain, diarrhea, nausea, vomiting, hematemesis, melena or hematochezia. She does admit to some generalized weakness and fatigue. She had no sick contacts and has not traveled anywhere recently. She has had no recent hospitalizations. Upon arrival to the emergency department she was found to have a temperature of 103, heart rate was 109, blood pressure was 186/163 with repeat at 135/91, respiratory rate was 18 and oxygen saturations were 85% on room air. Patient isnot oxygen 10 dependent at baseline and has no history of tobacco abuse or lung disease. Her CBC shows a normal white count at 9.5 but a considerable left shift with a 93.3% neutrophilia was identified. CBC was otherwise unremarkable. Chemistry panel showed serum bicarb of 20, BUN was 25 and serum creatinine was 1.56 (baseline serum creatinine is 0.9-1.1), glucose was 217. Her lactic acid was 4.1. Troponin initially was 43 with repeat of 60. A BNP was obtained and found to be elevated to 85.5. Chest x-ray showed infiltration of the left upperand left lower lobes as well as the right lung base. CTA of the chest was performed with elevated D-dimer and showed an infiltration of the left upper lobe and left lower lobe as well as the right lower lobe with tiny bilateral pleural effusions worse on the left side, no evidence of PE and fatty infiltration of the liver. In the emergency department cultures were obtained and sepsis was identified. She was treated with 30 cc/kg of body weight with fluids for fluid resuscitationand ceftriaxone and azithromycin were initiated. [facility] Medical History Actinic keratosis Atherosclerosis of coronary artery of [place] heart without angina pectoris Breast cancer Carotid bruit Carpal tunnel syndrome Essential hypertension Gout History of left heart catheterization (08/2002) HLD (hyperlipidemia) Hx of breast cancer Hypothyroidism Low serum HDL Mitral valve annular calcification Morbid obesity with BMI of 40.0-44.9, adult Nonrheumatic aortic (valve) stenosis Osteoporosis Spinal stenosis Home Medications acetaminophen 650 mg tablet,extended release (Tylenol Arthritis Pain) 650 mg PO DAILY PAIN 09/14/17 [History Last Taken 12/11/22] aspirin 81 mg tablet,delayed release (Adult Low Dose Aspirin) 81 mg PO DAILY 09/14/17 [History Last Taken 12/09/22] latanoprost 0.005 % eye drops 1 drp ophthalmic (eye) QHS 09/14/17 [History Last Taken 12/09/22] levothyroxine 50 mcg tablet (Synthroid) 50 mcg PO DAILY 09/14/17 [History Last Taken 12/10/22] metoprolol succinate 100 mg tablet,extended release 24 hr (Toprol XL) 100 mg PO DAILY 09/14/17 [History Last Taken 12/10/22] multivitamin 1 tab PO DAILY 09/14/17 [History Last Taken 12/09/22] pravastatin 40 mg tablet 40 mg PO QHS 09/14/17 [History Last Taken 12/09/22] liraglutide 0.6 mg/0.1 mL (18 mg/3 mL) subcutaneous pen injector (Victoza 2- Jose Angel)1.2 mg subcut DAILY 09/15/17 [History Last Taken 12/10/22] alpha lipoic acid 200 mg capsule 200 mg PO DAILY 08/08/20 [History Last Taken 12/10/22] krill 1,000 mg-omega-3 230 mg-dha 60 ia-nza-wxomfwpvs-astaxan capsule (MegaRed [place]-3 Krill Oil) 1 cap PO DAILY 08/08/20 [History Last Taken 12/10/22] trazodone 100 mg tablet 100 mg PO DAILY 08/08/20 [History Last Taken 12/09/22] allopurinol 100 mg tablet 100 mg PO BID 09/26/22 [History Last Taken 12/10/22] elderberry fruit 460 mg-elderberry flower 115 mg capsule 1 cap PO DAILY 09/26/22[History Last Taken 12/10/22] metformin 1,000 mg tablet 1,000 mg PO DAILY 09/26/22 [History Last Taken 12/09/22] cholecalciferol (vitamin D3) 50 mcg (2,000 unit) capsule 50 mcg PO DAILY 12/11/22 [History Last Taken 12/09/22] losartan 100 mg-hydrochlorothiazide 25 mg tablet (Hyzaar) 0.5 tab PO DAILY 12/11/22 [History Last Taken 12/10/22] Allergy/AdvReac Type Severity Reaction Status Date / Time fenofibrate [From Tricor] AdvReac myalgias Verified 12/11/22 07:50 simvastatin AdvReac myalgias Verified 12/11/22 07:50 Sulfa (Sulfonamide AdvReac unknown Verified 12/11/22 07:50 Antibiotics) Family History Father Kidney disease Mother CAD (coronary artery disease) CABG Sister CAD (coronary artery disease) CABG HLD (hyperlipidemia) Surgical History History of appendectomy History of carpal tunnel surgery of left wrist History of discectomy Hx of right mastectomy Social History (Updated 12/11/22 @ 11:[address] Gisel Bowman DO) household members: none housing: house current occupational status: retired Smoking Status: Never smoker alcohol intake: current alcohol intake frequency: a few times a week Alcohol type: wine substance use type: does not use additional social history: Lives alone, uses no assist device for ambulation, daughter lives nearby ROS Constitutional Constitutional: Reports chills, fatigue, fever(s), malaise, weakness and other Details: Rigors ; Denies anorexia, change in weight or night sweats Eyes Eyes: Denies blurry vision, change in eye color, change in vision, discharge from eye(s), double vision, erythema, eye pain, loss of vision or other ENT HEENT: Denies abnormal hearing, dysphagia, ear pain, epistaxis, headache(s), hearing loss, nasal congestion, nasal discharge, post nasal drip, sinus pressure, sore throat or other Cardiovascular Cardiovascular: Reports dyspnea on exertion; Denies chest pain, claudication, edema, lightheadedness, orthopnea, palpitations, paroxysmal nocturnal dyspnea, rapid heart rate, syncope or other Respiratory/Chest Respiratory/Chest: Reports cough, dyspnea, shortness of breath at rest and shortness of breath with exertion; Denies excessive phlegm production, hemoptysis, productive cough, wheezing or other Gastrointestinal Gastrointestinal: Denies abdominal pain, coffee ground emesis, constipation, diarrhea, dyspepsia, hematemesis, hematochezia, loose stools, melena, nausea, vomiting or other Genitourinary Genitourinary: Denies burning urination, difficulty urinating, dysuria, hematuria, nocturia, urinary frequency, urinary hesitancy, urinary incontinence,urinary urgency or other Musculoskeletal Musculoskeletal: Reports back pain; Denies arthralgias, joint pain, joint stiffness, joint swelling, myalgias, neck pain or other Neurologic Neurologic: Denies abnormal gait, abnormal speech, confusion, disequilibrium, dizziness, focal weakness, headache(s), numbness, paresthesias, seizure-like activity, seizures, syncope, tingling, tremor(s) or other Psychiatric Psychiatric: Denies anxiety, depression, homicidal ideation, suicidal ideation or other Endocrine Endocrinology: Denies change in body appearance, cold intolerance, excessive sweating, heat intolerance, polydipsia, polyuria or other Hematologic/Lymphatic Hematologic/Lymphatic: Denies anemia, easy bleeding, easy bruising, lymphadenopathy or other Allergic/Immunologic Allergic/Immunologic: Denies rhinitis, hives, eczemia, asthma or other Vital Signs Vital Signs Vital Signs: 12/11/22 07:48 12/11/22 07:56 12/11/22 07:56 Temperature 98.8 F 103 F H 103 F H Temperature Source Temporal Oral Oral Pulse Rate 109 H 106 H 108 H Respiratory Rate 18 18 18 Respiratory Effort Respiratory Pattern Blood Pressure 129/98 H 186/163 H 186/163 H Blood Pressure Mean 108 170 170 Pulse Ox 91 85 89 Oxygen Delivery Method Room Air Room Air Nasal Cannula Oxygen Flow Rate (L/min) 5 12/11/22 07:56 12/11/22 08:10 12/11/22 08:18 Temperature Temperature Source Pulse Rate 100 Respiratory Rate 16 Respiratory Effort Short of Breath Respiratory Pattern Tachypnea Blood Pressure Blood Pressure Mean Pulse Ox Oxygen Delivery Method Nasal Cannula Nasal Cannula Oxygen Flow Rate (L/min) 5 5 12/11/22 08:23 12/11/22 08:25 12/11/22 09:00 Temperature 103 F H 99.5 F H Temperature Source Oral Oral Pulse Rate 97 94 Respiratory Rate 20 H 21 H Respiratory Effort Respiratory Pattern Blood Pressure 135/91 H 117/61 Blood Pressure Mean 105 79 Pulse Ox 95 93 92 Oxygen Delivery Method Nasal Cannula Nasal Cannula Nasal Cannula Oxygen Flow Rate (L/min) 4 4 4 12/11/22 10:00 12/11/22 10:21 12/11/22 10:51 Temperature 99.4 F H 98.5 F 98.5 F Temperature Source Oral Oral Oral Pulse Rate 92 91 Respiratory Rate 22 H 20 H Respiratory Effort Respiratory Pattern Blood Pressure 122/69 H 124/64 H Blood Pressure Mean 86 84 Pulse Ox 95 96 Oxygen Delivery Method Nasal Cannula Nasal Cannula Oxygen Flow Rate (L/min) 4 3 12/11/22 10:53 Temperature 98.5 F Temperature Source Oral Pulse Rate 91 Respiratory Rate 16 Respiratory Effort Respiratory Pattern Blood Pressure 124/69 H Blood Pressure Mean 87 Pulse Ox 96 Oxygen Delivery Method Nasal Cannula Oxygen Flow Rate (L/min) 3 Weight Weight: 75.9 kg Body Mass Index (BMI) 33.7 Physical Exam Const alert, oriented x3, no apparent distress and well nourished; Negative for average body habitus or healthy appearing Constitutional Narrative: Obese, older white female, lying in bed, appears ill, pleasant, no signs of current discomfort, daughter at bedside General Appearance: cooperative HEENT normocephalic, head/scalp atraumatic, hearing grossly normal bilaterally and moist oral mucous membranes HEENT Narrative: Dentition is fair for age, Mallampati is 2, no thrush Eyes PERRL, EOMs intact bilaterally and conjunctivae normal Eyes Narrative: No scleral icterus Neck no lymphadenopathy, supple, no JVD and No no carotid bruits Neck Narrative: Right-sided carotid bruit, trachea midline, no thyroid enlargement Resp Resp Narrative: Mild tachypnea with no retractions or accessory muscle use, crackles bilaterallybut worse on the left most noted in the base, no rhonchi or wheeze Auscultation: crackles; Negative for rhonchi or wheezes Cardio regular rate, regular rhythm, S1 normal heart sound, S2 normal heart sound, no rub, no gallops and no clicks; Negative for no murmurs Cardio Narrative: 3 out of 6 systolic murmur loudest at right upper sternal border that radiates to bilateral carotids GI normal to inspection, nondistended, normoactive bowel sounds, soft to palpation and non-tender Extremity no clubbing, cyanosis or edema Extremity Narrative: Pedal pulses are 2+ Skin no rashes or lesions noted, no wounds, skin turgor normal, no jaundice, no petechiae and no mottling Skin Narrative: Skin changes consistent with chronic sun exposure Neuro oriented x3, CN's II-XII intact bilaterally, moves all extremities and no focal motor deficits Neuro Narrative: Mild generalized weakness due to fatigue but no focal deficits Speech: speech normal Psych affect normal Psych Narrative: Very pleasant, eye contact good, interacts appropriately Results Lab / Micro Data Attestation: I reviewed the patient's lab results. 12/11/22 08:12 12/11/22 08:12 Labs: Laboratory Results - last 24 hr 12/11/22 08:12: WBC 9.5, RBC 4.14 L, Hgb 13.0, Hct 39.0, MCV 94.2, MCH 31.4, MCHC 33.3, RDW Std Deviation 47.4 H, RDW Coeff of Rock 13.9, Plt Count 189, MPV 9.3, Immature Gran % (Auto) 0.600, Neut % (Auto) 93.3 H, Lymph % (Auto) 3.8 L, Adams % (Auto) 1.8, Eos % (Auto) 0.1, Baso % (Auto) 0.4, Absolute Neuts (auto) 8.9 H, Absolute Lymphs (auto) 0.36 L, Nucleated RBC % 0, Differential Comment COMMENT, D-Dimer Quant (PE/DVT) 3.58 H*, Sodium 139, Potassium 4.5, Chloride 107, Carbon Dioxide 20.0 L, Anion Gap 12, BUN 25 H, Creatinine 1.56 H, Estim Creat Clear Calc 35.61, Est GFR (MDRD) Af Amer 41 L, Est GFR (MDRD) Non-Af 34 L,BUN/Creatinine Ratio 16.0, Glucose 217 H, Lactic Acid 4.1 H*, Calcium 8.9, Troponin I High Sens 43, B-Natriuretic Peptide 285.5 H 12/11/22 10:25: Troponin I High Sens 60 H Micro: Microbiology 12/11/22 08:17 Nasal Secretion SARS-CoV-2 & FLU Antigen (Rapid) - Final Radiology Impression Chest X-Ray 12/11/22 08:28 IMPRESSION: Infiltration in the left upper and left lower lobes as well as at the right lung base. Electronically Signed: Norberto Blackwell MD at 8:50 EDT , Chest CTA 12/11/22 08:55 IMPRESSION: Infiltration in the left upper and left lower lobes as well as in the right lower lobe with tiny bilateral effusions worse on the left side. No evidence of pulmonary embolism. Fatty infiltration of the liver. Electronically Signed: Norberto Blackwell MD at 9:58 EDT , Assessment & Plan Assessment/Plan (1) Pneumonia: (2) Hypoxia: (3) Sepsis: (4) Elevated troponin: (5) Elevated d-dimer: (6) JUAN PABLO (acute kidney injury): (7) Lactic acidosis: PLAN: Plan Sepsis secondary to pneumonia -Patient with fever, JUAN PABLO, lactic acidosis of 4.1, troponin elevation, hypoxia -Blood, urine, sputum cultures pending -Patient is not been hospitalized recently -Continue ceftriaxone and azithromycin -Patient received 30 cc/kg body weight fluid bolus prior to admission--> will hold off on any further fluids following this and monitor clinically -Continue supplemental oxygen -Cycle lactates -Check strep pneumo and Legionella antigens -Check respiratory viral panel -Check MRSA PCR Hypoxia secondary to the above -Continue supplemental oxygen -Patient requires no oxygen at baseline -Saturations were 85% on room air at the time of presentation -Is currently on 3 L nasal cannula with oxygen saturation at 95% -Oxygen as able -I-S/Pep -As needed albuterol -Mucinex -As needed cough medication Lactic acidosis -Secondary to the above -Cycle lactates -Patient was repleted with fluids at 30 cc/kg body weight and this was initiatedin the emergency department prior to admission Troponin elevation -Mild -Initial troponin was 43 with a repeat of 60 -Anticipate stress-induced ischemia from sepsis and hypoxia -We will cycle enzymes -EKG is unremarkable -Patient without chest pain -Patient with recent echocardiogram on 10/22/2022 that showed an EF of 65% with moderate focal aortic valve calcification and a mean aortic gradient of 34 mmHg with mild aortic stenosis and this was unchanged from previous D-dimer elevation -CTA chest is negative for PE JUAN PABLO -Baseline serum creatinine appears to run between 0.9 and 1.1 -Current serum creatinine is 1.56 -IV fluids per sepsis protocol given in the emergency department -Hold metformin -Hold losartan/hydrochlorothiazide Aortic valve stenosis -Stable on last echocardiogram -No current chest pain -Tolerating exercise well at home Hypertension/hyperlipidemia -Hold home antihypertensives for now with sepsis picture -Continue primary statin DM-2 -Continue home Victoza -Hold metformin with JUAN PABLO -SSI-moderate dose -Accu-Cheks as ordered -Cardiac/carb controlled diet Hypothyroidism -Continue home levothyroxine Glaucoma -Continue eyedrops Gout -Continue home allopurinol Carotid artery stenosis -Continue home medications History of breast cancer -Remote Obesity -BMI is 33.8 -Recommend weight loss -Complicates treatment, prognosis, outcomes DVT prophylaxis -Heparin 3 times daily CODE STATUS -DNR CCA okay for short-term intubation per discussion with patient on admissionwith daughter at bedside Sepsis Attestation Sepsis Alert: Yes Sepsis Attestation: Agree w/Sepsis Date exam was performed: 12/11/22 Time exam was performed: 11:05 Possible Source of Sepsis: Pulmonary Sepsis Organ Dysfunction Criteria Present: Lactic Acid > 2 mmol/L Fluid Resuscitation Fluid resuscitation indicated?: Yes Fluid Resuscitation ordered: 30 ml/kg fluid bolus ordered Amount of fluid ordered: 2,250 Charges/Coding Visit Charges Inpatient E&M: 06897 Init Hosp L3 12/11/22 1139 <Electronically signed by Gisel Bowman DO> Cosigner Signature (if applicable): CC: Dr. Gudelia Gardiner MD; Dr. Gisel Bowman DO~ Signed [facility] Work Phone: Discharge summary Author Gisel Bowman [facility] 2022 1:13pm Note Date/Time 2022 12 :55pm [facility] Medical Records Department [address] [place] [address] Discharge Summary 12/14/22 1252 MR#: [id number] Acct: [id number] Name: CHRISTA CARREON Rep #:[id number] : 1945 77 From: Gisel Bowman DO PCP: Dr. Gudelia Gardiner MD Status:ADM IN Location: [place] [address] Providers Date of Admission: 12/11/22 Date of Discharge: 12/14/22 Primary Care Physician: Dr. Gudelia Gardiner MD Reason For Visit: SEPSIS 2/2 PNEUMONIA Diagnosis Discharge Diagnosis (1) Pneumonia: Status: Acute Code(s): J18.9 - Pneumonia, unspecified organism (2) Hypoxia: Status: Acute Code(s): R09.02 - Hypoxemia (3) Sepsis: Status: Acute Code(s): A41.9 - Sepsis, unspecified organism (4) Elevated troponin: Status: Acute Code(s): R77.8 - Other specified abnormalities of plasma proteins (5) Elevated d-dimer: Status: Acute Code(s): R79.89 - Other specified abnormal findings of blood chemistry (6) JUAN PABLO (acute kidney injury): Status: Acute Code(s): N17.9 - Acute kidney failure, unspecified (7) Lactic acidosis: Status: Acute Code(s): E87.20 - Acidosis, unspecified (8) Gram-negative bacteremia: Status: Acute Code(s): R78.81 - Bacteremia (9) Hypophosphatemia: Status: Acute Code(s): E83.39 - Other disorders of phosphorus metabolism (10) Atrial flutter: Status: Acute Code(s): I48.92 - Unspecified atrial flutter Medications at Discharge Home Medications acetaminophen 650 mg tablet,extended release (Tylenol Arthritis Pain) 650 mg PO DAILY PAIN 09/14/17 aspirin 81 mg tablet,delayed release (Adult Low Dose Aspirin) 81 mg PO DAILY 09/14/17 latanoprost 0.005 % eye drops 1 drp ophthalmic (eye) QHS 09/14/17 levothyroxine 50 mcg tablet (Synthroid) 50 mcg PO DAILY 09/14/17 metoprolol succinate 100 mg tablet,extended release 24 hr (Toprol XL) 100 mg PO DAILY 09/14/17 multivitamin 1 tab PO DAILY 09/14/17 pravastatin 40 mg tablet 40 mg PO QHS 09/14/17 liraglutide 0.6 mg/0.1 mL (18 mg/3 mL) subcutaneous pen injector (Victoza 2- Jose Angel)1.2 mg subcut DAILY 09/15/17 alpha lipoic acid 200 mg capsule 200 mg PO DAILY supplement 08/08/20 krill 1,000 mg-omega-3 230 mg-dha 60 ol-gwu-vrzjnwuvx-astaxan capsule (MegaRed [place]-3 Krill Oil) 1 cap PO DAILY 08/08/20 trazodone 100 mg tablet 100 mg PO DAILY 08/08/20 allopurinol 100 mg tablet 100 mg PO BID gout 09/26/22 elderberry fruit 460 mg-elderberry flower 115 mg capsule 1 cap PO DAILY 09/26/22 metformin 1,000 mg tablet 1,000 mg PO DAILY 09/26/22 cholecalciferol (vitamin D3) 50 mcg (2,000 unit) capsule 50 mcg PO DAILY 12/11/22 apixaban 5 mg tablet (Eliquis) 5 mg PO BID #60 tabs 12/14/22 ciprofloxacin HCl 500 mg tablet (Cipro) 500 mg PO BID #12 tabs 12/14/22 diltiazem HCl 120 mg capsule,extended release 24 hr (Cardizem CD) 120 mg PO DAILY #30 caps 12/14/22 Hospital Course Procedures EKG and - (Chest x-ray/CTA chest/CT abdomen and pelvis) Summary of Care Provided Minutes Spent on Discharge: 38 Hospital Course: CHRISTA CARREON, is a 76 F who presented to the emergency department at [facility] on 12/11/2022 with a chief complaint of shortness of breath. Patient stated she was feeling fine the day prior to admission and went out and mow her yard. She stated by the time she got done mowing her yard she felt extremely fatigued and had back pain so she came inside and sat down. She began having rigors and felt feverish so she took her temperature and she noted her temperature to be 100.1. She took some Tylenol and for little bit better so shewent to bed and when she woke up on the morning of admission, she felt short of breath. She reported she woke up at about 530 and then called her daughter about an hour and a half later to bring her to the emergency department as she was feeling poorly. She had ongoing rigors and chills along with cough and shortness of breath. She denied any headache, nasal congestion, ear pressure, pharyngitis, or sputum production. She denied chest pain, diarrhea, nausea, vomiting, hematemesis, melena or hematochezia. She did admit to some generalized weakness and fatigue. She had no sick contacts and had not traveledanywhere recently. She had no recent hospitalizations. Upon arrival to the emergency department she was found to have a temperature of 103, heart rate was 109, blood pressure was 186/163 with repeat at 135/91, respiratory rate was 18 and oxygen saturations were 85% on room air. Patient is not oxygen 10 dependentat baseline and has no history of tobacco abuse or lung disease. Her CBC shows a normal white count at 9.5 but a considerable left shift with a 93.3% neutrophilia was identified. CBC was otherwise unremarkable. Chemistry panel showed serum bicarb of 20, BUN was 25 and serum creatinine was 1.56 (baseline serum creatinine is 0.9-1.1), glucose was 217. Her lactic acid was 4.1. Troponin initially was 43 with repeat of 60. A BNP was obtained and found to beelevated to 85.5. Chest x-ray showed infiltration of the left upper and left lower lobes as well as the right lung base. CTA of the chest was performed withelevated D-dimer and showed an infiltration of the left upper lobe and left lower lobe as well as the right lower lobe with tiny bilateral pleural effusionsworse on the left side, no evidence of PE and fatty infiltration of the liver. She was admitted the medical floor and placed on broad-spectrum antibiotics initially with CAP coverage as there was concern she had pneumonia based on her chest x-ray and CT findings. She was started on broad-spectrum antibiotics by the emergency department after cultures were obtained. The patient did note shehad a recent UTI for which she was treated with Macrobid and completed the course of antibiotics and felt that her symptoms had resolved completely. She was maintained on 4 L nasal cannula and was slowly able to be weaned to room air. At the time of discharge, at rest we did an ambulatory pulse ox at which time she was satting 95% on room air and 94% on room air with exertion. Blood culture showed E. coli that was pansensitive. Her antibiotics were narrowed to ceftriaxone 2 g daily alone from ceftriaxone and azithromycin and at the time ofdischarge she was converted to ciprofloxacin 500 mg p.o. twice daily to completea course of 10 days. We did extend the course and she had a recent UTI and I suspect this is the source of her infection and possibly the Macrobid was not aseffective however her urine culture at presentation was unremarkable. I also assessed the CT of her abdomen pelvis to assure that there was no concern for kidney stones or pyelonephritis and none was found. She developed a fib/flutterwith RVR during her hospital course. With her valve history she does have an increased risk for this and I suspect her oh sepsis was overwhelming and maybe precipitated this. She may obtain an A-fib but we were able to rate control dayana continuing her home metoprolol and adding low-dose Cardizem at 120 mg daily. She was also started on apixaban for stroke prevention in the setting of atrial fibrillation. 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 She is tocall Thursday to set up an appointment. She had a recent echocardiogram so repeatecho was not pursued. We did discuss the risks of Eliquis prior to discharge and she voiced understanding. Given the addition of Cardizem we did do her losartan/hydrochlorothiazide. Her blood pressures last to be reviewed and either GRIFFIN or ARB at a lower dose may need to be reinitiated and should be if possible given her diabetes diagnosis at baseline. She was seen by physical andOccupational Therapy during her hospital stay and they felt she was stable to gohome without any further therapy. We did discuss that it would likely take sometime for her to feel back to her normal self and that she should stay active butprogress slowly and not overdo it. She was asked to follow-up with her primary care physician within the next 1 week if possible and with cardiology within thenext 2 to 4 weeks. Again her losartan/HCTZ was discontinued and we wrote prescriptions for Cardizem 120 mg daily, Eliquis 5 mg p.o. twice daily and [id number] mg p.o. twice daily to complete her antibiotic course. Discharge diagnoses: Sepsis E. coli bacteremia Hypoxia Atrial flutter-new diagnosis Hypophosphatemia-resolved Lactic acidosis-resolved Troponin elevation secondary to demand ischemia JUAN PABLO-resolved Aortic valve stenosis Hypertension Hyperlipidemia DM-2 Hypothyroidism Glaucoma Gout Carotid artery stenosis History of breast cancer Obesity Physical Exam Const alert, oriented x3, no apparent distress and well nourished; Negative for average body habitus or healthy appearing Constitutional Narrative: Obese, older white female, sitting up in bed, family at bedside,, appears as if she is feeling much better today, no signs of current discomfort General Appearance: cooperative, comfortable, well kempt and well developed Orientation / Consciousness: awake, oriented to person, oriented to place and oriented to time Exam Limitations: no limitations HEENT normocephalic, head/scalp atraumatic, hearing grossly normal bilaterally and moist oral mucous membranes HEENT Narrative: Mallampati 2-3, no thrush Eyes PERRL, EOMs intact bilaterally and conjunctivae normal Eyes Narrative: No scleral icterus Neck no lymphadenopathy, supple, no JVD and No no carotid bruits Neck Narrative: trachea midline, no thyroid enlargement Resp normal respiratory effort, no retractions, no use of accessory muscles and clearto auscultation bilaterally Auscultation: Negative for crackles, rhonchi or wheezes Cardio regular rate, S1 normal heart sound, S2 normal heart sound, no rub, no gallops and no clicks; Negative for no murmurs Cardio Narrative: irregular rhythm, 3 out of 6 systolic murmur GI normal to inspection, nondistended, normoactive bowel sounds, soft to palpation and non-tender Extremity no clubbing, cyanosis or edema Extremity Narrative: Pedal pulses are 2+ Skin no rashes or lesions noted, no wounds, skin turgor normal, no jaundice, no petechiae and no mottling Skin Narrative: Skin changes consistent with chronic sun exposure Neuro oriented x3, CN's II-XII intact bilaterally, moves all extremities, no focal motor deficits and no sensory deficits noted Neuro Narrative: Mild generalized weakness but much improved since admission Speech: speech normal Psych affect normal Psych Narrative: Very pleasant, eye contact good, interacts appropriately Weight / BMI Weight Weight: 75.75 kg Body Mass Index (BMI) 33.7 ABG / Lab / Microbiology Data 12/14/22 04:25 12/14/22 04:25 Laboratory: Laboratory Results - last 24 hr 12/13/22 20:37: POC Glucose 251 H 12/14/22 04:25: WBC 7.3, RBC 3.40 L, Hgb 10.7 L, Hct 32.0 L, MCV 94.1, MCH 31.5,MCHC 33.4, RDW Std Deviation 49.6 H, RDW Coeff of Rock 14.2, Plt Count 189, MPV 9.6, Immature Gran % (Auto) 1.000 H, Neut % (Auto) 68.6, Lymph % (Auto) 16.6 L, Adams % (Auto) 10.8 H, Eos % (Auto) 2.7, Baso % (Auto) 0.3, Absolute Neuts (auto)5.0, Absolute Lymphs (auto) 1.21, Nucleated RBC % 0, Sodium 141, Potassium 3.3 L, Chloride 108 H, Carbon Dioxide 26.0, Anion Gap 7, BUN 23 H, Creatinine 0.98, Estim Creat Clear Calc 55.66, Est GFR (MDRD) Af Amer 71, Est GFR (MDRD) Non-Af 58 L, BUN/Creatinine Ratio 23.5 H, Glucose 134 H, Calcium 8.5 12/14/22 05:57: POC Glucose 150 H 12/14/22 11:28: POC Glucose 273 H Microbiology: Microbiology 12/12/22 12:30 Urine, Clean Catch Urine Culture - Final Culture exhibits no growth. 12/13/22 16:15 Urine, Clean Catch Legionella Antigen - Final 12/13/22 16:15 Urine, Clean Catch Streptococcus pneumoniae Antigen (M - Final 12/11/22 08:17 Blood Culture (Wb) - Left Wrist Blood Culture - Preliminary No growth in 48 hours. 12/11/22 08:12 Blood Culture (Wb) - Left Hand Blood Culture - Final Escherichia coli 12/11/22 13:18 Mucosa - Nose Respiratory Panel (PCR) - Final 12/11/22 08:17 Nasal Secretion SARS-CoV-2 & FLU Antigen (Rapid) - Final D/C Instructions Discharge Diet: Low fat / Low cholesterol Discharge Activity: No Restrictions (Increase tolerance slowly to normal activities) Meaningful Use Info Meaningful Use Diagnoses (Choose all that apply): None applicable Discharge Plan Admission Admit Date/Time: 12/11/22 10:49 Primary Reason for Your Visit: Shortness of Breath Attending Provider: Gisel Bowman Primary Care Provider: Gudelia Gardiner Instructions Additional Instructions / Restrictions: 1. You were found to have E. coli in your bloodstream and have been treated forthis infection. Please complete antibiotics as noted below for the entire course after discharge Discharge Orders/Prescriptions Prescriptions: New Eliquis 5 mg Tablet 5 mg PO BID Qty: 60 1RF ciprofloxacin HCl [Cipro] 500 mg tablet 500 mg PO BID Qty: 12 0RF diltiazem HCl [Cardizem CD] 120 mg capsule,extended release 24hr 120 mg PO DAILY Qty: 30 1RF Continued acetaminophen [Tylenol Arthritis Pain] 650 mg tablet extended release 650 mg PO DAILY metoprolol succinate [Toprol XL] 100 mg tablet extended release 24 hr 100 mg PO DAILY levothyroxine [Synthroid] 50 mcg tablet 50 mcg PO DAILY pravastatin 40 mg tablet 40 mg PO QHS aspirin [Adult Low Dose Aspirin] 81 mg tablet,delayed release (DR/EC) 81 mg PO DAILY latanoprost 0.005 % drops 1 drp OPHTHALMIC QHS Rx Instructions: INSTIL 1 DROP INTO BOTH EYES AT BEDTIME multivitamin tablet 1 tab PO DAILY Victoza 2-Jose Angel 0.6 mg/0.1 mL (18 mg/3 mL) pen injector 1.2 mg SC DAILY allopurinol 100 mg tablet 100 mg PO BID trazodone 100 mg tablet 100 mg PO DAILY [id number] [MegaRed [place]-3 Krill Oil] 1,000-230-60 mg capsule 1 cap PO DAILY alpha lipoic acid 200 mg capsule 200 mg PO DAILY metformin 1,000 mg tablet 1,000 mg PO DAILY elderberry fruit and flower 460-115 mg capsule 1 cap PO DAILY cholecalciferol (vitamin D3) 50 mcg (2,000 unit) capsule 50 mcg PO DAILY Discontinued losartan-hydrochlorothiazide [Hyzaar] 100-25 mg tablet 0.5 tab PO DAILY Referrals / Follow Up: Gudelia Gardiner MD [Primary Care Provider] - Within 1 Week (Call tomorrow to set up an appointment for hospital follow-up) Lorri Cooper, PA [Med Staff - Adv Practice Prof] - Within 2 Weeks (New Afib while hospitalized--> please call tomorrow to set up a hospital follow-up appointment) Disposition Disposition (needs filled in before D/C Order can be placed): Home, Self Care Charges/Coding Visit Charges Inpatient E&M: 76073 Disch Hosp >30min 12/14/22 1313 <Electronically signed by Gisel Bowman DO> Cosigner Signature (if applicable): CC: Dr. Gudelia Gardiner MD; Dr. 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 Essential hypertension chron ic HLD (hyperlipidemia) chronic Mitral valve annular calcification chronic Nonrheumatic aortic (valve) stenosis chronic [facility] Work Phone: Evaluation note* Diagnosis Onset Date Resolution Status 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 Essential hypertension chron ic HLD (hyperlipidemia) chronic Mitral valve annular calcification chronic Nonrheumatic aortic (valve) stenosis chronic Suspected UTI acute [facility] Work Phone: Evaluation note* Diagnosis Onset Date Resolution Status 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 Essential hypertension chron ic HLD (hyperlipidemia) chronic Mitral valve annular calcification chronic Nonrheumatic aortic (valve) stenosis chronic Suspected UTI acute JUAN PABLO (acute kidney injury) [place] Elevated d-dimer acute Elevated troponin acute Hypoxia acute Lactic acidosis acute Pneumonia acute Sepsis acute [facility] Work Phone: Evaluation note* Diagnosis Onset Date Resolution Status 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 Essential hypertension chron ic HLD (hyperlipidemia) chronic Mitral valve annular calcification chronic Nonrheumatic aortic (valve) stenosis chronic Suspected UTI acute JUAN PABLO (acute kidney injury) [place] Atrial flutter acute Elevated d-dimer acute Elevated troponin acute Gram-negative bacteremia acu te Hypophosphatemia acute Hypoxia acute Lactic acidosis acute Pneumonia acute Sepsis acute [facility] Work Phone: Evaluation note* Diagnosis Onset Date Resolution Status Suspected UTI acute Gram-negative bacteremia acu te JUAN PABLO (acute kidney injury) re solved Elevated d-dimer resolved Elevated troponin resolved Hypophosphatemia resolved Hypoxia resolved Lactic acidosis resolved Pneumonia resolved Sepsis resolved Persistent atrial fibrillation acute 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 Essential hypertension chron ic HLD (hyperlipidemia) chronic Mitral valve annular calcification chronic Nonrheumatic aortic (valve) stenosis chronic Elevated troponin resolved Persistent atrial fibrillation acute 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 Essential hypertension chron ic HLD (hyperlipidemia) chronic Nonrheumatic aortic (valve) stenosis chronic [facility] Work Phone: Evaluation note* Diagnosis Onset Date Resolution Status DARLENE (obstructive sleep apnea) acute Persistent atrial fibrillation acute 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 Essential hypertension chron ic HLD (hyperlipidemia) chronic Nonrheumatic aortic (valve) stenosis chronic [facility] Work Phone: Reason for referral (narrative)No reason for referral information availableWM[facility] Work [facility]: Chief Complaint and Reason for Visit Chief Complaint MURMUR Chief Complaint 9 M FU (thu) CP CP Reason for Visit Atherosclerosis of c oronary artery of [place] heart without angina pectoris Essential hypertension HLD (hyperlipidemia) Nonrheumatic aortic (valve) stenosis Chief Complaint 6 M FU [place]/NEUROPATHY RX HERE MURMUR Reason for Visit Atherosclerosis of c oronary artery of [place] heart without angina pectoris Essential hypertension HLD (hyperlipidemia) Mitral valve annular calcification Nonrheumatic aortic (valve) stenosis Chief Complaint 6 M FU MURMUR [place]/NEUROPATHY RX HERE CONCERN FOR UTI Reason for Visit Atherosclerosis of c oronary artery of [place] heart without angina pectoris Essential hypertension HLD (hyperlipidemia) Mitral valve annular calcification Nonrheumatic aortic (valve) stenosis Suspected UTI Chief Complaint 6 M FU MURMUR [place]/NEUROPATHY RX HERE CONCERN FOR UTI SEPSIS 2/2 PNEUMONIA Reason for Visit Atherosclerosis of c oronary artery of [place] heart without angina pectoris Essential hypertension HLD (hyperlipidemia) Mitral valve annular calcification Nonrheumatic aortic (valve) stenosis Suspected UTI JUAN PABLO (acute kidney injury) Elevated d-dimer Elevated troponin Hypoxia Lactic acidosis Pneumonia Sepsis Chief Complaint 6 M FU MURMUR [place]/NEUROPATHY RX HERE CONCERN FOR UTI SEPSIS 2/2 PNEUMONIA SEPSIS 2/2 PNEUMONIA SEPSIS 2/2 PNEUMONIA SEPSIS 2/2 PNEUMONIA SEPSIS 2/2 PNEUMONIA Reason for Visit Atherosclerosis of c oronary artery of [place] heart without angina pectoris Essential hypertension HLD (hyperlipidemia) Mitral valve annular calcification Nonrheumatic aortic (valve) stenosis Suspected UTI JUAN PABLO (acute kidney injury) Atrial flutter Elevated d-dimer Elevated troponin Gram-negative bacteremia Hypophosphatemia Hypoxia Lactic acidosis Pneumonia Sepsis Chief Complaint MURMUR [place]/NEUROPATHY RX HERE CONCERN FOR UTI SEPSIS 2/2 PNEUMONIA SEPSIS 2/2 PNEUMONIA SEPSIS 2/2 PNEUMONIA SEPSIS 2/2 PNEUMONIA SEPSIS 2/2 PNEUMONIA dizziness S/P [facility] 12/14/22 POSS TRIAL PER MMM Atherosclerotic heart disease of [place] coronary a Atherosclerotic heart disease of [place] coronary a Amb Documentation UPDATE H&P FOR DCCV E ORDER Reason for Visit Suspected UTI Gram-negative bacteremia JUAN PABLO (acute kidney injury) Elevated d-dimer Elevated troponin Hypophosphatemia Hypoxia Lactic acidosis Pneumonia Sepsis Persistent atrial fibrillation Atherosclerosis of coronary artery of [place] heart without angina pectoris Essential hypertension HLD (hyperlipidemia) Mitral valve annular calcification Nonrheumatic aortic (valve) stenosis Elevated troponin Persistent atrial fibrillation Atherosclerosis of coronary artery of [place] heart without angina pectoris Essential hypertension HLD (hyperlipidemia) Nonrheumatic aortic (valve) stenosis Chief Complaint Out of rhythm in [place]: see note E-ORDER A-FIB A-FIB A-FIB Reason for Visit DARLENE (obstructive sle ep apnea) Persistent atrial fibrillation Atherosclerosis of coronary artery of [place] heart without angina pectoris Essential hypertension HLD (hyperlipidemia) Nonrheumatic aortic (valve) stenosis Chief Complaint Out of rhythm in [place]: see note E-ORDER A-FIB A-FIB A-FIB 1 W DCCV DARLENE Reason for Visit DARLENE (obstructive sle ep apnea) Persistent atrial fibrillation Atherosclerosis of coronary artery of [place] heart without angina pectoris Essential hypertension HLD (hyperlipidemia) Nonrheumatic aortic (valve) stenosis Chief Complaint Admit Date 6 M FU July 20, 2024 3:0 4pm MURMUR/ ADD EORDER LABS FROM September 23, 2024 9:48am 6 M FU September 28, 2024 2:54p m Reason for Visit Admit Date Obesity July 20, 2024 3:0 4pm DARLENE (obstructive sleep apnea) July 3:04pm Reason for Visit Admit Date Obesity July 20, 2024 3:0 4pm DARLENE (obstructive sleep apnea) July 3:04pm Persistent atrial fibrillation September 28, 2024 2:54pm Atherosclerosis of coronary artery of [place] heart without angina pectoris September 28, 2024 2:54pm Essential hypertension September 28, 2024 2: 54pm HLD (hyperlipidemia) September 28, 2024 2:54 pm Nonrheumatic aortic (valve) stenosis September 28, 2024 2:54pm Chief Complaint Admit Date MURMUR/ ADD EORDER LABS FROM September 23, 2024 9:48am 6 M FU September 28, 2024 2:54p m 3 M FU December 30, 2024 1: 17pm Reason for Visit Admit Date Persistent atrial fibrillation September 28, 2024 2:54pm Atherosclerosis of coronary artery of [place] heart without angina pectoris September 28, 2024 2:54pm Essential hypertension September 28, 2024 2: 54pm HLD (hyperlipidemia) September 28, 2024 2:54 pm Nonrheumatic aortic (valve) stenosis September 28, 2024 2:54pm Persistent atrial fibrillation December 302024 1:17pm Atherosclerosis of coronary artery of [place] heart without angina pectoris December 30, 2024 1:17pm Essential hypertension December 30, 2024 1:17pm HLD (hyperlipidemia) December 30, 2024 1 :17pm Nonrheumatic aortic (valve) stenosis Dec 1:17pm Family History No Family History Records Found Relationship Condition Age at Onset Recorded Date/T desire father Kidney disorder Unknown mother Coronary artery disease Unknown sister Coronary artery disease Unknown Hyperlipidemia Unknown Advance Directives No Advanced Directives Records Found Advance Directive Response Recorded Date/ Time Name of Medical Power of Vp Public Relations Susan Medley December 11, 2022 7:56am Living Will Yes December 11 7:56am Power of Vp Public Relations Yes December 11, 023 7:56am Advance Directive Response Recorded Date/ Time Name of Medical Power of Vp Public Relations Susan Walsh December 11, 2022 11:33am Living Will Yes December 11 11:33am Power of Vp Public Relations Yes December 11 023 11:33am Advance Directive Response Recorded Date/ Time Name of Medical Power of Vp Public Relations Susan Walsh December 11, 2022 11:33am Name of Medical Power of Vp Public Relations ? December 25, 2022 12:49pm Living Will Yes December 25 12:49pm Power of Vp Public Relations Yes December 25 023 12:49pm Advance Directive Response Recorded Date/ Time Advance Directives on File Yes August 04, 2023 11:57am Name of Medical Power of Vp Public Relations eleazar carreon August 04, 2023 11:57am Advance Directives Yes August 03 11:57am Living Will Yes August 04, 2023 11:57am Power of Vp Public Relations Yes August 03 11:57am Advance Directive Response Recorded Date/ Time Living Will Yes August 04, 2023 11:57am Do you have a Healthcare Power of Vp Public Relations? Yes August 04, 2023 11:57am Advance Directives Yes August 03 11:57am Advance Directive Response Recorded Date/ Time Advance Directives Yes August 03 11:57am Summary Purpose Additional Source Comments Goals (unrecognized section and content) Goals may be documented in a n alternate sectionGoals may be documented in an alternate sectionGoals may be documented in an alternate sectionGoals may be documented in an alternate sectionGoals may be documented in an alternate sectionGoals may be documented in an alternate sectionGoals may be documented in an alternate sectionGoals may be documented in an alternate sectionGoals may be documented in an alternate sectionGoals may be documented in an alternate sectionGoals may be documented in an alternate sectionGoals may be documented in an alternate sectionGoals may be documented in an alternate sectionGoals may be documented in an alternate sectionGoals may be documented in an alternate sectionGoals may be documented in an alternate sectionGoals may be documented in an alternate section Care Teams (unrecognized sec tion and content) Team Status: Active Member Role Status Dates Dr. Gudelia Gardiner MD Family Provider Active Dr. Gudelia Gardiner MD Primary Care Provider Active Team Status: Inactive Member Role Status Dates Dr. Gudelia Gardiner MD Primary Care Provider, Attendin g Provider Active Team Status: Inactive Member Role Status Dates Dr. Gudelia Gardiner MD Primary Care Provider, Referrin g Provider Active Lorri Cooper PA, PA Attending Provider Active Team Status: Active Member Role Status Dates Dr. Gudelia Gardiner MD Primary Care Provider Active Dr. Dennis Sepulveda MD Attending Provider Active Team Status: Active Member Role Status Dates Dr. Gudelia Gardiner MD Primary Care Prov ider, Attending Provider, Referring Provider Active Team Status: Inactive Member Role Status Dates Dr. Gudelia Gardiner MD Primary Care Provider Active Lorri Cooper PA, PA Attending Provider, Referr ing Provider Active Team Status: Inactive Member Role Status Dates Dr. Gudelia Gardiner MD Primary Care Provider, Referrin g Provider Active Hunter Tejeda POOL SERVICER, POOL SERVICER-C Attending Provider Active Team Status: Inactive Member Role Status Dates Dr. Gudelia Gardiner MD Primary Care Provider Active Hunter Tejeda POOL SERVICER, POOL SERVICER-C Attending Provider Active Team Status: Active Member Role Status Dates Dr. Gudelia Gardiner MD Primary Care Provider Active Dr. Jere Irene DO Emergency Provider Active Dr. Gisel Bowman DO Admit Provider, Attending Provide r Active Team Status: Active Member Role Status Dates Dr. Gudelia Gardiner MD Primary Care Provider Active Dr. Jere Irene DO Emergency Provider Active Dr. Gisel Bowman DO Admit Provider, Att ending Provider, Other Provider Active Team Status: Active Member Role Status Dates Dr. Gudelia Gardiner MD Primary Care Provider Active Dr. Jere Irene DO Emergency Provider Active Dr. Gisel Bowman DO Admit Provider, Other Provider Ac tive Dr. Ritu Dobson MD Attending Provider Active Team Status: Inactive Member Role Status Dates Dr. Gudelia Gardiner MD Primary Care Provider Active Dr. Jere Irene DO Emergency Provider Active Dr. Gisel Bowman DO Admit Provider, Attending Provide r Active Team Status: Inactive Member Role Status Dates Dr. Gudelia Gardiner MD Primary Care Prov ider, Attending Provider, Referring Provider Active Team Status: Active Member Role Status Dates Dr. Gudelia Gardiner MD Primary Care Provider Active Lorri Cooper PA, PA Referring Provider, Other Provider Active Dr. Dennis Sepulveda MD Attending Provider Active Team Status: Active Member Role Status Dates Dr. Gudelia Gardiner MD Primary Care Provider Active Nataliya Briones POOL SERVICER, POOL SERVICER-C Attending Provider Active Team Status: Inactive Member Role Status Dates Dr. Gudelia Gardiner MD Primary Care Provider Active Dr. Kiki Galindo DO Attending Provider, Sakina P nelsy Active Team Status: Active Member Role Status Dates Dr. Gudelia Gardiner MD Primary Care Provider Active Lorri Cooper PA, PA Attending Provider, Referr ing Provider Active Team Status: Active Member Role Status Dates Dr. Gudelia Gardiner MD Primary Care Provider Active Dr. Dennis Sepulveda MD Attending Provider, Referring Provider, Other Provider Active Team Status: Active Member Role Status Dates Dr. Gudelia Gardiner MD Primary Care Provider Active Dr. Dennis Sepulveda MD Referring Provider, Other Provide r Active Dr. Parth Parks DO Attending Provider Active Team Status: Inactive Member Role Status Dates Dr. Gudelia Gardiner MD Primary Care Provider Active Dr. Dennis Sepulveda MD Attending Provider, Referring Pro vider Active Team Status: Active Member Role Status Dates Neeraj Seo MD Primary Care Provider Active Team Status: Inactive Member Role Status Dates Dr. Gudelia Gardiner MD Primary Care Provider Active Start: June 22, 2024 End: June 22, 2024 Dr. Kareem Packer MD Attending Provider Active Start: June 22, 2024 End: June 22, 2024 Team Status: Inactive Member Role Status Dates Dr. Gudelia Gardiner MD Primary Care Provider Active Start: July 20, 2024 End: July 20, 2024 Dr. Gudelia Gardiner MD Referring Provider Active Start: July 20, 2024 End: July 20, 2024 Tamara Morrison POOL SERVICER, POOL SERVICER-C Attending Provider Active Start: July 20, 2024 End: July 20, 2024 Team Status: Inactive Member Role Status Dates Dr. Gudelia Gardiner MD Primary Care Provider Active Start: September 23, 2024 End: September 23, 2024 Lorri Cooper PA, PA Attending Provider Active Start: September 23, 2024 End: September 23, 2024 Lorri Cooper PA, PA Referring Provider Active Start: September 23, 2024 End: September 23, 2024 Neeraj Seo MD Other Provider Active Start: Beka burroughs 2024 End: September 23, 2024 Team Status: Active Member Role Status Dates Dr. Gudelia Gardiner MD Primary Care Provider Active Start: September 23, 2024 Dr. Dennis Sepulveda MD Attending Provider Active S tart: September 23, 2024 Team Status: Active Member Role Status Dates Dr. Gudelia Gardiner MD Referring Provider Active Start: September 28, 2024 Lorri GEE, PA Attending Provider Active Start: September 28, 2024 Neeraj Seo MD Primary Care Provider Active St art: September 28, 2024 Team Status: Inactive Member Role Status Dates Dr. Gudelia Gardiner MD Referring Provider Active Start: September 28, 2024 End: September 28, 2024 Lorri GEE, PA Attending Provider Active Start: September 28, 2024 End: September 28, 2024 Neeraj Seo MD Primary Care Provider Active St art: September 28, 2024 End: September 28, 2024 Team Status: Active Member Role/Relationship Status Dates Neeraj Seo MD Primary Care Provider Active Team Status: Inactive Member Role/Relationship Status Dates Dr. Gudelia Gardiner MD Primary Care Provider Active Start: September 23, 2024 End: September 23, 2024 Lorri GEE, PA Attending Provider Active Start: September 23, 2024 End: September 23, 2024 Lorri Cooper PA, PA Referring Provider Active Start: September 23, 2024 End: September 23, 2024 Neeraj Seo MD Other Provider Active Start: Beka burroughs 2024 End: September 23, 2024 Team Status: Active Member Role/Relationship Status Dates Dr. Gudelia Gardiner MD Primary Care Provider Active Start: September 23, 2024 Dr. Dennis Sepulveda MD Attending Provider Active S tart: September 23, 2024 Team Status: Inactive Member Role/Relationship Status Dates Dr. Gudelia Gardiner MD Referring Provider Active Start: September 28, 2024 End: September 28, 2024 Lorri GEE, PA Attending Provider Active Start: September 28, 2024 End: September 28, 2024 Neeraj Seo MD Primary Care Provider Active St art: September 28, 2024 End: September 28, 2024 Team Status: Inactive Member Role/Relationship Status Dates Neeraj Seo MD Primary Care Provider Active St art: December 30, 2024 End: December 30, 2024 Neeraj Seo MD Referring Provider Active Start : December 30, 2024 End: December 30, 2024 Lorri GEE, PA Attending Provider Active Start: December 30, 2024 End: December 30, 2024 INFORMATION SOURCE (unrecogn ized section and content) DATE CREATED AUTHOR 03/16/2025 [facility] FOR RECORDS PERTAINING TO PATIENTS WHO ARE OR HAVE BEEN ENROLLED IN A CHEMICAL DEPENDENCY/SUBSTANCEABUSE PROGRAM, SOME INFORMATION MAY BE OMITTED. This clinical summary was aggregated from multiple sources. Caution should be exercised in using it in the provision of clinical care. This summary normalizes information from multiple sources, and as a consequence, information in this document may materially change the coding, format and clinical context of patient data. In addition, data may be omitted in some cases. CLINICAL DECISIONS SHOULD BE BASED ON THE PRIMARY CLINICAL RECORDS. [facility]. provides no warranty or guarantee of the accuracy or completeness of information in this document.
[2025-04-06 10:04] LABS: Hematocrit 44.1 % (37-47); Hemoglobin 14.5 g/dL (12.0-15.0); Mean Corp Hgb Conc 32.9 g/dL (32-36); Mean Corpuscular Volume 101.1 fL (81-99); Mean Platelet Vol. 9.4 fl (6.2-12.0); Platelet Count 223 K/mm3 (150-450); RBC Distribution Width CV 13.8 % (11.6-14.6); RBC Distribution Width SD 51.5 fl (35.1-43.9); Red Blood Count 4.36 M/mm3 (4.2-5.4); White Blood Count 7.6 K/mm3 (4.4-11.0)
[2025-04-06 10:33] LABS: AST(SGOT) 21 U/L (<=31); Alanine Aminotransfer ALT/SGPT 18 U/L (<=34); Albumin, Serum 3.9 g/dL (3.4-4.8); Alkaline Phosphatase 61 U/L (35-104); Anion Gap 13 (5-15); BUN 18 mg/dL (4-19); BUN/Creat Ratio 17.8 RATIO (10-20); Calcium,Total 9.9 mg/dL (7.6-11.0); Carbon Dioxide 26.1 mmol/L (21.0-32.0); Chloride 104 mmol/L (98-108); Cholesterol 157 mg/dL (<=200); Globulin 3.1 g/dL (2.2-4.2); Glucose 149 mg/dL (70-99); Low Density Lipoprotein Calc. 83 mg/dL; Potassium 4.3 mmol/L (3.3-5.1); Triglycerides 272 mg/dL; Very Low Density Lipoprotein 54 mg/dL (5-40); cholesterol:hdl ratio screen 5.45
[2025-04-06 12:06] LABS: Creatinine, Urine (random) 83.40 mg/dL (28.00-217.00)
[2025-04-06 12:18] LABS: Microalbumin,Random Urine 1902.0 mg/L (<20 mg/L)
== END | disposition home or self-care (01) ==
LOC: MTLAB 07:29
PROVIDERS: PCP Family Medicine; Referring Provider Family Medicine; Visit Provider Family Medicine
DX: E11.40 Type 2 diabetes mellitus with diabetic neuropathy, unspecified (principal); E03.9 Hypothyroidism, unspecified
CPT/HCPCS: 36415; 80053; 80061; 82043; 82570; 84443; 85027